=== PATIENT | female | born 1945 | race Caucasian/White ===

== ENCOUNTER 2016-08-10 16:41 | Observation (INO) ==
--- NOTE | 2016-08-10 17:55 | Emergency Department Note ---
Disposition Clinical Impression: Nausea, Elevated troponin Disposition: Admitted As Inpatient Condition: Good Abdominal Pain HPI - General Chief Complaint: ED Abdominal Pain Stated Complaint: abdominal pain/nausea Time Seen by Provider: 08/10/16 17:19 Source: patient Mode of arrival: ambulatory Limitations: no limitations Nursing Notes Reviewed: Yes Vital Signs Reviewed: Yes - History of Present Illness HPI Narrative: 71-year-old who comes in complaining of abdominal discomfort and a headache. She is noted to have elevated blood pressure. He should was hospitalized at [facility] with bullous pemphigoid. Patient was transferred to long term and was recently discharged from there. They should states she is nauseated with some abdominal discomfort and also complaining of a headache. Patient's blood pressure is elevated 180/111. 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 Consistency: constant Location: diffuse Pain Severity: mild, moderate Quality: aching Radiation: none Migration to: no migration Improves with: nothing Worsens with: nothing Associated symptoms: Reports: nausea, other (Headache) - Related Data Home Medications Medication Instructions Recorded Confirmed Aspirin Enteric Coated [Aspirin EC] 81 mg PO DAILY 06/16/16 08/11/16 Citalopram Hydrobromide 40 mg PO DAILY 06/16/16 08/11/16 [Citalopram HBr] Cyclobenzaprine [Flexeril] 10 mg PO HS PRN 06/16/16 08/10/16 Fenofibrate [Fenofibrate] 160 mg PO DAILY 06/16/16 08/11/16 Gabapentin [Gabapentin] 800 mg PO TID 06/16/16 08/11/16 Isosorbide MONOnitrate (24 HR) 30 mg PO DAILY 06/16/16 08/11/16 [Imdur] Loratadine [Claritin] 10 mg PO DAILY 06/16/16 08/11/16 Metoprolol XL (24 HR) Succ [Toprol 50 mg PO DAILY 06/16/16 08/11/16 XL] [place]-3 Acid Ethyl Esters [Lovaza] 2 gm PO BID 06/16/16 08/11/16 Atorvastatin [Lipitor] 40 mg PO HS 08/11/16 08/11/16 Ferrous Sulfate 324 mg PO TID 08/11/16 08/11/16 Insulin DETEMIR [Levemir Flextouch] 40 unit SQ DAILY 08/11/16 08/11/16 Insulin LISPRO [HumaLOG] 0 units SQ TIDWM MDD SLIDING SCALE 08/11/16 08/11/16 PredniSONE 10 mg PO DAILY 08/11/16 08/11/16 Allergies Allergy/AdvReac Type Severity Reaction Status Date / Time No Known Allergies Allergy Verified 05/14/16 07:52 All systems ED: reviewed and negative except as stated. Constitutional: Denies: fever, chills, weakness, weight change Eyes: Denies: eye pain, eye discharge, vision change ENT ED: Denies: ear pain, throat pain, dental pain, hearing loss, epistaxis, congestion, dysphagia Cardiovascular: Denies: chest pain, palpitations, dyspnea on exertion, edema, syncope Respiratory: Denies: cough, dyspnea, wheezes, hemoptysis, stridor Gastrointestinal: Reports: abdominal pain, nausea, vomiting. Denies: diarrhea, constipation, hematemesis, melena, hematochezia Genitourinary: Denies: dysuria, frequency, hematuria, discharge Musculoskeletal: Denies: back pain, neck pain, arthralgia, myalgia Integumentary: Denies: rash, abrasion, lesions Neurological: Reports: headache. 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 Psychiatric history: Reports: anxiety, depression - Social History Smoking status: Never smoker Alcohol use: Reports: none Drug use: Reports: none Physical Exam - General Limitations: no limitations General appearance: alert, in no apparent distress - Head Head exam: atraumatic, normocephalic, normal inspection - Eye Eye exam: Present: normal appearance, PERRL, EOMI - ENT ENT exam: normal exam, normal oropharynx, mucous membranes moist - Neck Neck exam: Present: normal inspection, full ROM, trachea midline - Chest Chest inspection: Present: normal inspection, symmetric chest wall rise - Respiratory Respiratory exam: Present: normal lung sounds bilaterally - Cardiovascular Cardiovascular exam: Present: regular rate, normal rhythm, normal heart sounds - Abdominal Exam Abdominal exam: Present: tenderness Abdominal tenderness: Present: mild - Extremities Exam Extremities exam: Present: normal inspection, full ROM. Absent: tenderness, pedal edema - Expanded Lower Extremity Exam Neurovascular/Tendon exam: Absent: motor deficit, sensory deficit, tendon deficit Gait: observed and normal - Back Exam Back exam: Present: normal inspection, full ROM. Absent: tenderness - Neurological Exam Neurological exam: Present: alert, oriented X3 - Psychiatric Psychiatric exam: Present: normal affect, normal mood - Skin Skin exam: Present: warm, dry, intact, normal color Course Vital Signs Temperature 98.7 F 08/10/16 16:43 Pulse Rate 108 08/10/16 16:43 Respiratory Rate 16 08/10/16 16:43 Blood Pressure 188/111 08/10/16 16:43 O2 Sat by Pulse Oximetry 97 08/10/16 16:43 Temperature 97.5 F L 08/12/16 06:59 Pulse Rate 85 08/12/16 06:59 Respiratory Rate 17 08/12/16 06:59 Blood Pressure 176/78 08/12/16 09:33 O2 Sat by Pulse Oximetry 96 08/12/16 06:59 Oxygen Delivery Oxygen Delivery Room Air Abdominal Pain - Lab Data Result diagrams: 08/12/16 04:35 08/12/16 04:35 Lab Results 08/10/16 08/10/16 08/10/16 Range/Units 18:19 18:19 18:19 WBC 10.6 (4.3-11.1) K/mcL RBC 4.61 (3.82-4.97) M/mcL Hgb 12.4 (11.5-15.4) g/dL Hct 37.7 (35.3-44.9) % MCV 81.8 L (83.0-100.0) fL MCH 26.9 L (28.0-33.3) pg MCHC 32.9 (31.6-35.5) g/dL RDW 15.4 H (11.5-14.5) % Plt Count 198 (140-400) K/mcL MPV 9.7 (9.4-12.4) fL Immature Gran % 0.8 (0-4) % Seg Neutrophils % 68.5 % Lymphocytes % 20.2 % Monocytes % 6.2 % Eosinophils % 3.8 % Basophils % 0.5 % Neutrophils # 7.3 (1.6-8.9) K/mcL Lymphocytes # 2.1 (0.6-4.6) K/mcL Monocytes # 0.7 (0.0-1.3) K/mcL Eosinophils # 0.4 (0.0-0.6) K/mcL Basophils # 0.1 (0.0-0.2) K/mcL Immature Plt Fraction 2.9 (1.1-6.1) % Sodium (136-145) mEq/L Potassium (3.5-4.5) mEq/L Chloride (98-109) mEq/L Carbon Dioxide (19-29) mEq/L BUN (7-20) mg/dL Creatinine (0.57-1.11) mg/dL Est GFR ( Amer) (> 60) Est GFR (Non-Af Amer) (> 60) BUN/Creatinine Ratio (6-26) Glucose (70-99) mg/dL Calculated Osmolality (280-300) Lactic Acid 1.2 (0.5-2.2) mmol/L Calcium (8.6-10.8) mg/dL Total Bilirubin (0.2-1.2) mg/dL Direct Bilirubin (0.0-0.5) mg/dL Indirect Bilirubin (0.0-1.2) mg/dL AST (5-34) Units/L ALT (0-55) Units/L Alkaline Phosphatase (38-126) Units/L Troponin I 0.11 H* (0-0.03) ng/mL Serum Total Protein (6.0-8.3) g/dL Albumin (3.5-5.0) g/dL Globulin (2.4-3.5) g/dL Albumin/Globulin Ratio (1.1-2.2) Amylase (25-125) Units/L Lipase (8-78) Units/L Urine Color (Yellow) Urine Clarity (Clear) Urine pH (5.0-8.0) pH Units Ur Specific [place] (1.010-1.025) Urine Protein (Neg-Trace) mg/dL Urine Glucose (UA) (Normal) mg/dL Urine Ketones (Negative) mg/dL Urine Blood (Negative) Urine Nitrite (Negative) Urine Bilirubin (Negative) Urine Urobilinogen (Normal) mg/dL Ur Leukocyte Esterase (Negative) Urine Microscopic RBC (0-3) per hpf Urine Microscopic WBC (0-3) per hpf Ur Squamous Epith Cells (None-Few) per lpf Ur Renal Epithelial Cell (None-Few) per hpf Urine Bacteria (None-Few) per hpf Hyaline Casts (None-Few) per lpf Urine Yeast Ur Culture Indicated? (NO) 08/10/16 08/10/16 Range/Units 18:19 18:26 WBC (4.3-11.1) K/mcL RBC (3.82-4.97) M/mcL Hgb (11.5-15.4) g/dL Hct (35.3-44.9) % MCV (83.0-100.0) fL MCH (28.0-33.3) pg MCHC (31.6-35.5) g/dL RDW (11.5-14.5) % Plt Count (140-400) K/mcL MPV (9.4-12.4) fL Immature Gran % (0-4) % Seg Neutrophils % % Lymphocytes % % Monocytes % % Eosinophils % % Basophils % % Neutrophils # (1.6-8.9) K/mcL Lymphocytes # (0.6-4.6) K/mcL Monocytes # (0.0-1.3) K/mcL Eosinophils # (0.0-0.6) K/mcL Basophils # (0.0-0.2) K/mcL Immature Plt Fraction (1.1-6.1) % Sodium 138 (136-145) mEq/L Potassium 3.6 (3.5-4.5) mEq/L Chloride 100 (98-109) mEq/L Carbon Dioxide 27 (19-29) mEq/L BUN 22 H (7-20) mg/dL Creatinine 1.28 H (0.57-1.11) mg/dL Est GFR ( Amer) 50 L (> 60) Est GFR (Non-Af Amer) 41 L (> 60) BUN/Creatinine Ratio 17 (6-26) Glucose 246 H (70-99) mg/dL Calculated Osmolality 298 (280-300) Lactic Acid (0.5-2.2) mmol/L Calcium 11.1 H (8.6-10.8) mg/dL Total Bilirubin 0.7 (0.2-1.2) mg/dL Direct Bilirubin 0.3 (0.0-0.5) mg/dL Indirect Bilirubin 0.4 (0.0-1.2) mg/dL AST 26 (5-34) Units/L ALT 22 (0-55) Units/L Alkaline Phosphatase 14 L (38-126) Units/L Troponin I (0-0.03) ng/mL Serum Total Protein 6.5 (6.0-8.3) g/dL Albumin 2.9 L (3.5-5.0) g/dL Globulin 3.6 H (2.4-3.5) g/dL Albumin/Globulin Ratio 0.8 L (1.1-2.2) Amylase 23 L (25-125) Units/L Lipase 27 (8-78) Units/L Urine Color Yellow (Yellow) Urine Clarity Clear (Clear) Urine pH 7.5 (5.0-8.0) pH Units Ur Specific [place] 1.022 (1.010-1.025) Urine Protein >=300 H (Neg-Trace) mg/dL Urine Glucose (UA) 500 H (Normal) mg/dL Urine Ketones Trace H (Negative) mg/dL Urine Blood Moderate H (Negative) Urine Nitrite Negative (Negative) Urine Bilirubin Negative (Negative) Urine Urobilinogen Normal (Normal) mg/dL Ur Leukocyte Esterase Negative (Negative) Urine Microscopic RBC 30-50 H (0-3) per hpf Urine Microscopic WBC 0-3 (0-3) per hpf Ur Squamous Epith Cells Many H (None-Few) per lpf Ur Renal Epithelial Cell Few (None-Few) per hpf Urine Bacteria None Seen (None-Few) per hpf Hyaline Casts Few (None-Few) per lpf Urine Yeast Test Not Performed Ur Culture Indicated? NO (NO) S.B.A.R. - S.B.A.R. Recommendation: Recommendation based on pending studies, treatments, or consults S.B.A.R. Report Given to: Dr. Mohini FuADanyelle Repor Time: 19:00
[2016-08-10 18:27] LABS: Basophils # 0.1 K/mcL (0.0-0.2); Basophils % 0.5 %; Eosinophils # 0.4 K/mcL (0.0-0.6); Eosinophils % 3.8 %; Hematocrit 37.7 % (35.3-44.9); Hemoglobin 12.4 g/dL (11.5-15.4); Immature Granulocytes % 0.8 % (0-4); Immature Platelets 2.9 % (1.1-6.1); Lymphocytes # 2.1 K/mcL (0.6-4.6); Lymphocytes % 20.2 %; Mean Corpuscular HGB Conc 32.9 g/dL (31.6-35.5); Mean Corpuscular Hemoglobin 26.9 pg (28.0-33.3); Mean Corpuscular Volume 81.8 fL (83.0-100.0); Mean Platelet Volume 9.7 fL (9.4-12.4); Monocytes # 0.7 K/mcL (0.0-1.3); Monocytes % 6.2 %; Neutrophils # 7.3 K/mcL (1.6-8.9); Platelet Count 198 K/mcL (140-400); Red Blood Count 4.61 M/mcL (3.82-4.97); Red Cell Distribution Width 15.4 % (11.5-14.5); Segmented Neutrophils % 68.5 %
[2016-08-10 18:40] LABS: Bilirubin,Urine Negative (Negative); Blood,Urine Moderate (Negative); Color,Urine Yellow (Yellow); Glucose,Urine (UA) 500 mg/dL (Normal); Ketones,Urine Trace mg/dL (Negative); Leukocyte Esterase,Urine Negative (Negative); Nitrite,Urine Negative (Negative); PH,Urine 7.5 pH Units (5.0-8.0); Protein,Urine >=300 mg/dL (Neg-Trace); Specific Gravity,Urine 1.022 (1.010-1.025); Urobilinogen,Urine Normal (Normal)
[2016-08-10 18:42] LABS: Bacteria,Urine None Seen per hpf (None-Few); Clarity,Urine Clear (Clear); Squamous Epithelial Cell,Urine Many per lpf (None-Few); WBC,Urine 0-3 per hpf (0-3)
[2016-08-10 18:48] LABS: Albumin 2.9 g/dL (3.5-5.0); Albumin/Globulin Ratio 0.8 (1.1-2.2); Bilirubin,Direct 0.3 mg/dL (0.0-0.5); Bilirubin,Indirect 0.4 mg/dL (0.0-1.2); Bilirubin,Total 0.7 mg/dL (0.2-1.2); Calcium 11.1 mg/dL (8.6-10.8); Globulin 3.6 g/dL (2.4-3.5); Potassium 3.6 mEq/L (3.5-4.5); Total Protein 6.5 g/dL (6.0-8.3)
[2016-08-10 18:59] LABS: Hyaline Casts,Urine Few per lpf (None-Few); Renal Epithelial Cells,Urine Few per hpf (None-Few)
[2016-08-10 19:00] LABS: RBC,Urine 30-50 per hpf (0-3)
[2016-08-10] MEDS ORDERED: *HR* Metoprolol 5 MG/5 ML VIAL IVP ONE (19:31)
[2016-08-10] MEDS ORDERED: Ondansetron 4 MG/2 ML VIAL IVP ONE (19:31)
[2016-08-10] MEDS ORDERED: Aspirin 81 MG TAB.CHEW PO ONE (19:39)
--- NOTE | 2016-08-10 19:41 | Emergency Department Note ---
Disposition Clinical Impression: Nausea, Elevated troponin Disposition: Admitted As Inpatient Condition: Good Time of Disposition: 19:56 General Adult HPI - General Chief complaint: ED Abdominal Pain Stated complaint: abdominal pain/nausea Time Seen by Provider: 08/10/16 17:19 Source: patient Mode of arrival: ambulatory Limitations: no limitations - History of Present Illness Pain Scale: 6 - Related Data Home Medications Medication Instructions Recorded Confirmed Aspirin Enteric Coated [Aspirin EC] 81 mg PO DAILY 06/16/16 08/10/16 Citalopram Hydrobromide 40 mg PO DAILY 06/16/16 08/10/16 [Citalopram HBr] Cyclobenzaprine [Flexeril] 10 mg PO HS PRN 06/16/16 08/10/16 Fenofibrate [Fenofibrate] 160 mg PO DAILY 06/16/16 08/10/16 Gabapentin [Gabapentin] 800 mg PO TID 06/16/16 08/10/16 Insulin Glargine [Lantus] 40 unit SQ DAILY 06/16/16 08/10/16 Isosorbide MONOnitrate (24 HR) 30 mg PO DAILY 06/16/16 08/10/16 [Imdur] Loratadine [Claritin] 10 mg PO DAILY 06/16/16 08/10/16 Metoprolol XL (24 HR) Succ [Toprol 50 mg PO DAILY 06/16/16 08/10/16 XL] [place]-3 Acid Ethyl Esters [Lovaza] 2 gm PO BID 06/16/16 08/10/16 Allergies Allergy/AdvReac Type Severity Reaction Status Date / Time No Known Allergies Allergy Verified 05/14/16 07:52 Constitutional: Denies: fever, chills, weakness, weight change Eyes: Denies: eye pain, eye discharge, vision change ENT ED: Denies: ear pain, throat pain, dental pain, hearing loss, epistaxis, congestion, dysphagia Cardiovascular: Denies: chest pain, palpitations, dyspnea on exertion, edema, syncope Respiratory: Denies: cough, dyspnea, wheezes, hemoptysis, stridor Gastrointestinal: Reports: abdominal pain, nausea, vomiting. Denies: diarrhea, constipation, hematemesis, melena, hematochezia Genitourinary: Denies: dysuria, frequency, hematuria, discharge Musculoskeletal: Denies: back pain, neck pain, arthralgia, myalgia Integumentary: Denies: rash, abrasion, lesions Neurological: Reports: headache. 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 Edwards. Troponin was found to be elevated to 0.11. Troponin has never been this elevated before. Patient complains of nausea and does admit to exertional dyspnea. Blood pressure has been elevated while in the emergency department. We will lower this with metoprolol. She is not sure whether she took her home blood pressure meds today. Aspirin was administered. Repeat EKG is unchanged from initial EKG. Repeat EKG shows sinus tachycardia at [address] elevation or depression. Inferior T wave inversions are present. There is some limitation of motion artifact. Inferior Q waves are present. There is no significant change from prior EKG. Accepted by Dr. Venegas Time: 19:56 Vital Signs Temperature 98.7 F 08/10/16 16:43 Pulse Rate 108 08/10/16 16:43 Respiratory Rate 16 08/10/16 16:43 Blood Pressure 188/111 08/10/16 16:43 O2 Sat by Pulse Oximetry 97 08/10/16 16:43 Temperature 98.2 F 08/11/16 03:07 Pulse Rate 80 08/11/16 03:07 Respiratory Rate 18 08/11/16 03:07 Blood Pressure 187/83 08/11/16 03:07 O2 Sat by Pulse Oximetry 95 08/11/16 03:07 Oxygen Delivery Oxygen Delivery Room Air Medical Decision Making - Lab Data Result diagrams: 08/11/16 00:51 08/11/16 00:51 Lab Results 08/10/16 08/10/16 08/10/16 Range/Units 18:19 18:19 18:19 WBC 10.6 (4.3-11.1) K/mcL RBC 4.61 (3.82-4.97) M/mcL Hgb 12.4 (11.5-15.4) g/dL Hct 37.7 (35.3-44.9) % MCV 81.8 L (83.0-100.0) fL MCH 26.9 L (28.0-33.3) pg MCHC 32.9 (31.6-35.5) g/dL RDW 15.4 H (11.5-14.5) % Plt Count 198 (140-400) K/mcL MPV 9.7 (9.4-12.4) fL Immature Gran % 0.8 (0-4) % Seg Neutrophils % 68.5 % Lymphocytes % 20.2 % Monocytes % 6.2 % Eosinophils % 3.8 % Basophils % 0.5 % Neutrophils # 7.3 (1.6-8.9) K/mcL Lymphocytes # 2.1 (0.6-4.6) K/mcL Monocytes # 0.7 (0.0-1.3) K/mcL Eosinophils # 0.4 (0.0-0.6) K/mcL Basophils # 0.1 (0.0-0.2) K/mcL Immature Plt Fraction 2.9 (1.1-6.1) % Sodium (136-145) mEq/L Potassium (3.5-4.5) mEq/L Chloride (98-109) mEq/L Carbon Dioxide (19-29) mEq/L BUN (7-20) mg/dL Creatinine (0.57-1.11) mg/dL Est GFR ( Amer) (> 60) Est GFR (Non-Af Amer) (> 60) BUN/Creatinine Ratio (6-26) Glucose (70-99) mg/dL Calculated Osmolality (280-300) Lactic Acid 1.2 (0.5-2.2) mmol/L Calcium (8.6-10.8) mg/dL Total Bilirubin (0.2-1.2) mg/dL Direct Bilirubin (0.0-0.5) mg/dL Indirect Bilirubin (0.0-1.2) mg/dL AST (5-34) Units/L ALT (0-55) Units/L Alkaline Phosphatase (38-126) Units/L Troponin I 0.11 H* (0-0.03) ng/mL Serum Total Protein (6.0-8.3) g/dL Albumin (3.5-5.0) g/dL Globulin (2.4-3.5) g/dL Albumin/Globulin Ratio (1.1-2.2) Amylase (25-125) Units/L Lipase (8-78) Units/L Urine Color (Yellow) Urine Clarity (Clear) Urine pH (5.0-8.0) pH Units Ur Specific [place] (1.010-1.025) Urine Protein (Neg-Trace) mg/dL Urine Glucose (UA) (Normal) mg/dL Urine Ketones (Negative) mg/dL Urine Blood (Negative) Urine Nitrite (Negative) Urine Bilirubin (Negative) Urine Urobilinogen (Normal) mg/dL Ur Leukocyte Esterase (Negative) Urine Microscopic RBC (0-3) per hpf Urine Microscopic WBC (0-3) per hpf Ur Squamous Epith Cells (None-Few) per lpf Ur Renal Epithelial Cell (None-Few) per hpf Urine Bacteria (None-Few) per hpf Hyaline Casts (None-Few) per lpf Urine Yeast Ur Culture Indicated? (NO) 08/10/16 08/10/16 Range/Units 18:19 18:26 WBC (4.3-11.1) K/mcL RBC (3.82-4.97) M/mcL Hgb (11.5-15.4) g/dL Hct (35.3-44.9) % MCV (83.0-100.0) fL MCH (28.0-33.3) pg MCHC (31.6-35.5) g/dL RDW (11.5-14.5) % Plt Count (140-400) K/mcL MPV (9.4-12.4) fL Immature Gran % (0-4) % Seg Neutrophils % % Lymphocytes % % Monocytes % % Eosinophils % % Basophils % % Neutrophils # (1.6-8.9) K/mcL Lymphocytes # (0.6-4.6) K/mcL Monocytes # (0.0-1.3) K/mcL Eosinophils # (0.0-0.6) K/mcL Basophils # (0.0-0.2) K/mcL Immature Plt Fraction (1.1-6.1) % Sodium 138 (136-145) mEq/L Potassium 3.6 (3.5-4.5) mEq/L Chloride 100 (98-109) mEq/L Carbon Dioxide 27 (19-29) mEq/L BUN 22 H (7-20) mg/dL Creatinine 1.28 H (0.57-1.11) mg/dL Est GFR ( Amer) 50 L (> 60) Est GFR (Non-Af Amer) 41 L (> 60) BUN/Creatinine Ratio 17 (6-26) Glucose 246 H (70-99) mg/dL Calculated Osmolality 298 (280-300) Lactic Acid (0.5-2.2) mmol/L Calcium 11.1 H (8.6-10.8) mg/dL Total Bilirubin 0.7 (0.2-1.2) mg/dL Direct Bilirubin 0.3 (0.0-0.5) mg/dL Indirect Bilirubin 0.4 (0.0-1.2) mg/dL AST 26 (5-34) Units/L ALT 22 (0-55) Units/L Alkaline Phosphatase 14 L (38-126) Units/L Troponin I (0-0.03) ng/mL Serum Total Protein 6.5 (6.0-8.3) g/dL Albumin 2.9 L (3.5-5.0) g/dL Globulin 3.6 H (2.4-3.5) g/dL Albumin/Globulin Ratio 0.8 L (1.1-2.2) Amylase 23 L (25-125) Units/L Lipase 27 (8-78) Units/L Urine Color Yellow (Yellow) Urine Clarity Clear (Clear) Urine pH 7.5 (5.0-8.0) pH Units Ur Specific [place] 1.022 (1.010-1.025) Urine Protein >=300 H (Neg-Trace) mg/dL Urine Glucose (UA) 500 H (Normal) mg/dL Urine Ketones Trace H (Negative) mg/dL Urine Blood Moderate H (Negative) Urine Nitrite Negative (Negative) Urine Bilirubin Negative (Negative) Urine Urobilinogen Normal (Normal) mg/dL Ur Leukocyte Esterase Negative (Negative) Urine Microscopic RBC 30-50 H (0-3) per hpf Urine Microscopic WBC 0-3 (0-3) per hpf Ur Squamous Epith Cells Many H (None-Few) per lpf Ur Renal Epithelial Cell Few (None-Few) per hpf Urine Bacteria None Seen (None-Few) per hpf Hyaline Casts Few (None-Few) per lpf Urine Yeast Test Not Performed Ur Culture Indicated? NO (NO) Attestation Statement - Attestation Attestation: I, Yaw Rajan, examined this patient and my medical decision-making was reviewed with the DIETITIAN CONSULTANT/PA/Advanced Practice Nurse/Resident Physician. I agree with the documented findings, disposition and treatment plan as described except to the extent set forth below. 71-year-old female received in sign out from start of my shift from Dr. Edwards pending laboratory evaluation, CT read and disposition. Patient states she had acute onset of nausea and epigastric pain. Patient has an elevated troponin the emergency department. EKG did not show evidence of acute STEMI. Patient given aspirin the emergency department. She does report occasional exertional dyspnea but denies chest pain emergency Department. Patient will be admitted to the hospital for further care and evaluation of elevated troponin and rule out ACS.
[2016-08-10] MEDS ORDERED: Naloxone 0.4 MG/ML INJ IVP PRN (20:39)
[2016-08-10] MEDS ORDERED: D5% in Water 1,000 ML IVC PRN (20:48)
[2016-08-10] MEDS ORDERED: Dextrose Gel 15 GM PO PRN ×2 (20:48)
[2016-08-10] MEDS ORDERED: *HR* Dextrose 50 % in Water (Syg) 50 ML SYRINGE IVP PRN (20:48)
--- NOTE | 2016-08-10 20:52 | Internal Med History&Physical ---
Date of Encounter: 08/10/16 Time of Encounter: 20:00 Assessment and Plan (1) Acute gastritis Current visit: Yes Status: Acute Patient has nausea and vomiting. Abdominal exam is benign. CT abdomen unremarkable. - Consider acute gastritis, possibly viral - Symptomatic treatment. - IV fluid because patient has poor intake. - Closely monitor electrolytes level - Start from clear liquid diet. Qualifiers: Gastritis type: other gastritis Gastritis bleeding: without bleeding Qualified Code(s): K29.00 - Acute gastritis without bleeding (2) Hypertensive urgency Current visit: Yes Status: Acute Patient has history of hypertension. BP is high to 190s. - We will add amlodipine 10 mg by mouth daily starting from now. - Hydralazine 10 mg IV every 6 hours when necessary for hypertension. - Close monitor her blood pressure. (3) Diabetes Current visit: Yes Status: Acute Continue basal and sliding scale insulin. 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 Continue aspirin, beta ritesh, nitrate, and statin. Qualifiers: Coronary Disease-Associated Artery/Lesion type: [place] artery [place] vs. transplanted heart: [place] heart Associated angina: without angina Qualified Code(s): I25.10 - Atherosclerotic heart disease of [place] coronary artery without angina pectoris (5) CKD (chronic kidney disease) Current visit: Yes Status: Acute Chronic. Her creatinine level is about at her baseline Qualifiers: Chronic kidney disease stage: stage 3 (moderate) Qualified Code(s): N18.3 - Chronic kidney disease, stage 3 (moderate) (6) DVT prophylaxis Current visit: Yes Status: Acute Heparin subcutaneously (7) Elevated troponin Current visit: Yes Status: Acute Mild elevated troponin in a CKD setting, possibly demand ischemia. However, patient has history of CAD and risk factor for ACS - We will track 3 sets of troponin. - Continue closely cardiac monitoring. Internal Medicine - H&P: HPI Chief complaint: Nausea and vomiting Admitted From: Home Plans for Post Hospital Care: Home History of present illness: Ms. Starr is a 71 year old female with a history of diabetes, hypertension, CAD, CKD present to ER for nausea and vomiting since yesterday afternoon. Patient said she feels headache and then started nausea. She vomited once today , the vomiting is the lunch she ate. No blood inside. Patient denies fever, runny nose, sore throat, cough, shortness of breath, chest pain, abdominal pain , diarrhea. In ER she was found blood pressure high to 190s. Patient said she is compliant with medication but does not examine blood pressure regularly. Patient was admitted for further management. Discussed the CODE STATUS with her, she is a full code. Past Med Surg Social Fam HX - Past Medical History Medical history: diabetes, hypertension Psychiatric history: anxiety, depression - Past Surgical History Surgical History: non-contributory - Social History Smoking Status: Never smoker Smokeless Tobacco Status: No Alcohol use: none Drug use: none Internal Medicine - H&P: Meds Aspirin Enteric Coated [Aspirin EC] 81 mg PO DAILY 06/16/16 [History] Citalopram Hydrobromide [Citalopram HBr] 40 mg PO DAILY 06/16/16 [History] Cyclobenzaprine [Flexeril] 10 mg PO HS PRN 06/16/16 [History] Fenofibrate [Fenofibrate] 160 mg PO DAILY 06/16/16 [History] Gabapentin [Gabapentin] 800 mg PO TID 06/16/16 [History] Insulin Glargine [Lantus] 40 unit SQ DAILY 06/16/16 [History] Isosorbide MONOnitrate (24 HR) [Imdur] 30 mg PO DAILY 06/16/16 [History] Loratadine [Claritin] 10 mg PO DAILY 06/16/16 [History] Metoprolol XL (24 HR) Succ [Toprol XL] 50 mg PO DAILY 06/16/16 [History] [place]-3 Acid Ethyl Esters [Lovaza] 2 gm PO BID 06/16/16 [History] Allergies No Known Allergies Allergy (Verified 05/14/16 07:52) All Systems PM: A 10-system review of systems was performed and is negative for pertinent findings except as documented above in the HPI. - Constitutional Vitals: Temp Pulse Resp BP Pulse Ox 98.7 F 83 18 197/80 94 08/10/16 16:43 08/10/16 19:52 08/10/16 20:41 08/10/16 20:41 08/10/16 19:52 General appearance: Present: A&O X 3, no acute distress, answers questions appropriately - Head Head exam: Present: atraumatic, normocephalic - Eye Eye exam: Present: PERRL, conjuntiva pink, sclera anicteric Pupils: Present: PERRL - Neck Neck exam general surgery: Present: supple, trachea midline. Absent: lymphadenopathy - Respiratory Respiratory exam: Present: CTAB. Absent: accessory muscle use, rales, rhonchi, wheezes - Cardiovascular Cardiovascular exam: Present: RRR, +S1, +S2. Absent: diastolic murmur, gallop, rubs, systolic murmur - GI/Abdominal GI/Abdominal exam: Present: normal bowel sounds, soft, no peritoneal signs. Absent: distended, tenderness - Extremities Exam Extremities exam: Present: warm, radial pulses palpable and symetrical. Absent : calf tenderness, cyanotic, pedal edema - Neurological Exam Neurological exam: Present: CN II-XII intact, oriented X3, no focal deficits. Absent: pronater drift, facial droop, speech deficit - Skin Skin exam: Present: dry, intact Internal Med - H&P Results - Labs CBC & Chem 7: 08/10/16 18:19 08/10/16 18:19 - EKG Data -: EKG Interpreted by Myself EKG shows normal: sinus rhythm Rate: normal
[2016-08-10] MEDS: 0.9 % Sodium Chloride 1,000 ML IVC SCH (22:08)
[2016-08-10] MEDS: Insulin DETEMIR 100 UNIT/ML X5UNITS SQ SCH (22:11)
[2016-08-10] MEDS: amLODIPine 5 MG TABLET PO SCH (22:11)
[2016-08-10] MEDS: Insulin LISPRO 300 UNITS/3 ML VIAL SQ SCH (22:17)
[2016-08-10] MEDS: Acetaminophen 325 MG TABLET PO PRN (23:01)
[2016-08-10] MEDS: Ondansetron 4 MG/2 ML VIAL IVP PRN (23:02)
[2016-08-11 01:06] LABS: Basophils # 0.1 K/mcL (0.0-0.2); Basophils % 0.5 %; Eosinophils # 0.4 K/mcL (0.0-0.6); Eosinophils % 3.6 %; Hematocrit 35.9 % (35.3-44.9); Hemoglobin 11.7 g/dL (11.5-15.4); Immature Granulocytes % 0.5 % (0-4); Immature Platelets 2.4 % (1.1-6.1); Lymphocytes # 2.3 K/mcL (0.6-4.6); Lymphocytes % 20.5 %; Mean Corpuscular HGB Conc 32.6 g/dL (31.6-35.5); Mean Corpuscular Hemoglobin 27.1 pg (28.0-33.3); Mean Corpuscular Volume 83.1 fL (83.0-100.0); Mean Platelet Volume 9.8 fL (9.4-12.4); Monocytes # 0.9 K/mcL (0.0-1.3); Neutrophils # 7.5 K/mcL (1.6-8.9); Platelet Count 205 K/mcL (140-400); Red Blood Count 4.32 M/mcL (3.82-4.97); Red Cell Distribution Width 15.7 % (11.5-14.5); Segmented Neutrophils % 66.9 %
[2016-08-11 01:22] LABS: Calcium 11.2 mg/dL (8.6-10.8); Magnesium 1.4 mg/dL (1.6-2.6); Potassium 3.4 mEq/L (3.5-4.5)
[2016-08-11] MEDS: *HR* Heparin 5,000 UNIT/ML VIAL SQ SCH ×2 (06:01→17:07)
[2016-08-11] MEDS: Ondansetron 4 MG/2 ML VIAL IVP PRN (06:06)
[2016-08-11] MEDS: 0.9 % Sodium Chloride 1,000 ML IVC SCH (08:25)
[2016-08-11] MEDS: amLODIPine 5 MG TABLET PO SCH (08:30)
[2016-08-11] MEDS: Metoprolol XL (24 HR) Succ 50 MG TAB.ER.24H PO SCH (08:30)
[2016-08-11] MEDS: Isosorbide MONOnitrate (24 HR) 30 MG TAB.ER.24H PO SCH (08:30)
[2016-08-11] MEDS: Aspirin Enteric Coated 81 MG Tablet PO SCH (08:30)
[2016-08-11] MEDS: Fenofibrate 54 MG TABLET PO SCH (08:30)
[2016-08-11] MEDS: Insulin LISPRO 300 UNITS/3 ML VIAL SQ SCH ×4 (08:31→20:31)
--- NOTE | 2016-08-11 09:42 | Internal Med Progress Note ---
<Casa Salazar - Last Filed: 08/11/16 15:38> Date of Encounter: 08/11/16 Time of Encounter: 09:42 - Assessment and plan (1) Elevated troponin Current Visit: Yes Status: Acute Assessment and plan: Patient history of bullous pemphigoid, diabetes, CTD 3, hypertension presented with cc of nausea that was preceded by global headache 8/10. Patient also states she has exertional dyspnea. Her nausea was not associated vomiting, chest pain, diaphoresis, abdominal pain. Patient was found to have elevated blood pressure of 188/111 and elevated troponins. Her EKG showed sinus tachycardia at a rate of [address] elevation or depressions and there was no change from previous. She had a myocardial infarction in 2000 and is status post PTCA Patient's troponins were 0.11, 0.14, 0.12 respectively. Patient's echocardiogram in 2014 which showed a left ventricle ejection fraction 60-65% with mild diastolic dysfunction, dilated left atrium and no significant valvular dysfunction. Stress test 2015 was negative for ischemia with a gated LVEF of 69%. Patient denies chest pain. Patient is on aspirin, statin, beta ritesh, Imdur. We will continue this We will obtain an echocardiogram, lipid panel, tsh. (2) Nausea Current Visit: Yes Status: Acute Assessment and plan: Patient's initial chief complaint post nausea. This is acute in onset and did not associated with vomiting, epigastric pain. Patient had a CT of the abdomen and brain which was negative. Patient is afebrile. Her nausea is controlled by Zofran. White blood cell count is within normal limits. She has baseline elevation of serum creatinine. And lipase within normal limits. Urinalysis negative for infection. Patient was recently diagnosed with bullous phemphigoid and started on prednisone which can cause gastritis. Patient is tolerating clear liquid diet. Start on omeprazole. We will continue to follow nausea however it has improved since admission. (3) Hypertensive urgency Current Visit: Yes Status: Acute Assessment and plan: Patient presented blood pressure 188/111. Med review shows that patient has not had any blood pressure medication for the last 4 months. She used to be treated with valsartan. Patient was started on amlodipine 10 mg. Her blood pressures decreased to 156/ 78. Furthermore she has been receiving when necessary doses of hydralazine 10 mg. Patient's hypertensive urgency was secondary to her blood pressure not being treated. On discharge she will continue amlodipine. (4) Diabetes Current Visit: Yes Status: Acute Assessment and plan: Patient has a history of diabetes mellitus 2. Last hemoglobin A1c on record is 12.7 in 2014. We will order another HgA1c. Currently patient is on insulin Levemir 14 units at night. Continue SSI COntinue diabetic and clear liquid diet continue ACHS accuchecks. Qualifiers: Diabetes mellitus type: type 2 Diabetes mellitus complication status: with kidney complications Diabetes mellitus complication detail: with chronic kidney disease Diabetes mellitus termination clerk insulin use: with termination clerk use Chronic kidney disease stage: stage 3 (moderate) Qualified Code(s): E11.22 - Type 2 diabetes mellitus with diabetic chronic kidney disease; N18.3 - Chronic kidney disease, stage 3 (moderate); Z79.4 - termination clerk (current) use of insulin (5) DVT prophylaxis Current Visit: Yes Status: Acute Assessment and plan: Continue heparin subcutaneous. (6) Bullous pemphigoid Current Visit: Yes Status: Acute Assessment and plan: patient was diagnosed recently at [facility] for bullous pemphiogid. Currenlty on predinose and triamcinolone 0.1% ointment. She has red patches throughout her skin, but there are no bullas. We will continue prednisone. - Subjective Interval history: 71 y/o Female hxof bullous phemphiogid, diabetes, CKDIII htn presented with cc of nausea. Patient states she had a headache and then developed nausea. Denies any vomiting. She also states she has exertional dyspnea. She was found to have BP of 188/111. She denied CP. EKG showed sinus tachycardia rate [address] elevation or depressions. Patient does not monitor her BP at home. According to her medication audit she has not been precribed a blood pressure medication but used to be on valsartan. Patient had abdominal ct and head ct that were unremarkable. She was started on amlodipine 10mg and hydralazine 10mg IV prn and her BP is currently 156/78. Patient continues to have nausea, but denies vomiting. She denies CP, abdominal pain, palpitations, diarrhea, blurry vision, syncope, dysuria. - Constitutional Vitals: Temp Pulse Resp BP Pulse Ox 97.8 F 96 16 157/77 96 05//17 07:56 08/11/16 07:56 08/11/16 07:56 08/11/16 07:56 08/11/16 07:56 General appearance: Present: A&O X 3, no acute distress, answers questions appropriately Internal Medicine: Result - Labs CBC & Chem 7: 08/11/16 00:51 08/11/16 00:51 Labs: Short CBC 08/11/16 Range/Units 00:51 WBC 11.3 H (4.3-11.1) K/mcL Hgb 11.7 (11.5-15.4) g/dL Hct 35.9 (35.3-44.9) % Plt Count 205 (140-400) K/mcL Neutrophils # 7.5 (1.6-8.9) K/mcL BMP 08/11/16 00:51 Sodium 141 Potassium 3.4 L Chloride 103 Carbon Dioxide 31 H BUN 21 H Creatinine 1.25 H Glucose 150 H Calcium 11.2 H Cardiac Enzymes 08/11/16 08/11/16 Range/Units 00:51 05:03 Troponin I 0.14 H* 0.12 H* (0-0.03) ng/mL Consult Discharge Plan - Plan Referrals: Anna White, TELETYPEWRITER OPERATOR [Primary Care Provider] - <Chin Herzog P - Last Filed: 08/11/16 17:57> Date of Encounter: 08/11/16 - Constitutional Vitals: Temp Pulse Resp BP Pulse Ox 97.8 F 81 16 156/78 97 08/11/16 11:41 08/11/16 11:41 08/11/16 11:41 08/11/16 11:41 08/11/16 11:41 Internal Medicine: Result - Labs CBC & Chem 7: 08/11/16 00:51 08/11/16 00:51 Labs: Short CBC 08/11/16 Range/Units 00:51 WBC 11.3 H (4.3-11.1) K/mcL Hgb 11.7 (11.5-15.4) g/dL Hct 35.9 (35.3-44.9) % Plt Count 205 (140-400) K/mcL Neutrophils # 7.5 (1.6-8.9) K/mcL BMP 08/11/16 00:51 Sodium 141 Potassium 3.4 L Chloride 103 Carbon Dioxide 31 H BUN 21 H Creatinine 1.25 H Glucose 150 H Calcium 11.2 H Cardiac Enzymes 08/11/16 08/11/16 Range/Units 00:51 05:03 Troponin I 0.14 H* 0.12 H* (0-0.03) ng/mL - Attending Attestation I examined this patient and my medical decision-making was reviewed with the COST COORDINATOR/PA/Advanced Practice Nurse/Resident Physician. I agree with the documented findings, disposition and treatment plan as described except to the extent set forth below.
[2016-08-11] MEDS: predniSONE 5 MG TABLET PO SCH (17:08)
--- NOTE | 2016-08-11 17:24 | Electrocardiograph Report ---
[place] [id number] Test Date: 2016-08-10 Pat Name: Christelle Starr Department: 102 Room: 2N1 Gender: F Oxygen Therapy Technician: Taurus : 1945 Requested By: Yury Edwards Order Number: [id number] Reading MD: Yaw Downs Measurements Intervals [place] Rate: 102 P: 90 KS: 163 QRS: -38 QRSD: 78 T: 39 QT: 344 QTc: 403 Interpretive Statements SINUS TACHYCARDIA MARKED LEFT AXIS DEVIATION Electronically Signed On 08-11-2016 17:22:38 EDT by Yaw Downs
--- NOTE | 2016-08-11 17:25 | Electrocardiograph Report ---
[place] [id number] Test Date: 2016-08-10 Pat Name: Christelle Starr Department: 104 Room: 2NE31 Gender: F Pumper Hand: CHRIS : 1945 Requested By: Gavin Pitts Order Number: [id number] Reading MD: Yaw Downs Measurements Intervals [place] Rate: 105 P: 68 MT: 159 QRS: 2 QRSD: 85 T: 20 QT: 279 QTc: 340 Interpretive Statements SINUS TACHYCARDIA POSSIBLE ANTERIOR MYOCARDIAL INFARCTION, PROBABLY OLD INFERIOR MYOCARDIAL INFARCTION, PROBABLY OLD Electronically Signed On 08-11-2016 17:24:08 EDT by Yaw Downs
[2016-08-11] MEDS ORDERED: Magnesium Sulfate 2 GM in D5% in Water 100 ML IVPB ONE (18:34)
[2016-08-11] MEDS: Insulin DETEMIR 100 UNIT/ML X5UNITS SQ SCH (20:29)
[2016-08-11] MEDS: Acetaminophen 325 MG TABLET PO PRN (23:13)
[2016-08-12 04:59] LABS: Hematocrit 34.8 % (35.3-44.9); Hemoglobin 11.2 g/dL (11.5-15.4); Mean Corpuscular HGB Conc 32.2 g/dL (31.6-35.5); Mean Corpuscular Hemoglobin 26.7 pg (28.0-33.3); Mean Corpuscular Volume 82.9 fL (83.0-100.0); Mean Platelet Volume 9.7 fL (9.4-12.4); Platelet Count 182 K/mcL (140-400); Red Cell Distribution Width 15.6 % (11.5-14.5)
[2016-08-12 05:21] LABS: Chol/HDL Ratio 3.7 (0-4.9)
[2016-08-12 05:23] LABS: Calcium 9.7 mg/dL (8.6-10.8); Magnesium 1.6 mg/dL (1.6-2.6); Potassium 3.2 mEq/L (3.5-4.5)
[2016-08-12] MEDS: *HR* Heparin 5,000 UNIT/ML VIAL SQ SCH ×2 (05:39→16:49)
[2016-08-12 05:41] LABS: Thyroid Stimulating Hormone 1.219 mcIU/mL (0.350-4.840)
[2016-08-12] MEDS: 0.9 % Sodium Chloride 1,000 ML IVC SCH (06:30)
--- NOTE | 2016-08-12 08:25 | ECHO - Doppler Report ---
Echocardiogram Name: Christelle Starr Date of Study: 08/11/2016 Date: 1945 Ht: 60.0 in Medical Record#: [id number] Age: 71 Wt: 201.0 lb Gender: Female BSA: 1.87 Order #: [id number] Location: [facility] Room #: 2NE31 Reading Physician: Mamadou Clarke MD, [facility] Clinical Research Nurse: Zarina Jackson RDCS Ordering Physician: Casa Salazar DO Primary Physician: Anna White CNP Indications: Elevated Troponin Impressions: Normal LV systolic function, LVEF 55-60%. Moderate concentric left ventricular hypertrophy. Mild left ventricular diastolic dysfunction. Normal right ventricular size and function. Mild mitral regurgitation. Unable to estimate RVSP due to lack of TR jet. Left Ventricular Wall Motion: Rest Echo Findings All wall segments showed normal motion. Findings: Study Quality * Suboptimal echo windows. ECG Findings * Sinus rhythm with PACs. Left Ventricle * Normal LV systolic function, LVEF 55-60%. * Normal LV chamber size. * Moderate concentric left ventricular hypertrophy. * Mild left ventricular diastolic dysfunction. Right Ventricle * Normal right ventricular size and function. Left Atrium * Moderately dilated left atrium. Right Atrium * Normal right atrial size. Aorta * Normally sized aortic root. Pericardium * There is no pericardial effusion present. IVC * Normal IVC dimensions and inspiratory collapse. Aortic Valve * Aortic valve not well visualized. * No aortic stenosis. * Trace aortic regurgitation. Mitral Valve * Normal mitral valve structure. * No mitral stenosis. * Mild mitral regurgitation. Tricuspid Valve * Tricuspid valve not well visualized. * No tricuspid stenosis. * Trace tricuspid regurgitation. * Unable to estimate RVSP due to lack of TR jet. Pulmonic Valve * Pulmonic valve not well visualized. * No pulmonic stenosis. * No pulmonic regurgitation. History Hypertension Diabetes History of CAD/PTCA Myocardial Infarction 09/27/2014 a Previous Echo was performed. Measurements: BP: 156/ 78 2D Normal Values RVIDd: 3.33 cm IVSd: 1.50 cm 0.6 - 1.0 cm LVIDd: 4.34 cm 3.7 - 5.6 cm LVPWd: 1.40 cm 0.6 - 1.1 cm LVIDs: 2.83 cm 1.5 - 3.6 cm AO: 3.40 cm < 4.0 cm %FS: 34.80 cm >25 % LA volume: 75 Mitral Valve Peak E:1.23 m/sec Peak A:2.01 m/sec E/A Ratio:0.6 Updated by Mamadou Clarke MD, [facility] on 08/12/2016 8:18:59 AM electronically signed on 08/12/2016 8:19:26 AM with status of Final Wall Motion [place]: 1=Normal, 2=Hypokinesis, 3=Akinesis, 4=Dyskinesis, 5=Aneurysmal, 6=Hyperkinetic, X=Not Visualized (Blank)=Missing
[2016-08-12] MEDS: amLODIPine 5 MG TABLET PO SCH (08:49)
[2016-08-12] MEDS: Fenofibrate 54 MG TABLET PO SCH (08:49)
[2016-08-12] MEDS: Aspirin Enteric Coated 81 MG Tablet PO SCH (08:49)
[2016-08-12] MEDS: Isosorbide MONOnitrate (24 HR) 30 MG TAB.ER.24H PO SCH (08:49)
[2016-08-12] MEDS: predniSONE 5 MG TABLET PO SCH (08:49)
[2016-08-12] MEDS: Metoprolol XL (24 HR) Succ 50 MG TAB.ER.24H PO SCH (08:50)
[2016-08-12] MEDS: Insulin LISPRO 300 UNITS/3 ML VIAL SQ SCH ×4 (08:51→20:13)
[2016-08-12] MEDS: Ondansetron 4 MG/2 ML VIAL IVP PRN (15:00)
--- NOTE | 2016-08-12 15:02 | Internal Med Progress Note ---
<Casa Salazar - Last Filed: 08/12/16 16:07> Date of Encounter: 08/12/16 Time of Encounter: 14:59 - Assessment and plan (1) Elevated troponin Current Visit: Yes Status: Acute Assessment and plan: Patient history of bullous pemphigoid, diabetes, CTD 3, hypertension presented with cc of nausea that was preceded by global headache 8/10. Patient also states she has exertional dyspnea. Her nausea was not associated vomiting, chest pain, diaphoresis, abdominal pain. Patient was found to have elevated blood pressure of 188/111 and elevated troponins. Her EKG showed sinus tachycardia at a rate of [address] elevation or depressions and there was no change from previous. She had a myocardial infarction in 2000 and is status post PTCA Patient's troponins were 0.11, 0.14, 0.12 respectively. Patient's echocardiogram in 2014 which showed a left ventricle ejection fraction 60-65% with mild diastolic dysfunction, dilated left atrium and no significant valvular dysfunction. Stress test 2015 was negative for ischemia with a gated LVEF of 69%. Patient denies chest pain. Repeat echocardiogram: 55-60% EF with left ventricular concentric hypertrophy, mild LV diastolic dysfunction, mild mitral regurgitation. Lipid panel WNL, TSH WNL. Elevated troponin likely 2nd to combination of CKD III and hypertension. Patients BP is controlled on amlodipine. Patient is on aspirin, statin, beta ritesh, Imdur. We will continue this (2) Nausea Current Visit: Yes Status: Acute Assessment and plan: improved. stable. Tolerating diet. Advance to regular diabetic diet. Patient's initial chief complaint post nausea. This is acute in onset and did not associated with vomiting, epigastric pain. Patient had a CT of the abdomen and brain which was negative. Patient is afebrile. Her nausea is controlled by Zofran. White blood cell count is within normal limits. She has baseline elevation of serum creatinine. And lipase within normal limits. Urinalysis negative for infection. Patient was recently diagnosed with bullous phemphigoid and started on prednisone which can cause gastritis. Patient is tolerating clear liquid diet. Start on omeprazole. We will continue to follow nausea however it has improved since admission. (3) Hypertensive urgency Current Visit: Yes Status: Acute Assessment and plan: Patient presented blood pressure 188/111. Med review shows that patient has not had any blood pressure medication for the last 4 months. She used to be treated with valsartan. Patient was started on amlodipine 10 mg. Her blood pressures decreased to 156/ 78. Furthermore she has been receiving when necessary doses of hydralazine 10 mg. Patient's hypertensive urgency was secondary to her blood pressure not being treated and underlying CKDIII. On discharge she will continue amlodipine. (4) Diabetes Current Visit: Yes Status: Acute Assessment and plan: Patient has a history of diabetes mellitus 2. Last hemoglobin A1c on record is 12.7 in 2014. We will order another HgA1c. Currently patient is on insulin Levemir 14 units at night. Continue SSI COntinue diabetic and clear liquid diet continue ACHS accuchecks. Qualifiers: Diabetes mellitus type: type 2 Diabetes mellitus complication status: with kidney complications Diabetes mellitus complication detail: with chronic kidney disease Diabetes mellitus long term acute care registered nurse insulin use: with custodial use Chronic kidney disease stage: stage 3 (moderate) Qualified Code(s): E11.22 - Type 2 diabetes mellitus with diabetic chronic kidney disease; N18.3 - Chronic kidney disease, stage 3 (moderate); Z79.4 - assistant terminal manager (current) use of insulin (5) DVT prophylaxis Current Visit: Yes Status: Acute Assessment and plan: Continue heparin subcutaneous. (6) Bullous pemphigoid Current Visit: Yes Status: Acute Assessment and plan: patient was diagnosed recently at [facility] for bullous pemphiogid. Currenlty on predinose and triamcinolone 0.1% ointment. She has red patches throughout her skin, but there are no bullas. We will continue prednisone and triamcinilone cream. - Subjective Interval history: Nausea improved. denies vomiting. She denies CP, abdominal pain, palpitations, diarrhea, blurry vision, syncope, dysuria. BP elevated this morning in systolic 200s. Repeat after morning medications was 157 systolic. - Constitutional Vitals: Temp Pulse Resp BP Pulse Ox 98.7 F 75 16 152/68 98 08/12/16 14:44 08/12/16 14:44 08/12/16 14:44 08/12/16 14:44 08/12/16 14:44 General appearance: Present: A&O X 3, no acute distress, answers questions appropriately - Eye Eye exam: Present: PERRL, conjuntiva pink, sclera anicteric Pupils: Present: PERRL - Neck Neck exam general surgery: Present: supple, trachea midline. Absent: lymphadenopathy - Respiratory Respiratory exam: Present: CTAB. Absent: accessory muscle use, rales, rhonchi, wheezes - Cardiovascular Cardiovascular exam: Present: RRR, +S1, +S2. Absent: diastolic murmur, gallop, rubs, systolic murmur - GI/Abdominal GI/Abdominal exam: Present: normal bowel sounds, soft, no peritoneal signs. Absent: distended, tenderness - Extremities Exam Extremities exam: Present: warm, radial pulses palpable and symetrical. Absent : calf tenderness, cyanotic, pedal edema - Neurological Exam Neurological exam: Present: CN II-XII intact, oriented X3, no focal deficits. Absent: pronater drift, facial droop, speech deficit - Skin Skin exam: Present: dry, intact Additional comments: red non raised patches throughout the body in multiple stages on healing. Left fore arm open wound that is dry, dressed well. Internal Medicine: Result - Labs CBC & Chem 7: 08/12/16 04:35 08/12/16 04:35 Labs: Short CBC 08/12/16 Range/Units 04:35 WBC 8.8 (4.3-11.1) K/mcL Hgb 11.2 L (11.5-15.4) g/dL Hct 34.8 L (35.3-44.9) % Plt Count 182 (140-400) K/mcL BMP 08/12/16 04:35 Sodium 140 Potassium 3.2 L Chloride 107 Carbon Dioxide 27 BUN 15 Creatinine 1.18 H Glucose 122 H Calcium 9.7 Consult Discharge Plan - Plan Referrals: Anna White CNP [Primary Care Provider] - <Quinton Menjivar - Last Filed: 08/12/16 20:01> Date of Encounter: 08/12/16 - Assessment and plan (1) Hypertensive urgency Current Visit: Yes Status: Acute (2) Nausea Current Visit: Yes Status: Acute (3) Diabetes Current Visit: Yes Status: Acute Qualifiers: Diabetes mellitus type: type 2 Diabetes mellitus complication status: with kidney complications Diabetes mellitus complication detail: with chronic kidney disease Diabetes mellitus long term acute care registered nurse insulin use: with custodial use Chronic kidney disease stage: stage 3 (moderate) Qualified Code(s): E11.22 - Type 2 diabetes mellitus with diabetic chronic kidney disease; N18.3 - Chronic kidney disease, stage 3 (moderate); Z79.4 - assistant terminal manager (current) use of insulin (4) CAD (coronary artery disease) Current Visit: Yes Status: Acute Qualifiers: Coronary Disease-Associated Artery/Lesion type: [place] artery [place] vs. transplanted heart: [place] heart Associated angina: without angina Qualified Code(s): I25.10 - Atherosclerotic heart disease of [place] coronary artery without angina pectoris (5) Bullous pemphigoid Current Visit: Yes Status: Acute - Constitutional Vitals: Temp Pulse Resp BP Pulse Ox 98.0 F 79 18 144/57 95 08/12/16 19:02 08/12/16 19:02 08/12/16 19:02 08/12/16 19:02 08/12/16 19:02 Internal Medicine: Result - Labs CBC & Chem 7: 08/12/16 04:35 08/12/16 04:35 Labs: Short CBC 08/12/16 Range/Units 04:35 WBC 8.8 (4.3-11.1) K/mcL Hgb 11.2 L (11.5-15.4) g/dL Hct 34.8 L (35.3-44.9) % Plt Count 182 (140-400) K/mcL BMP 08/12/16 04:35 Sodium 140 Potassium 3.2 L Chloride 107 Carbon Dioxide 27 BUN 15 Creatinine 1.18 H Glucose 122 H Calcium 9.7 - Attending Attestation I examined this patient and my medical decision-making was reviewed with the Resident Physician on 08/12/16. I agree with the documented findings, disposition and treatment plan as described except to the extent set forth below. Ms. Starr is currently in observation due to hypertensive urgency. Ms Starr is feeling OK at this time. Her BP is somewhat better after meds. No CP or SOB. No fever or chills. Exam Alert Comfortable Heart reg No wheeze I/P 1. HTN urgency 2. Diabetes 3. Bullous pemphigoid. Further diagnoses and plan as above.
[2016-08-12] MEDS: Acetaminophen 325 MG TABLET PO PRN (20:12)
[2016-08-12] MEDS: Insulin DETEMIR 100 UNIT/ML X5UNITS SQ SCH (20:12)
[2016-08-12] MEDS: Gabapentin 300 MG CAPSULE PO SCH (22:47)
[2016-08-13] MEDS: *HR* Heparin 5,000 UNIT/ML VIAL SQ SCH ×2 (05:40→18:21)
[2016-08-13 05:44] LABS: Basophils % 0.5 %; Eosinophils # 0.5 K/mcL (0.0-0.6); Eosinophils % 5.8 %; Hematocrit 35.3 % (35.3-44.9); Hemoglobin 11.2 g/dL (11.5-15.4); Immature Granulocytes % 0.6 % (0-4); Lymphocytes # 2.7 K/mcL (0.6-4.6); Lymphocytes % 30.5 %; Mean Corpuscular HGB Conc 31.7 g/dL (31.6-35.5); Mean Corpuscular Hemoglobin 26.6 pg (28.0-33.3); Mean Corpuscular Volume 83.8 fL (83.0-100.0); Mean Platelet Volume 9.9 fL (9.4-12.4); Monocytes # 0.7 K/mcL (0.0-1.3); Monocytes % 7.6 %; Neutrophils # 4.9 K/mcL (1.6-8.9); Platelet Count 184 K/mcL (140-400); Red Blood Count 4.21 M/mcL (3.82-4.97); Red Cell Distribution Width 15.5 % (11.5-14.5)
[2016-08-13 05:53] LABS: Calcium 9.4 mg/dL (8.6-10.8); Magnesium 1.5 mg/dL (1.6-2.6); Potassium 3.1 mEq/L (3.5-4.5)
[2016-08-13] MEDS: Insulin LISPRO 300 UNITS/3 ML VIAL SQ SCH ×4 (09:09→20:43)
[2016-08-13] MEDS: Gabapentin 300 MG CAPSULE PO SCH ×2 (09:16→20:42)
[2016-08-13] MEDS: Aspirin Enteric Coated 81 MG Tablet PO SCH (09:17)
[2016-08-13] MEDS: Isosorbide MONOnitrate (24 HR) 30 MG TAB.ER.24H PO SCH (09:17)
[2016-08-13] MEDS: Fenofibrate 54 MG TABLET PO SCH (09:17)
[2016-08-13] MEDS: amLODIPine 5 MG TABLET PO SCH (09:17)
[2016-08-13] MEDS: Metoprolol XL (24 HR) Succ 50 MG TAB.ER.24H PO SCH (09:18)
[2016-08-13] MEDS: predniSONE 5 MG TABLET PO SCH (09:19)
--- NOTE | 2016-08-13 09:24 | Discharge Summary ---
<Casa Salazar - Last Filed: 08/13/16 09:16> Date of Encounter: 08/13/16 Time of Encounter: 09:17 - Discharge Diagnosis (1) Hypertensive urgency Priority: Primary Status: Acute (2) Elevated troponin Priority: Secondary Status: Acute (3) Nausea Priority: Secondary Status: Acute (4) Diabetes Priority: Secondary Status: Acute Qualifiers: Diabetes mellitus type: type 2 Diabetes mellitus complication status: with kidney complications Diabetes mellitus complication detail: with chronic kidney disease Diabetes mellitus laborer marine terminal insulin use: with half-way use Chronic kidney disease stage: stage 3 (moderate) Qualified Code(s): E11.22 - Type 2 diabetes mellitus with diabetic chronic kidney disease; N18.3 - Chronic kidney disease, stage 3 (moderate); Z79.4 - long term care social worker (current) use of insulin (5) DVT prophylaxis Priority: Secondary Status: Acute (6) Bullous pemphigoid Priority: Secondary Status: Acute - Discharge Medications Prescriptions: amLODIPine [Norvasc] 10 mg PO HS #30 tablet Omeprazole [PriLOSEC] 20 mg PO DAILY@0630 #30 capsule.dr Home Medications: Aspirin Enteric Coated [Aspirin EC] 81 mg PO DAILY 06/16/16 [History] Citalopram Hydrobromide [Citalopram HBr] 40 mg PO DAILY 06/16/16 [History] Cyclobenzaprine [Flexeril] 10 mg PO HS PRN 06/16/16 [History] Fenofibrate 160 mg PO DAILY 06/16/16 [History] Gabapentin 800 mg PO TID 06/16/16 [History] Isosorbide MONOnitrate (24 HR) [Imdur] 30 mg PO DAILY 06/16/16 [History] Loratadine [Claritin] 10 mg PO DAILY 06/16/16 [History] Metoprolol XL (24 HR) Succ [Toprol Xl] 50 mg PO DAILY 06/16/16 [History] [place]-3 Acid Ethyl Esters [Lovaza] 2 gm PO BID 06/16/16 [History] Atorvastatin [Lipitor] 40 mg PO HS 08/11/16 [History] Ferrous Sulfate 324 mg PO TID 08/11/16 [History] Insulin DETEMIR [Levemir Flextouch] 40 unit SQ DAILY 08/11/16 [History] Insulin LISPRO [HumaLOG] 0 units SQ TIDWM MDD SLIDING SCALE 08/11/16 [History] predniSONE [PredniSONE] 10 mg PO DAILY 08/11/16 [History] Omeprazole [PriLOSEC] 20 mg PO DAILY@0630 #30 capsule. 08/13/16 [Rx] Triamcinolone Acet 0.1% OINT [Kenalog] 1 appl TP DAILY tube 08/13/16 [Rx] amLODIPine [Norvasc] 10 mg PO HS #30 tablet 08/13/16 [Rx] Allergies/Adverse Reactions: Allergies No Known Allergies Allergy (Verified 05/14/16 07:52) Procedures/tests Complete & Pending: Procedures Performed prior 72 hours Category Date Time Status EV echocardiogram Routine Y 08/11/16 15:27 Completed Date of admission: 08/10/16 20:03 Primary care physician: Anna White CNP Discharging clinician: Casa Salazar Anticipated date of discharge: 08/13/16 - Patient Status Disposition: Home Health Service Condition: Good Functional capacity at discharge: independent ambulation Overall status at discharge: patient is progressing back to baseline - Discharge Instructions Instructions: Omeprazole (By mouth), Amlodipine (By mouth), Diabetes Mellitus Type 2 in Adults (DC), Chronic Hypertension (DC) Follow Up With: Anna White CNP [Primary Care Provider] - 08/20/16 10:00 am Terrell Kulkarni DO [Partnered Physician] - (will call patient at home with follow up appointment) Additional Instructions: Please come to the ER for evaluation if you have chest pain, shortness of breath , syncope, nausea, vomiting. - Diet and Activity Activity: increase activity as tolerated Diet: diabetic diet Hospital course: 71 y/o Female hx of bullous phemphiogid, diabetes, CKDIII, HTN presented with cc of nausea. Patient states she had a headache and then developed nausea. Denies any vomiting. She also states she has exertional dyspnea. She was found to have BP of 188/111. She denied CP. EKG showed sinus tachycardia rate [address] elevation or depressions. Patient does not monitor her BP at home. According to her medication audit she has not currently prescribed a blood pressure medication but used to be on valsartan. Patient had abdominal ct and head ct that were unremarkable. She was started on amlodipine 10mg and hydralazine 10mg IV prn and her BP improved and is currently in the systolic 150 -160 range. Patient had hx of [place] in 2000 and s/p PTCA. Troponin were elevated 0.11,0.14, 0.12 in presence of CKD III at baseline Scr 1.20, hypertension, without CP, sob. Had echo in 2014 with EF 60-65% mild diastolic dysfunction, dilated left atrium. Had repeat echo this stay EF 55-60% EF with LV concentrc hypertrophy, mild diastolic dysfunction, mild mitral regurgitation. EKG showed sinus tachycardia at a rate of [address] depressions and there were no changes from previous. TSH and lipid panel WNL. Patients nausea resolved with zofran. She did not have any diarrhea. She recieved IVF during the course of her stay. Nausea may be 2nd to HTN, and being started on prednisone for bullous phemphigoid. Patient was started on omeprazole. Plan: Amlodipine 10mg qHS, Omeprazole 20mg daily, follow up with Dr. Lugo site leasing agent for further evaluation. Continue aspirin, statin, bblocker, imdur, fenofibrate. Follow up with PCP in five to seven days. - Time Spent with Patient Total time spent providing and/or coordinating discharge services: - Constitutional Vitals: Temp Pulse Resp BP Pulse Ox 98.0 F 57 17 169/78 96 08/13/16 07:40 08/13/16 07:40 08/13/16 07:40 08/13/16 07:40 08/13/16 07:40 General appearance: Present: A&O X 3, no acute distress, answers questions appropriately - Eye Eye exam: Present: PERRL, conjuntiva pink, sclera anicteric - Neck Neck exam general surgery: Present: supple, trachea midline. Absent: lymphadenopathy - Respiratory Respiratory exam: Present: CTAB. Absent: accessory muscle use, rales, rhonchi, wheezes - Cardiovascular Cardiovascular exam: Present: RRR, +S1, +S2. Absent: diastolic murmur, gallop, rubs, systolic murmur - GI/Abdominal GI/Abdominal exam: Present: normal bowel sounds, soft, no peritoneal signs. Absent: distended, tenderness - Extremities Exam Extremities exam: Present: warm, radial pulses palpable and symetrical. Absent : calf tenderness, cyanotic, pedal edema - Skin Additional comments: red non raised patches throughout the body in multiple stages on healing. Left fore arm open wound that is dry, dressed well. <Quinton Menjivar - Last Filed: 08/13/16 20:04> Date of Encounter: 08/13/16 - Discharge Diagnosis (1) Hypertensive urgency Priority: Primary Status: Acute (2) Nausea Priority: Secondary Status: Acute (3) Diabetes Priority: Secondary Status: Acute Qualifiers: Diabetes mellitus type: type 2 Diabetes mellitus complication status: with kidney complications Diabetes mellitus complication detail: with chronic kidney disease Diabetes mellitus laborer marine terminal insulin use: with laborer marine terminal use Chronic kidney disease stage: stage 3 (moderate) Qualified Code(s): E11.22 - Type 2 diabetes mellitus with diabetic chronic kidney disease; N18.3 - Chronic kidney disease, stage 3 (moderate); Z79.4 - assisted (current) use of insulin (4) CAD (coronary artery disease) Priority: Secondary Status: Acute Qualifiers: Coronary Disease-Associated Artery/Lesion type: [place] artery [place] vs. transplanted heart: [place] heart Associated angina: without angina Qualified Code(s): I25.10 - Atherosclerotic heart disease of [place] coronary artery without angina pectoris (5) Bullous pemphigoid Priority: Secondary Status: Acute Procedures/tests Complete & Pending: Procedures Performed prior 72 hours Category Date Time Status EV echocardiogram Routine Y 08/11/16 15:27 Completed Date of admission: 08/10/16 20:03 Primary care physician: Anna White CNP Consults: 08/13/16 10:20 Consult to Occupational Therapy [CONS] Routine Comment: Evaluate, develop and implement POC Reason for Consult: evaluation for possible skilled care Consult to Physical Therapy [CONS] Routine Comment: Evaluate, develop and implement POC Reason for Consult: evaluation for possible skilled care 08/13/16 15:29 Consult to Staff Home Therapy Rn [CONS] Routine Reason for SW Consult: ECF Hospital course: Ms. Starr is a 71 year old female - Time Spent with Patient Total time spent providing and/or coordinating discharge services: - Constitutional Vitals: Temp Pulse Resp BP Pulse Ox 97.9 F 62 16 146/65 96 08/13/16 16:30 08/13/16 16:30 08/13/16 16:30 08/13/16 16:30 08/13/16 17:30 - Attending Attestation I examined this patient and my medical decision-making was reviewed with the Resident Physician on 08/13/16. I agree with the documented findings, disposition and treatment plan as described except to the extent set forth below. Ms Starr feels OK at this time. BP better overall. Headache improved. No other symptoms. Ready for d/c today. Exam Alert Comfortable Heart reg No wheeze Plan d/c today.
--- NOTE | 2016-08-13 09:47 | Physician Discharge Referral ---
Home Health/Hosp Referral Info Transfer to: Home Health Attending Provider: Dr. Menjivar Provider in Charge Post Discharge: PCP - Diagnosis (1) Hypertensive urgency Priority: Primary Status: Acute (2) Elevated troponin Priority: Secondary Status: Acute (3) Nausea Priority: Secondary Status: Acute (4) Diabetes Priority: Secondary Status: Acute (5) DVT prophylaxis Priority: Secondary Status: Acute (6) Bullous pemphigoid Priority: Secondary Status: Acute - Respiratory Orders Smoking Cessation: Smoking cessation has been advised. For more information, call the [place] [place] Tobacco Quit Line at 3-235-TVWK-NOW. - Dressing/Wound Care Type of Dressing/Treatments w/Frequency: Left forearm open wound from bullous phemphigoid. Clean daily and dress with 4x4 and bandage. Triamcinolone cream on back, upper and lower extremeties once a day. - Diet/Nutrition Diet/Nutrition Orders: Regular (diabetic diet) - Activity Activity Orders: Up ad ti - Services Needed Following services are medically necessary services: Nursing, Home Health Aide - Transfer Medications Prescriptions: Amlodipine [Norvasc] 10 mg PO HS #30 tablet Omeprazole [PriLOSEC] 20 mg PO DAILY@0630 #30 capsule.dr Ward Medications: Aspirin Enteric Coated [Aspirin EC] 81 mg PO DAILY 06/16/16 [History] Citalopram Hydrobromide [Citalopram HBr] 40 mg PO DAILY 06/16/16 [History] Cyclobenzaprine [Flexeril] 10 mg PO HS PRN 06/16/16 [History] Fenofibrate 160 mg PO DAILY 06/16/16 [History] Gabapentin 800 mg PO TID 06/16/16 [History] Isosorbide MONOnitrate (24 HR) [Imdur] 30 mg PO DAILY 06/16/16 [History] Loratadine [Claritin] 10 mg PO DAILY 06/16/16 [History] Metoprolol XL (24 HR) Succ [Toprol Xl] 50 mg PO DAILY 06/16/16 [History] [place]-3 Acid Ethyl Esters [Lovaza] 2 gm PO BID 06/16/16 [History] Atorvastatin [Lipitor] 40 mg PO HS 08/11/16 [History] Ferrous Sulfate 324 mg PO TID 08/11/16 [History] Insulin DETEMIR [Levemir Flextouch] 40 unit SQ DAILY 08/11/16 [History] Insulin LISPRO [HumaLOG] 0 units SQ TIDWM MDD SLIDING SCALE 08/11/16 [History] PredniSONE 10 mg PO DAILY 08/11/16 [History] Amlodipine [Norvasc] 10 mg PO HS #30 tablet 08/13/16 [Rx] Omeprazole [PriLOSEC] 20 mg PO DAILY@0630 #30 capsule. 08/13/16 [Rx] Triamcinolone Acet 0.1% OINT [Kenalog] 1 appl TP DAILY tube 08/13/16 [Rx] Allergies/Adverse Reactions: Allergies No Known Allergies Allergy (Verified 05/14/16 07:52) Certification: Further, I certify that my clinical findings support that this patient is homebound (i.e. absences from home require considerable and taxing effort and are for medical reasons or gnosticism services or infrequently or short duration when for other reasons) because: Homebound Reason: Patient requires assistance of a person or device to safely leave home Attestation: My signature below is to certify that this patient is under my care and that I, or nurse practitioner, or a physician's cardiology physician assistant working with me, has a face-to -face encounter with this patient.
--- NOTE | 2016-08-13 10:24 | Physician Discharge Referral ---
ExtendedCare Referral Info Transfer To: [facility] Provider in Charge: Dr. Menjivar Provider in Charge after Transfer: PCP Institutional Level of Care: Intermediate - MR - Diagnosis (1) Hypertensive urgency Priority: Primary Status: Acute (2) Elevated troponin Priority: Secondary Status: Acute (3) Nausea Priority: Secondary Status: Acute (4) Diabetes Priority: Secondary Status: Acute (5) DVT prophylaxis Priority: Secondary Status: Acute (6) Bullous pemphigoid Priority: Secondary Status: Acute Prognosis: Fair Aware of Diagnosis: Patient, Family Aware of Prognosis: Patient, Family - Transfer Medications Prescriptions: Amlodipine [Norvasc] 10 mg PO HS #30 tablet Omeprazole [PriLOSEC] 20 mg PO DAILY@0630 #30 capsule. Home Medications: Aspirin Enteric Coated [Aspirin EC] 81 mg PO DAILY 06/16/16 [History] Citalopram Hydrobromide [Citalopram HBr] 40 mg PO DAILY 06/16/16 [History] Cyclobenzaprine [Flexeril] 10 mg PO HS PRN 06/16/16 [History] Fenofibrate 160 mg PO DAILY 06/16/16 [History] Gabapentin 800 mg PO TID 06/16/16 [History] Isosorbide MONOnitrate (24 HR) [Imdur] 30 mg PO DAILY 06/16/16 [History] Loratadine [Claritin] 10 mg PO DAILY 06/16/16 [History] Metoprolol XL (24 HR) Succ [Toprol Xl] 50 mg PO DAILY 06/16/16 [History] [place]-3 Acid Ethyl Esters [Lovaza] 2 gm PO BID 06/16/16 [History] Atorvastatin [Lipitor] 40 mg PO HS 08/11/16 [History] Ferrous Sulfate 324 mg PO TID 08/11/16 [History] Insulin DETEMIR [Levemir Flextouch] 40 unit SQ DAILY 08/11/16 [History] Insulin LISPRO [HumaLOG] 0 units SQ TIDWM MDD SLIDING SCALE 08/11/16 [History] PredniSONE 10 mg PO DAILY 08/11/16 [History] Amlodipine [Norvasc] 10 mg PO HS #30 tablet 08/13/16 [Rx] Omeprazole [PriLOSEC] 20 mg PO DAILY@0630 #30 capsule. 08/13/16 [Rx] Triamcinolone Acet 0.1% OINT [Kenalog] 1 appl TP DAILY tube 08/13/16 [Rx] Allergies/Adverse Reactions: Allergies No Known Allergies Allergy (Verified 05/14/16 07:52) - Respiratory Orders Smoking Cessation: Smoking cessation has been advised. For more information, call the [place] Tobacco Quit Line at 0-238-MHKF-NOW. - Ancillary Orders May use pressure relief devices daily prn - Advance Directives Code Status: Full Code - Mobility Orders Ambulate - Rehabiliation Orders Rehab Potential: Good Rehab Orders: ROM Exercises - Treatments Skin tear care topically daily PRN per policy - Diet Orders Regular (diabetic) CERTIFICATION: I certify that the transfer of the above named patient to an Extended Care Facility is necessary for the continuing treatment of the diagnosis listed. The above information is true and accurate reflection of patient's current condition. Confidential - Redisclosure prohibited without a patient's written consent.
[2016-08-13] MEDS: Insulin DETEMIR 100 UNIT/ML X5UNITS SQ SCH (20:43)
[2016-08-13] MEDS: Acetaminophen 325 MG TABLET PO PRN (20:58)
[2016-08-13] MEDS ORDERED: amLODIPine 5 MG TABLET PO SCH (21:00)
[2016-08-14] MEDS: Acetaminophen 325 MG TABLET PO PRN (04:49)
[2016-08-14] MEDS: Ondansetron 4 MG/2 ML VIAL IVP PRN ×2 (04:54→13:17)
[2016-08-14] MEDS: *HR* Heparin 5,000 UNIT/ML VIAL SQ SCH (05:46)
[2016-08-14] MEDS: Gabapentin 300 MG CAPSULE PO SCH (08:31)
[2016-08-14] MEDS: predniSONE 5 MG TABLET PO SCH (08:31)
[2016-08-14] MEDS: Insulin LISPRO 300 UNITS/3 ML VIAL SQ SCH ×2 (08:31→12:14)
[2016-08-14] MEDS: Isosorbide MONOnitrate (24 HR) 30 MG TAB.ER.24H PO SCH (08:31)
[2016-08-14] MEDS: Aspirin Enteric Coated 81 MG Tablet PO SCH (08:31)
[2016-08-14] MEDS: Fenofibrate 54 MG TABLET PO SCH (08:31)
[2016-08-14] MEDS: Metoprolol XL (24 HR) Succ 50 MG TAB.ER.24H PO SCH (08:32)
[2016-08-14 11:51] VITALS: BP 149/62
--- NOTE | 2016-08-14 13:36 | Internal Med Progress Note ---
<Casa Salazar - Last Filed: 08/14/16 13:37> Date of Encounter: 08/14/16 Time of Encounter: 13:30 - Assessment and plan (1) Hypertensive urgency Status: Resolved Assessment and plan: Stable Patient presented blood pressure 188/111. Med review shows that patient has not had any blood pressure medication for the last 4 months. She used to be treated with valsartan. Patient was started on amlodipine 10 mg. Her blood pressures decreased to 156/ 78. Furthermore she has been receiving when necessary doses of hydralazine 10 mg. Patient's hypertensive urgency was secondary to her blood pressure not being treated and underlying CKDIII. On discharge she will continue amlodipine. (2) Elevated troponin Status: Acute Assessment and plan: Patient history of bullous pemphigoid, diabetes, CTD 3, hypertension presented with cc of nausea that was preceded by global headache /. Patient also states she has exertional dyspnea. Her nausea was not associated vomiting, chest pain, diaphoresis, abdominal pain. Patient was found to have elevated blood pressure of 188/111 and elevated troponins. Her EKG showed sinus tachycardia at a rate of [address] elevation or depressions and there was no change from previous. She had a myocardial infarction in 2000 and is status post PTCA Patient's troponins were 0.11, 0.14, 0.12 respectively. Patient's echocardiogram in 2014 which showed a left ventricle ejection fraction 60-65% with mild diastolic dysfunction, dilated left atrium and no significant valvular dysfunction. Stress test 2015 was negative for ischemia with a gated LVEF of 69%. Patient denies chest pain. Repeat echocardiogram: 55-60% EF with left ventricular concentric hypertrophy, mild LV diastolic dysfunction, mild mitral regurgitation. Lipid panel WNL, TSH WNL. Elevated troponin likely 2nd to combination of CKD III and hypertension. Patients BP is controlled on amlodipine. Patient is on aspirin, statin, beta ritesh, Imdur. We will continue this (3) Nausea Status: Resolved Assessment and plan: resolved. Patient's initial chief complaint post nausea. This is acute in onset and did not associated with vomiting, epigastric pain. Patient had a CT of the abdomen and brain which was negative. Patient is afebrile. Her nausea is controlled by Zofran. White blood cell count is within normal limits. She has baseline elevation of serum creatinine. And lipase within normal limits. Urinalysis negative for infection. Patient was recently diagnosed with bullous phemphigoid and started on prednisone which can cause gastritis. Patient is tolerating clear liquid diet. Start on omeprazole. (4) Diabetes Status: Chronic Assessment and plan: Controlled Patient has a history of diabetes mellitus 2. Last hemoglobin A1c on record is 12.7 in 2014. We will order another HgA1c. Currently patient is on insulin Levemir 14 units at night. Continue SSI COntinue diabetic and clear liquid diet continue ACHS accuchecks. Qualifiers: Diabetes mellitus type: type 2 Diabetes mellitus complication status: with kidney complications Diabetes mellitus complication detail: with chronic kidney disease Diabetes mellitus group home insulin use: with terminal gauger use Chronic kidney disease stage: stage 3 (moderate) Qualified Code(s): E11.22 - Type 2 diabetes mellitus with diabetic chronic kidney disease; N18.3 - Chronic kidney disease, stage 3 (moderate); Z79.4 - terminal gauger (current) use of insulin (5) DVT prophylaxis Status: Acute Assessment and plan: Continue heparin subcutaneous. (6) Bullous pemphigoid Status: Acute - Subjective Interval history: No problems overnight. Patient awaiting placement. - Constitutional Vitals: Temp Pulse Resp BP Pulse Ox 97.7 F 53 16 149/62 97 08/14/16 11:42 08/14/16 11:42 08/14/16 11:42 08/14/16 11:42 08/14/16 11:42 General appearance: Present: A&O X 3, no acute distress, answers questions appropriately - Head Head exam: Present: atraumatic, normocephalic - Respiratory Respiratory exam: Present: CTAB. Absent: accessory muscle use, rales, rhonchi, wheezes - GI/Abdominal GI/Abdominal exam: Present: normal bowel sounds, soft, no peritoneal signs. Absent: distended, tenderness - Extremities Exam Extremities exam: Present: warm, radial pulses palpable and symetrical. Absent : calf tenderness, cyanotic, pedal edema Internal Medicine: Result - Labs CBC & Chem 7: 08/13/16 04:57 08/13/16 04:57 Consult Discharge Plan - Plan Instructions: Omeprazole (By mouth), Amlodipine (By mouth), Diabetes Mellitus Type 2 in Adults (DC), Chronic Hypertension (DC) Additional Instructions: Please come to the ER for evaluation if you have chest pain, shortness of breath , syncope, nausea, vomiting. Referrals: Anna White CNP [Primary Care Provider] - 08/20/16 10:00 am Terrell Kulkarni DO [Partnered Physician] - (will call patient at home with follow up appointment) Prescriptions: amLODIPine [Norvasc] 10 mg PO HS #30 tablet Omeprazole [PriLOSEC] 20 mg PO DAILY@0630 #30 capsule. <Quinton Menjivar - Last Filed: 08/14/16 19:23> Date of Encounter: 08/14/16 - Assessment and plan (1) Hypertensive urgency Status: Resolved (2) Nausea Status: Resolved (3) Diabetes Status: Chronic Qualifiers: Diabetes mellitus type: type 2 Diabetes mellitus complication status: with kidney complications Diabetes mellitus complication detail: with chronic kidney disease Diabetes mellitus group home insulin use: with group home use Chronic kidney disease stage: stage 3 (moderate) Qualified Code(s): E11.22 - Type 2 diabetes mellitus with diabetic chronic kidney disease; N18.3 - Chronic kidney disease, stage 3 (moderate); Z79.4 - detention (current) use of insulin (4) CAD (coronary artery disease) Status: Acute Qualifiers: Coronary Disease-Associated Artery/Lesion type: [place] artery [place] vs. transplanted heart: [place] heart Associated angina: without angina Qualified Code(s): I25.10 - Atherosclerotic heart disease of [place] coronary artery without angina pectoris (5) Bullous pemphigoid Status: Acute - Constitutional Vitals: Temp Pulse Resp BP Pulse Ox 97.7 F 53 16 149/62 97 08/14/16 11:42 08/14/16 11:42 08/14/16 11:42 08/14/16 11:42 08/14/16 11:42 Internal Medicine: Result - Labs CBC & Chem 7: 08/13/16 04:57 08/13/16 04:57 - Attending Attestation I examined this patient and my medical decision-making was reviewed with the Resident Physician on 08/14/16. I agree with the documented findings, disposition and treatment plan as described except to the extent set forth below. Ms. Starr has been accepted to [facility] today. She feels well. She is afebrile and BP is better controlled Exam alert. Comfortable Heart reg No wheeze Plan D/C to SNF today.
== END 2016-08-14 16:36 ==
LOC: EMEROO 16:41 → 2NENU 16:41 → SUATTDRO 20:03 → 2NENU 21:29
PROVIDERS: ADMIT Internal Medicine Sleep Medicine; ATTEND Internal Medicine

== ENCOUNTER 2016-10-09 19:16 | Observation (INO) ==
--- NOTE | 2016-10-09 19:39 | Emergency Department Note ---
Disposition Clinical Impression: Bullous pemphigoid, Exertional dyspnea Disposition: Admitted As Inpatient Condition: Fair Referrals: NO,PCP [Primary Care Provider] - Forms: ED Satisfaction Letter Time of Disposition: 19:40 SOB HPI - General Chief Complaint: ED Shortness of Breath/Dyspnea Stated Complaint: health nurse had her come, low o2 sores Time Seen by Provider: 10/09/16 19:35 Source: patient, family Limitations: no limitations Nursing Notes Reviewed: Yes Vital Signs Reviewed: Yes - History of Present Illness 71-year-old who comes in with increasing shortness of breath and rash on her extremities. Patient has a history of bullous pemphigoid treated at [facility]. She states her lesions are getting worse. Pt Subjective Complaint: shortness of breath Onset (ago): day(s) Context: recent illness Severity: moderate Consistency/Duration: constant Improves with: nothing Worsens with: exertion Known history of: COPD Treatment prior to arrival: none - Related Data Home Medications Medication Instructions Recorded Confirmed Aspirin Enteric Coated [Aspirin EC] 81 mg PO DAILY 06/16/16 08/11/16 Citalopram Hydrobromide 40 mg PO DAILY 06/16/16 08/11/16 [Citalopram HBr] Cyclobenzaprine [Flexeril] 10 mg PO HS PRN 06/16/16 08/10/16 Fenofibrate 160 mg PO DAILY 06/16/16 08/11/16 Gabapentin 800 mg PO TID 06/16/16 08/11/16 Isosorbide MONOnitrate (24 HR) 30 mg PO DAILY 06/16/16 08/11/16 [Imdur] Loratadine [Claritin] 10 mg PO DAILY 06/16/16 08/11/16 Metoprolol XL (24 HR) Succ [Toprol 50 mg PO DAILY 06/16/16 08/11/16 Xl] Mcintosh-3 Acid Ethyl Esters [Lovaza] 2 gm PO BID 06/16/16 08/11/16 Atorvastatin [Lipitor] 40 mg PO HS 08/11/16 08/11/16 Ferrous Sulfate 324 mg PO TID 08/11/16 08/11/16 Insulin DETEMIR [Levemir Flextouch] 40 unit SQ DAILY 08/11/16 08/11/16 Insulin LISPRO [HumaLOG] 0 units SQ TIDWM MDD SLIDING SCALE 08/11/16 08/11/16 predniSONE [PredniSONE] 10 mg PO DAILY 08/11/16 08/11/16 Previous Rx's Medication Instructions Recorded Omeprazole [PriLOSEC] 20 mg PO DAILY@0630 #30 capsule. 08/13/16 Triamcinolone Acet 0.1% OINT 1 appl TP DAILY tube 08/13/16 [Kenalog] amLODIPine [Norvasc] 10 mg PO HS #30 tablet 08/13/16 Ondansetron ODT [Zofran ODT] 4 mg SL Q6HR #10 tab.rapdis 09/02/16 Allergies Allergy/AdvReac Type Severity Reaction Status Date / Time No Known Allergies Allergy Verified 10/09/16 19:32 All systems ED: reviewed and negative except as stated. Constitutional: Denies: fever, chills, weakness, weight change Eyes: Denies: eye pain, eye discharge, vision change ENT ED: Denies: ear pain, throat pain, dental pain, hearing loss, epistaxis, congestion, dysphagia Cardiovascular: Denies: chest pain, palpitations, dyspnea on exertion, edema, syncope Respiratory: Denies: cough, dyspnea, wheezes, hemoptysis, stridor Gastrointestinal: Denies: abdominal pain, nausea, vomiting, diarrhea, constipation, hematemesis, melena, hematochezia Genitourinary: Reports: dysuria. Denies: frequency, hematuria, discharge Musculoskeletal: Denies: back pain, neck pain, arthralgia, myalgia Integumentary: Denies: rash, abrasion, lesions Neurological: Denies: headache, weakness, numbness, paresthesias, confusion, abnormal gait, vertigo Psychiatric: Denies: anxiety, depression, suicidal thoughts, homicidal thoughts , auditory hallucinations, visual hallucinations Endocrine: Denies: fatigue Hematological/Lymphatic: Denies: easy bleeding, easy bruising Allergic/Immunologic: Denies: facial swelling, urticaria Past Medical History - Past Medical History Medical history: Reports: diabetes, hypertension Surgical history: Reports: non-contributory Psychiatric history: Reports: anxiety, depression ACADEMIC SUPPORT ASSISTANT history: Reports: no ACADEMIC SUPPORT ASSISTANT history - Social History Smoking Status: Never smoker Smokeless Tobacco Status: No Alcohol use: Reports: none Drug use: Reports: none Physical Exam - General Limitations: no limitations General appearance: alert - Head Head exam: atraumatic, normocephalic, normal inspection - Eye Eye exam: Present: normal appearance, PERRL, EOMI - ENT ENT exam: normal exam, normal oropharynx, mucous membranes moist - Neck Neck exam: Present: normal inspection - Chest Chest inspection: Present: normal inspection, symmetric chest wall rise - Respiratory Respiratory exam: Present: normal lung sounds bilaterally - Cardiovascular Cardiovascular exam: Present: regular rate, normal rhythm, normal heart sounds - Abdominal Exam Abdominal exam: Present: soft, Non-Tender. Absent: tenderness, distention, guarding, rebound, rigidity - Extremities Exam Extremities exam: Present: normal inspection, full ROM. Absent: tenderness, pedal edema - Expanded Lower Extremity Exam Neurovascular/Tendon exam: Absent: motor deficit, sensory deficit, tendon deficit Gait: observed and normal - Back Exam Back exam: Present: normal inspection, full ROM. Absent: tenderness - Neurological Exam Neurological exam: Present: alert, oriented X3 - Psychiatric Psychiatric exam: Present: normal affect, normal mood - Skin Skin exam: Present: other (Multiple scabbed lesions on both upper and lower extremities and trunk consistent with bullous pemphigoid) Course - Reevaluation(s) Reevaluation #1: 71-year-old with exertional dyspnea that is getting progressively worse. Patient has no lung history. His had no recent cardiac workup she had a cardiac catheter a 17 years ago. Patient will be admitted for the evaluation of the dyspnea on exertion. Time: 21:12 - Consultations Consultation #1: Discussed with , we'll seeing consultation. Time: 19:56 Vital Signs Temperature 98.4 F 10/09/16 19:27 Pulse Rate 83 10/09/16 19:27 Respiratory Rate 16 10/09/16 19:27 Blood Pressure 150/74 10/09/16 19:27 O2 Sat by Pulse Oximetry 94 10/09/16 19:27 Temperature 98.4 F 10/09/16 19:27 Pulse Rate 83 10/09/16 19:27 Respiratory Rate 16 10/09/16 19:27 Blood Pressure 150/74 10/09/16 19:27 O2 Sat by Pulse Oximetry 94 10/09/16 19:27 Oxygen Delivery Oxygen Delivery Room Air Shortness of Breath/Dyspnea - Lab Data Lab results reviewed: Yes I reviewed the patient's lab results. Result diagrams: 10/09/16 19:48 10/09/16 19:48 Lab Results 10/09/16 10/09/16 10/09/16 Range/Units 19:48 19:48 19:48 WBC 12.2 H (4.3-11.1) K/mcL RBC 3.37 L (3.82-4.97) M/mcL Hgb 8.7 L (11.5-15.4) g/dL Hct 27.2 L (35.3-44.9) % MCV 80.7 L (83.0-100.0) fL MCH 25.8 L (28.0-33.3) pg MCHC 32.0 (31.6-35.5) g/dL RDW 14.0 (11.5-14.5) % Plt Count 470 H (140-400) K/mcL MPV 9.7 (9.4-12.4) fL Immature Gran % 0.7 (0-4) % Seg Neutrophils % 60.7 % Lymphocytes % 19.7 % Monocytes % 9.8 % Eosinophils % 8.4 % Basophils % 0.7 % Neutrophils # 7.4 (1.6-8.9) K/mcL Lymphocytes # 2.4 (0.6-4.6) K/mcL Monocytes # 1.2 (0.0-1.3) K/mcL Eosinophils # 1.0 H (0.0-0.6) K/mcL Basophils # 0.1 (0.0-0.2) K/mcL Immature Plt Fraction 3.1 (1.1-6.1) % Sodium 138 (136-145) mEq/L Potassium 4.1 (3.5-4.5) mEq/L Chloride 101 (98-109) mEq/L Carbon Dioxide 26 (19-29) mEq/L BUN 24 H (7-20) mg/dL Creatinine 1.98 H (0.57-1.11) mg/dL Est GFR ( Amer) 30 L (> 60) Est GFR (Non-Af Amer) 25 L (> 60) BUN/Creatinine Ratio 12 (6-26) Glucose 312 H (70-99) mg/dL Calculated Osmolality 302 H (280-300) Lactic Acid 2.2 (0.5-2.2) mmol/L Calcium 8.9 (8.6-10.8) mg/dL Troponin I (0-0.03) ng/mL B-Natriuretic Peptide (0-100) pg/mL 10/09/16 10/09/16 Range/Units 19:48 19:48 WBC (4.3-11.1) K/mcL RBC (3.82-4.97) M/mcL Hgb (11.5-15.4) g/dL Hct (35.3-44.9) % MCV (83.0-100.0) fL MCH (28.0-33.3) pg MCHC (31.6-35.5) g/dL RDW (11.5-14.5) % Plt Count (140-400) K/mcL MPV (9.4-12.4) fL Immature Gran % (0-4) % Seg Neutrophils % % Lymphocytes % % Monocytes % % Eosinophils % % Basophils % % Neutrophils # (1.6-8.9) K/mcL Lymphocytes # (0.6-4.6) K/mcL Monocytes # (0.0-1.3) K/mcL Eosinophils # (0.0-0.6) K/mcL Basophils # (0.0-0.2) K/mcL Immature Plt Fraction (1.1-6.1) % Sodium (136-145) mEq/L Potassium (3.5-4.5) mEq/L Chloride (98-109) mEq/L Carbon Dioxide (19-29) mEq/L BUN (7-20) mg/dL Creatinine (0.57-1.11) mg/dL Est GFR ( Amer) (> 60) Est GFR (Non-Af Amer) (> 60) BUN/Creatinine Ratio (6-26) Glucose (70-99) mg/dL Calculated Osmolality (280-300) Lactic Acid (0.5-2.2) mmol/L Calcium (8.6-10.8) mg/dL Troponin I 0.02 (0-0.03) ng/mL B-Natriuretic Peptide 402 H (0-100) pg/mL - Radiology Data Radiology results reviewed: Yes I reviewed the patient's radiology results. - EKG Data EKG attestation: Yes I reviewed and interpreted this EKG. EKG shows normal: Reports: sinus rhythm Rate: Reports: normal Rhythm: Reports: NSR Interpretation: Reports: no acute changes
[2016-10-09 20:07] LABS: Basophils # 0.1 K/mcL (0.0-0.2); Basophils % 0.7 %; Eosinophils % 8.4 %; Hematocrit 27.2 % (35.3-44.9); Hemoglobin 8.7 g/dL (11.5-15.4); Immature Granulocytes % 0.7 % (0-4); Immature Platelets 3.1 % (1.1-6.1); Lymphocytes # 2.4 K/mcL (0.6-4.6); Lymphocytes % 19.7 %; Mean Corpuscular Hemoglobin 25.8 pg (28.0-33.3); Mean Corpuscular Volume 80.7 fL (83.0-100.0); Mean Platelet Volume 9.7 fL (9.4-12.4); Monocytes # 1.2 K/mcL (0.0-1.3); Monocytes % 9.8 %; Neutrophils # 7.4 K/mcL (1.6-8.9); Platelet Count 470 K/mcL (140-400); Red Blood Count 3.37 M/mcL (3.82-4.97); Segmented Neutrophils % 60.7 %
[2016-10-09 20:18] LABS: Calcium 8.9 mg/dL (8.6-10.8); Potassium 4.1 mEq/L (3.5-4.5)
[2016-10-09] MEDS ORDERED: Naloxone 0.4 MG/ML INJ IVP PRN (21:44)
[2016-10-09] MEDS ORDERED: *HR* HYDROcodone/Acet 5/325 mg TABLET PO PRN (21:44)
[2016-10-09] MEDS ORDERED: Acetaminophen 325 MG TABLET PO PRN (21:44)
[2016-10-09] MEDS ORDERED: D5% in Water 1,000 ML IVC PRN (22:03)
[2016-10-09] MEDS ORDERED: *HR* Dextrose 50 % in Water (Syg) 50 ML SYRINGE IVP PRN (22:03)
[2016-10-09] MEDS ORDERED: Dextrose Gel 15 GM PO PRN ×2 (22:03)
[2016-10-09] MEDS: *HR* Morphine 2 MG/ML SYRINGE IVP PRN (23:37)
[2016-10-10 05:04] LABS: Basophils # 0.1 K/mcL (0.0-0.2); Basophils % 0.6 %; Eosinophils # 0.8 K/mcL (0.0-0.6); Eosinophils % 6.6 %; Hematocrit 26.5 % (35.3-44.9); Hemoglobin 8.3 g/dL (11.5-15.4); Immature Granulocytes % 0.6 % (0-4); Lymphocytes % 16.1 %; Mean Corpuscular HGB Conc 31.3 g/dL (31.6-35.5); Mean Corpuscular Hemoglobin 25.5 pg (28.0-33.3); Mean Corpuscular Volume 81.3 fL (83.0-100.0); Monocytes # 1.3 K/mcL (0.0-1.3); Monocytes % 10.4 %; Platelet Count 414 K/mcL (140-400); Red Blood Count 3.26 M/mcL (3.82-4.97); Segmented Neutrophils % 65.7 %
[2016-10-10 05:08] LABS: INR 1.4; Prothrombin Time 14.7 Seconds (9.4-12.1)
[2016-10-10 05:10] LABS: Activated Partial Thrombo Time 31.9 Seconds (26.0-36.0)
[2016-10-10 05:17] LABS: Calcium 8.7 mg/dL (8.6-10.8); Chol/HDL Ratio 5.4 (0-4.9); Potassium 4.1 mEq/L (3.5-4.5)
--- NOTE | 2016-10-10 08:21 | Internal Med Progress Note ---
Date of Encounter: 10/10/16 Time of Encounter: 08:20 - Assessment and plan (1) Bullous pemphigoid Current Visit: Yes Status: Acute Assessment and plan: Acute exacerbation due to noncompliance/could not refill her medications The patient does not know if she takes anything other than prednisone We will call [place] [facility] to confirm if the patient takes azathioprine or other immunosuppressive therapy on top of prednisone Start prednisone 60 mg daily and taper Topical steroids Cover wounds with dry dressing (2) CAD (coronary artery disease) Current Visit: No Status: Acute Assessment and plan: Hold aspirin for now due to bleeding wounds Qualifiers: Coronary Disease-Associated Artery/Lesion type: [place] artery [place] vs. transplanted heart: [place] heart Associated angina: without angina Qualified Code(s): I25.10 - Atherosclerotic heart disease of [place] coronary artery without angina pectoris (3) CKD (chronic kidney disease) Current Visit: Yes Status: Chronic Assessment and plan: Stable Qualifiers: Chronic kidney disease stage: stage 4 (severe) Qualified Code(s): N18.4 - Chronic kidney disease, stage 4 (severe) (4) Hypertension Current Visit: Yes Status: Chronic Assessment and plan: Accelerated hypertension Continue lisinopril, amlodipine, metoprolol and add hydralazine IV as needed Qualifiers: Hypertension type: essential hypertension Qualified Code(s): I10 - Essential (primary) hypertension (5) Leukocytosis Current Visit: Yes Status: Acute Qualifiers: Leukocytosis type: unspecified Qualified Code(s): D72.829 - Elevated white blood cell count, unspecified (6) Hyperlipidemia Current Visit: Yes Status: Acute Qualifiers: Hyperlipidemia type: pure hypercholesterolemia Qualified Code(s): E78.00 - Pure hypercholesterolemia, unspecified; E78.0 - Pure hypercholesterolemia (7) Diabetes Current Visit: Yes Status: Chronic Assessment and plan: Continue insulin sliding scale Qualifiers: Diabetes mellitus type: type 2 Diabetes mellitus complication status: with kidney complications Diabetes mellitus complication detail: with chronic kidney disease Diabetes mellitus intermission coordinator insulin use: with intermission coordinator use Chronic kidney disease stage: stage 3 (moderate) Qualified Code(s): E11.22 - Type 2 diabetes mellitus with diabetic chronic kidney disease; N18.3 - Chronic kidney disease, stage 3 (moderate); Z79.4 - [facility] (current) use of insulin (8) Chronic anemia Current Visit: Yes Status: Acute Assessment and plan: Anemia of chronic disease exacerbated by blood loss from multiple bleeding wounds Monitor CBC and consider transfusion - Subjective Interval history: The patient has open wounds in her entire skin, do not appear infected but are losing blood slowly. Denies any chest pain, no shortness of breath, no abdominal pain, no dysuria. No diarrhea - Constitutional Vitals: Temp Pulse Resp BP Pulse Ox 98.1 F 75 18 106/73 95 10/10/16 06:49 10/10/16 06:49 10/10/16 06:49 10/10/16 06:49 10/10/16 06:49 General appearance: Present: cooperative, A&O X 3, pleasant, no acute distress, obese, answers questions appropriately - Head Head exam: Present: atraumatic, normocephalic - Eye Eye exam: Present: PERRL, conjuntiva pink, sclera anicteric Pupils: Present: PERRL - Neck Neck exam general surgery: Present: supple, trachea midline. Absent: lymphadenopathy - Respiratory Respiratory exam: Present: CTAB. Absent: accessory muscle use, rales, rhonchi, wheezes - Cardiovascular Cardiovascular exam: Present: RRR, +S1, +S2. Absent: diastolic murmur, gallop, rubs, systolic murmur - GI/Abdominal GI/Abdominal exam: Present: normal bowel sounds, soft, no peritoneal signs. Absent: distended, tenderness - Extremities Exam Extremities exam: Present: warm, radial pulses palpable and symetrical. Absent : calf tenderness, cyanotic, pedal edema - Neurological Exam Neurological exam: Present: CN II-XII intact, oriented X3, no focal deficits. Absent: pronater drift, facial droop, speech deficit - Skin Skin exam: Present: dry. Absent: intact (Multiple open dermatologic lesions/ wounds ranging from 2-4 cm covering her entire skin, no signs of infection) Internal Medicine: Result - Labs CBC & Chem 7: 10/10/16 04:04 10/10/16 04:04 Labs: Short CBC 10/10/16 Range/Units 04:04 WBC 12.2 H (4.3-11.1) K/mcL Hgb 8.3 L (11.5-15.4) g/dL Hct 26.5 L (35.3-44.9) % Plt Count 414 H (140-400) K/mcL Neutrophils # 8.0 (1.6-8.9) K/mcL BMP 10/10/16 04:04 Sodium 138 Potassium 4.1 Chloride 103 Carbon Dioxide 27 BUN 25 H Creatinine 1.99 H Glucose 329 H Calcium 8.7 - ABG Interpretation ABG results: PT/INR, D-dimer PT 14.7 Seconds (9.4-12.1) H 10/10/16 04:04 Consult Discharge Plan - Plan Referrals: Anna White, FLYING SHEAR OPERATOR [Primary Care Provider] -
[2016-10-10] MEDS ORDERED: Aspirin Enteric Coated 81 MG Tablet PO SCH (09:00)
[2016-10-10] MEDS ORDERED: predniSONE 10 MG TABLET PO SCH (09:00)
[2016-10-10] MEDS ORDERED: (Omega-3 Acid Ethyl Esters [Lovaza] 2 GM) PO SCH (09:00)
[2016-10-10] MEDS ORDERED: Gabapentin 400 MG CAPSULE PO SCH (09:00)
[2016-10-10] MEDS: predniSONE 20 MG TABLET PO SCH (09:03)
[2016-10-10] MEDS: Fenofibrate 54 MG TABLET PO SCH (09:03)
[2016-10-10] MEDS: Isosorbide MONOnitrate (24 HR) 30 MG TAB.ER.24H PO SCH (09:03)
[2016-10-10] MEDS: Loratadine 10 MG TABLET PO SCH (09:03)
[2016-10-10] MEDS: Insulin LISPRO 300 UNITS/3 ML VIAL SQ SCH ×5 (09:23→18:41)
[2016-10-10] MEDS: Gabapentin 300 MG CAPSULE PO SCH ×2 (15:49→21:30)
[2016-10-10] MEDS: *HR* Morphine 2 MG/ML SYRINGE IVP PRN (16:06)
--- NOTE | 2016-10-10 17:42 | Electrocardiograph Report ---
[place] [id number] Test Date: 2016-10-09 Pat Name: Christelle Starr Department: 104 Room: 3A Gender: F Program Advisor: FRANCINE : [id number] Requested By: Yury Edwards Order Number: [id number] Reading MD: Arline Downs Measurements Intervals [place] Rate: 76 P: 85 HI: 159 QRS: 10 QRSD: 84 T: 20 QT: 384 QTc: 415 Interpretive Statements SINUS RHYTHM WITH MARKED SINUS ARRHYTHMIA Electronically Signed On 10-10-2016 17:40:38 EDT by Arline Downs
[2016-10-10] MEDS ORDERED: amLODIPine 5 MG TABLET PO SCH (21:00)
[2016-10-10] MEDS ORDERED: Insulin LISPRO 300 UNITS/3 ML VIAL SQ SCH ×2 (21:00)
[2016-10-10] MEDS ORDERED: Insulin DETEMIR 100 UNIT/ML X5UNITS SQ SCH (21:00)
[2016-10-11 05:44] LABS: Hematocrit 28.6 % (35.3-44.9); Hemoglobin 9.2 g/dL (11.5-15.4); Mean Corpuscular HGB Conc 32.2 g/dL (31.6-35.5); Mean Corpuscular Hemoglobin 26.2 pg (28.0-33.3); Mean Corpuscular Volume 81.5 fL (83.0-100.0); Mean Platelet Volume 10.4 fL (9.4-12.4); Platelet Count 446 K/mcL (140-400); Red Blood Count 3.51 M/mcL (3.82-4.97); Red Cell Distribution Width 14.1 % (11.5-14.5)
[2016-10-11 06:01] LABS: Calcium 8.9 mg/dL (8.6-10.8)
[2016-10-11 06:08] LABS: Potassium 5.2 mEq/L (3.5-4.5)
--- NOTE | 2016-10-11 08:50 | Discharge Summary ---
Date of Encounter: 10/11/16 Time of Encounter: 08:42 - Discharge Diagnosis (1) Bullous pemphigoid Priority: Primary Status: Acute Comments: Acute exacerbation due to noncompliance/could not refill her medications (2) CAD (coronary artery disease) Priority: Secondary Status: Acute (3) CKD (chronic kidney disease) Priority: Secondary Status: Chronic Qualifiers: Chronic kidney disease stage: stage 4 (severe) Qualified Code(s): N18.4 - Chronic kidney disease, stage 4 (severe) (4) Hypertension Priority: Secondary Status: Chronic Qualifiers: Hypertension type: essential hypertension Qualified Code(s): I10 - Essential (primary) hypertension (5) Leukocytosis Priority: Secondary Status: Acute Qualifiers: Leukocytosis type: unspecified Qualified Code(s): D72.829 - Elevated white blood cell count, unspecified (6) Hyperlipidemia Priority: Secondary Status: Acute Qualifiers: Hyperlipidemia type: pure hypercholesterolemia Qualified Code(s): E78.00 - Pure hypercholesterolemia, unspecified; E78.0 - Pure hypercholesterolemia (7) Diabetes Priority: Secondary Status: Chronic Qualifiers: Diabetes mellitus type: type 2 Diabetes mellitus complication status: with kidney complications Diabetes mellitus complication detail: with chronic kidney disease Diabetes mellitus extermination supervisor insulin use: with extermination supervisor use Chronic kidney disease stage: stage 3 (moderate) Qualified Code(s): E11.22 - Type 2 diabetes mellitus with diabetic chronic kidney disease; N18.3 - Chronic kidney disease, stage 3 (moderate); Z79.4 - correction (current) use of insulin (8) Chronic anemia Priority: Secondary Status: Acute Comments: Stable, hemoglobin upon admission was 8.7, today is 9.2 - Discharge Medications Prescriptions: amLODIPine [Norvasc] 10 mg PO HS #30 tablet Atorvastatin [Lipitor] 40 mg PO HS #30 tablet Citalopram Hydrobromide [Citalopram HBr] 40 mg PO DAILY #30 tablet HYDROcodone/Acet 5/325 mg [[place] 5-325 mg] 1 tab PO Q6H PRN #20 tablet PRN Reason: Moderate Pain (4-6) Insulin Glargine,Hum.rec.anlog [Lantus Solostar] 40 unit SQ QAM #1 insuln.pen Isosorbide MONOnitrate (24 HR) [Imdur] 30 mg PO DAILY #30 tab.er.24h Lisinopril [Zestril] 5 mg PO DAILY #30 tablet Metoprolol [Lopressor] 25 mg PO BID #60 tablet predniSONE [PredniSONE] 60 mg PO DAILY 7 Days Home Medications: Aspirin Enteric Coated [Aspirin EC] 81 mg PO DAILY 06/16/16 [History] Cyclobenzaprine [Flexeril] 10 mg PO HS PRN 06/16/16 [History] Fenofibrate 160 mg PO DAILY 06/16/16 [History] Gabapentin 800 mg PO TID 06/16/16 [History] Loratadine [Claritin] 10 mg PO DAILY 06/16/16 [History] [place]-3 Acid Ethyl Esters [Lovaza] 2 gm PO BID 06/16/16 [History] Ferrous Sulfate 324 mg PO DAILY 08/11/16 [History] Insulin LISPRO [HumaLOG] 0 units SQ TIDWM 08/11/16 [History] predniSONE [PredniSONE] 10 mg PO DAILY 08/11/16 [History] Triamcinolone Acet 0.1% OINT [Kenalog] 1 appl TP DAILY tube 08/13/16 [Rx] Linagliptin [Tradjenta] 5 mg PO DAILY 10/09/16 [History] Omeprazole [PriLOSEC] 20 mg PO DAILY 10/09/16 [History] Atorvastatin [Lipitor] 40 mg PO HS #30 tablet 10/11/16 [Rx] Citalopram Hydrobromide [Citalopram HBr] 40 mg PO DAILY #30 tablet 10/11/16 [Rx] HYDROcodone/Acet 5/325 mg [[place] 5-325 mg] 1 tab PO Q6H PRN #20 tablet 10/11/16 [Rx] Insulin Glargine,Hum.rec.anlog [Lantus Solostar] 40 unit SQ QAM #1 insuln.pen [Rx] Isosorbide MONOnitrate (24 HR) [Imdur] 30 mg PO DAILY #30 tab.er.24h 10/11/16 [ Rx] Lisinopril [Zestril] 5 mg PO DAILY #30 tablet 10/11/16 [Rx] Metoprolol [Lopressor] 25 mg PO BID #60 tablet 10/11/16 [Rx] amLODIPine [Norvasc] 10 mg PO HS #30 tablet 10/11/16 [Rx] predniSONE [PredniSONE] 60 mg PO DAILY 7 Days 10/11/16 [Rx] Allergies/Adverse Reactions: Allergies No Known Allergies Allergy (Verified 10/09/16 19:32) Date of admission: 10/09/16 21:37 Primary care physician: Anna White CNP Consults: 10/10/16 01:48 Consult to Mathematics Education Professor [CONS] Routine Reason for SW Consult: Assess home needs 10/10/16 09:30 Consult to Occupational Therapy [CONS] Routine Comment: Evaluate, develop and implement POC Reason for Consult: weakness and possible ecf placement Consult to Physical Therapy [CONS] Routine Comment: Evaluate, develop and implement POC Reason for Consult: weakness and possible ECF placement - Patient Status Disposition: Home Health Service Condition: Fair Overall status at discharge: patient is progressing back to baseline - Discharge Instructions Follow Up With: Anna White CNP [Primary Care Provider] - Additional Instructions: Follow-up with primary care physician within the next 7 days. Follow-up with wrapper stitcher at [facility] on Thursday. Continue prednisone 60 mg daily until appointment with wrapper stitcher. - Diet and Activity Activity: increase activity as tolerated Diet: diabetic diet, low fat, low cholesterol Hospital course: Ms. Starr is a 71 year old female with a past medical history of diabetes type 2 insulin-dependent, hyperlipidemia, hypertension, CAD, chronic kidney disease is stage III, bullous pemphigoid currently on steroids, who presented from the ED with chief complaint of her lesions from bullous pemphigoid diagnosis becoming worse. Patient stated that she has not taken her prednisone in approximately two weeks due to her pharmacy not being able to contact her PCP for refills. She reported her initial diagnosis with bullous pemphigoid was in May 2016. Has also history of chromic anemia. The patient had lesions all over her body that are scabbed over with some of them oozing small amounts of blood. Patient is usually seen at [facility] for her bullous pemphigoid. WBC was 12.2 on admission . Was started on prednisone 60 mg daily. WOunds were not infected, Dressings were applied. Patient reports she has an appointment with dermatology on Thursday , October 13 . Was given the option stay another day but prefers to be discharged today on a higher dose of prednisone until she sees her wrapper stitcher on Thursday. - Time Spent with Patient Total time spent providing and/or coordinating discharge services: Greater than 30 minutes (40 min) - Constitutional Vitals: Temp Pulse Resp BP Pulse Ox 98.4 F 73 16 165/83 94 10/11/16 07:04 10/11/16 07:04 10/11/16 07:04 10/11/16 07:04 10/11/16 07:04 General appearance: Present: cooperative, A&O X 3, pleasant, no acute distress, obese, answers questions appropriately Exam: General appearance: Present: cooperative, A&O X 3, pleasant, no acute distress, obese, answers questions appropriately - Head Head exam: Present: atraumatic, normocephalic - Eye Eye exam: Present: PERRL, conjuntiva pink, sclera anicteric Pupils: Present: PERRL - Neck Neck exam general surgery: Present: supple, trachea midline. Absent: lymphadenopathy - Respiratory Respiratory exam: Present: CTAB. Absent: accessory muscle use, rales, rhonchi, wheezes - Cardiovascular Cardiovascular exam: Present: RRR, +S1, +S2. Absent: diastolic murmur, gallop, rubs, systolic murmur - GI/Abdominal GI/Abdominal exam: Present: normal bowel sounds, soft, no peritoneal signs. Absent: distended, tenderness - Extremities Exam Extremities exam: Present: warm, radial pulses palpable and symetrical. Absent : calf tenderness, cyanotic, pedal edema - Neurological Exam Neurological exam: Present: CN II-XII intact, oriented X3, no focal deficits. Absent: pronater drift, facial droop, speech deficit - Skin Skin exam: Present: dry. Absent: intact (Multiple open dermatologic lesions/ wounds ranging from 2-4 cm covering her entire skin, no signs of infection)
--- NOTE | 2016-10-11 08:59 | Physician Discharge Referral ---
Home Health/Hosp Referral Info Transfer to: Home Health Provider in Charge Post Discharge: PCP - Diagnosis (1) Bullous pemphigoid Status: Acute (2) CAD (coronary artery disease) Status: Acute (3) CKD (chronic kidney disease) Status: Chronic (4) Hypertension Status: Chronic (5) Leukocytosis Status: Acute (6) Hyperlipidemia Status: Acute (7) Diabetes Status: Chronic (8) Chronic anemia Status: Acute - Respiratory Orders Smoking Cessation: Smoking cessation has been advised. For more information, call the [place] Tobacco Quit Line at 2-500-CNFM-NOW. - Diet/Nutrition Diet/Nutrition Orders: Cardiac - Activity Activity Orders: Ambulate - Services Needed Following services are medically necessary services: Nursing, Physical Therapy, Occupational Therapy Home Care Orders: Follow-up with primary care physician within the next 7 days. Follow-up with industrial psychology professor at [facility] on Thursday. Continue prednisone 60 mg daily until appointment with industrial psychology professor. - Transfer Medications Prescriptions: amLODIPine [Norvasc] 10 mg PO HS #30 tablet Atorvastatin [Lipitor] 40 mg PO HS #30 tablet Citalopram Hydrobromide [Citalopram HBr] 40 mg PO DAILY #30 tablet HYDROcodone/Acet 5/325 mg [[place] 5-325 mg] 1 tab PO Q6H PRN #20 tablet PRN Reason: Moderate Pain (4-6) Insulin Glargine,Hum.rec.anlog [Lantus Solostar] 40 unit SQ QAM #1 insuln.pen Isosorbide MONOnitrate (24 HR) [Imdur] 30 mg PO DAILY #30 tab.er.24h Lisinopril [Zestril] 5 mg PO DAILY #30 tablet Metoprolol [Lopressor] 25 mg PO BID #60 tablet predniSONE [PredniSONE] 60 mg PO DAILY 7 Days Home Medications: Aspirin Enteric Coated [Aspirin EC] 81 mg PO DAILY 06/16/16 [History] Cyclobenzaprine [Flexeril] 10 mg PO HS PRN 06/16/16 [History] Fenofibrate 160 mg PO DAILY 06/16/16 [History] Gabapentin 800 mg PO TID 06/16/16 [History] Loratadine [Claritin] 10 mg PO DAILY 06/16/16 [History] [place]-3 Acid Ethyl Esters [Lovaza] 2 gm PO BID 06/16/16 [History] Ferrous Sulfate 324 mg PO DAILY 08/11/16 [History] Insulin LISPRO [HumaLOG] 0 units SQ TIDWM 08/11/16 [History] predniSONE [PredniSONE] 10 mg PO DAILY 08/11/16 [History] Triamcinolone Acet 0.1% OINT [Kenalog] 1 appl TP DAILY tube 08/13/16 [Rx] Linagliptin [Tradjenta] 5 mg PO DAILY 10/09/16 [History] Omeprazole [PriLOSEC] 20 mg PO DAILY 10/09/16 [History] Atorvastatin [Lipitor] 40 mg PO HS #30 tablet 10/11/16 [Rx] Citalopram Hydrobromide [Citalopram HBr] 40 mg PO DAILY #30 tablet 10/11/16 [Rx] HYDROcodone/Acet 5/325 mg [[place] 5-325 mg] 1 tab PO Q6H PRN #20 tablet 10/11/16 [Rx] Insulin Glargine,Hum.rec.anlog [Lantus Solostar] 40 unit SQ QAM #1 insuln.pen [Rx] Isosorbide MONOnitrate (24 HR) [Imdur] 30 mg PO DAILY #30 tab.er.24h 10/11/16 [ Rx] Lisinopril [Zestril] 5 mg PO DAILY #30 tablet 10/11/16 [Rx] Metoprolol [Lopressor] 25 mg PO BID #60 tablet 10/11/16 [Rx] amLODIPine [Norvasc] 10 mg PO HS #30 tablet 10/11/16 [Rx] predniSONE [PredniSONE] 60 mg PO DAILY 7 Days 10/11/16 [Rx] Allergies/Adverse Reactions: Allergies No Known Allergies Allergy (Verified 10/09/16 19:32) Certification: Further, I certify that my clinical findings support that this patient is homebound (i.e. absences from home require considerable and taxing effort and are for medical reasons or buddhist services or infrequently or short duration when for other reasons) because: Homebound Reason: Patient requires assistance of a person or device to safely leave home Attestation: My signature below is to certify that this patient is under my care and that I, or nurse practitioner, or a physician's funeral director's assistant working with me, has a face-to -face encounter with this patient.
[2016-10-11] MEDS: Insulin LISPRO 300 UNITS/3 ML VIAL SQ SCH ×6 (11:29→17:21)
[2016-10-11] MEDS: predniSONE 20 MG TABLET PO SCH (11:32)
[2016-10-11] MEDS: Loratadine 10 MG TABLET PO SCH (11:32)
[2016-10-11] MEDS: Gabapentin 300 MG CAPSULE PO SCH ×2 (11:32→17:20)
[2016-10-11] MEDS: Fenofibrate 54 MG TABLET PO SCH (11:32)
[2016-10-11] MEDS: Isosorbide MONOnitrate (24 HR) 30 MG TAB.ER.24H PO SCH (11:33)
[2016-10-11 11:44] VITALS: BP 145/58
== END 2016-10-11 18:32 | disposition home health service (06) ==
LOC: 3ANU 19:16 → EMEROO 19:16 → 3ANU 21:46
PROVIDERS: ADMIT Internal Medicine; ATTEND Internal Medicine

== ENCOUNTER 2017-04-23 23:06 | Inpatient (IN) ==
[2017-04-23] MEDS ORDERED: methylPREDNISolone 125 MG/2 ML VIAL IVP ONE (23:32)
[2017-04-23] MEDS ORDERED: levoFLOXacin 750 MG TABLET PO ONE (23:32)
[2017-04-23] MEDS ORDERED: Ipratropium/Albuterol Neb 3 ML IH ONE (23:32)
[2017-04-23] MEDS ORDERED: Ibuprofen 600 MG TABLET PO ONE (23:35)
--- NOTE | 2017-04-23 23:35 | Emergency Department Note ---
Disposition Clinical Impression: CKD (chronic kidney disease) Qualifiers: Chronic kidney disease stage: stage 3 (moderate) Qualified Code(s): N18.3 - Chronic kidney disease, stage 3 (moderate) Community acquired pneumonia Qualifiers: Laterality: unspecified laterality Qualified Code(s): J18.9 - Pneumonia, unspecified organism Disposition: Admitted As Inpatient Condition: Fair Time of Disposition: 02:17 SOB HPI - General Chief Complaint: ED Shortness of Breath/Dyspnea Stated Complaint: CONNOR Source: family Mode of arrival: ambulatory Limitations: no limitations, physical limitation Nursing Notes Reviewed: Yes Vital Signs Reviewed: Yes - History of Present Illness 72-year-old female presented to the emergency department with shortness of breath as well as cough and fever. Patient said she has not felt well for the last couple days. Patient says she does have history of CHF does take Lasix. She is having no chest pain. Patient says he has not been around any sick contacts. She has not been recently hospitalized. The patient says she does have COPD but only uses auction when needed. Patient otherwise has no complaints including chills, headache, blurry vision, neck pain, back pain, chest pain, abdominal pain, pain with urination, changes in bowel movements, the arms or legs or any generalized weakness or weight loss. - Related Data Home Medications Medication Instructions Recorded Confirmed Aspirin Enteric Coated [Aspirin EC] 81 mg PO DAILY 06/16/16 10/09/16 Cyclobenzaprine [Flexeril] 10 mg PO HS PRN 06/16/16 10/09/16 Fenofibrate 160 mg PO DAILY 06/16/16 10/09/16 Gabapentin 800 mg PO TID 06/16/16 10/09/16 Loratadine [Claritin] 10 mg PO DAILY 06/16/16 10/09/16 [place]-3 Acid Ethyl Esters [Lovaza] 2 gm PO BID 06/16/16 10/09/16 Ferrous Sulfate 324 mg PO DAILY 08/11/16 10/09/16 Insulin LISPRO [HumaLOG] 0 units SQ TIDWM 08/11/16 10/09/16 predniSONE [PredniSONE] 10 mg PO DAILY 08/11/16 10/09/16 Linagliptin [Tradjenta] 5 mg PO DAILY 10/09/16 10/09/16 Omeprazole [PriLOSEC] 20 mg PO DAILY 10/09/16 10/09/16 Previous Rx's Medication Instructions Recorded Atorvastatin [Lipitor] 40 mg PO HS #30 tablet 10/11/16 Citalopram Hydrobromide 40 mg PO DAILY #30 tablet 10/11/16 [Citalopram HBr] HYDROcodone/Acet 5/325 mg [[place] 1 tab PO Q6H PRN #20 tablet 10/11/16 5-325 mg] Insulin Glargine,Hum.rec.anlog 40 unit SQ QAM #1 insuln.pen 10/11/16 [Lantus Solostar] Isosorbide MONOnitrate (24 HR) 30 mg PO DAILY #30 tab.er.24h 10/11/16 [Imdur] Lisinopril [Zestril] 5 mg PO DAILY #30 tablet 10/11/16 Metoprolol [Lopressor] 25 mg PO BID #60 tablet 10/11/16 amLODIPine [Norvasc] 10 mg PO HS #30 tablet 10/11/16 predniSONE [PredniSONE] 60 mg PO DAILY 7 Days tablet 10/11/16 Allergies Allergy/AdvReac Type Severity Reaction Status Date / Time No Known Allergies Allergy Verified 10/09/16 19:32 Review of Systems: 10 point review of systems done and negative unless otherwise stated in history of present illness. All systems ED: reviewed and negative except as stated. Review of Systems: As Per [facility] Past Medical History - Past Medical History Attestation: Yes The following information was validated with the patient. Medical history: Reports: diabetes, hyperlipidemia, hypertension, renal disease Surgical history: Reports: orthopedic, other Psychiatric history: Reports: anxiety, depression BREWING DIRECTOR history: Reports: no BREWING DIRECTOR history - Social History Smoking Status: Never smoker Smokeless Tobacco Status: No Alcohol use: Reports: none Drug use: Reports: none Physical Exam - General Limitations: physical limitation General appearance: alert, in no apparent distress - Head Head exam: atraumatic, normocephalic, normal inspection - Eye Eye exam: Present: normal appearance, PERRL, EOMI - ENT ENT exam: normal exam, normal oropharynx, mucous membranes moist - Neck Neck exam: Present: normal inspection, full ROM, trachea midline - Chest Chest inspection: Present: normal inspection, symmetric chest wall rise - Respiratory Respiratory exam: Present: wheezes - Expanded Respiratory Exam Location: wheezes: Left, Right, Upper, Lower, rhonchi: Left, Right, Upper, Lower - Cardiovascular Cardiovascular exam: Present: regular rate, normal rhythm, normal heart sounds - Abdominal Exam Abdominal exam: Present: soft, Non-Tender. Absent: tenderness, distention, guarding, rebound, rigidity - Extremities Exam Extremities exam: Present: normal inspection, full ROM. Absent: tenderness, pedal edema - Expanded Lower Extremity Exam Neurovascular/Tendon exam: Absent: motor deficit, sensory deficit, tendon deficit - Back Exam Back exam: Present: normal inspection, full ROM. Absent: tenderness, CVA tenderness (R), CVA tenderness (L) - Neurological Exam Neurological exam: Present: alert, oriented X3 - Skin Skin exam: Present: warm, dry, intact, normal color Course Course Narrative: 72-year-old female presents to the emergency department with shortness of breath. Based on exam and seems like it is a pneumonia. Most likely community- acquired. Patient was a little hypoxic when she first came here she was put on oxygen. Will start patient on Levaquin to get basic labs including CBC, BNP as well as troponin and BMP did get EKG and chest x-ray. Chest x-ray did show bilateral pleural effusions either CHF or pneumonia. Due to patient having a fever we did give her ibuprofen again this most likely is pneumonia. Vital Signs Temperature 101.2 F H 04/23/17 23:09 Pulse Rate 92 04/23/17 23:09 Respiratory Rate 22 04/23/17 23:09 Blood Pressure 112/68 04/23/17 23:09 O2 Sat by Pulse Oximetry 93 04/23/17 23:09 Temperature 99.5 F 04/24/17 07:46 Pulse Rate 106 04/24/17 07:46 Respiratory Rate 18 04/24/17 07:46 Blood Pressure 125/53 04/24/17 07:46 O2 Sat by Pulse Oximetry 97 04/24/17 07:46 Oxygen Delivery Oxygen Delivery Room Air Shortness of Breath/Dyspnea - MDM Narrative Medical decision making narrative: 72-year-old female presents to the emergency department with shortness of breath. She also had a fever 101 we did give her ibuprofen for that. Chest x- ray showed bilateral pleural effusions your pneumonia or CHF. Patient does have history of CHF we did give her 40 mg IV Lasix. We also started Levaquin on the patient. For her most likely community acquired pneumonia. Patient's labs were normal she does have a CK D but is unchanged. Most likely this is a CHF exacerbation as well as a bilateral lower lobe pneumonia. Patient is also hypoxic. Her on oxygen she did respond very well. Patient otherwise is doing well. Due to needing IV antibiotics we felt admission would be warranted. Patient is admitted to the hospitalist service in stable condition I spoke with Dr. Davison he agreed to accept the patient. Chest X-Ray 04/23/17 23:32 IMPRESSION: Bilateral perihilar and basilar infiltrates, CHF versus pneumonia . D/ / Efrain Martinez MD / Efrain Martinez MD Interpreting Provider: Efrain Martinez MD - Medical Records Medical records reviewed: Yes I reviewed the patient's medical records. - Lab Data Lab results reviewed: Yes I reviewed the patient's lab results. Result diagrams: 04/24/17 06:08 04/24/17 06:08 Lab Results 04/23/17 04/23/17 04/23/17 Range/Units 23:55 23:55 23:55 WBC 12.3 H (4.3-11.1) K/mcL RBC 3.54 L (3.82-4.97) M/mcL Hgb 9.5 L (11.5-15.4) g/dL Hct 29.3 L (35.3-44.9) % MCV 82.8 L (83.0-100.0) fL MCH 26.8 L (28.0-33.3) pg MCHC 32.4 (31.6-35.5) g/dL RDW 14.3 (11.5-14.5) % Plt Count 227 (140-400) K/mcL MPV 10.1 (9.4-12.4) fL Immature Gran % 1.3 (0-4) % Seg Neutrophils % 84.8 % Band Neutrophils % (0-4) % Lymphocytes % 9.2 % Monocytes % 4.3 % Eosinophils % 0.2 % Basophils % 0.2 % Myelocytes % (0) % Neutrophils # 10.4 H (1.6-8.9) K/mcL Lymphocytes # 1.1 (0.6-4.6) K/mcL Monocytes # 0.5 (0.0-1.3) K/mcL Eosinophils # 0.0 (0.0-0.6) K/mcL Basophils # 0.0 (0.0-0.2) K/mcL Nucleated RBCs/100 WBC 0.3 H (0) /100 WBC Platelet Estimate (Normal) Sodium 139 (136-145) mEq/L Potassium 4.0 (3.5-5.1) mEq/L Chloride 102 (98-107) mEq/L Carbon Dioxide 31 H (23-29) mEq/L BUN 28 H (8-23) mg/dL Creatinine 1.36 H (0.60-1.20) mg/dL Est GFR ( Amer) 46 L (> 60) Est GFR (Non-Af Amer) 38 L (> 60) BUN/Creatinine Ratio 21 (6-26) Glucose 386 H (70-105) mg/dL Calculated Osmolality 309 H (280-300) Lactic Acid 1.5 (0.5-2.2) mmol/L Calcium 8.3 L (8.6-10.3) mg/dL Troponin I (< 0.04) ng/mL B-Natriuretic Peptide (Less than 100) pg/mL 04/23/17 04/23/17 04/24/17 Range/Units 23:55 23:55 06:08 WBC 12.7 H (4.3-11.1) K/mcL RBC 3.27 L (3.82-4.97) M/mcL Hgb 9.0 L (11.5-15.4) g/dL Hct 27.1 L (35.3-44.9) % MCV 82.9 L (83.0-100.0) fL MCH 27.5 L (28.0-33.3) pg MCHC 33.2 (31.6-35.5) g/dL RDW 14.3 (11.5-14.5) % Plt Count 220 (140-400) K/mcL MPV 10.5 (9.4-12.4) fL Immature Gran % (0-4) % Seg Neutrophils % 83.0 % Band Neutrophils % 13.0 H (0-4) % Lymphocytes % 2.0 % Monocytes % 1.0 % Eosinophils % % Basophils % % Myelocytes % 1.0 H (0) % Neutrophils # 12.2 H (1.6-8.9) K/mcL Lymphocytes # 0.3 L (0.6-4.6) K/mcL Monocytes # 0.1 (0.0-1.3) K/mcL Eosinophils # (0.0-0.6) K/mcL Basophils # (0.0-0.2) K/mcL Nucleated RBCs/100 WBC 0.2 H (0) /100 WBC Platelet Estimate Normal (Normal) Sodium (136-145) mEq/L Potassium (3.5-5.1) mEq/L Chloride (98-107) mEq/L Carbon Dioxide (23-29) mEq/L BUN (8-23) mg/dL Creatinine (0.60-1.20) mg/dL Est GFR ( Amer) (> 60) Est GFR (Non-Af Amer) (> 60) BUN/Creatinine Ratio (6-26) Glucose (70-105) mg/dL Calculated Osmolality (280-300) Lactic Acid (0.5-2.2) mmol/L Calcium (8.6-10.3) mg/dL Troponin I 0.16 H* (< 0.04) ng/mL B-Natriuretic Peptide 792 H (Less than 100) pg/mL 04/24/17 04/24/17 Range/Units 06:08 06:08 WBC (4.3-11.1) K/mcL RBC (3.82-4.97) M/mcL Hgb (11.5-15.4) g/dL Hct (35.3-44.9) % MCV (83.0-100.0) fL MCH (28.0-33.3) pg MCHC (31.6-35.5) g/dL RDW (11.5-14.5) % Plt Count (140-400) K/mcL MPV (9.4-12.4) fL Immature Gran % (0-4) % Seg Neutrophils % % Band Neutrophils % (0-4) % Lymphocytes % % Monocytes % % Eosinophils % % Basophils % % Myelocytes % (0) % Neutrophils # (1.6-8.9) K/mcL Lymphocytes # (0.6-4.6) K/mcL Monocytes # (0.0-1.3) K/mcL Eosinophils # (0.0-0.6) K/mcL Basophils # (0.0-0.2) K/mcL Nucleated RBCs/100 WBC (0) /100 WBC Platelet Estimate (Normal) Sodium 137 (136-145) mEq/L Potassium 3.8 (3.5-5.1) mEq/L Chloride 100 (98-107) mEq/L Carbon Dioxide 28 (23-29) mEq/L BUN 30 H (8-23) mg/dL Creatinine 1.57 H (0.60-1.20) mg/dL Est GFR ( Amer) 39 L (> 60) Est GFR (Non-Af Amer) 32 L (> 60) BUN/Creatinine Ratio 19 (6-26) Glucose 504 H* (70-105) mg/dL Calculated Osmolality 313 H (280-300) Lactic Acid (0.5-2.2) mmol/L Calcium 8.2 L (8.6-10.3) mg/dL Troponin I 0.18 H* (< 0.04) ng/mL B-Natriuretic Peptide (Less than 100) pg/mL - Radiology Data Radiology results reviewed: Yes I reviewed the patient's radiology results. - EKG Data EKG attestation: Yes I reviewed and interpreted this EKG. EKG results narrative: EKG done at 2342 reviewed by myself and the attending shows sinus rhythm with occasional PVCs. Has a rate of 89, [place] interval 154, QRS 82, QTC [address] changes, no acute T-wave changes no other signs of ischemia. No signs of heart strain or hypertrophy. No signs of heart block. No signs of WPW/ Brugada syndrome. This EKG is unchanged oldonedone10/15/16 Attestation Statement - Attestation Attestation: I, Dustin Trent MD, personally evaluated this patient and discussed their management with the resident physician. I reviewed the resident's note and agree with the documented findings, medical decision making, and plan of care. 72-year-old female who lives at home with her sister presents to the emergency department complaining of not feeling well for the past several days. She complains of some cough with yellow sputum and increased shortness of breath. Subjective fever. No chest pain. On examination patient is a well-developed well-nourished elderly female in no acute distress. She is alert and oriented 3. There is no cyanosis or diaphoresis. Breath sounds are equal bilaterally with some scattered bibasilar rhonchi. Heart regular rate and rhythm with occasional ectopy. Abdomen soft and nontender with normal bowel sounds. 2+ pedal edema. Labs reviewed. Chest x-ray shows bilateral perihilar and basilar infiltrates, CHF versus pneumonia. The hospitalist, Dr. Davison, was consulted and accepted admission of the patient.
[2017-04-24 00:07] LABS: Basophils % 0.2 %; Eosinophils % 0.2 %; Hematocrit 29.3 % (35.3-44.9); Hemoglobin 9.5 g/dL (11.5-15.4); Immature Granulocytes % 1.3 % (0-4); Lymphocytes # 1.1 K/mcL (0.6-4.6); Lymphocytes % 9.2 %; Mean Corpuscular HGB Conc 32.4 g/dL (31.6-35.5); Mean Corpuscular Hemoglobin 26.8 pg (28.0-33.3); Mean Corpuscular Volume 82.8 fL (83.0-100.0); Mean Platelet Volume 10.1 fL (9.4-12.4); Monocytes # 0.5 K/mcL (0.0-1.3); Monocytes % 4.3 %; Neutrophils # 10.4 K/mcL (1.6-8.9); Nucleated Red Blood Cells 0.3 /100 WBC (0); Platelet Count 227 K/mcL (140-400); Red Blood Count 3.54 M/mcL (3.82-4.97); Red Cell Distribution Width 14.3 % (11.5-14.5); Segmented Neutrophils % 84.8 %
[2017-04-24 00:26] LABS: Calcium 8.3 mg/dL (8.6-10.3)
[2017-04-24] MEDS ORDERED: Levofloxacin 750 MG/150 ML 750 MG/150 ML BAG IVPB ONE (00:31)
[2017-04-24] MEDS ORDERED: Furosemide 40 MG/4 ML VIAL IVP ONE ×2 (01:58→19:18)
[2017-04-24] MEDS ORDERED: Aspirin 81 MG TAB.CHEW PO ONE (02:05)
--- NOTE | 2017-04-24 03:16 | Internal Med History&Physical ---
<Ortega Jara - Last Filed: 04/24/17 04:42> Date of Encounter: 04/24/17 Time of Encounter: 03:45 Assessment and Plan (1) Community acquired pneumonia Current visit: No Status: Acute chest x-ray demonstrates by bibasilar infiltrates; patient has had enhanced cough, sputum production, and fever no recent hospitalizations will treat patient with combination of vancomycin and Levaquin for both broad coverage and coverage of possible early cellulitis of b/l LE will continue patient on nasal O2 titrated to keep her saturations above 88% scheduled and PRN breathing treatments are ordered IV Solu-Medrol ordered will have patient use BiPAP at night will trend white cell count Qualifiers: Laterality: unspecified laterality Qualified Code(s): J18.9 - Pneumonia, unspecified organism (2) Congestive heart failure (CHF) Current visit: No Status: Acute Most recent echocardiogram done in August 2016 demonstrated diastolic dysfunction patient has had increasing shortness of breath as well as worsening pedal edema by ladder early and symmetrical elevated beta natriuretic peptide in the ED will give 20mg IV Lasix daily ECHO pending Qualifiers: Congestive heart failure type: unspecified Congestive heart failure chronicity: acute on chronic Qualified Code(s): I50.9 - Heart failure, unspecified (3) Elevated troponin Current visit: Yes Status: Acute Denies chest pain Likely demand ischemia EKG and initial troponin were negative, however, all factors considered make it impossible to rule out ACS therefore will trend Q6 hour troponin for total of 3 , and will intervene as indicated (4) Cellulitis Current visit: No Status: Acute Warm erythematous skin change surrounding edematous and bullous regenerative anterior distal lower extremity added vancomycin Qualifiers: Site of cellulitis: extremity Site of cellulitis of extremity: lower extremity Laterality: unspecified laterality Qualified Code(s): L03.119 - Cellulitis of unspecified part of limb (5) Diabetes Current visit: No Status: Chronic Diabetic diet SSI plus basal insulin will check A1c Qualifiers: Diabetes mellitus type: type 2 Diabetes mellitus complication status: with unspecified complications Diabetes mellitus superintendent terminal insulin use: with custodial use Qualified Code(s): E11.8 - Type 2 diabetes mellitus with unspecified complications; Z79.4 - residential (current) use of insulin; Z79.4 - residential ( current) use of insulin; Z79.4 - residential (current) use of insulin; Z79.4 - residential (current) use of insulin (6) CKD (chronic kidney disease) Current visit: No Status: Chronic Variability and trend of patient's medical records make it difficult to determine a patient is experiencing an acute kidney injury on chronic kidney disease continue to trend kidney function Qualifiers: Chronic kidney disease stage: stage 3 (moderate) Qualified Code(s): N18.3 - Chronic kidney disease, stage 3 (moderate) (7) Hypertension Current visit: No Status: Chronic Patient is borderline hypotensive/normotensive; will hold antihypertensives for now Qualifiers: Hypertension type: unspecified Qualified Code(s): I10 - Essential (primary ) hypertension (8) Chronic anemia Current visit: No Status: Acute We will get a CBC in the a.m. to trend hemoglobin, hematocrit, and white blood cell count the acute blood lust conjuring to patient's case is doubtful, will consider further workup intervention if significant changes in hemoglobin become evident (9) DVT prophylaxis Current visit: No Status: Acute Sub Q insulin Internal Medicine - H&P: HPI Chief complaint: short of air Admitted From: Home Plans for Post Hospital Care: Home History of present illness: Ms. Starr is a 72 year old female with history of CAD, DC HF, type II diabetes , CKD, and ongoing shortness of air. Patient states has been increasingly short of air over the past month, but this is been significantly worse over the past couple of days. Patient states uses a walker at home and can no longer make it more than a few steps without becoming significantly short of breath. Patient also notes fever and wheezing. Patient was recently put on nasal oxygen into leaders at the insistence of her home health nurse. Patient denies any known history of superior smoking. No sick contacts at home. No recent hospitalizations. Patient denies any diaphoresis, confusion, syncope, lightheadedness, headache, visual disturbances, chest pain, or nausea/vomiting. Patient also describes that her legs have been increasingly swollen over the past couple of days as well. Otherwise, patient seems to have poor inventory of her array of medical conditions. On chart review, it is apparent patient has history of coronary artery disease, history of diastole CHF, poorly controlled diabetes, history of chronic kidney disease, and history of bullous lesions. In the ED, patient was borderline febrile, mildly tachycardic, and mild respiratory distress with saturations into the high 70s or 80s on room air,, with borderline normal load pressure. Significant lab/xray findings are indicative of possible mild acute kidney injury, market hyperglycemia, leukocytosis with left shift, troponin elevated to 0.16, BNP of 792, and a chest x-ray which demonstrated by bibasilar infiltrates. Past Med Surg Social Fam HX - Past Medical History Medical history: diabetes, hyperlipidemia, hypertension, renal disease Psychiatric history: anxiety, depression - Past Surgical History Surgical History: orthopedic, other - Social History Smoking Status: Never smoker Smokeless Tobacco Status: No Alcohol use: none Drug use: none - Family History Father Family Member Ethnicity: Non- Living Status: Hx Family Cardiac Disorders: Yes (AK, HTN, Cardiomegaly) Hx Family Endocrine Disorder: Yes (DM) Mother Family Member Ethnicity: Non- Living Status: Hx Family Cancer: Yes (Breast) Brother Family Member Ethnicity: Non- Living Status: Still Living Hx Family Cardiac Disorders: Yes (HTN) Hx Family Endocrine Disorder: Yes (DM) Sister Family Member Ethnicity: Non- Living Status: Still Living Hx Family Cardiac Disorders: Yes (HTN) Hx Family Endocrine Disorder: Yes (DM) Internal Medicine - H&P: Meds Aspirin Enteric Coated [Aspirin EC] 81 mg PO DAILY 06/16/16 [History] Cyclobenzaprine [Flexeril] 10 mg PO HS PRN 06/16/16 [History] Fenofibrate 160 mg PO DAILY 06/16/16 [History] Gabapentin 800 mg PO TID 06/16/16 [History] Loratadine [Claritin] 10 mg PO DAILY 06/16/16 [History] [place]-3 Acid Ethyl Esters [Lovaza] 2 gm PO BID 06/16/16 [History] Ferrous Sulfate 324 mg PO DAILY 08/11/16 [History] Insulin LISPRO [HumaLOG] 0 units SQ TIDWM 08/11/16 [History] predniSONE [PredniSONE] 10 mg PO DAILY 08/11/16 [History] Triamcinolone Acet 0.1% OINT [Kenalog] 1 appl TP DAILY tube 08/13/16 [Rx] Linagliptin [Tradjenta] 5 mg PO DAILY 10/09/16 [History] Omeprazole [PriLOSEC] 20 mg PO DAILY 10/09/16 [History] Atorvastatin [Lipitor] 40 mg PO HS #30 tablet 10/11/16 [Rx] Citalopram Hydrobromide [Citalopram HBr] 40 mg PO DAILY #30 tablet 10/11/16 [Rx] HYDROcodone/Acet 5/325 mg [[place] 5-325 mg] 1 tab PO Q6H PRN #20 tablet 10/11/16 [Rx] Insulin Glargine,Hum.rec.anlog [Lantus Solostar] 40 unit SQ QAM #1 insuln.pen [Rx] Isosorbide MONOnitrate (24 HR) [Imdur] 30 mg PO DAILY #30 tab.er.24h 10/11/16 [ Rx] Lisinopril [Zestril] 5 mg PO DAILY #30 tablet 10/11/16 [Rx] Metoprolol [Lopressor] 25 mg PO BID #60 tablet 10/11/16 [Rx] amLODIPine [Norvasc] 10 mg PO HS #30 tablet 10/11/16 [Rx] predniSONE [PredniSONE] 60 mg PO DAILY 7 Days tablet 10/11/16 [Rx] 3 Allergy/AdvReac Type Severity Reaction Status Date / Time No Known Allergies Allergy Verified 10/09/16 19:32 All Systems PM: A 10-system review of systems was performed and is negative for pertinent findings except as documented above in the HPI. Review of systems: As per HPI - Constitutional Vitals: Temp Pulse Resp BP Pulse Ox 100.1 F H 93 21 115/101 90 04/24/17 03:00 04/24/17 03:00 04/24/17 00:22 04/24/17 03:00 04/24/17 03:00 Exam: CONSTITUTIONAL: Alert and oriented HEAD: Normocephalic; atraumatic. EYES: PERRL, no scleral icterus, no drainage, no conjunctival injection NOSE: nasal cannula in place at 3LPM Oropharynx: pink/moist, no tonsillar edema/erythema/exudates RESP: no distress or use of accessory must muscles at rest, able to speak in full sentences, however, does desaturate into the low 80s high 70s when speaking. Auscultation reveals diffuse wheezes on inspiration and expiration, no rales or rhonchi CARD: Regular rhythm, without murmurs, rubs, or gallop SKIN: generally normal appearance, no pallor/diaphoresis,mottling,jaundice, cyanosis EXT: bilateral lower extremities exhibited pitting pedal edema grade 3 up to the tibial tuberosity; patient also has smallbore solutions to the anterior distal leg with surrounding erythematous and [place] skin; no open or dry wounds visualized. PSYCH: appropriate mood/affect Internal Med - H&P Results - Labs CBC & Chem 7: 04/23/17 23:55 04/23/17 23:55 Labs: Short CBC 04/23/17 Range/Units 23:55 WBC 12.3 H (4.3-11.1) K/mcL Hgb 9.5 L (11.5-15.4) g/dL Hct 29.3 L (35.3-44.9) % Plt Count 227 (140-400) K/mcL Neutrophils # 10.4 H (1.6-8.9) K/mcL BMP 04/23/17 23:55 Sodium 139 Potassium 4.0 Chloride 102 Carbon Dioxide 31 H BUN 28 H Creatinine 1.36 H Glucose 386 H Calcium 8.3 L Cardiac Enzymes 04/23/17 Range/Units 23:55 Troponin I 0.16 H* (< 0.04) ng/mL - Impressions ITS Impressions Chest X-Ray 04/23/17 23:32 IMPRESSION: Bilateral perihilar and basilar infiltrates, CHF versus pneumonia . D/ / Efrain Martinez MD / Efrain Martinez MD Interpreting Provider: Efrain Martinez MD <Jeferson Davison - Last Filed: 04/24/17 06:01> Date of Encounter: 04/24/17 Internal Medicine - H&P: HPI History of present illness: Ms. Starr is a 72 year old female All Systems PM: A 10-system review of systems was performed and is negative for pertinent findings except as documented above in the HPI. - Constitutional Vitals: Temp Pulse Resp BP Pulse Ox 99.2 F 93 22 112/63 93 04/24/17 03:58 04/24/17 03:58 04/24/17 03:58 04/24/17 03:58 04/24/17 03:58 Internal Med - H&P Results - Labs CBC & Chem 7: 04/23/17 23:55 04/23/17 23:55 - Attending Attestation I have seen and examined pt independently. I have discussed with Resident physician regarding the management plan. Agree with the documentation, except: Will remove dx of cellulitis and dc vanco as pt skin discolor is not like cellulitis. Will switch levaquin to azithromycin and rocephin for pneumonia consider pt's CKD.
[2017-04-24] MEDS ORDERED: *HR* OxyCODONE Immed Rel 5 MG TABLET PO PRN (03:25)
[2017-04-24] MEDS ORDERED: Ondansetron ODT 4 MG TAB.RAPDIS SL PRN (03:25)
[2017-04-24] MEDS ORDERED: D5% in Water 1,000 ML IVC PRN ×2 (03:25→08:11)
[2017-04-24] MEDS ORDERED: Dextrose Gel 15 GM/37.5 ML TUBE PO PRN ×4 (03:25→08:11)
[2017-04-24] MEDS ORDERED: Naloxone 0.4 MG/ML INJ IVP PRN (03:25)
[2017-04-24] MEDS ORDERED: *HR* Dextrose 50 % in Water (Syg) 50 ML SYRINGE IVP PRN ×2 (03:25→08:11)
[2017-04-24] MEDS ORDERED: *HR* HYDROcodone/Acet 5/325 mg TABLET PO PRN (03:25)
[2017-04-24] MEDS ORDERED: Acetaminophen 325 MG TABLET PO PRN (03:25)
[2017-04-24] MEDS ORDERED: Insulin DETEMIR 100 UNIT/ML X5UNITS SQ SCH ×2 (04:15→09:00)
[2017-04-24] MEDS ORDERED: Albuterol 2.5 MG/3 ML NEBULIZER IH PRN (04:39)
[2017-04-24] MEDS ORDERED: Vancomycin 1,500 MG in D5% in Water 250 ML IVPB SCH (05:00)
[2017-04-24] MEDS: Insulin LISPRO 300 UNITS/3 ML VIAL SQ SCH ×9 (06:00→22:25)
[2017-04-24] MEDS ORDERED: methylPREDNISolone 125 MG/2 ML VIAL IVP SCH (06:00)
[2017-04-24] MEDS: *HR* Heparin 5,000 UNIT/ML VIAL SQ SCH ×2 (06:11→17:35)
[2017-04-24 06:28] LABS: Hematocrit 27.1 % (35.3-44.9); Mean Corpuscular HGB Conc 33.2 g/dL (31.6-35.5); Mean Corpuscular Hemoglobin 27.5 pg (28.0-33.3); Mean Corpuscular Volume 82.9 fL (83.0-100.0); Mean Platelet Volume 10.5 fL (9.4-12.4); Nucleated Red Blood Cells 0.2 /100 WBC (0); Platelet Count 220 K/mcL (140-400); Red Blood Count 3.27 M/mcL (3.82-4.97); Red Cell Distribution Width 14.3 % (11.5-14.5)
[2017-04-24] MEDS: Azithromycin 500 MG in D5% in Water 250 ML IVPB SCH (06:28)
[2017-04-24 06:53] LABS: Lymphocytes # 0.3 K/mcL (0.6-4.6); Monocytes # 0.1 K/mcL (0.0-1.3); Neutrophils # 12.2 K/mcL (1.6-8.9); Platelet Estimate Normal (Normal)
[2017-04-24 07:14] LABS: Calcium 8.2 mg/dL (8.6-10.3); Potassium 3.8 mEq/L (3.5-5.1)
[2017-04-24] MEDS: Ipratropium/Albuterol Neb 3 ML IH SCH ×5 (07:35→23:37)
[2017-04-24 08:09] LABS: Hemoglobin A1C 11.4 %
[2017-04-24] MEDS: cefTRIAXone 1,000 MG in Water for inj. (sterile) 10 ML IVP SCH (08:29)
[2017-04-24] MEDS: Furosemide 20 MG/2 ML VIAL IVP SCH (08:29)
[2017-04-24] MEDS: Insulin DETEMIR 100 UNIT/ML X5UNITS SQ SCH (08:53)
[2017-04-24] MEDS: Nystatin POWDER 30 GM BOTTLE TP SCH ×4 (12:37→20:22)
--- NOTE | 2017-04-24 19:16 | Event Note ---
Date of Encounter: 04/24/17 Time of Encounter: 19:14 Called about patient going into afib with RVR. Admitted overnight with acute diastolic HF for which we are diuresing. Also pneumonia on abx. No history of afib. will check BMP and mag and fix any electrolytes. one time dose of cardizem 5 mg didnt help much. will put on a cardizem drip at 5 mg. Will likely need consult to cardiology in the morning if afib does not resolve. An echo has been ordered on admission.
[2017-04-24 19:58] LABS: Calcium 8.1 mg/dL (8.6-10.3); Magnesium 1.3 mg/dL (1.6-2.6); Potassium 3.3 mEq/L (3.5-5.1)
[2017-04-24] MEDS ORDERED: Magnesium Oxide 400 MG TABLET PO ONE (20:25)
[2017-04-25] MEDS: Ipratropium/Albuterol Neb 3 ML IH SCH ×6 (03:43→23:53)
[2017-04-25 05:13] LABS: Basophils % 0.2 %; Hematocrit 24.4 % (35.3-44.9); Hemoglobin 7.9 g/dL (11.5-15.4); Immature Granulocytes % 2.4 % (0-4); Lymphocytes % 7.5 %; Mean Corpuscular HGB Conc 32.4 g/dL (31.6-35.5); Mean Corpuscular Volume 83.3 fL (83.0-100.0); Mean Platelet Volume 10.6 fL (9.4-12.4); Monocytes # 0.7 K/mcL (0.0-1.3); Monocytes % 5.8 %; Neutrophils # 10.7 K/mcL (1.6-8.9); Platelet Count 230 K/mcL (140-400); Red Blood Count 2.93 M/mcL (3.82-4.97); Red Cell Distribution Width 14.6 % (11.5-14.5); Segmented Neutrophils % 84.1 %
[2017-04-25 05:20] LABS: Potassium 3.8 mEq/L (3.5-5.1)
[2017-04-25] MEDS: *HR* Heparin 5,000 UNIT/ML VIAL SQ SCH ×2 (05:59→16:17)
[2017-04-25] MEDS: Azithromycin 500 MG in D5% in Water 250 ML IVPB SCH (05:59)
[2017-04-25] MEDS: cefTRIAXone 1,000 MG in Water for inj. (sterile) 10 ML IVP SCH (08:37)
[2017-04-25] MEDS: Nystatin POWDER 30 GM BOTTLE TP SCH ×3 (08:38→20:24)
[2017-04-25] MEDS: Insulin LISPRO 300 UNITS/3 ML VIAL SQ SCH ×7 (08:38→22:21)
[2017-04-25] MEDS: Insulin DETEMIR 100 UNIT/ML X5UNITS SQ SCH (08:38)
[2017-04-25] MEDS: Furosemide 20 MG/2 ML VIAL IVP SCH (08:38)
--- NOTE | 2017-04-25 10:16 | Electrocardiograph Report ---
[address] [place] [address] Test Date: 2017-04-23 Pat Name: Christelle Starr Department: 102 Room: 2A Gender: F Home Health Care Worker: : 1945 Requested By: Osvaldo Man Order Number: [id number] Reading MD: Terrell Kulkarni DO Measurements Intervals [place] Rate: 89 P: 70 NC: 154 QRS: 11 QRSD: 82 T: 19 QT: 363 QTc: 410 Interpretive Statements SINUS RHYTHM WITH OCCASIONAL SUPRAVENTRICULAR PREMATURE COMPLEXES POSSIBLE ANTERIOR MYOCARDIAL INFARCTION, OF INDETERMINATE AGE Electronically Signed On 04-25-2017 10:14:38 EST by Terrell Kulkarni DO
--- NOTE | 2017-04-25 12:26 | Internal Med Progress Note ---
Date of Encounter: 04/25/17 Time of Encounter: 12:24 - Assessment and plan (1) Community acquired pneumonia Current Visit: Yes Status: Acute Assessment and plan: Continue with antibiotics. She is on Rocephin and Zithromax. Follow up on cultures. Check urine strep and Legionella. Wean down oxygen as tolerated. Continue nebs. Qualifiers: Laterality: unspecified laterality Qualified Code(s): J18.9 - Pneumonia, unspecified organism (2) Congestive heart failure (CHF) Current Visit: No Status: Acute Assessment and plan: Likely acute exacerbation of diastolic heart failure. Continue with diuresis. Cut down on Lasix to 20 mg IV daily. She did an extra dose of 40 mg IV yesterday. Wean down oxygen as tolerated. Tinea. Continue beta ritesh. Hold lisinopril given kidney function. Qualifiers: Congestive heart failure type: diastolic Congestive heart failure chronicity: acute Qualified Code(s): I50.31 - Acute diastolic (congestive) heart failure (3) CKD (chronic kidney disease) Current Visit: No Status: Chronic Assessment and plan: The patient seems to have worsening kidney disease. Creatinine has been trending up since admission. On initial presentation creatinine was 1.36 and it has consistently went up. It is 2.2 3 today. Seems to have chronic kidney disease since 2014 although creatinine is not usually this high. She has been receiving Lasix. We will avoid other nephrotoxins. We will continue with diuresis patient shows signs of volume overload. His creatinine continues to trend up I will consult with nephrology. Qualifiers: Chronic kidney disease stage: stage 3 (moderate) Qualified Code(s): N18.3 - Chronic kidney disease, stage 3 (moderate) (4) New onset a-fib Current Visit: Yes Status: Acute Assessment and plan: Patient has been on Cardizem drip. We will repeat EKG. She seems to be better controlled now. We will stop the Cardizem drip. Restart patient beta ritesh. Consult cardiology. Echo is pending. He has a chads vasc score that is high that would warrant her to be on anticoagulation. We will leave that up to cardiology. Replete electrolytes and check TSH. (5) Diabetes Current Visit: No Status: Chronic Assessment and plan: Had issues with hyperglycemia initially. Glucose is better controlled now. Continue with Levemir 40 units daily. Continue with insulin sliding scale. Continue Accu-Chek. I have added 8 units lispro 3 times a day be used pre- meal. A1c 11.4 Qualifiers: Diabetes mellitus type: type 2 Diabetes mellitus complication status: with unspecified complications Diabetes mellitus slide machine tender insulin use: with slide machine tender use Qualified Code(s): E11.8 - Type 2 diabetes mellitus with unspecified complications; Z79.4 - USP (current) use of insulin; Z79.4 - USP ( current) use of insulin; Z79.4 - USP (current) use of insulin; Z79.4 - extract puller (current) use of insulin (6) CAD (coronary artery disease) Current Visit: No Status: Acute Assessment and plan: Continue aspirin and statin beta ritesh. Qualifiers: Coronary Disease-Associated Artery/Lesion type: [place] artery [place] vs. transplanted heart: [place] heart Associated angina: without angina Qualified Code(s): I25.10 - Atherosclerotic heart disease of [place] coronary artery without angina pectoris (7) DVT prophylaxis Current Visit: No Status: Acute Assessment and plan: Heparin subcutaneous - Subjective Interval history: Patient seen and examined. Admitted yesterday with community acquired pneumonia as well as exacerbation of CHF. Last night apparently patient went into A. fib with RVR. She has no history of it. She was started on Cardizem drip. Had some low magnesium and potassium which was repleted. Apparently telemetry has not been able to function while on the patient for some reason.. Has been afebrile. - Constitutional Vitals: Temp Pulse Resp BP Pulse Ox 98.6 F 110 16 150/71 98 04/25/17 08:27 04/25/17 08:27 04/25/17 11:51 04/25/17 08:27 04/25/17 11:51 Exam: GEN: NAD CVS: Irregular S1, S2, No m/r/g RESP: Crackles at the bases. ABD: Soft, NT, ND, +BS EXT: 2+ edema. 2+ DP. No rashes NEURO: Nonfocal Internal Medicine: Result - Labs CBC & Chem 7: 04/25/17 04:51 04/25/17 04:51 Labs: Short CBC 04/25/17 Range/Units 04:51 WBC 12.7 H (4.3-11.1) K/mcL Hgb 7.9 L (11.5-15.4) g/dL Hct 24.4 L (35.3-44.9) % Plt Count 230 (140-400) K/mcL Neutrophils # 10.7 H (1.6-8.9) K/mcL BMP 04/24/17 04/25/17 19:01 04:51 Sodium 138 141 Potassium 3.3 L 3.8 Chloride 102 104 Carbon Dioxide 26 30 H BUN 38 H 46 H Creatinine 2.18 H 2.23 H Glucose 327 H 172 H Calcium 8.1 L 8.0 L Cardiac Enzymes 04/24/17 Range/Units 12:04 Troponin I 0.14 H* (< 0.04) ng/mL Consult Discharge Plan - Plan Referrals: Anna White, ELECTRONIC REPAIR TROUBLESHOOTER [Primary Care Provider] -
[2017-04-25] MEDS ORDERED: Haloperidol Oral Conc 10 MG/5 ML UDC PO PRN (12:27)
[2017-04-25] MEDS: Isosorbide MONOnitrate (24 HR) 30 MG TAB.ER.24H PO SCH (12:50)
[2017-04-25] MEDS: Gabapentin 400 MG CAPSULE PO SCH ×2 (16:17→20:23)
[2017-04-25] MEDS: amLODIPine 5 MG TABLET PO SCH (20:23)
[2017-04-25 20:28] LABS: Adenovirus Not Detected (Not Detect); Bordetella Pertussis Not Detected (Not Detect); Chlamydophila pneumoniae Not Detected (Not Detect); Coronavirus 229E Not Detected (Not Detect); Coronavirus HKU1 Not Detected (Not Detect); Coronavirus NL63 Not Detected (Not Detect); Coronavirus OC43 Not Detected (Not Detect); Human Metapneumovirus Not Detected (Not Detect); Human Rhinovirus/Enterovirus Not Detected (Not Detect); Influenza A Subtype 2009 H1 Not Detected (Not Detect); Influenza A Untypeable Not Detected (Not Detect); Influenza B Not Detected (Not Detect); Mycoplasma pneumoniae Not Detected (Not Detect); Parainfluenza Virus 1 Not Detected (Not Detect); Parainfluenza Virus 2 Not Detected (Not Detect); Parainfluenza Virus 3 Not Detected (Not Detect); Parainfluenza Virus 4 Not Detected (Not Detect); Respiratory Syncytial Virus Not Detected (Not Detect)
[2017-04-26] MEDS ORDERED: Levofloxacin 750 MG/150 ML 750 MG/150 ML BAG IVPB SCH (00:01)
[2017-04-26] MEDS: Ipratropium/Albuterol Neb 3 ML IH SCH ×6 (04:22→23:29)
[2017-04-26] MEDS: *HR* Heparin 5,000 UNIT/ML VIAL SQ SCH ×2 (05:04→17:33)
[2017-04-26] MEDS: Azithromycin 500 MG in D5% in Water 250 ML IVPB SCH (05:05)
[2017-04-26 07:59] LABS: Calcium 8.2 mg/dL (8.6-10.3)
[2017-04-26 08:02] LABS: Basophils % 0.2 %; Eosinophils # 0.1 K/mcL (0.0-0.6); Eosinophils % 0.7 %; Hematocrit 27.3 % (35.3-44.9); Hemoglobin 8.3 g/dL (11.5-15.4); Immature Granulocytes % 2.2 % (0-4); Lymphocytes # 1.5 K/mcL (0.6-4.6); Lymphocytes % 10.5 %; Mean Corpuscular HGB Conc 30.4 g/dL (31.6-35.5); Mean Corpuscular Hemoglobin 25.9 pg (28.0-33.3); Mean Corpuscular Volume 85.3 fL (83.0-100.0); Mean Platelet Volume 10.4 fL (9.4-12.4); Monocytes # 0.8 K/mcL (0.0-1.3); Monocytes % 5.8 %; Neutrophils # 11.6 K/mcL (1.6-8.9); Nucleated Red Blood Cells 0.1 /100 WBC (0); Platelet Count 280 K/mcL (140-400); Red Cell Distribution Width 14.6 % (11.5-14.5); Segmented Neutrophils % 80.6 %
[2017-04-26 08:13] LABS: Thyroid Stimulating Hormone 0.593 mcIU/mL (0.340-5.600)
[2017-04-26] MEDS: Isosorbide MONOnitrate (24 HR) 30 MG TAB.ER.24H PO SCH (08:15)
[2017-04-26] MEDS: Aspirin Enteric Coated 81 MG Tablet PO SCH (08:15)
[2017-04-26] MEDS: Gabapentin 400 MG CAPSULE PO SCH ×3 (08:15→23:00)
[2017-04-26] MEDS: Loratadine 10 MG TABLET PO SCH (08:15)
[2017-04-26] MEDS: Fenofibrate 54 MG TABLET PO SCH (08:15)
[2017-04-26] MEDS: Furosemide 20 MG/2 ML VIAL IVP SCH (08:16)
[2017-04-26] MEDS: cefTRIAXone 1,000 MG in Water for inj. (sterile) 10 ML IVP SCH (08:16)
[2017-04-26] MEDS: Insulin LISPRO 300 UNITS/3 ML VIAL SQ SCH ×5 (08:17→22:57)
[2017-04-26] MEDS: Insulin DETEMIR 100 UNIT/ML X5UNITS SQ SCH (08:37)
[2017-04-26] MEDS: Nystatin POWDER 30 GM BOTTLE TP SCH ×3 (08:38→23:01)
--- NOTE | 2017-04-26 12:24 | Internal Med Progress Note ---
Date of Encounter: 04/26/17 Time of Encounter: 12:21 - Assessment and plan (1) Community acquired pneumonia Current Visit: Yes Status: Acute Assessment and plan: Continue with antibiotics. She is on Rocephin and Zithromax. I see her white blood cell count is trending up minimally today. We will continue to follow that. No any acute changes today. urine strep and Legionella negative. Cultures are negative Wean down oxygen as tolerated. Not sure if she is on chronic oxygen. Nursing staff tells me she is. Patient herself is me she is not. Continue nebs. Qualifiers: Laterality: unspecified laterality Qualified Code(s): J18.9 - Pneumonia, unspecified organism (2) Congestive heart failure (CHF) Current Visit: No Status: Acute Assessment and plan: Likely acute exacerbation of diastolic heart failure. Continue with diuresis. Continue with Lasix to 20 mg IV daily. She did an extra dose of 40 mg IV yesterday. Wean down oxygen as tolerated. Continue nebs. Continue beta ritesh. Hold lisinopril given kidney function. Qualifiers: Congestive heart failure type: diastolic Congestive heart failure chronicity: acute Qualified Code(s): I50.31 - Acute diastolic (congestive) heart failure (3) CKD (chronic kidney disease) Current Visit: No Status: Chronic Assessment and plan: Creatinine is better today. Creatinine has been trending up since admission however. On initial presentation creatinine was 1.36 and it has consistently went up. It is 2.02 today. Seems to have chronic kidney disease since 2014 although creatinine is not usually this high. She has been receiving Lasix. We will avoid other nephrotoxins. We will continue with diuresis patient shows signs of volume overload. If creatinine continues to trend up I will consult with nephrology. Qualifiers: Chronic kidney disease stage: stage 3 (moderate) Qualified Code(s): N18.3 - Chronic kidney disease, stage 3 (moderate) (4) New onset a-fib Current Visit: Yes Status: Acute Assessment and plan: Continue metoprolol. Rate is in the low 100s. Seems to be in sinus now. Increase metoprolol to 50 mg twice a day. Consult cardiology. Echo is pending. He has a chads vasc score that is high that would warrant her to be on anticoagulation. We will leave that up to cardiology. Normal TSH. We will check mag levels. (5) Diabetes Current Visit: No Status: Chronic Assessment and plan: Had a hypoglycemic episode this morning. We will hold Levemir 40 units this morning. Start pre-meal boluses well. Continue with insulin status scale today only. A1c 11.4 Qualifiers: Diabetes mellitus type: type 2 Diabetes mellitus complication status: with unspecified complications Diabetes mellitus nursing home insulin use: with long term care pharmacist use Qualified Code(s): E11.8 - Type 2 diabetes mellitus with unspecified complications; Z79.4 - termite control servicer (current) use of insulin; Z79.4 - shelter ( current) use of insulin; Z79.4 - termite control servicer (current) use of insulin; Z79.4 - termite control servicer (current) use of insulin (6) CAD (coronary artery disease) Current Visit: No Status: Acute Assessment and plan: Continue aspirin and statin beta ritesh. Qualifiers: Coronary Disease-Associated Artery/Lesion type: [place] artery [place] vs. transplanted heart: [place] heart Associated angina: without angina Qualified Code(s): I25.10 - Atherosclerotic heart disease of [place] coronary artery without angina pectoris (7) DVT prophylaxis Current Visit: No Status: Acute Assessment and plan: Heparin subcutaneous - Subjective Interval history: Patient seen and examined. Admitted with community acquired pneumonia as well as exacerbation of CHF. She went went into A. fib with RVR of admission is back in sinus. Off Cardizem drip now. She has no history of it. She had a hypoglycemic event this morning. Was asymptomatic. Has been afebrile. - Constitutional Vitals: Temp Pulse Resp BP Pulse Ox 98.4 F 101 18 123/71 99 04/26/17 11:53 04/26/17 11:53 04/26/17 11:53 04/26/17 11:53 04/26/17 11:53 Exam: GEN: NAD CVS: Tachycardic but regular. S1, S2, No m/r/g RESP: Crackles at the bases. ABD: Soft, NT, ND, +BS EXT: 1+ edema. 2+ DP. No rashes NEURO: Nonfocal Internal Medicine: Result - Labs CBC & Chem 7: 04/26/17 07:22 04/26/17 07:22 Labs: Short CBC 04/26/17 Range/Units 07:22 WBC 14.3 H (4.3-11.1) K/mcL Hgb 8.3 L (11.5-15.4) g/dL Hct 27.3 L (35.3-44.9) % Plt Count 280 (140-400) K/mcL Neutrophils # 11.6 H (1.6-8.9) K/mcL BMP 04/26/17 07:22 Sodium 142 Potassium 4.0 Chloride 104 Carbon Dioxide 32 H BUN 48 H Creatinine 2.02 H Glucose 52 L Calcium 8.2 L Consult Discharge Plan - Plan Referrals: Anna White, ECHO VASCULAR TECH [Primary Care Provider] -
[2017-04-26] MEDS ORDERED: Magnesium Oxide 400 MG TABLET PO ONE (14:38)
--- NOTE | 2017-04-26 14:46 | Cardiology Consult Note ---
Date of Encounter: 04/26/17 Time of Encounter: 14:00 Assessment and Plan (1) Elevated troponin Current Visit: No Status: Acute Troponins are elevated, flat and adynamic. Possible it could be chronically elevated looking back at her past troponins as demonstrated in June and August 2016. Etiology is difficult to interpret in the setting of acute on chronic renal insufficiency. An echo was ordered performed at a time when her heart rates were elevated and the image quality was suboptimal. Recommend repeat imaging for further evaluation of structure and function. Previously, LV systolic function had been normal. Patient is not describing chest pain and there are no acute EKG changes. Her last catheterization was remotely. She tells me that, at the time of her last catheterization, she was told that she is a "bleeder." She is unable to give further details. Labs are notable for anemia which seems to be new since October 2016. This may need further investigation before we will consider performing a cardiac catheterization. Additionally, her renal function is abnormal which would need to be taken into account. Given this history and possibility for chronically elevated troponins , would hold off on heparinization. Recommend continuing aspirin, statin. (2) New onset a-fib Current Visit: Yes Status: Acute Review patient's ECGs demonstrating the new development of atrial fibrillation. She has since converted back into normal rhythm. Recommend continuing beta ritesh. Replete electrolytes as necessary. Agree with diuresis - probably secondary to diastolic dysfunction. It would be reasonable to repeat her echo now that her heart rates have normalized. In regards to anticoagulation, she is at elevated risk CHADSVASC 5. Given the presence of chronic kidney disease, Coumadin would be her only option. At this time, she is very hesitant to try Coumadin and reports that she was told by prior client advisor that she is a "bleeder." This apparently was told around the time of her last catheterization , details of which are unclear to me. She also is anemic, apparently starting in October 2016. Recommend further evaluation for anemia before considering full anticoagulation. Discussion w patient/family: The assessment and plan as outlined above was discussed with the patient and/or family members who expressed understanding and agreement. All questions were answered. Thank you for involving us in the care of your patient. Please call with any questions. History of Present Illness Consult date: 04/26/17 Requesting physician: Osama M Alhajjar Consult reason: atrial fibrillation Chief complaint: SOB History of present illness: Ms. Starr is a 72 year old female presenting with shortness of breath being treated for pneumonia. She is a patient of [facility] having been last seen 11/27/2016. I reviewed this office know. Medical history is significant for CAD having had an FL and PTCA in 2000. She also has dyslipidemia, CKD and hypertension. Workup so far demonstrates a chest x-ray which demonstrated CHF vs PNA, leukocytosis and fever. She is net negative 740cc and on lasix IV. Troponins are elevated but flat and adynamic in setting of ARF on CKD. Presenting EKG demonstrates sinus rhythm and no acute findings. Apparently, overnight she developed atrial fibrillation with RVR. EKG was reviewed corroborating this. Presently, she is in NSR. At the bedside the patient is warm, diaphoretic but in no acute distress. She is alert and oriented x3. She admits to SOB and LE edema. She reports having a mechanical fall recently. She denies LOC. She says sometimes her legs "give out on her." She denies frequent falls. She reports having a blood transfusion in the past but says it was long ago and not sure of the details. Denies chest pain. Admits to palpitations. Past Med Surg Social Fam HX - Past Medical History Attestation: Yes The following information was validated with the patient. Medical history: coronary artery disease, diabetes, hyperlipidemia, hypertension , myocardial infarction, renal disease Psychiatric history: anxiety, depression - Past Surgical History Surgical History: orthopedic, other - Social History Smoking Status: Never smoker Smokeless Tobacco Status: No Alcohol use: none Drug use: none - Family History Father Family Member Ethnicity: Non- Living Status: Hx Family Cardiac Disorders: Yes (FL, HTN, Cardiomegaly) Hx Family Endocrine Disorder: Yes (DM) Mother Family Member Ethnicity: Non- Living Status: Hx Family Cancer: Yes (Breast) Brother Family Member Ethnicity: Non- Living Status: Still Living Hx Family Cardiac Disorders: Yes (HTN) Hx Family Endocrine Disorder: Yes (DM) Sister Family Member Ethnicity: Non- Living Status: Still Living Hx Family Cardiac Disorders: Yes (HTN) Hx Family Endocrine Disorder: Yes (DM) Medications and Allergies Aspirin Enteric Coated [Aspirin EC] 81 mg PO DAILY 06/16/16 [History] Fenofibrate 160 mg PO DAILY 06/16/16 [History] Gabapentin 800 mg PO TID 06/16/16 [History] Loratadine [Claritin] 10 mg PO DAILY 06/16/16 [History] Insulin LISPRO [HumaLOG] 25 units SQ TIDWM 08/11/16 [History] predniSONE [PredniSONE] See Taper PO DAILY 08/11/16 [History] Atorvastatin [Lipitor] 40 mg PO HS #30 tablet 10/11/16 [Rx] Citalopram Hydrobromide [Citalopram HBr] 40 mg PO DAILY #30 tablet 10/11/16 [Rx] Isosorbide MONOnitrate (24 HR) [Imdur] 30 mg PO DAILY #30 tab.er.24h 10/11/16 [ Rx] Lisinopril [Zestril] 5 mg PO DAILY #30 tablet 10/11/16 [Rx] amLODIPine [Norvasc] 10 mg PO HS #30 tablet 10/11/16 [Rx] Acetaminophen [Tylenol 650mg SUPP] 650 mg RC Q4H PRN 04/24/17 [History] Bisacodyl [Dulcolax] 10 mg RC DAILY PRN 04/24/17 [History] Clobetasol Propionate 0.05% [Temovate] 1 appl TP DAILY 04/24/17 [History] Ferrous Sulfate 325 mg PO DAILY 04/24/17 [History] Furosemide [Lasix] 40 mg PO BID 04/24/17 [History] Haloperidol Oral Conc [Haldol] 0.5 mg PO Q2H PRN 04/24/17 [History] Hyoscyamine SL [Levsin SL] 0.125 - 0.25 mg SL Q2H PRN 04/24/17 [History] Insulin DETEMIR [Levemir Flextouch] 40 unit SQ HS 04/24/17 [History] Ipratropium/Albuterol Neb [Duoneb] 3 ml IH Q4H PRN 04/24/17 [History] LORazepam [Ativan] 0.5 mg PO Q2H PRN 04/24/17 [History] Metoprolol [Lopressor] 25 mg PO BID 04/24/17 [History] Morphine Sulfate [Morphine Oral Solution] 5 mg PO Q4H PRN 04/24/17 [History] [place]-3/Dha/Epa/Fish Oil [Fish Oil 1,000 mg Softgel] 1,000 mg PO DAILY 04/24/17 [History] Oxycodone HCl/Acetaminophen [Percocet 5-325 mg Tablet] 1 each PO Q6H PRN [History] Oxygen 2 l NS AD 04/24/17 [History] Polyethylene Glycol 3350 [MiraLAX] 17 gm PO DAILY 04/24/17 [History] Promethazine [Phenergan] 25 mg RC Q6H PRN 04/24/17 [History] Promethazine/Codeine [Phenergan/Codeine] 5 ml PO Q4H PRN 04/24/17 [History] Triamcinolone Acet 0.1% CRM [Kenalog] 1 appl TP DAILY 04/24/17 [History] levoFLOXacin [Levaquin] 500 mg PO DAILY 04/24/17 [History] predniSONE [PredniSONE] 20 mg PO DAILY 04/24/17 [History] 3 Allergy/AdvReac Type Severity Reaction Status Date / Time No Known Allergies Allergy Verified 10/09/16 19:32 All Systems Review: A 10-system review of systems was performed and is negative for pertinent findings except as documented above in the HPI. - Cardiovascular Cardiovascular: as per HPI Physical Examination Vital Signs, Last 4 Hours Temp Pulse Resp BP Pulse Ox 04/26/17 11:53 98.4 F 101 18 123/71 99 04/26/17 11:25 16 92 General: Conversant, No Apparent Distress HEENT: Mucus Membranes Moist Neck: Other (JVP not well appreciated) Cardiac: No Murmur, Other (regular rhythm with ectopy) Lungs: Other (diminished breath sounds, somewhat course) Neuro: Alert and responsive, No focal deficits noted Abdomen: Soft, Other (bowel sounds present) Extremities: Other (bilateral LE edema) Results 04/26/17 07:22 04/26/17 07:22 Lab Results 04/26/17 04/26/17 04/26/17 07:22 07:22 07:22 WBC 14.3 H Hgb 8.3 L Hct 27.3 L Plt Count 280 Sodium 142 Potassium 4.0 Chloride 104 Carbon Dioxide 32 H BUN 48 H Creatinine 2.02 H Glucose 52 L Calcium 8.2 L Magnesium 1.6 TSH 0.593 - Imaging and Cardiology Echo: report reviewed (Poor image quality due to heart rates) - EKG Interpretation EKG results cardiology: personally reviewed, other (24h telemetry demonstrates sinus rhythm with average heart rate 80 bpm, no concerning dysrhythmia) Consult Discharge Plan - Plan Referrals: Anna White, FILM SORTER [Primary Care Provider] -
[2017-04-26] MEDS: amLODIPine 5 MG TABLET PO SCH (23:01)
[2017-04-27] MEDS ORDERED: GuaiFENesin Liq 200 MG/10 ML UDC PO ONE (00:15)
[2017-04-27] MEDS: Ipratropium/Albuterol Neb 3 ML IH SCH ×6 (03:28→23:51)
[2017-04-27] MEDS: GuaiFENesin/Codeine Oral Soln 5 ML UDC PO PRN ×2 (03:58→20:19)
[2017-04-27] MEDS: Azithromycin 500 MG in D5% in Water 250 ML IVPB SCH (05:19)
[2017-04-27] MEDS: *HR* Heparin 5,000 UNIT/ML VIAL SQ SCH ×2 (05:19→16:30)
[2017-04-27 06:07] LABS: % Iron Saturation 24 % (15-50); Ferritin 321 ng/ml (10-120); Iron 51 mcg/dL (50-170); Transferrin 149 mg/dL (203-362)
--- NOTE | 2017-04-27 09:17 | Cardiology Progress Note ---
<Maxx Shukla - Last Filed: 04/27/17 16:41> Date of Encounter: 04/27/17 Time of Encounter: 09:17 Assessment and Plan (1) Elevated troponin Current Visit: No Status: Acute Troponins are elevated, flat and adynamic. 0.16, 0.18, 0.14 Possible it could be chronically elevated looking back at her past troponins as demonstrated in June and August 2016. Pt has hx of CKD Echo this admission was taken while in a fib so tachycardia limited images. Repeat echo has been ordered but not performed. Patient is not describing chest pain and there are no acute EKG changes. Given this history and possibility for chronically elevated troponins, Dr. Navas recommended holding off on heparinization. Plan: continuing aspirin, statin. Waiting on repeat ECHO depending on result of ECHO will either offer LHC or Stress test. (2) New onset a-fib Current Visit: Yes Status: Acute Pt had one episode of a fib 04/24/17 and converted to sinus spontaneously. Patient denies hx of prior a fib. CHADSVASC of 5. CKD stage [address] Hurtado. only option for anticoagulation would be coumadin. Patient has concerns about starting coumadin. Patient reports being told she was a bleeder during prior LHC. She cannot elaborate further. Per primary team was told she had an extenrded period of bleeding after LHC that was relieved with pressure. Patient also reports falling fairly frequently. She lives at home with her sister. She has home health come twice a week. Patient anemic on admission 9.5, 9.0, 7.9, 8.3. NL hgb as recently as 08/20. Anemic in October and March 2017 in our in patient records. Iron studies this admission indicate likely anemia of chronic disease with low transferrin and high ferrittin. Plan: Discussed pro's and cons of anticoagulation with patient. Discussed risk of stroke and risk of bleeding. Based on concern for fall risk, recommend just keeping patient on ASA. Discussion w patient/family: The assessment and plan as outlined above was discussed with the patient and/or family members who expressed understanding and agreement. All questions were answered. Thank you for involving us in the care of your patient. Please call with any questions. Subjective Principal diagnosis: PNA Interval history: Patient reports feeling ok. She had one episode of a fib 04/24/17 and converted to sinus spontaneously. Patient denies hx of prior a fib. Patient denies ever having Chest pain through out admission. Patient denies current palpitations. Echo this admission was taken while in a fib so tachycardia limited images. Repeat echo has been ordered but not performed. CHADSVASC of 5. Patient denies knowledge of hx of CKD, but has had chronically elevated cr since 2014 on our inpatient records and out patient records indicate she has CKD stage [address] Hurtado. As a result only option for anticoagulation would be coumadin. Patient has concerns about starting coumadin. Patient reports being told she was a bleeder during prior LHC. She cannot elaborate further. Patient also reports falling fairly frequently. She lives at home with her sister. She has home health come twice a week. She would like us to discuss starting coumadin with her daughter. Patient anemic on admission 9.5, 9.0, 7.9, 8.3. NL hgb as recently as 08/20. Anemic in October and March 2017 in our in patient records. Iron studies indicate likley anemia of chronic disease with low transferrin and high ferrittin. Objective Vital Signs, Last 4 Hours Temp Pulse Resp BP Pulse Ox 04/27/17 08:04 18 94 04/27/17 06:52 98.1 F 82 18 132/73 95 General: Conversant, No Apparent Distress HEENT: Atraumatic, Normocephaly, Mucus Membranes Moist Neck: No JVD Cardiac: Reg Rate and Rhythm, Normal S1 and S2, No Murmur Lungs: Normal Breath Sounds, No Wheeze, Rales, Rhonchi Neuro: Alert and responsive, No focal deficits noted Abdomen: Soft, Non-Tender Skin: No rashes noted on visualized skin Musculoskeletal: No Chest Wall Tenderness Extremities: No Clubbing, No Cyanosis, Normal Pulses Results 04/27/17 11:16 04/27/17 11:16 Lab Results 04/26/17 07:22 Magnesium 1.6 Consult Discharge Plan - Plan Referrals: Anna White, ELECT[employer] GOL[employer] C[employer] REPAIRER [Primary Care Provider] - <Eric Avendaño - Last Filed: 04/27/17 18:43> Date of Encounter: 04/27/17 Assessment and Plan Discussion w patient/family: The assessment and plan as outlined above was discussed with the patient and/or family members who expressed understanding and agreement. All questions were answered. Thank you for involving us in the care of your patient. Please call with any questions. Objective Vital Signs, Last 4 Hours Temp Pulse Resp BP Pulse Ox 04/27/17 15:47 18 97 04/27/17 15:42 97.8 F 73 18 132/64 97 Results 04/27/17 11:16 04/27/17 11:16 Lab Results 04/27/17 04/27/17 11:16 11:16 WBC 10.2 Hgb 9.2 L Hct 29.2 L Plt Count 259 Sodium 141 Potassium 4.2 Chloride 103 Carbon Dioxide 31 H BUN 43 H Creatinine 1.75 H Glucose 198 H Calcium 8.4 L - Attending Attestation I examined this patient and my medical decision-making was reviewed with the Resident Physician. I agree with the documented findings, disposition and treatment plan as described except to the extent set forth below. Pt reports heart racing and skipping has resolved. She is still short of breath , just completed breathing tx. Pt endorses freqent falls at home, at least twice a week experiences mechanical fall, caused by tripping or losing her balance, do not appear to be pre syncopal. INP 1; New onset A fib, back in NSR with spontaneous conversion on medical tx. Discussed options to reduce primary stroke risk, is not a candidate for systemic anticoagulation due to fall risk, ASA 81 mg q d only. 2. Elevated troponin: mild elevation, appears to be chronic, will review repeat echo for new wall motion abnormalites, initial echo technically limited to due to Afib induced tachycardia, reportedly mild non-obstructive CAD at left heart cath. 3. CKd - stable
[2017-04-27] MEDS: Insulin LISPRO 300 UNITS/3 ML VIAL SQ SCH ×4 (09:52→20:22)
[2017-04-27] MEDS: Furosemide 20 MG/2 ML VIAL IVP SCH (10:01)
[2017-04-27] MEDS: cefTRIAXone 1,000 MG in Water for inj. (sterile) 10 ML IVP SCH (10:01)
[2017-04-27] MEDS: Fenofibrate 54 MG TABLET PO SCH (10:02)
[2017-04-27] MEDS: Isosorbide MONOnitrate (24 HR) 30 MG TAB.ER.24H PO SCH (10:03)
[2017-04-27] MEDS: Loratadine 10 MG TABLET PO SCH (10:03)
[2017-04-27] MEDS: Aspirin Enteric Coated 81 MG Tablet PO SCH (10:03)
[2017-04-27] MEDS: Gabapentin 400 MG CAPSULE PO SCH ×3 (10:03→20:21)
[2017-04-27] MEDS: Nystatin POWDER 30 GM BOTTLE TP SCH ×3 (10:13→20:23)
--- NOTE | 2017-04-27 11:29 | Internal Med Progress Note ---
Date of Encounter: 04/27/17 Time of Encounter: 11:27 - Assessment and plan (1) Community acquired pneumonia Current Visit: Yes Status: Acute Assessment and plan: Continue with antibiotics. She is on Rocephin and Zithromax. Check CBC this morning as her white count was elevated yesterday. . urine strep and Legionella negative. Cultures are negative Wean down oxygen as tolerated. Not sure if she is on chronic oxygen. Nursing staff tells me she is. Patient herself tells me she is not. Continue nebs. Qualifiers: Laterality: unspecified laterality Qualified Code(s): J18.9 - Pneumonia, unspecified organism (2) Congestive heart failure (CHF) Current Visit: No Status: Acute Assessment and plan: Likely acute exacerbation of diastolic heart failure. Continue with diuresis. Continue with Lasix to 20 mg IV daily for now pending BMP this morning. Monitor kidney function. Wean down oxygen as tolerated. Continue nebs. Continue beta ritesh. Hold lisinopril given kidney function. Qualifiers: Congestive heart failure type: diastolic Congestive heart failure chronicity: acute Qualified Code(s): I50.31 - Acute diastolic (congestive) heart failure (3) CKD (chronic kidney disease) Current Visit: No Status: Chronic Assessment and plan: Creatinine was better yesterday. BMP this morning is pending. Creatinine has been trending up since admission however. On initial presentation creatinine was 1.36 and it has consistently went up. Seems to have chronic kidney disease since 2013 although creatinine is not usually this high. She has been receiving Lasix. We will avoid other nephrotoxins. We will continue with diuresis as patient shows signs of volume overload. If creatinine continues to trend up I will consult with nephrology. Qualifiers: Chronic kidney disease stage: stage 3 (moderate) Qualified Code(s): N18.3 - Chronic kidney disease, stage 3 (moderate) (4) New onset a-fib Current Visit: Yes Status: Acute Assessment and plan: Continue metoprolol. Rate is better now. Seems to be in sinus now. Repeat Echo pending as the one done was done with elevated heart rate which made at suboptimal. appreciate cardiology's help. She has a chads vasc score that is high that would warrant her to be on anticoagulation however cardiology as managing that and may not be the best candidate for anticoagulation given possible history of being a bleed. The patient tells me that she had extended period of bleeding after heart catheterization in the groin area that was relieved with pressure. I believe cardiology can start patient on anticoagulation given the story. We will leave that up to cardiology. Check stools for blood. Normal TSH. (5) Diabetes Current Visit: No Status: Chronic Assessment and plan: Had a hypoglycemic episode yesterday. Long-acting insulin has been on hold. I did stop her pre-meal boluses as well. We will continue to monitor her glucoses. Continue with insulin sliding scale for now. A1c 11.4 Qualifiers: Diabetes mellitus type: type 2 Diabetes mellitus complication status: with unspecified complications Diabetes mellitus extermination inspector insulin use: with extermination inspector use Qualified Code(s): E11.8 - Type 2 diabetes mellitus with unspecified complications; Z79.4 - laborer marine terminal (current) use of insulin; Z79.4 - halfway ( current) use of insulin; Z79.4 - laborer marine terminal (current) use of insulin; Z79.4 - laborer marine terminal (current) use of insulin (6) CAD (coronary artery disease) Current Visit: No Status: Acute Assessment and plan: Continue aspirin and statin beta ritesh. Qualifiers: Coronary Disease-Associated Artery/Lesion type: [place] artery [place] vs. transplanted heart: [place] heart Associated angina: without angina Qualified Code(s): I25.10 - Atherosclerotic heart disease of [place] coronary artery without angina pectoris (7) Morbid obesity with BMI of 40.0-44.9, adult Current Visit: Yes Status: Acute Assessment and plan: counseled. (8) DVT prophylaxis Current Visit: No Status: Acute Assessment and plan: Heparin subcutaneous (9) Goals of care, counseling/discussion Current Visit: Yes Status: Acute Assessment and plan: The patient seems to get some hospice services from what I understand from nursing. We will ask social workers to investigate this further as we get closer to discharge planning - Subjective Interval history: Patient seen and examined. Feeling better. She is currently receiving a breathing treatment. Admitted with community acquired pneumonia as well as exacerbation of CHF. She went went into A. fib with RVR of admission is back in sinus. Off Cardizem drip now. She has no history of it. Has been afebrile. - Constitutional Vitals: Temp Pulse Resp BP Pulse Ox 98.1 F 82 18 132/73 94 04/27/17 06:52 04/27/17 06:52 04/27/17 08:04 04/27/17 06:52 04/27/17 08:04 Exam: GEN: NAD CVS: RRRR. S1, S2, No m/r/g RESP: Crackles at the bases. ABD: Soft, NT, ND, +BS EXT: 1+ edema. 2+ DP. No rashes NEURO: Nonfocal Internal Medicine: Result - Labs CBC & Chem 7: 04/27/17 11:16 04/27/17 11:16 Consult Discharge Plan - Plan Referrals: Anna White, LACE AND TEXTILES RESTORER [Primary Care Provider] -
[2017-04-27 11:30] LABS: Basophils % 0.3 %; Eosinophils # 0.2 K/mcL (0.0-0.6); Eosinophils % 1.7 %; Hematocrit 29.2 % (35.3-44.9); Hemoglobin 9.2 g/dL (11.5-15.4); Immature Granulocytes % 2.6 % (0-4); Lymphocytes # 1.8 K/mcL (0.6-4.6); Lymphocytes % 17.9 %; Mean Corpuscular HGB Conc 31.5 g/dL (31.6-35.5); Mean Corpuscular Hemoglobin 26.5 pg (28.0-33.3); Mean Corpuscular Volume 84.1 fL (83.0-100.0); Mean Platelet Volume 10.6 fL (9.4-12.4); Monocytes # 0.8 K/mcL (0.0-1.3); Neutrophils # 7.1 K/mcL (1.6-8.9); Platelet Count 259 K/mcL (140-400); Red Blood Count 3.47 M/mcL (3.82-4.97); Red Cell Distribution Width 14.6 % (11.5-14.5); Segmented Neutrophils % 69.5 %
[2017-04-27 11:40] LABS: Calcium 8.4 mg/dL (8.6-10.3); Potassium 4.2 mEq/L (3.5-5.1)
[2017-04-27] MEDS: amLODIPine 5 MG TABLET PO SCH (20:21)
[2017-04-28] MEDS: Ipratropium/Albuterol Neb 3 ML IH SCH ×6 (05:00→23:31)
[2017-04-28] MEDS: *HR* Heparin 5,000 UNIT/ML VIAL SQ SCH ×2 (06:31→17:04)
[2017-04-28 06:38] LABS: Basophils # 0.1 K/mcL (0.0-0.2); Basophils % 0.4 %; Eosinophils # 0.2 K/mcL (0.0-0.6); Eosinophils % 1.7 %; Hematocrit 28.7 % (35.3-44.9); Hemoglobin 9.2 g/dL (11.5-15.4); Immature Granulocytes % 3.7 % (0-4); Lymphocytes # 2.5 K/mcL (0.6-4.6); Lymphocytes % 21.2 %; Mean Corpuscular HGB Conc 32.1 g/dL (31.6-35.5); Mean Corpuscular Hemoglobin 27.1 pg (28.0-33.3); Mean Corpuscular Volume 84.7 fL (83.0-100.0); Mean Platelet Volume 10.6 fL (9.4-12.4); Monocytes # 1.1 K/mcL (0.0-1.3); Monocytes % 9.2 %; Neutrophils # 7.5 K/mcL (1.6-8.9); Nucleated Red Blood Cells 0.3 /100 WBC (0); Platelet Count 235 K/mcL (140-400); Red Blood Count 3.39 M/mcL (3.82-4.97); Red Cell Distribution Width 14.5 % (11.5-14.5); Segmented Neutrophils % 63.8 %
[2017-04-28 06:52] LABS: Calcium 8.5 mg/dL (8.6-10.3); Magnesium 1.7 mg/dL (1.6-2.6); Potassium 4.4 mEq/L (3.5-5.1)
--- NOTE | 2017-04-28 06:56 | Electrocardiograph Report ---
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
[2017-04-28] MEDS: Insulin LISPRO 300 UNITS/3 ML VIAL SQ SCH ×4 (08:17→22:27)
--- NOTE | 2017-04-28 09:30 | Cardiology Progress Note ---
<Maxx Shukla - Last Filed: 04/28/17 11:52> Date of Encounter: 04/28/17 Time of Encounter: 09:28 Assessment and Plan (1) Elevated troponin Current Visit: No Status: Acute Troponins are elevated, flat and adynamic. 0.16, 0.18, 0.14 Possible it could be chronically elevated looking back at her past troponins as demonstrated in June and August 2016. Pt has hx of CKD Echo this admission was taken while in a fib so tachycardia limited images. Patient is not describing chest pain and there are no acute EKG changes. Given this history and possibility for chronically elevated troponins, Dr. Navas recommended holding off on heparinization. Repeat Echo showed: LVEF 50%. Mild left ventricular diastolic dysfunction. Normal right ventricular structure and function. Moderate mitral regurgitation. No pulmonary hypertension - TR gradient may not be well obtained. Last echo 08/20: Normal LV systolic function, LVEF 55-60%. Moderate concentric left ventricular hypertrophy. Mild left ventricular diastolic dysfunction. Normal right ventricular size and function. Mild mitral regurgitation. Unable to estimate RVSP due to lack of TR jet. Plan: continuing aspirin, statin. Stress test tomorrow. NPO at midnight. (2) New onset a-fib Current Visit: Yes Status: Acute Pt had one episode of a fib 04/24/17 and converted to sinus spontaneously. Patient denies hx of prior a fib. CHADSVASC of 5. CKD stage [address] Hurtado. only option for anticoagulation would be coumadin. Patient has concerns about starting coumadin. Patient reports being told she was a bleeder during prior LHC. She cannot elaborate further. Per primary team was told she had an extenrded period of bleeding after LHC that was relieved with pressure. Patient also reports falling fairly frequently. She lives at home with her sister. She has home health come twice a week. Patient anemic on admission 9.5, 9.0, 7.9, 8.3. NL hgb as recently as 08/20. Anemic in October and March 2017 in our in patient records. Iron studies this admission indicate likely anemia of chronic disease with low transferrin and high ferrittin. Discussed pro's and cons of anticoagulation with patient. Discussed risk of stroke and risk of bleeding. Based on concern for fall risk, recommend just keeping patient on ASA. Plan: continue ASA. Discussion w patient/family: The assessment and plan as outlined above was discussed with the patient and/or family members who expressed understanding and agreement. All questions were answered. Thank you for involving us in the care of your patient. Please call with any questions. Subjective Principal diagnosis: PNA Interval history: Patient seen and examined by me at bedside. Patient reports feeling ok. Patient denies Chest Pain. Repeat ECHO was performed. Objective Vital Signs, Last 4 Hours Temp Pulse Resp BP Pulse Ox 04/28/17 08:12 97.7 F 70 20 166/70 97 04/28/17 07:48 16 96 General: Conversant, No Apparent Distress HEENT: Atraumatic, Normocephaly, Mucus Membranes Moist Neck: No JVD Cardiac: Reg Rate and Rhythm, Normal S1 and S2, No Murmur Lungs: Normal Breath Sounds, No Wheeze, Rales, Rhonchi Neuro: Alert and responsive, No focal deficits noted Abdomen: Soft, Non-Tender Skin: No rashes noted on visualized skin Musculoskeletal: No Chest Wall Tenderness Extremities: No Clubbing, No Cyanosis, Normal Pulses Results 04/28/17 06:26 04/28/17 06:26 Lab Results 04/27/17 04/27/17 04/28/17 11:16 11:16 06:26 WBC 10.2 11.8 H Hgb 9.2 L 9.2 L Hct 29.2 L 28.7 L Plt Count 259 235 Sodium 141 Potassium 4.2 Chloride 103 Carbon Dioxide 31 H BUN 43 H Creatinine 1.75 H Glucose 198 H Calcium 8.4 L Magnesium 04/28/17 06:26 WBC Hgb Hct Plt Count Sodium 143 Potassium 4.4 Chloride 106 Carbon Dioxide 31 H BUN 43 H Creatinine 1.48 H Glucose 137 H Calcium 8.5 L Magnesium 1.7 Consult Discharge Plan - Plan Referrals: Anna White, DIRECTOR RETIREMENT [Primary Care Provider] - <Eric Avendaño - Last Filed: 04/28/17 18:41> Date of Encounter: 04/28/17 Assessment and Plan Discussion w patient/family: The assessment and plan as outlined above was discussed with the patient and/or family members who expressed understanding and agreement. All questions were answered. Thank you for involving us in the care of your patient. Please call with any questions. Objective Vital Signs, Last 4 Hours Temp Pulse Resp BP Pulse Ox 04/28/17 16:03 16 97 04/28/17 15:54 97.7 F 72 19 150/74 97 Results 04/28/17 06:26 04/28/17 06:26 Lab Results 04/28/17 04/28/17 06:26 06:26 WBC 11.8 H Hgb 9.2 L Hct 28.7 L Plt Count 235 Sodium 143 Potassium 4.4 Chloride 106 Carbon Dioxide 31 H BUN 43 H Creatinine 1.48 H Glucose 137 H Calcium 8.5 L Magnesium 1.7 - Attending Attestation I examined this patient and my medical decision-making was reviewed with the Resident Physician. I agree with the documented findings, disposition and treatment plan as described except to the extent set forth below. CC: Shortness of breath, heart pounding. Pt reports heart racing and skipping has improved. She reports is still short of breath, but has improved. She is now able to lie flat to sleep. IMP : 1. Elevated troponin, persistent .0.14 to 0.18, appears chronically elevated, will order lexiscan cardiolyte stress for tomorrow AM, eval for ischemic substrate 2. A fib with controlled ventricular response on current medications, of unclear duration, now rate controlled,. is frequently having mechanical falls, is not a candidate for systemic anticoagulation, continue on ASA 81 mg q d. 3. Chronic kidney disease, stage 3, follows with Dr. Hurtado,
[2017-04-28] MEDS: Furosemide 20 MG/2 ML VIAL IVP SCH (09:37)
[2017-04-28] MEDS: cefTRIAXone 1,000 MG in Water for inj. (sterile) 10 ML IVP SCH (09:37)
[2017-04-28] MEDS: Azithromycin 250 MG TABLET PO SCH (09:38)
[2017-04-28] MEDS: Aspirin Enteric Coated 81 MG Tablet PO SCH (09:38)
[2017-04-28] MEDS: Nystatin POWDER 30 GM BOTTLE TP SCH ×3 (09:38→22:27)
[2017-04-28] MEDS: Isosorbide MONOnitrate (24 HR) 30 MG TAB.ER.24H PO SCH (09:38)
[2017-04-28] MEDS: Loratadine 10 MG TABLET PO SCH (09:38)
[2017-04-28] MEDS: Fenofibrate 54 MG TABLET PO SCH (09:38)
[2017-04-28] MEDS: Gabapentin 400 MG CAPSULE PO SCH ×3 (09:38→22:26)
--- NOTE | 2017-04-28 13:18 | Internal Med Progress Note ---
Date of Encounter: 04/28/17 Time of Encounter: 13:16 - Assessment and plan (1) Community acquired pneumonia Current Visit: Yes Status: Acute Assessment and plan: Continue with antibiotics. She is on Rocephin and Zithromax. White count is trending down however it is mildly elevated 11.8 today. She is afebrile. . urine strep and Legionella negative. Cultures are negative Wean down oxygen as tolerated. She is on chronic oxygen. Continue nebs. Qualifiers: Laterality: unspecified laterality Qualified Code(s): J18.9 - Pneumonia, unspecified organism (2) Congestive heart failure (CHF) Current Visit: No Status: Acute Assessment and plan: Likely acute exacerbation of diastolic heart failure. Continue with diuresis. Continue with Lasix but will switch her to oral Lasix that she was on previously. She usually takes 40 mg twice a day. She has only been receiving IV 20. She tells me she does have chronic lower extremity swelling. Monitor kidney function. Wean down oxygen as tolerated. Continue nebs. Continue beta ritesh. Hold lisinopril given kidney function. Qualifiers: Congestive heart failure type: diastolic Congestive heart failure chronicity: acute Qualified Code(s): I50.31 - Acute diastolic (congestive) heart failure (3) CKD (chronic kidney disease) Current Visit: No Status: Chronic Assessment and plan: Creatinine proving. Creatinine was trending up since admission but has been slowly improving. Seems to have chronic kidney disease since 2013. She has been receiving Lasix. We will avoid other nephrotoxins. We will continue with diuresis as patient shows signs of volume overload. If creatinine continues to trend up I will consult with nephrology. Qualifiers: Chronic kidney disease stage: stage 3 (moderate) Qualified Code(s): N18.3 - Chronic kidney disease, stage 3 (moderate) (4) New onset a-fib Current Visit: Yes Status: Acute Assessment and plan: Continue metoprolol. Rate is better now. Seems to be in sinus now. Repeat Echo noted. appreciate cardiology's help. She has a chads vasc score that is high that would warrant her to be on anticoagulation however cardiology as managing and has recommended aspirin given risk of fall. Negative occult blood in stools. Normal TSH. (5) Diabetes Current Visit: No Status: Chronic Assessment and plan: Had a hypoglycemic episode 2 days ago. Long-acting insulin has been on hold. I did stop her pre-meal boluses as well. We will continue to monitor her glucoses. Continue with insulin sliding scale for now. A1c 11.4 Qualifiers: Diabetes mellitus type: type 2 Diabetes mellitus complication status: with unspecified complications Diabetes mellitus adjunct faculty for medical terminology insulin use: with intermediate use Qualified Code(s): E11.8 - Type 2 diabetes mellitus with unspecified complications; Z79.4 - shelter (current) use of insulin; Z79.4 - shelter ( current) use of insulin; Z79.4 - shelter (current) use of insulin; Z79.4 - shelter (current) use of insulin (6) Elevated troponin Current Visit: No Status: Acute Assessment and plan: Merchandising Specialist following. Plans for stress test tomorrow morning. (7) CAD (coronary artery disease) Current Visit: No Status: Acute Assessment and plan: Continue aspirin and statin beta ritesh. In for stress test in the morning. Qualifiers: Coronary Disease-Associated Artery/Lesion type: [place] artery [place] vs. transplanted heart: [place] heart Associated angina: without angina Qualified Code(s): I25.10 - Atherosclerotic heart disease of [place] coronary artery without angina pectoris (8) Morbid obesity with BMI of 40.0-44.9, adult Current Visit: Yes Status: Acute Assessment and plan: counseled. (9) DVT prophylaxis Current Visit: No Status: Acute Assessment and plan: Heparin subcutaneous (10) Goals of care, counseling/discussion Current Visit: Yes Status: Acute Assessment and plan: Stress test tomorrow morning. After that we may possibly be working on placement. - Subjective Interval history: Patient seen and examined. Feeling better. No chest pain. Admitted with community acquired pneumonia as well as exacerbation of CHF. She went went into A. fib with RVR on admission and is back in sinus. She has no history of it. Has been afebrile. - Constitutional Vitals: Temp Pulse Resp BP Pulse Ox 97.7 F 70 20 166/70 97 04/28/17 08:12 04/28/17 08:12 04/28/17 08:12 04/28/17 08:12 04/28/17 08:12 Exam: GEN: NAD CVS: RRR. S1, S2, No m/r/g RESP: Crackles at the bases. ABD: Soft, NT, ND, +BS EXT: 1+ edema. 2+ DP. No rashes NEURO: Nonfocal Internal Medicine: Result - Labs CBC & Chem 7: 04/28/17 06:26 04/28/17 06:26 Labs: Short CBC 04/28/17 Range/Units 06:26 WBC 11.8 H (4.3-11.1) K/mcL Hgb 9.2 L (11.5-15.4) g/dL Hct 28.7 L (35.3-44.9) % Plt Count 235 (140-400) K/mcL Neutrophils # 7.5 (1.6-8.9) K/mcL BMP 04/28/17 06:26 Sodium 143 Potassium 4.4 Chloride 106 Carbon Dioxide 31 H BUN 43 H Creatinine 1.48 H Glucose 137 H Calcium 8.5 L - Impressions Impressions Echocardiogram 04/27/17 15:03 Impressions: LVEF 50%. Mild left ventricular diastolic dysfunction. Normal right ventricular structure and function. Moderate mitral regurgitation. No pulmonary hypertension - TR gradient may not be well obtained. Left Ventricular Wall Motion: Rest Echo Findings All wall segments showed normal motion. Findings: Study Quality * Technically adequate exam. ECG Findings * Normal sinus rhythm. Left Ventricle * LVEF 50%. * Mild left ventricular diastolic dysfunction. * LV wall thickness not well obtained - probably mild increased LV hypertrophy.. * Normal LV size. Right Ventricle * Normal right ventricular structure and function. Left Atrium * Mildly dilated left atrium. Right Atrium * Normal right atrial size. Aortic Valve * No aortic regurgitation. * Aortic valve not well visualized. * No aortic stenosis. Mitral Valve * No mitral stenosis. * Moderate mitral regurgitation. * Mildly thickened mitral valve leaflets. Tricuspid Valve * Trace tricuspid regurgitation. * Normal tricuspid valve structure. * Estimated RA pressure is 3 mmHg. * Estimated RVSP is 19 mmHg. * No pulmonary hypertension. Pulmonic Valve * Pulmonic valve is not well visualized. * No pulmonic stenosis. * No pulmonic regurgitation. Pulmonary Artery * Pulmonary artery not well visualized. Aorta * Normally sized aortic root. * Ascending aorta is not well visualized. Interatrial Septum * Interatrial septum not well evaluated. Pericardium * There is no pericardial effusion present. IVC * The IVC is not dilated. * > 50% respiratory change Consult Discharge Plan - Plan Referrals: Anna White, DISCOUNT CLERK [Primary Care Provider] -
--- NOTE | 2017-04-28 16:52 | Electrocardiograph Report ---
[address] [place] [address] Test Date: 2017-04-25 Pat Name: Christelle Starr Department: 112 Room: 2A Gender: F Blend Technician: : 1945 Requested By: Ninfa Chatman Order Number: [id number] Reading MD: Yaw Downs Measurements Intervals [place] Rate: 116 P: MD: 0 QRS: 6 QRSD: 78 T: 5 QT: 319 QTc: 388 Interpretive Statements ATRIAL FIBRILLATION WITH RAPID VENTRICULAR RESPONSE POSSIBLE ANTERIOR MYOCARDIAL INFARCTION, OF INDETERMINATE AGE Electronically Signed On 04-28-2017 16:50:20 EST by Yaw Downs
[2017-04-28] MEDS: Furosemide 40 MG TABLET PO SCH (17:04)
[2017-04-28] MEDS: GuaiFENesin/Codeine Oral Soln 5 ML UDC PO PRN (22:26)
[2017-04-28] MEDS: amLODIPine 5 MG TABLET PO SCH (22:27)
[2017-04-29] MEDS: Ipratropium/Albuterol Neb 3 ML IH SCH ×6 (03:53→23:43)
[2017-04-29] MEDS: *HR* Heparin 5,000 UNIT/ML VIAL SQ SCH ×2 (05:24→17:34)
[2017-04-29 06:05] LABS: Basophils % 0.2 %; Eosinophils # 0.2 K/mcL (0.0-0.6); Eosinophils % 1.6 %; Hematocrit 27.1 % (35.3-44.9); Hemoglobin 8.3 g/dL (11.5-15.4); Immature Granulocytes % 3.7 % (0-4); Lymphocytes % 17.6 %; Mean Corpuscular HGB Conc 30.6 g/dL (31.6-35.5); Mean Corpuscular Hemoglobin 26.3 pg (28.0-33.3); Mean Corpuscular Volume 85.8 fL (83.0-100.0); Mean Platelet Volume 10.1 fL (9.4-12.4); Monocytes % 8.9 %; Neutrophils # 7.7 K/mcL (1.6-8.9); Nucleated Red Blood Cells 0.2 /100 WBC (0); Platelet Count 240 K/mcL (140-400); Red Blood Count 3.16 M/mcL (3.82-4.97); Red Cell Distribution Width 14.5 % (11.5-14.5)
[2017-04-29] MEDS ORDERED: Regadenoson 0.4 MG/5 ML SYRINGE IVP ONE (06:14)
[2017-04-29 07:04] LABS: Calcium 8.8 mg/dL (8.6-10.3); Potassium 3.8 mEq/L (3.5-5.1)
--- NOTE | 2017-04-29 09:27 | Cardiology Progress Note ---
<Maxx Shukla - Last Filed: 04/29/17 13:02> Date of Encounter: 04/29/17 Time of Encounter: 09:25 Assessment and Plan (1) Elevated troponin Current Visit: No Status: Acute Troponins are elevated, flat and adynamic. 0.16, 0.18, 0.14 likely chronically elevated Pt has hx of CKD, hx of elevated trops in the past. Patient is not describing chest pain and there are no acute EKG changes. Given this history and possibility for chronically elevated troponins, recommended holding off on heparinization. Repeat Echo showed: LVEF 50%. Mild left ventricular diastolic dysfunction. Normal right ventricular structure and function. Moderate mitral regurgitation. No pulmonary hypertension - TR gradient may not be well obtained. Last echo 08/20: Normal LV systolic function, LVEF 55-60%. Moderate concentric left ventricular hypertrophy. Mild left ventricular diastolic dysfunction. Normal right ventricular size and function. Mild mitral regurgitation. Unable to estimate RVSP due to lack of TR jet. Plan: continuing aspirin, statin. Stress test performed today, to rule out ischemia. Rest images to be completed tomorrow. further recommendations based on results of stress. (2) New onset a-fib Current Visit: Yes Status: Acute Pt had one episode of a fib 04/24/17 and converted to sinus spontaneously that same day. Pt currently in NSR Patient denies hx of prior a fib. CHADSVASC of 5. CKD stage [address] Hurtado. Patient reports being told she was a bleeder during prior LHC. She cannot elaborate further. Per primary team was told she had an extenrded period of bleeding after LHC that was relieved with pressure. Patient also reports falling fairly frequently. She lives at home with her sister. She has home health come twice a week. Patient anemic on admission 9.5, 9.0, 7.9, 8.3. NL hgb as recently as 08/20. Anemic in October and March 2017 in our in patient records. Iron studies this admission indicate likely anemia of chronic disease with low transferrin and high ferrittin. Discussed pro's and cons of anticoagulation with patient. Discussed risk of stroke and risk of bleeding. Based on concern for fall risk, recommend just keeping patient on ASA. Plan: continue ASA. Discussion w patient/family: The assessment and plan as outlined above was discussed with the patient and/or family members who expressed understanding and agreement. All questions were answered. Thank you for involving us in the care of your patient. Please call with any questions. Subjective Principal diagnosis: PNA Interval history: Patient undergoing Nuclear Stress test today. Patient is a 2 day Rest patient due to BMI so rest images will be taken tomorrow before stress is fully completed. Objective Vital Signs, Last 4 Hours Temp Pulse Resp BP Pulse Ox 04/29/17 07:43 16 93 04/29/17 06:49 97.8 F 81 16 145/75 93 General: Conversant, No Apparent Distress HEENT: Atraumatic, Normocephaly, Mucus Membranes Moist Neck: No JVD Cardiac: Reg Rate and Rhythm, Normal S1 and S2 Lungs: Normal Breath Sounds, No Wheeze, Rales, Rhonchi Neuro: Alert and responsive, No focal deficits noted Abdomen: Soft, Non-Tender Skin: No rashes noted on visualized skin Musculoskeletal: No Chest Wall Tenderness Extremities: No Clubbing, No Cyanosis, Normal Pulses Results 04/29/17 05:32 04/29/17 05:32 Lab Results 04/29/17 04/29/17 05:32 05:32 WBC 11.3 H Hgb 8.3 L Hct 27.1 L Plt Count 240 Sodium 144 Potassium 3.8 Chloride 105 Carbon Dioxide 33 H BUN 41 H Creatinine 1.45 H Glucose 215 H Calcium 8.8 Consult Discharge Plan - Plan Referrals: Anna White, MONOMER PURIFICATION OPERATOR [Primary Care Provider] - 05/06/17 12:45 pm (Please follow up as schedule) <Eric Avendaño - Last Filed: 04/29/17 18:34> Date of Encounter: 04/29/17 Time of Encounter: 18:10 Assessment and Plan Discussion w patient/family: The assessment and plan as outlined above was discussed with the patient and/or family members who expressed understanding and agreement. All questions were answered. Thank you for involving us in the care of your patient. Please call with any questions. Objective Vital Signs, Last 4 Hours Temp Pulse Resp BP Pulse Ox 04/29/17 17:11 98.0 F 76 16 157/67 96 04/29/17 16:34 18 98 Results 04/29/17 05:32 04/29/17 05:32 Lab Results 04/29/17 04/29/17 05:32 05:32 WBC 11.3 H Hgb 8.3 L Hct 27.1 L Plt Count 240 Sodium 144 Potassium 3.8 Chloride 105 Carbon Dioxide 33 H BUN 41 H Creatinine 1.45 H Glucose 215 H Calcium 8.8 - Attending Attestation I examined this patient and my medical decision-making was reviewed with the Resident Physician. I agree with the documented findings, disposition and treatment plan as described except to the extent set forth below. CC: heart racing, shortness of breath Pt reports is breathing easier, was able to lie flat for first part of stress test without difficulty. She reports her heart racing and skipping has resolved. PE: reviewed above, agree IMP: 1. Elevated troponin of unclear significance, undergoing stress imaging to eval ischemic substrate causing troponin elevation, further recommendations pending cardiac imaging. 2. Paroxysmal atrial fib, back in NSR, maintaining. 3. Chronic anemia, receiving IV iron replacement
[2017-04-29] MEDS: Insulin LISPRO 300 UNITS/3 ML VIAL SQ SCH ×4 (10:37→21:46)
[2017-04-29] MEDS: cefTRIAXone 1,000 MG in Water for inj. (sterile) 10 ML IVP SCH (10:38)
[2017-04-29] MEDS: Azithromycin 250 MG TABLET PO SCH (10:38)
[2017-04-29] MEDS: Gabapentin 400 MG CAPSULE PO SCH ×3 (10:38→21:45)
[2017-04-29] MEDS: Aspirin Enteric Coated 81 MG Tablet PO SCH (10:39)
[2017-04-29] MEDS: Fenofibrate 54 MG TABLET PO SCH (10:39)
[2017-04-29] MEDS: Loratadine 10 MG TABLET PO SCH (10:39)
[2017-04-29] MEDS: Nystatin POWDER 30 GM BOTTLE TP SCH ×3 (10:39→21:46)
[2017-04-29] MEDS: Furosemide 40 MG TABLET PO SCH ×2 (10:39→17:34)
--- NOTE | 2017-04-29 17:10 | Internal Med Progress Note ---
Date of Encounter: 04/29/17 Time of Encounter: 13:45 - Assessment and plan (1) New onset a-fib Current Visit: Yes Status: Acute Assessment and plan: currently rate-controlled; Cardiology on board; continue beta ritesh; anticoagulation is deferred due to risks outweighing benefits; continue ASA; (2) Community acquired pneumonia Current Visit: Yes Status: Acute Assessment and plan: hest Ray suggestive of B/L perihilar and basilar infiltrates, possible Pneumonia ; continue IV antibiotics- Rocephin and Zithromax- day 6; blood cultures negative; urine Legionella and strep pneumoniae Ag negative; Qualifiers: Laterality: unspecified laterality Qualified Code(s): J18.9 - Pneumonia, unspecified organism (3) SACHA (acute kidney injury) Current Visit: Yes Status: Resolved (4) Elevated troponin Current Visit: Yes Status: Acute Assessment and plan: Cardiology on board; Troponins flat and adynamic, around 0.16. continue Telemetry, ASA, statin, beta ritesh; Echocardiogram shows LVEF 50%. Mild left ventricular diastolic dysfunction. Moderate mitral regurgitation. Completed first part of nuclear stress test today; (5) Diabetes Current Visit: Yes Status: Chronic Assessment and plan: continue Accucheck blood glucose monitoring with sliding scale insulin as needed ; diabetic diet; Qualifiers: Diabetes mellitus type: type 2 Diabetes mellitus complication status: with unspecified complications Diabetes mellitus vermin exterminator insulin use: with vermin exterminator use Qualified Code(s): E11.8 - Type 2 diabetes mellitus with unspecified complications; Z79.4 - exterminator helper termite (current) use of insulin; Z79.4 - exterminator helper termite ( current) use of insulin; Z79.4 - snf (current) use of insulin; Z79.4 - exterminator helper termite (current) use of insulin (6) CAD (coronary artery disease) Current Visit: Yes Status: Chronic Qualifiers: Coronary Disease-Associated Artery/Lesion type: [place] artery [place] vs. transplanted heart: [place] heart Associated angina: without angina Qualified Code(s): I25.10 - Atherosclerotic heart disease of [place] coronary artery without angina pectoris (7) CKD (chronic kidney disease) Current Visit: Yes Status: Chronic Assessment and plan: serum creatinine at baseline at this time; Qualifiers: Chronic kidney disease stage: stage 3 (moderate) Qualified Code(s): N18.3 - Chronic kidney disease, stage 3 (moderate) (8) Congestive heart failure (CHF) Current Visit: Yes Status: Acute Assessment and plan: Echocardiogram showed LVEF 50%. Mild left ventricular diastolic dysfunction. Normal right ventricular structure and function. Moderate mitral regurgitation. Improving clinically; continue Lasix and beta ritesh; Qualifiers: Congestive heart failure type: diastolic Congestive heart failure chronicity: acute on chronic Qualified Code(s): I50.33 - Acute on chronic diastolic (congestive) heart failure - Subjective Interval history: Feels better; no chest pain, dyspnea, palpitations or any other complaints; underwent first part of stress test today; - Constitutional Vitals: Temp Pulse Resp BP Pulse Ox 98.3 F 88 18 150/74 98 04/29/17 10:36 04/29/17 10:36 04/29/17 16:34 04/29/17 10:36 04/29/17 16:34 General appearance: Present: A&O X 3, answers questions appropriately - Respiratory Respiratory exam: Present: CTAB. Absent: accessory muscle use, rales, rhonchi, wheezes - Cardiovascular Cardiovascular exam: Present: irregular rhythm, +S1, +S2. Absent: diastolic murmur, gallop, rubs, systolic murmur - GI/Abdominal GI/Abdominal exam: Present: normal bowel sounds, soft, no peritoneal signs. Absent: distended, tenderness - Extremities Exam Extremities exam: Present: full ROM, pedal edema, warm, radial pulses palpable and symmetrical. Absent: calf tenderness, cyanotic - Neurological Exam Neurological exam: Present: CN II-XII intact, oriented X3, no focal deficits. Absent: pronater drift, facial droop, speech deficit Internal Medicine: Result - Labs CBC & Chem 7: 04/29/17 05:32 04/29/17 05:32 Labs: Short CBC 04/29/17 Range/Units 05:32 WBC 11.3 H (4.3-11.1) K/mcL Hgb 8.3 L (11.5-15.4) g/dL Hct 27.1 L (35.3-44.9) % Plt Count 240 (140-400) K/mcL Neutrophils # 7.7 (1.6-8.9) K/mcL BMP 04/29/17 05:32 Sodium 144 Potassium 3.8 Chloride 105 Carbon Dioxide 33 H BUN 41 H Creatinine 1.45 H Glucose 215 H Calcium 8.8 Consult Discharge Plan - Plan Referrals: Anna White, NAY [Primary Care Provider] - 05/06/17 12:45 pm (Please follow up as schedule)
[2017-04-29] MEDS: GuaiFENesin/Codeine Oral Soln 5 ML UDC PO PRN (21:45)
[2017-04-29] MEDS: amLODIPine 5 MG TABLET PO SCH (21:46)
[2017-04-30] MEDS: Ipratropium/Albuterol Neb 3 ML IH SCH ×6 (03:57→23:52)
[2017-04-30] MEDS: *HR* Heparin 5,000 UNIT/ML VIAL SQ SCH ×2 (05:02→17:25)
[2017-04-30] MEDS: Insulin LISPRO 300 UNITS/3 ML VIAL SQ SCH ×4 (09:12→21:08)
[2017-04-30] MEDS: Fenofibrate 54 MG TABLET PO SCH (09:17)
[2017-04-30] MEDS: Loratadine 10 MG TABLET PO SCH (09:17)
[2017-04-30] MEDS: Azithromycin 250 MG TABLET PO SCH (09:17)
[2017-04-30] MEDS: Furosemide 40 MG TABLET PO SCH ×2 (09:17→17:24)
[2017-04-30] MEDS: Aspirin Enteric Coated 81 MG Tablet PO SCH (09:17)
[2017-04-30] MEDS: Gabapentin 400 MG CAPSULE PO SCH ×3 (09:18→21:07)
[2017-04-30] MEDS: cefTRIAXone 1,000 MG in Water for inj. (sterile) 10 ML IVP SCH (09:19)
[2017-04-30] MEDS: Nystatin POWDER 30 GM BOTTLE TP SCH ×3 (09:20→21:15)
--- NOTE | 2017-04-30 10:25 | Cardiology Progress Note ---
<Maxx Shukla - Last Filed: 04/30/17 14:40> Date of Encounter: 04/30/17 Time of Encounter: 09:30 Assessment and Plan (1) Elevated troponin Status: Acute Troponins are elevated, flat and adynamic. 0.16, 0.18, 0.14 likely chronically elevated Pt has hx of CKD, hx of elevated trops in the past. Patient is not describing chest pain and there are no acute EKG changes. EF this admission 50% prior [facility] EF 55-60% 2 day stress completed today which showed: "Technically challenging study due to body habitus. There is a moderate intensity stress perfusion defect involving the distal anteroseptal wall and apex in which ischemia cannot be excluded. There is a fixed perfusion defect involving the basal inferior/inferolateral reilly which worsens with stress. Findings likely represent artifact. However, ischemia also cannot be excluded. Pharmacologic stress ECG is negative for ischemia at level of heart rate achieved. Gated EF = 58%. Recommend clinical correlation." Patient had normal Stress test in 2014 Plan: continuing aspirin, statin. Discussed options with patient. LHC vs. Imdur, medical management and close follow up. Given the fact that patient is asymptomatic and there is a strong probability this is a false positive, area of possible ischemia is small, coupled with patient's CKD recommend medical management at this time. (2) New onset a-fib Status: Acute Pt had one episode of a fib 04/24/17 and converted to sinus spontaneously that same day. Pt currently in NSR Patient denies hx of prior a fib. CHADSVASC of 5. CKD stage [address] Hurtado. Discussed pro's and cons of anticoagulation with patient. Discussed risk of stroke and risk of bleeding. Based on concern for fall risk, recommend just keeping patient on ASA. Plan: continue ASA. Discussion w patient/family: The assessment and plan as outlined above was discussed with the patient and/or family members who expressed understanding and agreement. All questions were answered. Thank you for involving us in the care of your patient. Please call with any questions. Subjective Principal diagnosis: PNA Interval history: Patient completed 2 day stress test today. Patient denies CP. Pt reports breathing improved. Patient reports cough is improved. Objective Vital Signs, Last 4 Hours Temp Pulse Resp BP Pulse Ox 04/30/17 09:00 75 18 04/30/17 06:36 98.5 F 82 16 180/78 95 General: Conversant, No Apparent Distress HEENT: Atraumatic, Normocephaly, Mucus Membranes Moist Neck: No JVD Cardiac: Reg Rate and Rhythm, Normal S1 and S2, No Murmur Lungs: Normal Breath Sounds, No Wheeze, Rales, Rhonchi Neuro: Alert and responsive, No focal deficits noted Abdomen: Soft, Non-Tender Skin: No rashes noted on visualized skin Musculoskeletal: No Chest Wall Tenderness Extremities: No Clubbing, No Cyanosis, Normal Pulses Results 04/29/17 05:32 04/29/17 05:32 Consult Discharge Plan - Plan Instructions: Gabapentin (By mouth) Referrals: Anna White IRON PELLET TESTER [Primary Care Provider] - 05/06/17 12:45 pm (Please follow up as schedule) Prescriptions: Gabapentin [Neurontin] 800 mg PO TID #20 capsule <Eric Avendaño - Last Filed: 05/02/17 21:15> Date of Encounter: 05/02/17 Assessment and Plan Discussion w patient/family: The assessment and plan as outlined above was discussed with the patient and/or family members who expressed understanding and agreement. All questions were answered. Thank you for involving us in the care of your patient. Please call with any questions. Results 04/29/17 05:32 04/29/17 05:32 - Attending Attestation I examined this patient and my medical decision-making was reviewed with the Resident Physician. I agree with the documented findings, disposition and treatment plan as described except to the extent set forth below. CC: Chest pain PT reports chest pain has improved, Heart racing and skipping has also resolved. She is ambulatory in room without difficulty. PE: reviewed as above, agree IMP: 1. Chest pain has resolved, troponin chronically elevated, with abnormal stress , reviewed results with pt, has distal anterior wall and apical perfusion defect and basal and inferiolateral segments which could be ischemic, but appear artifact. Long conversation with patient, discussed LHC, risk and benefits, versus continued medical tx. Pt declines LHC, elects to proceed with medical therapy and lifestyle modification. Pt is at low risk for hospital discharge, will continue to monitor as outpatient. 2. A fib - paroxysmal, back in normal sinus rhythm, discussed stroke versus bleeding risk, pts fall risk, pt will continue on ASA 81 mg q d, understands and accepts increased stroke risk if continues to go in and out of A fib, will continue to monitor as outpatient 3. Chronic kidney disease, following with Dr Hurtado.
--- NOTE | 2017-04-30 18:41 | Internal Med Progress Note ---
Date of Encounter: 04/30/17 Time of Encounter: 13:30 - Assessment and plan (1) New onset a-fib Status: Acute Assessment and plan: currently rate-controlled; Cardiology on board; continue beta ritesh; anticoagulation is deferred due to risks outweighing benefits; continue ASA; DISPOSITION: ECF transfer when stable; PT/OT recommendations noted; social and political studies professor on board; (2) Community acquired pneumonia Status: Acute Assessment and plan: hest Ray suggestive of B/L perihilar and basilar infiltrates, possible Pneumonia ; discontinue IV antibiotics after today's dose- Rocephin and Zithromax- day 7; blood cultures negative; urine Legionella and strep pneumoniae Ag negative; Qualifiers: Laterality: unspecified laterality Qualified Code(s): J18.9 - Pneumonia, unspecified organism (3) SACHA (acute kidney injury) Status: Resolved (4) Elevated troponin Status: Acute Assessment and plan: Cardiology on board; Troponins flat and adynamic, around 0.16. continue Telemetry, ASA, statin, beta ritesh; Echocardiogram shows LVEF 50%. Mild left ventricular diastolic dysfunction. Moderate mitral regurgitation. Nuclear stress test shows abnormality- moderate intensity stress perfusion defect involving the distal anteroseptal wall and apex in which ischemia cannot be excluded. Cardiology initially planned for [facility] but now recommends medical management given her age, poor functional status and bleeding risk; continue ASA, statin, beta ritesh, Imdur; (5) Diabetes Status: Chronic Assessment and plan: continue Accucheck blood glucose monitoring with sliding scale insulin as needed ; diabetic diet; Qualifiers: Diabetes mellitus type: type 2 Diabetes mellitus complication status: with unspecified complications Diabetes mellitus extermination inspector insulin use: with extermination inspector use Qualified Code(s): E11.8 - Type 2 diabetes mellitus with unspecified complications; Z79.4 - continuous churn buttermaker (current) use of insulin; Z79.4 - continuous churn buttermaker ( current) use of insulin; Z79.4 - halfway (current) use of insulin; Z79.4 - halfway (current) use of insulin (6) CAD (coronary artery disease) Status: Chronic Qualifiers: Coronary Disease-Associated Artery/Lesion type: [place] artery [place] vs. transplanted heart: [place] heart Associated angina: without angina Qualified Code(s): I25.10 - Atherosclerotic heart disease of [place] coronary artery without angina pectoris (7) CKD (chronic kidney disease) Status: Chronic Qualifiers: Chronic kidney disease stage: stage 3 (moderate) Qualified Code(s): N18.3 - Chronic kidney disease, stage 3 (moderate) (8) Congestive heart failure (CHF) Status: Acute Assessment and plan: Echocardiogram showed LVEF 50%. Mild left ventricular diastolic dysfunction. Normal right ventricular structure and function. Moderate mitral regurgitation. Improving clinically; continue Lasix and beta ritesh; Qualifiers: Congestive heart failure type: diastolic Congestive heart failure chronicity: acute on chronic Qualified Code(s): I50.33 - Acute on chronic diastolic (congestive) heart failure - Subjective Interval history: Feels better; no chest pain, dyspnea, palpitations or any other complaints; underwent second part of stress test today; - Constitutional Vitals: Temp Pulse Resp BP Pulse Ox 98.2 F 93 16 163/76 94 04/30/17 16:26 04/30/17 16:26 04/30/17 16:26 04/30/17 16:26 04/30/17 16:26 General appearance: Present: A&O X 3, answers questions appropriately - Respiratory Respiratory exam: Present: CTAB. Absent: accessory muscle use, rales, rhonchi, wheezes - Cardiovascular Cardiovascular exam: Present: irregular rhythm, +S1, +S2. Absent: diastolic murmur, gallop, rubs, systolic murmur - GI/Abdominal GI/Abdominal exam: Present: normal bowel sounds, soft, no peritoneal signs. Absent: distended, tenderness - Extremities Exam Extremities exam: Present: pedal edema, warm, radial pulses palpable and symmetrical. Absent: calf tenderness, cyanotic Internal Medicine: Result - Labs CBC & Chem 7: 04/29/17 05:32 04/29/17 05:32 Consult Discharge Plan - Plan Instructions: Gabapentin (By mouth) Referrals: Anna White CNP [Primary Care Provider] - 05/06/17 12:45 pm (Please follow up as schedule) Prescriptions: Gabapentin [Neurontin] 800 mg PO TID #20 capsule
[2017-04-30] MEDS: amLODIPine 5 MG TABLET PO SCH (21:07)
[2017-05-01] MEDS: Ipratropium/Albuterol Neb 3 ML IH SCH ×3 (03:59→10:52)
[2017-05-01] MEDS: *HR* Heparin 5,000 UNIT/ML VIAL SQ SCH (05:00)
[2017-05-01] MEDS: Insulin LISPRO 300 UNITS/3 ML VIAL SQ SCH ×2 (07:40→12:33)
[2017-05-01] MEDS: cefTRIAXone 1,000 MG in Water for inj. (sterile) 10 ML IVP SCH (11:19)
[2017-05-01] MEDS: Fenofibrate 54 MG TABLET PO SCH (11:20)
[2017-05-01] MEDS: Furosemide 40 MG TABLET PO SCH (11:20)
[2017-05-01] MEDS: Gabapentin 400 MG CAPSULE PO SCH (11:20)
[2017-05-01] MEDS: Isosorbide MONOnitrate (24 HR) 30 MG TAB.ER.24H PO SCH (11:21)
[2017-05-01] MEDS: Aspirin Enteric Coated 81 MG Tablet PO SCH (11:21)
[2017-05-01] MEDS: Loratadine 10 MG TABLET PO SCH (11:21)
[2017-05-01 11:52] VITALS: BP 145/75
[2017-05-01] MEDS: Nystatin POWDER 30 GM BOTTLE TP SCH (12:32)
--- NOTE | 2017-05-01 13:28 | Discharge Summary ---
Date of Encounter: 05/01/17 Time of Encounter: 12:00 - Discharge Diagnosis (1) New onset a-fib Priority: Primary Status: Acute (2) Community acquired pneumonia Priority: Primary Status: Acute Qualifiers: Laterality: unspecified laterality Qualified Code(s): J18.9 - Pneumonia, unspecified organism (3) SACHA (acute kidney injury) Priority: Primary Status: Resolved (4) Elevated troponin Priority: Primary Status: Acute (5) Diabetes Priority: Secondary Status: Chronic Qualifiers: Diabetes mellitus type: type 2 Diabetes mellitus complication status: with unspecified complications Diabetes mellitus long-term insulin use: with truck terminal manager use Qualified Code(s): E11.8 - Type 2 diabetes mellitus with unspecified complications; Z79.4 - termite control service representative (current) use of insulin; Z79.4 - termite control service representative ( current) use of insulin; Z79.4 - MCC (current) use of insulin; Z79.4 - MCC (current) use of insulin (6) CAD (coronary artery disease) Priority: Secondary Status: Chronic Qualifiers: Coronary Disease-Associated Artery/Lesion type: [place] artery [place] vs. transplanted heart: [place] heart Associated angina: without angina Qualified Code(s): I25.10 - Atherosclerotic heart disease of [place] coronary artery without angina pectoris (7) CKD (chronic kidney disease) Priority: Secondary Status: Chronic Qualifiers: Chronic kidney disease stage: stage 3 (moderate) Qualified Code(s): N18.3 - Chronic kidney disease, stage 3 (moderate) (8) Congestive heart failure (CHF) Priority: Primary Status: Acute Qualifiers: Congestive heart failure type: diastolic Congestive heart failure chronicity: acute on chronic Qualified Code(s): I50.33 - Acute on chronic diastolic (congestive) heart failure - Discharge Medications Prescriptions: Gabapentin [Neurontin] 800 mg PO TID #20 capsule Home Medications: Aspirin Enteric Coated [Aspirin EC] 81 mg PO DAILY 06/16/16 [History] Fenofibrate 160 mg PO DAILY 06/16/16 [History] Gabapentin 800 mg PO TID 06/16/16 [History] Loratadine [Claritin] 10 mg PO DAILY 06/16/16 [History] Insulin LISPRO [HumaLOG] 25 units SQ TIDWM 08/11/16 [History] Atorvastatin [Lipitor] 40 mg PO HS #30 tablet 10/11/16 [Rx] Citalopram Hydrobromide [Citalopram HBr] 40 mg PO DAILY #30 tablet 10/11/16 [Rx] Isosorbide MONOnitrate (24 HR) [Imdur] 30 mg PO DAILY #30 tab.er.24h 10/11/16 [ Rx] Lisinopril [Zestril] 5 mg PO DAILY #30 tablet 10/11/16 [Rx] amLODIPine [Norvasc] 10 mg PO HS #30 tablet 10/11/16 [Rx] Acetaminophen [Tylenol 650mg SUPP] 650 mg RC Q4H PRN 04/24/17 [History] Bisacodyl [Dulcolax] 10 mg RC DAILY PRN 04/24/17 [History] Clobetasol Propionate 0.05% [Temovate] 1 appl TP DAILY 04/24/17 [History] Ferrous Sulfate 325 mg PO DAILY 04/24/17 [History] Furosemide [Lasix] 40 mg PO BID 04/24/17 [History] Hyoscyamine SL [Levsin Sl] 0.125 - 0.25 mg SL Q2H PRN 04/24/17 [History] Insulin DETEMIR [Levemir Flextouch] 40 unit SQ HS 04/24/17 [History] Ipratropium/Albuterol Neb [Duoneb] 3 ml IH Q4H PRN 04/24/17 [History] Metoprolol [Lopressor] 25 mg PO BID 04/24/17 [History] [place]-3/Dha/Epa/Fish Oil [Fish Oil 1,000 mg Softgel] 1,000 mg PO DAILY 04/24/17 [History] Oxygen 2 l NS AD 04/24/17 [History] Polyethylene Glycol 3350 [MiraLAX] 17 gm PO DAILY 04/24/17 [History] Promethazine [Phenergan] 25 mg RC Q6H PRN 04/24/17 [History] Triamcinolone Acet 0.1% CRM [Kenalog] 1 appl TP DAILY 04/24/17 [History] Albuterol Neb [Proventil Neb] 2.5 mg IH Q2H PRN inhsol 05/01/17 [Rx] Gabapentin [Neurontin] 800 mg PO TID #20 capsule 05/01/17 [Rx] Allergies/Adverse Reactions: 3 Allergy/AdvReac Type Severity Reaction Status Date / Time No Known Allergies Allergy Verified 10/09/16 19:32 Procedures/tests Complete & Pending: Procedures Performed prior 72 hours Category Date Time Status SP pharm nuclear stress Routine Y 04/29/17 07:15 Completed Date of admission: 04/24/17 07:02 Primary care physician: Anna White CNP Consults: 04/25/17 12:48 Consult to Cardiology [CONS] Routine Comment: Consulting Provider: Cardiology [facility] Reason for Consult: new onset afib Call Completed: No 04/25/17 23:18 Consult to Physical Therapy [CONS] Routine Comment: Evaluate, develop and implement POC Reason for Consult: STRENGTH TRAINING 04/25/17 23:40 Consult to Occupational Therapy [CONS] Routine Comment: Evaluate, develop and implement POC Reason for Consult: functional ability 04/27/17 11:39 Consult to Occupational Therapy [CONS] Routine Comment: Evaluate, develop and implement POC Reason for Consult: therapy/placement needs Consult to Physical Therapy [CONS] Routine Comment: Evaluate, develop and implement POC Reason for Consult: PT eval Discharging clinician: Darcy Espinal Anticipated date of discharge: 05/01/17 - Patient Status Disposition: Transfer SNF Condition: Good Functional capacity at discharge: uses cane/walker Overall status at discharge: patient is progressing back to baseline - Discharge Instructions Instructions: Gabapentin (By mouth) Follow Up With: Anna White CNP [Primary Care Provider] - 05/06/17 12:45 pm (Please follow up as schedule) - Diet and Activity Activity: as per physical therapy, wear oxygen at all times Diet: diabetic diet, low fat, low cholesterol, low salt diet, other (renal diet) Hospital course: Ms. Starr is a 72 year old female with the above medical problems, was admitted with shortness of breath. He was noted to be in atrial fibrillation with rapid ventricular response and was started on IV Cardizem drip with subsequent heart rate controlled. Cardiology was consulted, patient was not started on anticoagulation as her risks outweighed the benefits. Echocardiogram shows LVEF 50%. Mild left ventricular diastolic dysfunction. Moderate mitral regurgitation. Nuclear stress test shows abnormality- moderate intensity stress perfusion defect involving the distal anteroseptal wall and apex in which ischemia cannot be excluded. Cardiology initially planned for [facility] but now recommends medical management given her age, poor functional status and bleeding risk; continue ASA, statin, beta ritesh, Imdur; She was also noted to have community-acquired pneumonia and completed a 7 day course of antibiotics. Physical and occupational therapy evaluation was completed, recommended ECF placement, patient is currently medically stable for this transfer. - Time Spent with Patient Total time spent providing and/or coordinating discharge services: Greater than 30 minutes (45 min) - Constitutional Vitals: Temp Pulse Resp BP Pulse Ox 98.1 F 78 16 145/75 99 05/01/17 11:36 05/01/17 11:36 05/01/17 11:36 05/01/17 11:36 05/01/17 11:36 General appearance: Present: A&O X 3, answers questions appropriately - Respiratory Respiratory exam: Present: CTAB (coarse breath sounds B/L, intermittent scattered rhonchi). Absent: accessory muscle use, rales, rhonchi, wheezes
--- NOTE | 2017-05-01 13:31 | Physician Discharge Referral ---
ExtendedCare Referral Info Transfer To: [facility] Provider in Charge: Darcy Espinal Provider in Charge after Transfer: PCP Institutional Level of Care: Skilled - Diagnosis (1) New onset a-fib Priority: Primary Status: Acute (2) Community acquired pneumonia Priority: Primary Status: Acute (3) SACHA (acute kidney injury) Priority: Primary Status: Resolved (4) Elevated troponin Priority: Primary Status: Acute (5) Diabetes Priority: Secondary Status: Chronic (6) CAD (coronary artery disease) Priority: Secondary Status: Chronic (7) CKD (chronic kidney disease) Priority: Secondary Status: Chronic (8) Congestive heart failure (CHF) Priority: Primary Status: Acute Expected Duration of Placement: 3 weeks Prognosis: Fair Aware of Diagnosis: Patient Aware of Prognosis: Patient - Transfer Medications Prescriptions: Gabapentin [Neurontin] 800 mg PO TID #20 capsule Home Medications: Aspirin Enteric Coated [Aspirin EC] 81 mg PO DAILY 06/16/16 [History] Fenofibrate 160 mg PO DAILY 06/16/16 [History] Gabapentin 800 mg PO TID 06/16/16 [History] Loratadine [Claritin] 10 mg PO DAILY 06/16/16 [History] Insulin LISPRO [HumaLOG] 25 units SQ TIDWM 08/11/16 [History] Atorvastatin [Lipitor] 40 mg PO HS #30 tablet 10/11/16 [Rx] Citalopram Hydrobromide [Citalopram HBr] 40 mg PO DAILY #30 tablet 10/11/16 [Rx] Isosorbide MONOnitrate (24 HR) [Imdur] 30 mg PO DAILY #30 tab.er.24h 10/11/16 [ Rx] Lisinopril [Zestril] 5 mg PO DAILY #30 tablet 10/11/16 [Rx] amLODIPine [Norvasc] 10 mg PO HS #30 tablet 10/11/16 [Rx] Acetaminophen [Tylenol 650mg SUPP] 650 mg RC Q4H PRN 04/24/17 [History] Bisacodyl [Dulcolax] 10 mg RC DAILY PRN 04/24/17 [History] Clobetasol Propionate 0.05% [Temovate] 1 appl TP DAILY 04/24/17 [History] Ferrous Sulfate 325 mg PO DAILY 04/24/17 [History] Furosemide [Lasix] 40 mg PO BID 04/24/17 [History] Hyoscyamine SL [Levsin Sl] 0.125 - 0.25 mg SL Q2H PRN 04/24/17 [History] Insulin DETEMIR [Levemir Flextouch] 40 unit SQ HS 04/24/17 [History] Ipratropium/Albuterol Neb [Duoneb] 3 ml IH Q4H PRN 04/24/17 [History] Metoprolol [Lopressor] 25 mg PO BID 04/24/17 [History] [place]-3/Dha/Epa/Fish Oil [Fish Oil 1,000 mg Softgel] 1,000 mg PO DAILY 04/24/17 [History] Oxygen 2 l NS AD 04/24/17 [History] Polyethylene Glycol 3350 [MiraLAX] 17 gm PO DAILY 04/24/17 [History] Promethazine [Phenergan] 25 mg RC Q6H PRN 04/24/17 [History] Triamcinolone Acet 0.1% CRM [Kenalog] 1 appl TP DAILY 04/24/17 [History] Albuterol Neb [Proventil Neb] 2.5 mg IH Q2H PRN inhsol 05/01/17 [Rx] Gabapentin [Neurontin] 800 mg PO TID #20 capsule 05/01/17 [Rx] Allergies/Adverse Reactions: 3 Allergy/AdvReac Type Severity Reaction Status Date / Time No Known Allergies Allergy Verified 10/09/16 19:32 - Respiratory Orders Oxygen / L per min (2-3L/min via NC) Smoking Cessation: Smoking cessation has been advised. For more information, call the [place] Tobacco Quit Line at 0-439-GVKZ-NOW. - Advance Directives Code Status: Full Code - Mobility Orders Ambulate - Rehabiliation Orders Rehab Potential: Fair Rehab Orders: ROM Exercises, Evaluation for Physical Therapy, Evaluation for Occupational Therapy - Diet Orders No Added Salt (EDIL), No Concentrated Sweets (diabetic), Renal, Cardiac CERTIFICATION: I certify that the transfer of the above named patient to an Extended Care Facility is necessary for the continuing treatment of the diagnosis listed. The above information is true and accurate reflection of patient's current condition. Confidential - Redisclosure prohibited without a patient's written consent.
== END 2017-05-01 15:41 | DRG 291 ==
LOC: 2ANU 23:06 → EMEROO 23:06 → 2ANU 04-24 03:30 → SUATTDRO 04-24 07:02
PROVIDERS: ADMIT Internal Medicine; ATTEND Internal Medicine

== ENCOUNTER 2017-07-21 12:14 | Inpatient (IN) ==
[2017-07-21] MEDS ORDERED: methylPREDNISolone 125 MG/2 ML VIAL IVP ONE (12:32)
[2017-07-21] MEDS ORDERED: Ipratropium/Albuterol Neb 3 ML IH ONE (12:33)
[2017-07-21 12:54] LABS: Basophils % 0.3 %; Eosinophils # 0.1 K/mcL (0.0-0.6); Eosinophils % 0.8 %; Hematocrit 25.8 % (35.3-44.9); Hemoglobin 8.4 g/dL (11.5-15.4); Immature Granulocytes % 0.8 % (0-4); Lymphocytes # 1.1 K/mcL (0.6-4.6); Lymphocytes % 7.1 %; Mean Corpuscular HGB Conc 32.6 g/dL (31.6-35.5); Mean Corpuscular Hemoglobin 27.6 pg (28.0-33.3); Mean Corpuscular Volume 84.9 fL (83.0-100.0); Mean Platelet Volume 10.8 fL (9.4-12.4); Monocytes # 0.8 K/mcL (0.0-1.3); Monocytes % 4.8 %; Neutrophils # 13.8 K/mcL (1.6-8.9); Platelet Count 243 K/mcL (140-400); Red Blood Count 3.04 M/mcL (3.82-4.97); Segmented Neutrophils % 86.2 %
--- NOTE | 2017-07-21 13:09 | Emergency Department Note ---
Disposition Clinical Impression: Healthcare-associated pneumonia Acute exacerbation of CHF (congestive heart failure) Qualifiers: Heart failure type: unspecified Qualified Code(s): I50.9 - Heart failure, unspecified Disposition: Admitted As Inpatient Condition: Fair Time of Disposition: 13:58 SOB HPI - General Chief Complaint: ED Shortness of Breath/Dyspnea Stated Complaint: CONNOR Time Seen by Provider: 07/21/17 12:17 Source: patient, EMS Mode of arrival: EMS Limitations: no limitations Nursing Notes Reviewed: Yes Vital Signs Reviewed: Yes - History of Present Illness 72-year-old female history of congestive heart failure, CKD, diabetes, 3L home O2 supplementation presents to the ED via EMS for difficulty breathing. Patient reports gradual worsening shortness of breath or the past week. Worse with exertion. She reports mild cough without fever. Admits to slight chest pressure nonradiating. Patient was reportedly hypoxic and placed on CPAP. Patient's been tolerating BiPAP here with 99% oxygen saturation. Denies any other symptoms such as congestion, nausea, vomiting, diaphoresis, headache, abdominal pain or urinary symptoms. Admits to being on antibiotic this past week placed on by her home health nurse. Patient has a history of atrial fibrillation and currently on Aspirin. 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 Recent hospitalization 3 months ago for exacerbation of her heart failure. Reports echocardiogram performed at that time 04/27/17 EF 50 % with mild LV diastolic dysfunction, normal RV, mod MR. Denies history of COPD. Denies history of blood clots, hormone replacement, recent long-distance travel. Pt Subjective Complaint: shortness of breath, cough - Related Data Home Medications Medication Instructions Recorded Confirmed Aspirin Enteric Coated [Aspirin EC] 81 mg PO DAILY 06/16/16 07/21/17 Fenofibrate 160 mg PO DAILY 06/16/16 07/21/17 Gabapentin 800 mg PO TID 06/16/16 07/21/17 Insulin LISPRO [HumaLOG] 25 units SQ TIDWM 08/11/16 07/21/17 Acetaminophen [Tylenol 650mg SUPP] 650 mg RC Q4H PRN 04/24/17 07/21/17 Bisacodyl [Dulcolax] 10 mg RC DAILY PRN 04/24/17 07/21/17 Clobetasol Propionate 0.05% 1 appl TP DAILY 04/24/17 07/21/17 [Temovate] Ferrous Sulfate 325 mg PO DAILY 04/24/17 07/21/17 Furosemide [Lasix] 40 mg PO BID 04/24/17 07/21/17 Hyoscyamine SL [Levsin Sl] 0.125 - 0.25 mg SL Q2H PRN 04/24/17 07/21/17 Insulin DETEMIR [Levemir Flextouch] 40 unit SQ HS 04/24/17 07/21/17 Ipratropium/Albuterol Neb [Duoneb] 3 ml IH Q4H PRN 04/24/17 07/21/17 Metoprolol [Lopressor] 25 mg PO BID 04/24/17 07/21/17 [place]-3/Dha/Epa/Fish Oil [Fish Oil 1,000 mg PO DAILY 04/24/17 07/21/17 1,000 mg Softgel] Oxygen 3 - 4 l NS DAILY 04/24/17 07/21/17 Polyethylene Glycol 3350 [MiraLAX] 17 gm PO DAILY 04/24/17 07/21/17 Promethazine [Phenergan] 25 mg RC Q6H PRN 04/24/17 07/21/17 Triamcinolone Acet 0.1% CRM 1 appl TP DAILY 04/24/17 07/21/17 [Kenalog] Amoxicillin [Amoxil] 500 mg PO TID 07/21/17 07/21/17 Haloperidol Oral Conc [Haldol] 0.5 mg PO Q2H PRN 07/21/17 07/21/17 LORazepam [Ativan] 0.5 mg PO Q2H PRN 07/21/17 07/21/17 MORPHINE SUL Oral CONC [Roxanol 5 mg PO Q4H PRN 07/21/17 07/21/17 Oral Conc] Omeprazole [PriLOSEC] 20 mg PO DAILY 07/21/17 07/21/17 Oxycodone HCl/Acetaminophen 1 tab PO Q6H PRN 07/21/17 07/21/17 [Percocet 5-325 mg Tablet] Previous Rx's Medication Instructions Recorded Atorvastatin [Lipitor] 40 mg PO HS #30 tablet 10/11/16 Citalopram Hydrobromide 40 mg PO DAILY #30 tablet 10/11/16 [Citalopram HBr] Isosorbide MONOnitrate (24 HR) 30 mg PO DAILY #30 tab.er.24h 10/11/16 [Imdur] Lisinopril [Zestril] 5 mg PO DAILY #30 tablet 10/11/16 amLODIPine [Norvasc] 10 mg PO HS #30 tablet 10/11/16 Albuterol Neb [Proventil Neb] 2.5 mg IH Q2H PRN inhsol 05/01/17 Allergies Allergy/AdvReac Type Severity Reaction Status Date / Time No Known Allergies Allergy Verified 10/09/16 19:32 All systems ED: reviewed and negative except as stated. Review of Systems: As Per HPI Constitutional: Denies: fever, chills ENT ED: Denies: congestion Cardiovascular: Reports: chest pain Respiratory: Reports: cough, dyspnea, wheezes Gastrointestinal: Denies: abdominal pain, nausea, vomiting Genitourinary: Denies: urgency, dysuria Musculoskeletal: Denies: back pain, neck pain Integumentary: Denies: rash, abrasion Neurological: Denies: headache, weakness Past Medical History - Past Medical History Attestation: Yes The following information was validated with the patient. Source: patient, old records reviewed Medical history: Reports: coronary artery disease, diabetes, hyperlipidemia, hypertension, myocardial infarction, renal disease Surgical history: Reports: orthopedic, other Psychiatric history: Reports: anxiety, depression COMMERCIAL CENTER MANAGER history: Reports: no COMMERCIAL CENTER MANAGER history - Social History Smoking Status: Never smoker Smokeless Tobacco Status: No Alcohol use: Reports: none Drug use: Reports: none Physical Exam - General Limitations: no limitations General appearance: alert, in distress, obese - Head Head exam: atraumatic, normocephalic, normal inspection - Eye Eye exam: Present: normal appearance, PERRL, EOMI. Absent: scleral icterus - ENT ENT exam: normal exam, normal oropharynx, mucous membranes moist - Neck Neck exam: Present: normal inspection, full ROM, trachea midline. Absent: tenderness - Chest Chest inspection: Present: normal inspection, symmetric chest wall rise - Respiratory Respiratory exam: Present: respiratory distress (oon BiPAP), wheezes, prolonged expiratory phase - Expanded Respiratory Exam Location: rales: Right, rhonchi: Lower - Cardiovascular Cardiovascular exam: Present: regular rate, irregular rhythm, normal heart sounds - Abdominal Exam Abdominal exam: Present: soft (Obese), Non-Tender. Absent: tenderness, distention, guarding, rebound, rigidity - Extremities Exam Extremities exam: Present: normal inspection, full ROM, normal capillary refill , pedal edema (nonpitting). Absent: tenderness, calf tenderness - Back Exam Back exam: Present: normal inspection, full ROM. Absent: tenderness, CVA tenderness (R), CVA tenderness (L) - Neurological Exam Neurological exam: Present: alert, oriented X3 - Psychiatric Psychiatric exam: Present: normal affect, normal mood - Skin Skin exam: Present: warm, dry, intact, normal color. Absent: rash, cyanosis, diaphoresis Course Course Narrative: 72-year-old female history of heart failure presents with difficulty breathing times 1 week. Gradual worsening. Patient is in respiratory distress currently tolerating BiPAP with appropriate oxygen saturation. Patient was given reading treatment with mild improvement. On exam she is bilateral wheeze and rales R > L. Heart is irregular. Abdomen is soft nontender nondistended. tenderness. Nonpitting peripheral edema. Review of her chest x-ray shows right upper lobe infiltrate concerning for pneumonia. Patient was recently hospitalized within the last 3 weeks will treat for healthcare associated pneumonia. No allergies will place on Zosyn and vancomycin. She does have underlying chronic kidney disease will have pharmacy to dose. EKG does not show any acute ischemic changes. Troponin 0.03. Patient will require admission. She has leukocytosis 16 and was initially tachypneic meeting sepsis criteria. Lactate is 1.4. She is not hypotensive and does not require a 30 cc/kg fluid resuscitation bolus. Labs are otherwise near baseline. BNP elevated 786. Suspect there is a mild component of CHF exacerbation. Will also give her a dose of Lasix. Patients in agreement with this plan. - Consultations Consultation #1: Spoke with on-call hospitalist luz Malik to admit for HCAP and CHF exacerbation. No further orders at this time Time: 14:05 Vital Signs Temperature 99.5 F 07/21/17 12:22 Pulse Rate 66 07/21/17 12:22 Respiratory Rate 28 07/21/17 12:22 Blood Pressure 164/116 07/21/17 12:22 O2 Sat by Pulse Oximetry 98 07/21/17 12:22 Temperature 99.5 F 07/21/17 12:22 Pulse Rate 68 07/21/17 12:49 Respiratory Rate 18 07/21/17 14:51 Blood Pressure 168/77 07/21/17 14:51 O2 Sat by Pulse Oximetry 100 07/21/17 12:49 Oxygen Delivery Oxygen Delivery Bipap Shortness of Breath/Dyspnea - MDM Narrative Medical decision making narrative: Patient was discussed with my attending physician who agrees with ED management and final disposition. They independently evaluated the patient. Please refer to their attestation to this encounter for additional information. This note was generated by [employer] voice recognition software and as a result grammatical or spelling errors may occur using this program. - Differential Diagnosis Likely: acute exacerbation of chronic obstructive airways disease, congestive heart failure, pneumonia - Medical Records Medical records reviewed: Yes I reviewed the patient's medical records. - Lab Data Lab results reviewed: Yes I reviewed the patient's lab results. Result diagrams: 07/21/17 12:40 07/21/17 12:40 Lab Results 07/21/17 07/21/17 07/21/17 Range/Units 12:40 12:40 12:40 WBC 16.0 H (4.3-11.1) K/mcL RBC 3.04 L (3.82-4.97) M/mcL Hgb 8.4 L (11.5-15.4) g/dL Hct 25.8 L (35.3-44.9) % MCV 84.9 (83.0-100.0) fL MCH 27.6 L (28.0-33.3) pg MCHC 32.6 (31.6-35.5) g/dL RDW 14.0 (11.5-14.5) % Plt Count 243 (140-400) K/mcL MPV 10.8 (9.4-12.4) fL Immature Gran % 0.8 (0-4) % Seg Neutrophils % 86.2 % Lymphocytes % 7.1 % Monocytes % 4.8 % Eosinophils % 0.8 % Basophils % 0.3 % Neutrophils # 13.8 H (1.6-8.9) K/mcL Lymphocytes # 1.1 (0.6-4.6) K/mcL Monocytes # 0.8 (0.0-1.3) K/mcL Eosinophils # 0.1 (0.0-0.6) K/mcL Basophils # 0.0 (0.0-0.2) K/mcL PT 11.0 (9.4-12.1) Seconds INR 1.0 APTT 34.0 (26.0-36.0) Seconds Sodium 138 (136-145) mEq/L Potassium 4.5 (3.5-5.1) mEq/L Chloride 101 (98-107) mEq/L Carbon Dioxide 27 (23-29) mEq/L BUN 63 H (8-23) mg/dL Creatinine 1.94 H (0.60-1.20) mg/dL Est GFR ( Amer) 31 L (> 60) Est GFR (Non-Af Amer) 25 L (> 60) BUN/Creatinine Ratio 32 H (6-26) Glucose 333 H (70-105) mg/dL Calculated Osmolality 317 H (280-300) Lactic Acid (0.5-2.2) mmol/L Calcium 9.1 (8.6-10.3) mg/dL Troponin I 0.03 (< 0.04) ng/mL B-Natriuretic Peptide (Less than 100) pg/mL 07/21/17 07/21/17 Range/Units 12:40 12:40 WBC (4.3-11.1) K/mcL RBC (3.82-4.97) M/mcL Hgb (11.5-15.4) g/dL Hct (35.3-44.9) % MCV (83.0-100.0) fL MCH (28.0-33.3) pg MCHC (31.6-35.5) g/dL RDW (11.5-14.5) % Plt Count (140-400) K/mcL MPV (9.4-12.4) fL Immature Gran % (0-4) % Seg Neutrophils % % Lymphocytes % % Monocytes % % Eosinophils % % Basophils % % Neutrophils # (1.6-8.9) K/mcL Lymphocytes # (0.6-4.6) K/mcL Monocytes # (0.0-1.3) K/mcL Eosinophils # (0.0-0.6) K/mcL Basophils # (0.0-0.2) K/mcL PT (9.4-12.1) Seconds INR APTT (26.0-36.0) Seconds Sodium (136-145) mEq/L Potassium (3.5-5.1) mEq/L Chloride (98-107) mEq/L Carbon Dioxide (23-29) mEq/L BUN (8-23) mg/dL Creatinine (0.60-1.20) mg/dL Est GFR ( Amer) (> 60) Est GFR (Non-Af Amer) (> 60) BUN/Creatinine Ratio (6-26) Glucose (70-105) mg/dL Calculated Osmolality (280-300) Lactic Acid 1.4 (0.5-2.2) mmol/L Calcium (8.6-10.3) mg/dL Troponin I (< 0.04) ng/mL B-Natriuretic Peptide 786 H (Less than 100) pg/mL - Radiology Data Radiology results reviewed: Yes I reviewed the patient's radiology results. Chest X-Ray 07/21/17 12:32 IMPRESSION: New right upper lobe airspace opacification with bilateral lower lobe infiltrates noted as well suggesting a multi lobar pneumonia. Follow-up is suggested to ensure resolution D/ / Mamadou Hollingsworth MD / Mamadou Hollingsworth MD Interpreting Provider: Mamadou Hollingsworth MD - EKG Data EKG attestation: Yes I reviewed and interpreted this EKG. EKG results narrative: EKG performed 1230 sinus rhythm with supraventricular premature complex, 72 bpm , no ST elevation or depression, Q waves in the anterior leads, intervals within normal limits. Compared to old EKG performed 04/25/2017 shows atrial fibrillation 116 bpm with old Q waves. Attestation Statement - Attestation Attestation: I, Nasir Grace DO, examined this patient [id number] and my medical decision-making was reviewed with Vignesh Carlos DO , Resident Physician. I agree with the documented findings, disposition and treatment plan as described except to the extent set forth below. Please see my progress notes for details.
[2017-07-21 13:19] LABS: Calcium 9.1 mg/dL (8.6-10.3); Potassium 4.5 mEq/L (3.5-5.1); Troponin I 0.03 ng/mL (< 0.04)
[2017-07-21] MEDS ORDERED: Piperacillin/Tazobactam 3.375 GM in 0.9 % Sodium Chloride Mini Bag 100 ML IVPB ONE (13:31)
[2017-07-21] MEDS ORDERED: Furosemide 40 MG/4 ML VIAL IVP ONE (13:45)
--- NOTE | 2017-07-21 14:16 | Emergency Department Note ---
Disposition Clinical Impression: Healthcare-associated pneumonia Acute exacerbation of CHF (congestive heart failure) Qualifiers: Heart failure type: unspecified Qualified Code(s): I50.9 - Heart failure, unspecified Disposition: Admitted As Inpatient Condition: Fair Referrals: Anna White CNP [Primary Care Provider] - Time of Disposition: 14:16 General Adult HPI - General Chief complaint: ED Shortness of Breath/Dyspnea Stated complaint: CONNOR Time Seen by Provider: 07/21/17 12:17 Source: patient, EMS Mode of arrival: EMS Limitations: no limitations - History of Present Illness Pain Scale: 5 - Related Data Home Medications Medication Instructions Recorded Confirmed Aspirin Enteric Coated [Aspirin EC] 81 mg PO DAILY 06/16/16 04/24/17 Fenofibrate 160 mg PO DAILY 06/16/16 04/24/17 Gabapentin 800 mg PO TID 06/16/16 04/24/17 Loratadine [Claritin] 10 mg PO DAILY 06/16/16 04/24/17 Insulin LISPRO [HumaLOG] 25 units SQ TIDWM 08/11/16 04/24/17 Acetaminophen [Tylenol 650mg SUPP] 650 mg RC Q4H PRN 04/24/17 04/24/17 Bisacodyl [Dulcolax] 10 mg RC DAILY PRN 04/24/17 04/24/17 Clobetasol Propionate 0.05% 1 appl TP DAILY 04/24/17 04/24/17 [Temovate] Ferrous Sulfate 325 mg PO DAILY 04/24/17 04/24/17 Furosemide [Lasix] 40 mg PO BID 04/24/17 04/24/17 Hyoscyamine SL [Levsin Sl] 0.125 - 0.25 mg SL Q2H PRN 04/24/17 04/24/17 Insulin DETEMIR [Levemir Flextouch] 40 unit SQ HS 04/24/17 04/24/17 Ipratropium/Albuterol Neb [Duoneb] 3 ml IH Q4H PRN 04/24/17 04/24/17 Metoprolol [Lopressor] 25 mg PO BID 04/24/17 04/24/17 [place]-3/Dha/Epa/Fish Oil [Fish Oil 1,000 mg PO DAILY 04/24/17 04/24/17 1,000 mg Softgel] Oxygen 2 l NS AD 04/24/17 04/24/17 Polyethylene Glycol 3350 [MiraLAX] 17 gm PO DAILY 04/24/17 04/24/17 Promethazine [Phenergan] 25 mg RC Q6H PRN 04/24/17 04/24/17 Triamcinolone Acet 0.1% CRM 1 appl TP DAILY 04/24/17 04/24/17 [Kenalog] Previous Rx's Medication Instructions Recorded Atorvastatin [Lipitor] 40 mg PO HS #30 tablet 10/11/16 Citalopram Hydrobromide 40 mg PO DAILY #30 tablet 10/11/16 [Citalopram HBr] Isosorbide MONOnitrate (24 HR) 30 mg PO DAILY #30 tab.er.24h 10/11/16 [Imdur] Lisinopril [Zestril] 5 mg PO DAILY #30 tablet 10/11/16 amLODIPine [Norvasc] 10 mg PO HS #30 tablet 10/11/16 Albuterol Neb [Proventil Neb] 2.5 mg IH Q2H PRN inhsol 05/01/17 Gabapentin [Neurontin] 800 mg PO TID #20 capsule 05/01/17 Allergies Allergy/AdvReac Type Severity Reaction Status Date / Time No Known Allergies Allergy Verified 10/09/16 19:32 Constitutional: Denies: fever, chills ENT ED: Denies: congestion Cardiovascular: Reports: chest pain Respiratory: Reports: cough, dyspnea, wheezes Gastrointestinal: Denies: abdominal pain, nausea, vomiting Genitourinary: Denies: urgency, dysuria Musculoskeletal: Denies: back pain, neck pain Integumentary: Denies: rash, abrasion Neurological: Denies: headache, weakness Past Medical History - Past Medical History Medical history: Reports: coronary artery disease, diabetes, hyperlipidemia, hypertension, myocardial infarction, renal disease Surgical history: Reports: orthopedic, other Psychiatric history: Reports: anxiety, depression MID LEVEL PROVIDER history: Reports: no MID LEVEL PROVIDER history - Social History Smoking Status: Never smoker Smokeless Tobacco Status: No Alcohol use: Reports: none Drug use: Reports: none Physical Exam - General Limitations: no limitations General appearance: alert, in distress, obese Course Vital Signs Temperature 99.5 F 07/21/17 12:22 Pulse Rate 66 07/21/17 12:22 Respiratory Rate 28 07/21/17 12:22 Blood Pressure 164/116 07/21/17 12:22 O2 Sat by Pulse Oximetry 98 07/21/17 12:22 Temperature 99.5 F 07/21/17 12:22 Pulse Rate 68 07/21/17 12:49 Respiratory Rate 23 07/21/17 12:49 Blood Pressure 143/70 07/21/17 12:49 O2 Sat by Pulse Oximetry 100 07/21/17 12:49 Oxygen Delivery Oxygen Delivery CPAP Mask O2 Medical Decision Making - Lab Data Result diagrams: 07/21/17 12:40 07/21/17 12:40 Lab Results 07/21/17 07/21/17 07/21/17 Range/Units 12:40 12:40 12:40 WBC 16.0 H (4.3-11.1) K/mcL RBC 3.04 L (3.82-4.97) M/mcL Hgb 8.4 L (11.5-15.4) g/dL Hct 25.8 L (35.3-44.9) % MCV 84.9 (83.0-100.0) fL MCH 27.6 L (28.0-33.3) pg MCHC 32.6 (31.6-35.5) g/dL RDW 14.0 (11.5-14.5) % Plt Count 243 (140-400) K/mcL MPV 10.8 (9.4-12.4) fL Immature Gran % 0.8 (0-4) % Seg Neutrophils % 86.2 % Lymphocytes % 7.1 % Monocytes % 4.8 % Eosinophils % 0.8 % Basophils % 0.3 % Neutrophils # 13.8 H (1.6-8.9) K/mcL Lymphocytes # 1.1 (0.6-4.6) K/mcL Monocytes # 0.8 (0.0-1.3) K/mcL Eosinophils # 0.1 (0.0-0.6) K/mcL Basophils # 0.0 (0.0-0.2) K/mcL PT 11.0 (9.4-12.1) Seconds INR 1.0 APTT 34.0 (26.0-36.0) Seconds Sodium 138 (136-145) mEq/L Potassium 4.5 (3.5-5.1) mEq/L Chloride 101 (98-107) mEq/L Carbon Dioxide 27 (23-29) mEq/L BUN 63 H (8-23) mg/dL Creatinine 1.94 H (0.60-1.20) mg/dL Est GFR ( Amer) 31 L (> 60) Est GFR (Non-Af Amer) 25 L (> 60) BUN/Creatinine Ratio 32 H (6-26) Glucose 333 H (70-105) mg/dL Calculated Osmolality 317 H (280-300) Lactic Acid (0.5-2.2) mmol/L Calcium 9.1 (8.6-10.3) mg/dL Troponin I 0.03 (< 0.04) ng/mL B-Natriuretic Peptide (Less than 100) pg/mL 07/21/17 07/21/17 Range/Units 12:40 12:40 WBC (4.3-11.1) K/mcL RBC (3.82-4.97) M/mcL Hgb (11.5-15.4) g/dL Hct (35.3-44.9) % MCV (83.0-100.0) fL MCH (28.0-33.3) pg MCHC (31.6-35.5) g/dL RDW (11.5-14.5) % Plt Count (140-400) K/mcL MPV (9.4-12.4) fL Immature Gran % (0-4) % Seg Neutrophils % % Lymphocytes % % Monocytes % % Eosinophils % % Basophils % % Neutrophils # (1.6-8.9) K/mcL Lymphocytes # (0.6-4.6) K/mcL Monocytes # (0.0-1.3) K/mcL Eosinophils # (0.0-0.6) K/mcL Basophils # (0.0-0.2) K/mcL PT (9.4-12.1) Seconds INR APTT (26.0-36.0) Seconds Sodium (136-145) mEq/L Potassium (3.5-5.1) mEq/L Chloride (98-107) mEq/L Carbon Dioxide (23-29) mEq/L BUN (8-23) mg/dL Creatinine (0.60-1.20) mg/dL Est GFR ( Amer) (> 60) Est GFR (Non-Af Amer) (> 60) BUN/Creatinine Ratio (6-26) Glucose (70-105) mg/dL Calculated Osmolality (280-300) Lactic Acid 1.4 (0.5-2.2) mmol/L Calcium (8.6-10.3) mg/dL Troponin I (< 0.04) ng/mL B-Natriuretic Peptide 786 H (Less than 100) pg/mL Attestation Statement - Attestation Attestation: I, aNsir Grace DO, examined this patient [id number] and my medical decision-making was reviewed with Vignesh Carlos DO , Resident Physician. I agree with the documented findings, disposition and treatment plan as described except to the extent set forth below. Please see my progress notes for details. 71-year-old female presents emergency room by EMS for evaluation of shortness of breath increased work of breathing and difficulty with breathing. Patient has a history of COPD and CHF. Patient denies any trauma or injury. She has had a productive cough. She was seen and evaluated in the hospital within the last several weeks. Patient denies chest pain fevers chills nausea vomiting or diarrhea. Denies any headache or vision change at this time. Patient will be provided breathing treatments BiPAP and steroids here. First dose of antibiotics will be ordered once full workup and treatment course are valuable. Patient was transported by CPAP and EMS. Physical exam shows a morbidly obese female with truncal obesity. She has significant wheezing bilaterally in the lungs. Patient will most likely this was a full workup and treatment course are completed. Patient has bilateral pitting edema. Lasix will be given as needed. Disposition pending the full workup and treatment course. See detailed documentation of the physical exam, medical intervention, medical decision-making and disposition in the resident physician's note. No no critical care provider to this patient's treatment course at this time 1400 Patient started on vancomycin and Zosyn here. BiPAP has been applied. Lasix has been given. Patient has CHF exacerbation with right upper lobe pneumonia. Concern is noted for aspiration. Patient will be admitted. Detailed conversation was had with the hospitalist. No other recommendations or concerns noted at this time. Patient will be admitted this time for definitive management.
[2017-07-21] MEDS ORDERED: Acetaminophen 650 MG RECTAL SUPP RC PRN (15:29)
[2017-07-21] MEDS ORDERED: *HR* LORazepam 0.5 MG TABLET PO PRN (15:29)
[2017-07-21] MEDS ORDERED: *HR* OxyCODONE/APAP 5/325 TABLET PO PRN (15:29)
[2017-07-21] MEDS ORDERED: Haloperidol Oral Conc 10 MG/5 ML UDC PO PRN (15:29)
[2017-07-21] MEDS ORDERED: Albuterol 2.5 MG/3 ML NEBULIZER IH PRN (15:29)
[2017-07-21] MEDS ORDERED: Bisacodyl 10 MG RECTAL SUPPOSITORY RC PRN (15:29)
[2017-07-21] MEDS ORDERED: Naloxone 0.4 MG/ML INJ IVP PRN (15:33)
[2017-07-21] MEDS ORDERED: Dextrose Gel 15 GM/37.5 ML TUBE PO PRN ×2 (15:33)
[2017-07-21] MEDS ORDERED: D5% in Water 1,000 ML IVC PRN (15:33)
[2017-07-21] MEDS ORDERED: Vancomycin 1 EACH in 0.9 % Sodium Chloride 250 ML IVPB SCH (16:00)
[2017-07-21] MEDS ORDERED: Insulin LISPRO 300 UNITS/3 ML VIAL SQ SCH ×2 (16:30→21:00)
--- NOTE | 2017-07-21 17:25 | Internal Med History&Physical ---
<Gunnar Alaniz - Last Filed: 07/21/17 18:45> Date of Encounter: 07/21/17 Time of Encounter: 17:22 Internal Medicine - H&P: HPI Chief complaint: Dyspnea, nonproductive cough Admitted From: Home Plans for Post Hospital Care: Home History of present illness: Ms. Starr is a 72 year old female with a PMH of coronary artery disease, diabetes, hyperlipidemia, hypertension, myocardial infarction, and renal disease. She presents to the ED today with dyspnea and a dry nonproductive cough which has been occurring and getting gradually worse over the past week. She reports that she is unable to tolerate activity due to increased trouble breathing. She normally wears 3 L O2 supplementation at home and reports that she is continuing to have shortness of breath with oxygen supplementation. She denies any fevers, chills, nasal congestion, abdominal pain, nausea, vomiting, diarrhea or urinary symptoms. The patient was recently admitted in April for an exacerbation of CHF and community-acquired pneumonia. Today's lab work reveals leukocytosis with a WBC of 16. Her chest x-ray reveals a new right upper lobe airspace opacification with bilateral lower lobe infiltrates suggesting multilobar pneumonia. Due to clinical presentation and continued difficulty breathing requiring BiPAP the patient is being obtained for further observation and treatment for healthcare acquired pneumonia. Past Med Surg Social Fam HX - Past Medical History Medical history: coronary artery disease, diabetes, hyperlipidemia, hypertension , myocardial infarction, renal disease Psychiatric history: anxiety, depression - Past Surgical History Surgical History: orthopedic, other - Social History Smoking Status: Never smoker Smokeless Tobacco Status: No Alcohol use: none Drug use: none - Family History Father Family Member Ethnicity: Non- Living Status: Hx Family Cardiac Disorders: Yes (CT, HTN, Cardiomegaly) Hx Family Endocrine Disorder: Yes (DM) Mother Family Member Ethnicity: Non- Living Status: Hx Family Cancer: Yes (Breast) Brother Family Member Ethnicity: Non- Living Status: Still Living Hx Family Cardiac Disorders: Yes (HTN) Hx Family Endocrine Disorder: Yes (DM) Sister Family Member Ethnicity: Non- Living Status: Still Living Hx Family Cardiac Disorders: Yes (HTN) Hx Family Endocrine Disorder: Yes (DM) Internal Medicine - H&P: Meds Aspirin Enteric Coated [Aspirin EC] 81 mg PO DAILY 06/16/16 [History] Fenofibrate 160 mg PO DAILY 06/16/16 [History] Gabapentin 800 mg PO TID 06/16/16 [History] Insulin LISPRO [HumaLOG] 25 units SQ TIDWM 08/11/16 [History] Atorvastatin [Lipitor] 40 mg PO HS #30 tablet 10/11/16 [Rx] Citalopram Hydrobromide [Citalopram HBr] 40 mg PO DAILY #30 tablet 10/11/16 [Rx] Isosorbide MONOnitrate (24 HR) [Imdur] 30 mg PO DAILY #30 tab.er.24h 10/11/16 [ Rx] Lisinopril [Zestril] 5 mg PO DAILY #30 tablet 10/11/16 [Rx] amLODIPine [Norvasc] 10 mg PO HS #30 tablet 10/11/16 [Rx] Acetaminophen [Tylenol 650mg SUPP] 650 mg RC Q4H PRN 04/24/17 [History] Bisacodyl [Dulcolax] 10 mg RC DAILY PRN 04/24/17 [History] Clobetasol Propionate 0.05% [Temovate] 1 appl TP DAILY 04/24/17 [History] Ferrous Sulfate 325 mg PO DAILY 04/24/17 [History] Furosemide [Lasix] 40 mg PO BID 04/24/17 [History] Hyoscyamine SL [Levsin Sl] 0.125 - 0.25 mg SL Q2H PRN 04/24/17 [History] Insulin DETEMIR [Levemir Flextouch] 40 unit SQ HS 04/24/17 [History] Ipratropium/Albuterol Neb [Duoneb] 3 ml IH Q4H PRN 04/24/17 [History] Metoprolol [Lopressor] 25 mg PO BID 04/24/17 [History] [place]gs-3/Dha/Epa/Fish Oil [Fish Oil 1,000 mg Softgel] 1,000 mg PO DAILY 04/24/17 [History] Oxygen 3 - 4 l NS DAILY 04/24/17 [History] Polyethylene Glycol 3350 [MiraLAX] 17 gm PO DAILY 04/24/17 [History] Promethazine [Phenergan] 25 mg RC Q6H PRN 04/24/17 [History] Triamcinolone Acet 0.1% CRM [Kenalog] 1 appl TP DAILY 04/24/17 [History] Albuterol Neb [Proventil Neb] 2.5 mg IH Q2H PRN inhsol 05/01/17 [Rx] Amoxicillin [Amoxil] 500 mg PO TID 07/21/17 [History] Haloperidol Oral Conc [Haldol] 0.5 mg PO Q2H PRN 07/21/17 [History] LORazepam [Ativan] 0.5 mg PO Q2H PRN 07/21/17 [History] MORPHINE SUL Oral CONC [Roxanol Oral Conc] 5 mg PO Q4H PRN 07/21/17 [History] Omeprazole [PriLOSEC] 20 mg PO DAILY 07/21/17 [History] Oxycodone HCl/Acetaminophen [Percocet 5-325 mg Tablet] 1 tab PO Q6H PRN [History] 3 Allergy/AdvReac Type Severity Reaction Status Date / Time No Known Allergies Allergy Verified 10/09/16 19:32 All Systems PM: A 10-system review of systems was performed and is negative for pertinent findings except as documented above in the HPI. Review of systems: REVIEW OF SYSTEMS GENERAL: Negative for any nausea, vomiting, fevers, chills, or weight loss. NEUROLOGIC: Negative for any blurry vision, blind spots, double vision, facial asymmetry, dysphagia, dysarthria, hemiparesis, hemisensory deficits, vertigo, ataxia. HEENT: Negative for any head trauma, neck trauma, neck stiffness, photophobia, phonophobia, sinusitis, rhinitis. CARDIAC: Negative for any chest pain, paroxysmal nocturnal dyspnea. Positive for bilateral peripheral edema PULMONARY: Positive for dyspnea, nonproductive cough, wheezing GASTROINTESTINAL: Negative for any abdominal pain, nausea, vomiting, bright red blood per rectum, melena. GENITOURINARY: Negative for any dysuria, hematuria, incontinence. INTEGUMENTARY: Negative for any rashes, cuts, insect bites. RHEUMATOLOGIC: Negative for any joint pains, photosensitive rashes, history of vasculitis or kidney problems. HEMATOLOGIC: Negative for any abnormal bruising, frequent infections or bleeding. - Constitutional Vitals: Temp Pulse Resp BP Pulse Ox 97.7 F 147 20 150/82 90 07/21/17 16:10 07/21/17 16:10 07/21/17 16:10 07/21/17 16:10 07/21/17 16:10 General appearance: Present: cooperative, A&O X 3, no acute distress, answers questions appropriately Exam: PHYSICAL EXAMINATION: GENERAL: The patient is an ill-appearing female in no apparent distress. She is alert and oriented x3. HEENT: Head is normocephalic and atraumatic. Extraocular muscles are intact. Pupils are equal, round, and reactive to light and accommodation. NECK: Supple. No carotid bruits. No lymphadenopathy or thyromegaly. LUNGS: Clear/diminished with expiratory wheezes throughout, as well as a prolonged expiratory phase HEART: Regular rate and rhythm without murmur. ABDOMEN: Soft, nontender, and nondistended. Positive bowel sounds. No hepatosplenomegaly was noted. EXTREMITIES: Mild BLE 1+ pitting edema NEUROLOGIC: No facial droop or slurred speech SKIN: No ulcerations lesions or rashes present Internal Med - H&P Results - Labs CBC & Chem 7: 07/21/17 12:40 07/21/17 12:40 - EKG Data -: EKG Interpreted by Myself EKG shows normal: sinus rhythm - EKG Data EKG comments: Sinus rhythm with supraventricular premature complexes rate of [address] elevation or depression noted 07/21/17 17:31 - Impressions Impressions Chest X-Ray 07/21/17 12:32 IMPRESSION: New right upper lobe airspace opacification with bilateral lower lobe infiltrates noted as well suggesting a multi lobar pneumonia. Follow-up is suggested to ensure resolution D/ / Mamadou Hollingsworth MD / Mamadou Hollingsworth MD Interpreting Provider: Mamadou Hollingsworth MD - Assessment and plan (1) Healthcare-associated pneumonia Current Visit: Yes Status: Acute Assessment and plan: ASSESSMENT: Presents today with 1 week history of increasing shortness of breath and dry nonproductive cough. She was recently admitted in April and treated for community-acquired pneumonia. Today's chest x-ray shows a new right upper lobe airspace opacification of bilateral lower lobe infiltrates suggesting multilobar pneumonia. - Blood Cx - Urine Legionella antigen, strep pneumo antigen, mycoplasma antigen - Antibiotics vancomycin with PT to dose and Zosyn - Bronchodilators - IV Solu-Medrol - CBCD, CMP in AM - Tylenol 650 mg PO q 4-6 hr PRN pain or fever - Resume home medications - Heparin 5000 U SQ BID - Respiratory support per NC; titrate to maintain Spo2 >92% - Continuous tele, and Spo2 monitoring (2) Acute exacerbation of CHF (congestive heart failure) Current Visit: Yes Status: Acute Assessment and plan: Presents today with dyspnea, and increased swelling in BLE with 1+ pitting edema -last TTE 04/27/17 shows an EF of 50% with moderate left ventricular diastolic dysfunction and moderate mitral regurgitation -CXR today shows right upper lobe airspace opacification with bilateral lower lobe infiltrates but no pulmonary edema -BNP 786 -Vital signs stable - start Lasix 40 mg IV push once now and resume home dose tomorrow morning -Strict intake and output monitoring -Daily weights -Continuous telemetry, continuous SPO2 monitoring -O2 per nasal cannula titrate to maintain SPO2 greater than 92% -CBCD, BMP in am Qualifiers: Heart failure type: unspecified Qualified Code(s): I50.9 - Heart failure, unspecified (3) COPD (chronic obstructive pulmonary disease) Current Visit: Yes Status: Acute Assessment and plan: See plan above Qualifiers: Emphysema type: unspecified Qualified Code(s): J43.9 - Emphysema, unspecified (4) Leukocytosis Current Visit: No Status: Acute Qualifiers: Leukocytosis type: unspecified Qualified Code(s): D72.829 - Elevated white blood cell count, unspecified (5) CAD (coronary artery disease) Current Visit: Yes Status: Chronic Assessment and plan: Continue aspirin, statin, ALIA inhibitor, calcium ritesh Qualifiers: Coronary Disease-Associated Artery/Lesion type: [place] artery [place] vs. transplanted heart: [place] heart Associated angina: without angina Qualified Code(s): I25.10 - Atherosclerotic heart disease of [place] coronary artery without angina pectoris (6) CKD (chronic kidney disease) Current Visit: Yes Status: Chronic Assessment and plan: History of CKD stage III, BUN/creatinine and GFR at patient's baseline Continue monitor renal function Qualifiers: Chronic kidney disease stage: stage 3 (moderate) Qualified Code(s): N18.3 - Chronic kidney disease, stage 3 (moderate) (7) HTN (hypertension) Current Visit: Yes Status: Acute Assessment and plan: History of hypertension, currently stable. Resume ALIA inhibitor, beta ritesh, calcium channel ritesh Qualifiers: Hypertension type: essential hypertension Qualified Code(s): I10 - Essential (primary) hypertension (8) DM (diabetes mellitus) Current Visit: Yes Status: Acute Assessment and plan: Resume basal insulin at home dose, add sliding scale insulin coverage Qualifiers: Diabetes mellitus type: type 2 Diabetes mellitus exterminator insulin use: with halfway use Diabetes mellitus complication status: without complication Qualified Code(s): E11.9 - Type 2 diabetes mellitus without complications; Z79.4 - custodial (current) use of insulin; Z79.4 - custodial ( current) use of insulin; Z79.4 - custodial (current) use of insulin; Z79.4 - custodial (current) use of insulin (9) DVT prophylaxis Current Visit: Yes Status: Acute Assessment and plan: Heparin 5000 units SC BID (10) Anemia Current Visit: Yes Status: Acute Assessment and plan: Chronic anemia secondary to chronic disease Denies any active bleeding, hemodynamically stable Hemoglobin and hematocrit stable compared to prior labs Continue to monitor for signs and symptoms of bleeding CBC D in the morning Qualifiers: Anemia type: unspecified type Qualified Code(s): D64.9 - Anemia, unspecified - Time Spent With Patient Total time spent is greater than 50% in coordination of care (as documented) at patient's floor/unit and/or counseling patient: Greater than 35 minutes <Jorge Guadalupe P - Last Filed: 07/21/17 22:41> Date of Encounter: 07/21/17 Internal Medicine - H&P: HPI History of present illness: Ms. Starr is a 72 year old female All Systems PM: A 10-system review of systems was performed and is negative for pertinent findings except as documented above in the HPI. - Constitutional Vitals: Temp Pulse Resp BP Pulse Ox 97.9 F 78 17 151/60 95 07/21/17 20:05 07/21/17 20:05 07/21/17 20:05 07/21/17 20:05 07/21/17 20:05 Internal Med - H&P Results - Labs CBC & Chem 7: 07/21/17 12:40 07/21/17 12:40 Labs: Cardiac Enzymes 07/21/17 Range/Units 18:02 Troponin I 0.03 (< 0.04) ng/mL - Attending Attestation I performed a history and physical exam of the patient and discussed his management with LUNCHROOM MOTHER. I reviewed the LUNCHROOM MOTHER's note and agree with the documented findings and plan of care. Briefly, patient is a 72 y/o WF with PMH of CHF and COPD who presented to ED with 1 -week history of non-productive cough and worsening SOB. She was admitted 3 months ago for CHF exacerbation and CAP. She is currently on 3L NC (home requirement) at this time. She states that SOB is greatly improved. Will admit for treatment of HCAP with IV vancomcin and IV zosyn. Will concurrently treat COPD exacerbation with IV solumedrol and CHF exacerbation with IV lasix 40 mg BID. She has elevated BG > 400 this PM after low dose SSI. Will repeat one time high dose SSI now, then continue HD SSI QID AC/HS starting tomorrow AM. PE: Gen - Awake, alert, NAD HEENT - NCAT, PERRLA, EOMI, hearing grossly intact, oropharynx benign CV - RRR, normal S1 and S2, no M/R/G, no BLE edema Resp - Coarse breath sounds bilaterall, mild intermittent expiratory wheezing, decreased breath sounds at bilateral bases, no rales/rhonchi, mildly labored WOB Skin - Warm, dry, no rashes/lesions/ulcers Psych - Normal mood and affect, no depression or anxiety Jorge Guadalupe MD - Assessment and plan (1) CAD (coronary artery disease) Current Visit: Yes Status: Chronic Qualifiers: Coronary Disease-Associated Artery/Lesion type: [place] artery [place] vs. transplanted heart: [place] heart Associated angina: without angina Qualified Code(s): I25.10 - Atherosclerotic heart disease of [place] coronary artery without angina pectoris (2) CKD (chronic kidney disease) Current Visit: Yes Status: Chronic Qualifiers: Chronic kidney disease stage: stage 3 (moderate) Qualified Code(s): N18.3 - Chronic kidney disease, stage 3 (moderate) (3) DVT prophylaxis Current Visit: Yes Status: Acute (4) Leukocytosis Current Visit: No Status: Acute Qualifiers: Leukocytosis type: unspecified Qualified Code(s): D72.829 - Elevated white blood cell count, unspecified (5) Healthcare-associated pneumonia Current Visit: Yes Status: Acute (6) Acute exacerbation of CHF (congestive heart failure) Current Visit: Yes Status: Acute Qualifiers: Heart failure type: unspecified Qualified Code(s): I50.9 - Heart failure, unspecified (7) COPD (chronic obstructive pulmonary disease) Current Visit: Yes Status: Acute Qualifiers: Emphysema type: unspecified Qualified Code(s): J43.9 - Emphysema, unspecified (8) HTN (hypertension) Current Visit: Yes Status: Acute Qualifiers: Hypertension type: essential hypertension Qualified Code(s): I10 - Essential (primary) hypertension (9) DM (diabetes mellitus) Current Visit: Yes Status: Acute Qualifiers: Diabetes mellitus type: type 2 Diabetes mellitus halfway insulin use: with exterminator use Diabetes mellitus complication status: without complication Qualified Code(s): E11.9 - Type 2 diabetes mellitus without complications; Z79.4 - termite helper (current) use of insulin; Z79.4 - termite helper ( current) use of insulin; Z79.4 - custodial (current) use of insulin; Z79.4 - termite helper (current) use of insulin (10) Anemia Current Visit: Yes Status: Acute Qualifiers: Anemia type: unspecified type Qualified Code(s): D64.9 - Anemia, unspecified - Time Spent With Patient Total time spent is greater than 50% in coordination of care (as documented) at patient's floor/unit and/or counseling patient:
[2017-07-21] MEDS: *HR* Heparin 5,000 UNIT/ML VIAL SQ SCH (17:32)
[2017-07-21] MEDS: MethylPREDNISolone 40 MG/ML VIAL IVP SCH ×2 (17:43→23:26)
[2017-07-21] MEDS ORDERED: MethylPREDNISolone 40 MG/ML VIAL IM SCH (18:00)
[2017-07-21] MEDS: Ipratropium/Albuterol Neb 3 ML IH SCH ×3 (19:56→23:46)
[2017-07-21] MEDS: amLODIPine 5 MG TABLET PO SCH (20:22)
[2017-07-21] MEDS: Insulin DETEMIR 100 UNIT/ML X5UNITS SQ SCH (20:23)
[2017-07-21] MEDS ORDERED: Gabapentin 400 MG CAPSULE PO SCH (21:00)
[2017-07-21] MEDS ORDERED: Furosemide 20 MG/2 ML VIAL IVP ONE (21:00)
[2017-07-21] MEDS ORDERED: Insulin LISPRO 300 UNITS/3 ML VIAL SQ ONE (22:29)
[2017-07-21] MEDS: Piperacillin/Tazobactam 3.375 GM in 0.9 % Sodium Chloride Mini Bag 100 ML IVPB SCH (23:26)
[2017-07-21] MEDS: Insulin LISPRO 300 UNITS/3 ML VIAL SQ SCH (23:29)
[2017-07-22] MEDS: Ipratropium/Albuterol Neb 3 ML IH SCH ×6 (03:18→23:54)
[2017-07-22] MEDS: MethylPREDNISolone 40 MG/ML VIAL IVP SCH ×3 (05:38→20:53)
[2017-07-22] MEDS: *HR* Heparin 5,000 UNIT/ML VIAL SQ SCH ×2 (05:38→16:41)
[2017-07-22 06:40] LABS: Basophils % 0.1 %; Hematocrit 25.8 % (35.3-44.9); Hemoglobin 8.4 g/dL (11.5-15.4); Immature Granulocytes % 1.3 % (0-4); Lymphocytes # 0.8 K/mcL (0.6-4.6); Lymphocytes % 4.2 %; Mean Corpuscular HGB Conc 32.6 g/dL (31.6-35.5); Mean Corpuscular Hemoglobin 27.4 pg (28.0-33.3); Monocytes # 0.3 K/mcL (0.0-1.3); Monocytes % 1.8 %; Neutrophils # 16.8 K/mcL (1.6-8.9); Platelet Count 243 K/mcL (140-400); Red Blood Count 3.07 M/mcL (3.82-4.97); Red Cell Distribution Width 14.3 % (11.5-14.5); Segmented Neutrophils % 92.6 %
[2017-07-22 06:51] LABS: Potassium 4.9 mEq/L (3.5-5.1)
[2017-07-22] MEDS ORDERED: Insulin LISPRO 300 UNITS/3 ML VIAL SQ SCH ×2 (07:30→21:00)
[2017-07-22] MEDS ORDERED: Acetaminophen 325 MG TABLET PO PRN (07:58)
[2017-07-22] MEDS: Insulin LISPRO 300 UNITS/3 ML VIAL SQ SCH ×4 (08:06→20:54)
[2017-07-22] MEDS: Aspirin Enteric Coated 81 MG Tablet PO SCH (08:09)
[2017-07-22] MEDS: Isosorbide MONOnitrate (24 HR) 30 MG TAB.ER.24H PO SCH (08:09)
[2017-07-22] MEDS: Fenofibrate 54 MG TABLET PO SCH (08:09)
[2017-07-22] MEDS: Piperacillin/Tazobactam 3.375 GM in 0.9 % Sodium Chloride Mini Bag 100 ML IVPB SCH ×2 (08:18→16:09)
[2017-07-22] MEDS ORDERED: (Omega-3/Dha/Epa/Fish Oil [Fish Oil 1,000 Mg Softgel] PO SCH (09:00)
[2017-07-22] MEDS ORDERED: Furosemide 40 MG/4 ML VIAL IVP SCH (09:00)
[2017-07-22] MEDS ORDERED: Furosemide 40 MG TABLET PO SCH (09:00)
[2017-07-22] MEDS: Furosemide 40 MG/4 ML VIAL IVP SCH ×2 (09:27→16:08)
[2017-07-22] MEDS: Gabapentin 100 MG CAPSULE PO SCH ×3 (09:28→20:53)
--- NOTE | 2017-07-22 09:55 | Internal Med Progress Note ---
Date of Encounter: 07/22/17 Time of Encounter: 09:52 - Assessment and plan (1) Leukocytosis Current Visit: No Status: Acute Assessment and plan: This is likely secondary to pneumonia as well as being on the steroids. Little worse today. We will monitor. Qualifiers: Leukocytosis type: unspecified Qualified Code(s): D72.829 - Elevated white blood cell count, unspecified (2) CAD (coronary artery disease) Current Visit: Yes Status: Chronic Assessment and plan: Continue aspirin, statin, beta ritesh, ALIA inhibitor, calcium channel ritesh Qualifiers: Coronary Disease-Associated Artery/Lesion type: [place] artery [place] vs. transplanted heart: [place] heart Associated angina: without angina Qualified Code(s): I25.10 - Atherosclerotic heart disease of [place] coronary artery without angina pectoris (3) CKD (chronic kidney disease) Current Visit: Yes Status: Chronic Assessment and plan: We will monitor while being diuresed. Kidney function is a little bit worse today compared to yesterday. She has had kidney function as bad as today. We will monitor. We will hold lisinopril for now and continue the Lasix. Qualifiers: Chronic kidney disease stage: stage 3 (moderate) Qualified Code(s): N18.3 - Chronic kidney disease, stage 3 (moderate) (4) Healthcare-associated pneumonia Current Visit: Yes Status: Acute Assessment and plan: Continue with vancomycin and Zosyn. Follow up on cultures. O2 support. Nebs. Follow up on urine strep, Legionella, Mycoplasma. (5) Acute exacerbation of CHF (congestive heart failure) Current Visit: Yes Status: Acute Assessment and plan: This is an acute exacerbation of diastolic heart failure. Presents today with dyspnea, and increased swelling in BLE with 1+ pitting edema. We will continue IV Lasix today and monitor kidney function and I&O's. Patient had an echo in April 2017 with preserved EF and diastolic dysfunction. No need to repeat. Continue beta ritesh. O2 support. Nebs. Qualifiers: Heart failure type: unspecified Qualified Code(s): I50.9 - Heart failure, unspecified (6) COPD (chronic obstructive pulmonary disease) Current Visit: Yes Status: Acute Assessment and plan: Cut down IV steroids to every 12 hours. Continue nebs. O2 support as needed. Qualifiers: COPD type: emphysema Emphysema type: other Qualified Code(s): J43.8 - Other emphysema (7) HTN (hypertension) Current Visit: Yes Status: Acute Assessment and plan: History of hypertension, currently stable. Hold ALIA inhibitor. Continue with beta ritesh, calcium channel ritesh Qualifiers: Hypertension type: essential hypertension Qualified Code(s): I10 - Essential (primary) hypertension (8) DM (diabetes mellitus) Current Visit: Yes Status: Acute Assessment and plan: Glucose was up in the 400s yesterday. It is down to 212 this morning. We will continue to monitor today. Continue with current basal insulin at home dose and sliding scale. Continue Accu-Cheks Qualifiers: Diabetes mellitus type: type 2 Diabetes mellitus salvage determiner insulin use: with salvage determiner use Diabetes mellitus complication status: without complication Qualified Code(s): E11.9 - Type 2 diabetes mellitus without complications; Z79.4 - long term care pharmacist (current) use of insulin; Z79.4 - snf ( current) use of insulin; Z79.4 - long term care pharmacist (current) use of insulin; Z79.4 - long term care pharmacist (current) use of insulin (9) Anemia Current Visit: Yes Status: Acute Assessment and plan: Chronic anemia secondary to chronic disease. Continue to monitor. Qualifiers: Anemia type: unspecified type Qualified Code(s): D64.9 - Anemia, unspecified (10) DVT prophylaxis Current Visit: Yes Status: Acute Assessment and plan: Heparin 5000 units SC BID - Time Spent With Patient Total time spent is greater than 50% in coordination of care (as documented) at patient's floor/unit and/or counseling patient: - Subjective Interval history: Patient was seen and examined. No acute events. Currently on 3 L of nasal cannula oxygen which is her chronic needs. Shortness of breath is improved. Admitted with acute on chronic hypoxic respiratory failure due to healthcare associated pneumonia, CHF and COPD exacerbation. - Constitutional Vitals: Temp Pulse Resp BP Pulse Ox 97.3 F L 78 20 152/59 99 07/22/17 07:30 07/22/17 07:30 07/22/17 07:30 07/22/17 07:30 07/22/17 07:30 General appearance: Present: cooperative, A&O X 3, no acute distress, answers questions appropriately Exam: GEN: NAD CVS: RRR. S1, S2, No m/r/g RESP: Diminished with bibasilar crackles. ABD: Soft, NT, ND, +BS EXT: 1+ edema. 2+ DP. No rashes NEURO: Nonfocal Internal Medicine: Result - Labs CBC & Chem 7: 07/22/17 06:24 07/22/17 06:24 Labs: Short CBC 07/22/17 Range/Units 06:24 WBC 18.2 H (4.3-11.1) K/mcL Hgb 8.4 L (11.5-15.4) g/dL Hct 25.8 L (35.3-44.9) % Plt Count 243 (140-400) K/mcL Neutrophils # 16.8 H (1.6-8.9) K/mcL BMP 07/22/17 06:24 Sodium 141 Potassium 4.9 Chloride 106 Carbon Dioxide 25 BUN 73 H Creatinine 2.27 H Glucose 214 H Calcium 9.0 Cardiac Enzymes 07/21/17 Range/Units 18:02 Troponin I 0.03 (< 0.04) ng/mL - ABG Interpretation ABG results: PT/INR, D-dimer PT 11.0 Seconds (9.4-12.1) 07/21/17 12:40 Consult Discharge Plan - Plan Referrals: Anna White, MAINTENANCE DISPATCHER [Primary Care Provider] -
[2017-07-22] MEDS ORDERED: Vancomycin 500 MG in 0.9 % Sodium Chloride Mini Bag 100 ML IVPB ONE (11:44)
[2017-07-22] MEDS: amLODIPine 5 MG TABLET PO SCH (20:53)
[2017-07-22] MEDS: Insulin DETEMIR 100 UNIT/ML X5UNITS SQ SCH (20:54)
[2017-07-23] MEDS: Piperacillin/Tazobactam 3.375 GM in 0.9 % Sodium Chloride Mini Bag 100 ML IVPB SCH ×3 (00:30→23:53)
[2017-07-23] MEDS: Ipratropium/Albuterol Neb 3 ML IH SCH ×6 (03:29→23:49)
[2017-07-23 04:05] LABS: Basophils % 0.1 %; Hematocrit 24.2 % (35.3-44.9); Hemoglobin 7.6 g/dL (11.5-15.4); Immature Granulocytes % 1.4 % (0-4); Lymphocytes # 0.8 K/mcL (0.6-4.6); Lymphocytes % 3.7 %; Mean Corpuscular HGB Conc 31.4 g/dL (31.6-35.5); Mean Corpuscular Hemoglobin 26.9 pg (28.0-33.3); Mean Corpuscular Volume 85.5 fL (83.0-100.0); Mean Platelet Volume 10.9 fL (9.4-12.4); Monocytes # 0.5 K/mcL (0.0-1.3); Monocytes % 2.6 %; Neutrophils # 18.8 K/mcL (1.6-8.9); Platelet Count 240 K/mcL (140-400); Red Blood Count 2.83 M/mcL (3.82-4.97); Red Cell Distribution Width 14.2 % (11.5-14.5); Segmented Neutrophils % 92.2 %
[2017-07-23 04:33] LABS: Calcium 8.6 mg/dL (8.6-10.3); Magnesium 2.1 mg/dL (1.6-2.6); Potassium 4.3 mEq/L (3.5-5.1)
[2017-07-23] MEDS ORDERED: Vancomycin 500 MG in 0.9 % Sodium Chloride Mini Bag 100 ML IVPB ONE (05:00)
[2017-07-23] MEDS: *HR* Heparin 5,000 UNIT/ML VIAL SQ SCH ×2 (05:38→16:58)
[2017-07-23] MEDS: Insulin LISPRO 300 UNITS/3 ML VIAL SQ SCH ×4 (08:16→20:20)
[2017-07-23] MEDS: Furosemide 40 MG/4 ML VIAL IVP SCH (08:17)
--- NOTE | 2017-07-23 08:51 | Internal Med Progress Note ---
Date of Encounter: 07/23/17 Time of Encounter: 08:48 - Assessment and plan (1) Healthcare-associated pneumonia Current Visit: Yes Status: Acute Assessment and plan: Continue with vancomycin and Zosyn. Follow up on cultures. O2 support. Nebs. neg urine strep and legionella. Minimal cough (2) Leukocytosis Current Visit: No Status: Acute Assessment and plan: A little worse today but afebrile. This is likely secondary to pneumonia as well as being on the steroids. We will monitor. Qualifiers: Leukocytosis type: unspecified Qualified Code(s): D72.829 - Elevated white blood cell count, unspecified (3) CKD (chronic kidney disease) Current Visit: Yes Status: Chronic Assessment and plan: Patient's creatinine continues to get worse. Hold off on more diuresis today since patient is back to her chronic O2 needs. Will ask nephrology to see her. continue to hold lisinopril. Check Renal US. Qualifiers: Chronic kidney disease stage: stage 3 (moderate) Qualified Code(s): N18.3 - Chronic kidney disease, stage 3 (moderate) (4) CAD (coronary artery disease) Current Visit: Yes Status: Chronic Assessment and plan: Continue aspirin, statin, beta ritesh, ALIA inhibitor, calcium channel ritesh Qualifiers: Coronary Disease-Associated Artery/Lesion type: [place] artery [place] vs. transplanted heart: [place] heart Associated angina: without angina Qualified Code(s): I25.10 - Atherosclerotic heart disease of [place] coronary artery without angina pectoris (5) Acute exacerbation of CHF (congestive heart failure) Current Visit: Yes Status: Acute Assessment and plan: This is an acute exacerbation of diastolic heart failure. Presented with dyspnea , and increased swelling in BLE with 1+ pitting edema. Hold lasix today due to kidney function. Patient had an echo in April 2017 with preserved EF and diastolic dysfunction. No need to repeat. Continue beta ritesh. O2 support. Nebs. Qualifiers: Heart failure type: unspecified Qualified Code(s): I50.9 - Heart failure, unspecified (6) COPD (chronic obstructive pulmonary disease) Current Visit: Yes Status: Acute Assessment and plan: No wheezing. Change to oral prednisone today. Continue nebs. O2 support as needed. Qualifiers: COPD type: emphysema Emphysema type: other Qualified Code(s): J43.8 - Other emphysema (7) HTN (hypertension) Current Visit: Yes Status: Acute Assessment and plan: History of hypertension, currently stable. Hold ALIA inhibitor. Continue with beta ritesh, calcium channel ritesh Qualifiers: Hypertension type: essential hypertension Qualified Code(s): I10 - Essential (primary) hypertension (8) DM (diabetes mellitus) Current Visit: Yes Status: Acute Assessment and plan: Glucose uncontrolled while on steroids. Increase basal insulin to 50 units from 40. will give 10 units now. c/w sliding scale. Continue Accu-Cheks Qualifiers: Diabetes mellitus type: type 2 Diabetes mellitus as400 programmer analyst insulin use: with penitentiary use Diabetes mellitus complication status: without complication Qualified Code(s): E11.9 - Type 2 diabetes mellitus without complications; Z79.4 - emotional disabilities teacher (current) use of insulin; Z79.4 - half-way ( current) use of insulin; Z79.4 - emotional disabilities teacher (current) use of insulin; Z79.4 - emotional disabilities teacher (current) use of insulin (9) Anemia Current Visit: Yes Status: Acute Assessment and plan: Chronic anemia secondary to chronic disease. Continue to monitor. Qualifiers: Anemia type: unspecified type Qualified Code(s): D64.9 - Anemia, unspecified (10) DVT prophylaxis Current Visit: Yes Status: Acute Assessment and plan: Heparin 5000 units SC BID - Time Spent With Patient Total time spent is greater than 50% in coordination of care (as documented) at patient's floor/unit and/or counseling patient: - Subjective Interval history: Patient was seen and examined. No acute events. Says she feels well. Currently on 3 L of nasal cannula oxygen which is her chronic needs. Shortness of breath is improved. Admitted with acute on chronic hypoxic respiratory failure due to healthcare associated pneumonia, CHF and COPD exacerbation. - Constitutional Vitals: Temp Pulse Resp BP Pulse Ox 97.9 F 66 16 132/57 100 07/23/17 07:24 07/23/17 07:24 07/23/17 08:06 07/23/17 07:24 07/23/17 08:06 General appearance: Present: cooperative, A&O X 3, no acute distress, answers questions appropriately Exam: GEN: NAD CVS: RRR. S1, S2, No m/r/g RESP: Diminished with bibasilar crackles. ABD: Soft, NT, ND, +BS EXT: 1+ edema. 2+ DP. No rashes. Generalized anasarca NEURO: Nonfocal Internal Medicine: Result - Labs CBC & Chem 7: 07/23/17 03:31 07/23/17 03:31 Labs: Short CBC 07/23/17 Range/Units 03:31 WBC 20.3 H (4.3-11.1) K/mcL Hgb 7.6 L (11.5-15.4) g/dL Hct 24.2 L (35.3-44.9) % Plt Count 240 (140-400) K/mcL Neutrophils # 18.8 H (1.6-8.9) K/mcL BMP 07/23/17 03:31 Sodium 137 Potassium 4.3 Chloride 101 Carbon Dioxide 23 BUN 82 H Creatinine 2.54 H Glucose 278 H Calcium 8.6 - ABG Interpretation ABG results: PT/INR, D-dimer PT 11.0 Seconds (9.4-12.1) 07/21/17 12:40 Consult Discharge Plan - Plan Referrals: Anna White, INVENTORY TRANSCRIBER [Primary Care Provider] -
[2017-07-23] MEDS ORDERED: Insulin DETEMIR 100 UNIT/ML X5UNITS SQ ONE (08:57)
[2017-07-23] MEDS ORDERED: Aminoglycoside Consult 1 EACH MC ONE (09:33)
--- NOTE | 2017-07-23 10:22 | Nephrology Consult Note ---
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 Acute kidney injury is likely multifactorial in nature. This includes recent onset pneumonia, possible nephrotoxicity from vancomycin, possible intravascular volume depletion from diuretics. Patient typically has some chronic lower extremity swelling. I believe this is related to proteinuria, amlodipine, and high-dose gabapentin. I do not think she has acute congestive heart failure at this point in time. I believe her main issues at of pneumonia. Sounds as though she had may have some underlying COPD exact etiology on certain. I would recommend keeping the patient off antibiotics. Would also recommend stopping the vancomycin and using an alternative less nephrotoxic agent for gram-positive coverage. We will continue to monitor the patient while she is here in the hospital. Qualifiers: Acute renal failure type: unspecified Qualified Code(s): N17.9 - Acute kidney failure, unspecified (2) Type 2 diabetes mellitus with diabetic chronic kidney disease Current Visit: Yes Status: Acute Qualifiers: Diabetes mellitus [facility] insulin use: with exterminator use Chronic kidney disease stage: stage 3 (moderate) Qualified Code(s): E11.22 - Type 2 diabetes mellitus with diabetic chronic kidney disease; N18.3 - Chronic kidney disease, stage 3 (moderate); N18.3 - Chronic kidney disease, stage 3 (moderate); Z79.4 - jail (current) use of insulin; Z79.4 - jail (current) use of insulin; Z79.4 - jail (current) use of insulin; Z79.4 - jail (current) use of insulin (3) Pneumonia Current Visit: Yes Status: Acute Qualifiers: Pneumonia type: due to unspecified organism Laterality: right Lung location: upper lobe of lung Qualified Code(s): J18.1 - Lobar pneumonia, unspecified organism (4) Chronic kidney disease, stage III (moderate) Current Visit: Yes Status: Acute History of Present Illness - History of Present Illness This is a 72-year-old female is followed as an outpatient for stage III chronic kidney disease in the setting of diabetes and diabetic nephropathy. Patient was admitted to the hospital after a one-week history of worsening shortness of breath and dry cough. She was expressing primarily worsening exertional dyspnea. She denies any orthopnea. She does have chronic lower extremity swelling. Since she was admitted to the hospital in April she had been requiring full-time supplemental oxygen and also had been using a nebulizer at home. Chest x-ray on admission suggested a right upper lobe opacity and possible multifocal pneumonia. Patient does not have a past history of smoking and to her knowledge does not have a history of COPD. Her white count was elevated. Patient has a history of stage III chronic kidney disease and proteinuria related to diabetic nephropathy. Baseline creatinine is 1.4-1.7. She was admitted with a creatinine of 1.94. She did undergo diuresis and today her creatinine is up to 2.54. Previous echocardiogram from April of this year showed a left ventricular ejection fraction of 50%. There is moderate mitral regurgitation. There was no significant pulmonary hypertension noted. She does have a history of proteinuria and likely has nephrotic range proteinuria related to diabetic nephropathy. Past Med Surg Social Fam HX - Past Medical History Medical history: coronary artery disease, diabetes, hyperlipidemia, hypertension , myocardial infarction, renal disease Psychiatric history: anxiety, depression - Past Surgical History Surgical History: orthopedic, other - Social History Smoking Status: Never smoker Smokeless Tobacco Status: No Alcohol use: none Drug use: none - Family History Father Family Member Ethnicity: Non- Living Status: Hx Family Cardiac Disorders: Yes (AR, HTN, Cardiomegaly) Hx Family Endocrine Disorder: Yes (DM) Mother Family Member Ethnicity: Non- Living Status: Hx Family Cancer: Yes (Breast) Brother Family Member Ethnicity: Non- Living Status: Still Living Hx Family Cardiac Disorders: Yes (HTN) Hx Family Endocrine Disorder: Yes (DM) Sister Family Member Ethnicity: Non- Living Status: Still Living Hx Family Cardiac Disorders: Yes (HTN) Hx Family Endocrine Disorder: Yes (DM) Medications and Allergies Aspirin Enteric Coated [Aspirin EC] 81 mg PO DAILY 06/16/16 [History] Fenofibrate 160 mg PO DAILY 06/16/16 [History] Gabapentin 800 mg PO TID 06/16/16 [History] Insulin LISPRO [HumaLOG] 25 units SQ TIDWM 08/11/16 [History] Atorvastatin [Lipitor] 40 mg PO HS #30 tablet 10/11/16 [Rx] Citalopram Hydrobromide [Citalopram HBr] 40 mg PO DAILY #30 tablet 10/11/16 [Rx] Isosorbide MONOnitrate (24 HR) [Imdur] 30 mg PO DAILY #30 tab.er.24h 10/11/16 [ Rx] Lisinopril [Zestril] 5 mg PO DAILY #30 tablet 10/11/16 [Rx] amLODIPine [Norvasc] 10 mg PO HS #30 tablet 10/11/16 [Rx] Acetaminophen [Tylenol 650mg SUPP] 650 mg RC Q4H PRN 04/24/17 [History] Bisacodyl [Dulcolax] 10 mg RC DAILY PRN 04/24/17 [History] Clobetasol Propionate 0.05% [Temovate] 1 appl TP DAILY 04/24/17 [History] Ferrous Sulfate 325 mg PO DAILY 04/24/17 [History] Furosemide [Lasix] 40 mg PO BID 04/24/17 [History] Hyoscyamine SL [Levsin Sl] 0.125 - 0.25 mg SL Q2H PRN 04/24/17 [History] Insulin DETEMIR [Levemir Flextouch] 40 unit SQ HS 04/24/17 [History] Ipratropium/Albuterol Neb [Duoneb] 3 ml IH Q4H PRN 04/24/17 [History] Metoprolol [Lopressor] 25 mg PO BID 04/24/17 [History] [place]-3/Dha/Epa/Fish Oil [Fish Oil 1,000 mg Softgel] 1,000 mg PO DAILY 04/24/17 [History] Oxygen 3 - 4 l NS DAILY 04/24/17 [History] Polyethylene Glycol 3350 [MiraLAX] 17 gm PO DAILY 04/24/17 [History] Promethazine [Phenergan] 25 mg RC Q6H PRN 04/24/17 [History] Triamcinolone Acet 0.1% CRM [Kenalog] 1 appl TP DAILY 04/24/17 [History] Albuterol Neb [Proventil Neb] 2.5 mg IH Q2H PRN inhsol 05/01/17 [Rx] Amoxicillin [Amoxil] 500 mg PO TID 07/21/17 [History] Haloperidol Oral Conc [Haldol] 0.5 mg PO Q2H PRN 07/21/17 [History] LORazepam [Ativan] 0.5 mg PO Q2H PRN 07/21/17 [History] MORPHINE SUL Oral CONC [Roxanol Oral Conc] 5 mg PO Q4H PRN 07/21/17 [History] Omeprazole [PriLOSEC] 20 mg PO DAILY 07/21/17 [History] Oxycodone HCl/Acetaminophen [Percocet 5-325 mg Tablet] 1 tab PO Q6H PRN [History] 3 Allergy/AdvReac Type Severity Reaction Status Date / Time No Known Allergies Allergy Verified 10/09/16 19:32 Review of Systems Constitutional: as per HPI, weakness Eyes: bilateral: blurred vision (patient denies), diplopia (patient denies) Nose, mouth and throat: no dizziness, no headache(s) Cardiovascular: dyspnea, dyspnea on exertion, edema, leg edema, palpitations, no chest pain Respiratory: cough, dyspnea, dyspnea on exertion Gastrointestinal: no abdominal pain, no change in bowel habits Musculoskeletal: no muscle weakness, no numbness Integumentary: no hirsutism, no striae Neurological: as per HPI Psychiatric: no depression, no difficulty concentrating Endocrine: as per HPI Hematologic/Lymphatic: no easy bruising, no lymphadenopathy Exam - Vital Signs Vital signs: Initial Vital Signs Temp Pulse Resp BP Pulse Ox 99.5 F 66 28 164/116 98 07/21/17 12:22 07/21/17 12:22 07/21/17 12:22 07/21/17 12:22 07/21/17 12:22 Vital Signs - Last 8 Hours Temp Pulse Resp BP Pulse Ox 07/23/17 08:06 16 100 07/23/17 07:24 97.9 F 66 19 132/57 97 07/23/17 03:46 97.3 F L 67 16 157/70 96 07/23/17 03:30 16 98 Intake and Output 07/22/17 07/23/17 07/23/17 23:59 07:59 15:59 Intake Total 100 / 100 100 / 100 Balance 100 / 100 100 / 100 Intake: IV Fluids 100 / 100 100 / 100 Zosyn 3.375 GM In 0.9 % Sodium 100 / 100 100 / 100 Chloride (Mini-Bag +) 100 ML @ 25 mls/hr IVPB Q8HR [facility] Rx#: [id number] Oral 0 / 0 0 / 0 Other: Stool Size Moderate Stool Consistency loose soft Stool Color Brown Green # Voids 1 # Bowel Movements 1 Weight 109.1 kg 105.256 kg Blood Glucose* 359 223 Patient Weight 07/23/17 23:59 Weight 105.256 kg - General Appearance Exam: Patient is alert and oriented. She is in no acute distress. Lungs chemistry diminished breath sounds. This is most notable in the bases. There is no wheezing rales or rhonchi. Heart irregular rate and rhythm consistent with atrial fibrillation. Abdomen is somewhat distended. Abdomen is soft. Bowel sounds are present. No guarding or rigidity. Lower [place] show 1+ lower extremity swelling. Results - Lab Results 07/23/17 03:31 07/23/17 03:31 Most recent lab results Calcium 8.6 mg/dL (8.6-10.3) 07/23/17 03:31 Magnesium 2.1 mg/dL (1.6-2.6) 07/23/17 03:31 Consult Discharge Plan - Plan Referrals: Anna White, SUPERVISOR ORCHARD [Primary Care Provider] -
[2017-07-23] MEDS: Aspirin Enteric Coated 81 MG Tablet PO SCH (11:24)
[2017-07-23] MEDS: Gabapentin 100 MG CAPSULE PO SCH ×3 (11:24→20:21)
[2017-07-23] MEDS: Isosorbide MONOnitrate (24 HR) 30 MG TAB.ER.24H PO SCH (11:24)
[2017-07-23] MEDS: predniSONE 20 MG TABLET PO SCH (11:24)
[2017-07-23] MEDS: Fenofibrate 54 MG TABLET PO SCH (11:25)
[2017-07-23] MEDS: amLODIPine 5 MG TABLET PO SCH (20:21)
[2017-07-23] MEDS: Insulin DETEMIR 100 UNIT/ML X5UNITS SQ SCH (20:21)
[2017-07-24] MEDS: Ipratropium/Albuterol Neb 3 ML IH SCH ×4 (03:28→16:30)
[2017-07-24 04:06] LABS: Basophils % 0.1 %; Hematocrit 23.4 % (35.3-44.9); Hemoglobin 7.5 g/dL (11.5-15.4); Immature Granulocytes % 1.7 % (0-4); Lymphocytes # 0.9 K/mcL (0.6-4.6); Lymphocytes % 5.7 %; Mean Corpuscular HGB Conc 32.1 g/dL (31.6-35.5); Mean Corpuscular Hemoglobin 27.7 pg (28.0-33.3); Mean Corpuscular Volume 86.3 fL (83.0-100.0); Monocytes # 0.9 K/mcL (0.0-1.3); Monocytes % 5.3 %; Neutrophils # 14.3 K/mcL (1.6-8.9); Platelet Count 242 K/mcL (140-400); Red Blood Count 2.71 M/mcL (3.82-4.97); Red Cell Distribution Width 14.2 % (11.5-14.5); Segmented Neutrophils % 87.2 %
[2017-07-24 04:29] LABS: Calcium 8.5 mg/dL (8.6-10.3); Magnesium 2.1 mg/dL (1.6-2.6); Potassium 4.4 mEq/L (3.5-5.1)
[2017-07-24] MEDS: *HR* Heparin 5,000 UNIT/ML VIAL SQ SCH ×2 (06:04→16:54)
[2017-07-24] MEDS: Insulin LISPRO 300 UNITS/3 ML VIAL SQ SCH ×4 (08:08→21:29)
[2017-07-24 08:47] LABS: Mycoplasma pneumoniae IgG 0.08 U/L (<=0.09)
--- NOTE | 2017-07-24 08:56 | Electrocardiograph Report ---
[facility] Test Date: 2017-07-21 Pat Name: Christelle Starr Department: 102 Room: 2A35 Gender: F Groover Runner: Justine : 1945 Requested By: Nasir Grace Order Number: [id number] Reading MD: Miguel Reaves Measurements Intervals [place] Rate: 72 P: 21 ID: [id number] QRS: 23 QRSD: 82 T: 25 QT: 399 QTc: 423 Interpretive Statements SINUS RHYTHM WITH OCCASIONAL SUPRAVENTRICULAR PREMATURE COMPLEXES POSSIBLE ANTERIOR MYOCARDIAL INFARCTION [30 ms Q WAVE IN V3/V4, OR R < 0.2 mV IN V4], OF INDETERMINATE AGE Electronically Signed On 07-24-2017 8:54:22 EDT by Miguel Reaves
--- NOTE | 2017-07-24 09:54 | Nephrology Progress Note ---
Date of Encounter: 07/24/17 Time of Encounter: 09:51 - Assessment and Plan (1) Acute kidney failure, unspecified Current Visit: Yes Status: Acute Patient's renal function continues to worsen. This may be on the basis of vancomycin nephrotoxicity. I believe the vancomycin has been discontinued. I am going to hold the patient's Norvasc because her blood pressure somewhat on the low side. I am going to give her some mild IV hydration. Hopefully this will lead to some improvement in her renal function. Qualifiers: Acute renal failure type: unspecified Qualified Code(s): N17.9 - Acute kidney failure, unspecified (2) Type 2 diabetes mellitus with diabetic chronic kidney disease Current Visit: Yes Status: Acute Qualifiers: Diabetes mellitus buttermaker continuous churn insulin use: with alf use Chronic kidney disease stage: stage 3 (moderate) Qualified Code(s): E11.22 - Type 2 diabetes mellitus with diabetic chronic kidney disease; N18.3 - Chronic kidney disease, stage 3 (moderate); N18.3 - Chronic kidney disease, stage 3 (moderate); Z79.4 - intermediate designer (current) use of insulin; Z79.4 - intermediate designer (current) use of insulin; Z79.4 - intermediate designer (current) use of insulin; Z79.4 - intermediate designer (current) use of insulin (3) Pneumonia Current Visit: Yes Status: Acute Qualifiers: Pneumonia type: due to unspecified organism Laterality: right Lung location: upper lobe of lung Qualified Code(s): J18.1 - Lobar pneumonia, unspecified organism (4) Chronic kidney disease, stage III (moderate) Current Visit: Yes Status: Acute Subjective Interval history: The patient reports she is feeling better. She is less short of breath. Serum creatinine is increased from 3. 142.54. There is no urine output recorded for the past 24 hours. Renal ultrasound yesterday was unremarkable. Blood pressure somewhat on the low side at 119/56. Objective - Vital Signs Vital signs: Vital Signs Temp Pulse Resp BP Pulse Ox 07/24/17 07:35 97.7 F 61 19 119/56 100 07/24/17 07:26 16 98 07/24/17 06:12 97 07/24/17 03:28 17 98 07/24/17 03:25 98.2 F 84 17 122/56 100 04/19/18 23:50 18 99 07/23/17 23:13 97.7 F 71 17 130/73 99 07/23/17 20:20 98 07/23/17 20:09 16 99 07/23/17 19:34 97.7 F 85 18 121/71 99 07/23/17 16:07 97.4 F L 80 18 153/68 95 07/23/17 16:00 16 98 07/23/17 11:22 16 98 07/23/17 11:03 97.5 F L 81 19 147/68 98 Intake and Output 07/23/17 07/24/17 07/24/17 23:59 07:59 15:59 Intake Total 240 / 240 100 / 100 540 / 540 Output Total 0 / 0 Balance 240 / 240 100 / 100 540 / 540 Intake: IV Fluids 100 / 100 300 / 300 Zyvox Premix 600mg/300mL 600 mg 300 / 300 In 300 ml @ 150 mls/hr IVPB Q12HR [facility] Rx#:[id number] Zosyn 3.375 GM In 0.9 % Sodium 100 / 100 Chloride (Mini-Bag +) 100 ML @ 25 mls/hr IVPB Q12H [facility] Rx#: [id number] Oral 240 / 240 0 / 0 240 / 240 Output: Urine 0 / 0 Other: Meal Dinner Breakfast Percent of Meal Consumed 100% 100% Stool Size Moderate Smear Moderate Stool Consistency soft soft Stool Color Brown Brown Green # Voids 1 1 # Bowel Movements 1 1 Weight 105.2 kg Blood Glucose* 357 155 Patient Weight 07/24/17 23:59 Weight 105.2 kg - General Appearance Exam: Patient is alert and oriented. She no acute distress. Lungs sounds otherwise clear. Heart regular rate and rhythm. Abdomen is benign. There is some mild laryngeal me swelling. - Lab 07/24/17 03:46 07/24/17 03:46 Most recent lab results Calcium 8.5 mg/dL (8.6-10.3) L 07/24/17 03:46 Magnesium 2.1 mg/dL (1.6-2.6) 07/24/17 03:46 Consult Discharge Plan - Plan Referrals: Anna White, GRAIN ELEVATOR OPERATOR [Primary Care Provider] - (Please call upon discharge)
[2017-07-24] MEDS: Gabapentin 100 MG CAPSULE PO SCH ×3 (10:15→21:28)
[2017-07-24] MEDS: Aspirin Enteric Coated 81 MG Tablet PO SCH (10:15)
[2017-07-24] MEDS: predniSONE 20 MG TABLET PO SCH (10:16)
[2017-07-24] MEDS: Isosorbide MONOnitrate (24 HR) 30 MG TAB.ER.24H PO SCH (10:16)
[2017-07-24] MEDS: Fenofibrate 54 MG TABLET PO SCH (10:16)
[2017-07-24] MEDS: 0.9 % Sodium Chloride 1,000 ML IVC SCH (10:17)
[2017-07-24] MEDS: Cefdinir 300 MG CAPSULE PO SCH (14:48)
--- NOTE | 2017-07-24 16:07 | Internal Med Progress Note ---
Date of Encounter: 07/24/17 Time of Encounter: 10:15 - Assessment and plan (1) Pneumonia Current Visit: Yes Status: Acute Assessment and plan: Pneumonia involving the right upper lobe. No organism identified. We will begin to de-escalate antibiotics. Stop Zyvox and Zosyn. Place patient on Omnicef and doxycycline. WBC count is improving. Patient is also clinically getting better. Qualifiers: Pneumonia type: due to unspecified organism Laterality: right Lung location: upper lobe of lung Qualified Code(s): J18.1 - Lobar pneumonia, unspecified organism (2) Acute exacerbation of CHF (congestive heart failure) Current Visit: Yes Status: Resolved Assessment and plan: Improved. Edema improved. SOB improved. Continue to hold Lasix. Qualifiers: Heart failure type: diastolic Qualified Code(s): I50.33 - Acute on chronic diastolic (congestive) heart failure (3) CAD (coronary artery disease) Current Visit: Yes Status: Chronic Assessment and plan: Continue aspirin, statin and beta ritesh. Qualifiers: Coronary Disease-Associated Artery/Lesion type: [place] artery [place] vs. transplanted heart: [place] heart Associated angina: without angina Qualified Code(s): I25.10 - Atherosclerotic heart disease of [place] coronary artery without angina pectoris (4) CKD (chronic kidney disease) Current Visit: Yes Status: Chronic Assessment and plan: With acute kidney injury. Renal function continues to worsen. Patient did receive Lasix yesterday morning. Nephrology following. Stop Lasix for now. Continue monitoring urine output and renal function. Qualifiers: Chronic kidney disease stage: stage 3 (moderate) Qualified Code(s): N18.3 - Chronic kidney disease, stage 3 (moderate) (5) DVT prophylaxis Current Visit: Yes Status: Acute Assessment and plan: With subcutaneous heparin (6) Healthcare-associated pneumonia Current Visit: Yes Status: Acute (7) COPD (chronic obstructive pulmonary disease) Current Visit: Yes Status: Chronic Assessment and plan: Not in acute exacerbation. Continue duo nebs. Qualifiers: COPD type: emphysema Emphysema type: other Qualified Code(s): J43.8 - Other emphysema (8) HTN (hypertension) Current Visit: Yes Status: Chronic Assessment and plan: Blood pressure is well controlled at this time Qualifiers: Hypertension type: essential hypertension Qualified Code(s): I10 - Essential (primary) hypertension (9) DM (diabetes mellitus) Current Visit: Yes Status: Chronic Assessment and plan: Well-controlled. Continue current insulin regimen. Continue to monitor blood sugars. Diabetic diet. Qualifiers: Diabetes mellitus type: type 2 Diabetes mellitus termite control technician insulin use: with termite control technician use Diabetes mellitus complication status: without complication Qualified Code(s): E11.9 - Type 2 diabetes mellitus without complications; Z79.4 - intermission coordinator (current) use of insulin; Z79.4 - intermission coordinator ( current) use of insulin; Z79.4 - USP (current) use of insulin; Z79.4 - intermission coordinator (current) use of insulin (10) Anemia Current Visit: Yes Status: Chronic Assessment and plan: Hemoglobin 7.5 today. stable.Due to chronic kidney disease. Qualifiers: Anemia type: unspecified type Qualified Code(s): D64.9 - Anemia, unspecified - Time Spent With Patient Total time spent is greater than 50% in coordination of care (as documented) at patient's floor/unit and/or counseling patient: - Subjective Interval history: Patient is awake and alert. Sitting up in bed. Doing well overall. No new complaints at this time. Having good urine output. No fever or chills reported overnight. No trouble passing urine. No dysuria. - Constitutional Vitals: Temp Pulse Resp BP Pulse Ox 97.7 F 80 16 128/59 98 07/24/17 11:00 07/24/17 11:00 07/24/17 11:24 07/24/17 11:00 07/24/17 11:24 General appearance: Present: cooperative, A&O X 3, no acute distress, answers questions appropriately - Neck Neck exam general surgery: Present: supple, trachea midline. Absent: lymphadenopathy - Respiratory Respiratory exam: Present: CTAB. Absent: accessory muscle use, rales, rhonchi, wheezes - Cardiovascular Cardiovascular exam: Present: RRR, +S1, +S2. Absent: diastolic murmur, gallop, rubs, systolic murmur - GI/Abdominal GI/Abdominal exam: Present: normal bowel sounds, soft, no peritoneal signs. Absent: distended, tenderness - Extremities Exam Extremities exam: Present: warm, radial pulses palpable and symmetrical. Absent : calf tenderness, cyanotic, pedal edema - Neurological Exam Neurological exam: Present: CN II-XII intact, oriented X3, no focal deficits. Absent: pronater drift, facial droop, speech deficit - Skin Skin exam: Present: dry, intact Internal Medicine: Result - Labs CBC & Chem 7: 07/24/17 03:46 07/24/17 03:46 Labs: Short CBC 07/24/17 Range/Units 03:46 WBC 16.4 H (4.3-11.1) K/mcL Hgb 7.5 L (11.5-15.4) g/dL Hct 23.4 L (35.3-44.9) % Plt Count 242 (140-400) K/mcL Neutrophils # 14.3 H (1.6-8.9) K/mcL BMP 07/24/17 03:46 Sodium 137 Potassium 4.4 Chloride 103 Carbon Dioxide 23 BUN 97 H Creatinine 3.14 H Glucose 206 H Calcium 8.5 L - ABG Interpretation ABG results: PT/INR, D-dimer PT 11.0 Seconds (9.4-12.1) 07/21/17 12:40 - Impressions Impressions Retroperitoneum Ultrasound 07/23/17 08:53 IMPRESSION: Unremarkable ultrasound of the kidneys. D/ / Alok John MD / Alok John MD Interpreting Provider: Alok John MD Consult Discharge Plan - Plan Referrals: Anna White, CLAIM REPRESENTATIVE [Primary Care Provider] - (Please call upon discharge)
[2017-07-24] MEDS ORDERED: Ipratropium/Albuterol Neb 3 ML IH PRN (16:14)
[2017-07-24] MEDS: Doxycycline 100 MG in 0.9 % Sodium Chloride Mini Bag 100 ML IVPB SCH (16:54)
[2017-07-24] MEDS: Insulin DETEMIR 100 UNIT/ML X5UNITS SQ SCH (21:28)
[2017-07-25 04:10] LABS: Basophils % 0.1 %; Hematocrit 24.3 % (35.3-44.9); Hemoglobin 7.9 g/dL (11.5-15.4); Immature Granulocytes % 1.9 % (0-4); Lymphocytes # 1.2 K/mcL (0.6-4.6); Mean Corpuscular HGB Conc 32.5 g/dL (31.6-35.5); Mean Corpuscular Hemoglobin 27.5 pg (28.0-33.3); Mean Corpuscular Volume 84.7 fL (83.0-100.0); Mean Platelet Volume 11.2 fL (9.4-12.4); Monocytes # 0.5 K/mcL (0.0-1.3); Monocytes % 4.5 %; Neutrophils # 9.6 K/mcL (1.6-8.9); Platelet Count 225 K/mcL (140-400); Red Blood Count 2.87 M/mcL (3.82-4.97); Red Cell Distribution Width 13.8 % (11.5-14.5); Segmented Neutrophils % 83.5 %
[2017-07-25 04:22] LABS: Albumin 2.8 g/dL (3.5-5.7); Albumin/Globulin Ratio 1.2 (1.1-2.2); Bilirubin,Total 0.3 mg/dL (0.3-1.0); Calcium 8.2 mg/dL (8.6-10.3); Globulin 2.4 g/dL (2.4-3.5); Potassium 4.5 mEq/L (3.5-5.1); Total Protein 5.2 g/dL (6.4-8.9)
[2017-07-25] MEDS: Doxycycline 100 MG in 0.9 % Sodium Chloride Mini Bag 100 ML IVPB SCH (05:58)
[2017-07-25] MEDS: *HR* Heparin 5,000 UNIT/ML VIAL SQ SCH ×2 (05:58→18:59)
[2017-07-25] MEDS: Insulin LISPRO 300 UNITS/3 ML VIAL SQ SCH ×4 (08:09→21:14)
--- NOTE | 2017-07-25 08:26 | Nephrology Progress Note ---
Date of Encounter: 07/25/17 Time of Encounter: 08:24 - Assessment and Plan (1) Acute kidney failure, unspecified Current Visit: Yes Status: Acute The patient has acute kidney injury superimposed on chronic kidney disease. This may be related to vancomycin nephrotoxicity. Her renal function is a bit better today. I am going to discontinue her IV fluids. Blood pressure satisfactory off antihypertensive medications. Qualifiers: Acute renal failure type: unspecified Qualified Code(s): N17.9 - Acute kidney failure, unspecified (2) Type 2 diabetes mellitus with diabetic chronic kidney disease Current Visit: Yes Status: Acute Qualifiers: Diabetes mellitus director long term care insulin use: with group home use Chronic kidney disease stage: stage 3 (moderate) Qualified Code(s): E11.22 - Type 2 diabetes mellitus with diabetic chronic kidney disease; N18.3 - Chronic kidney disease, stage 3 (moderate); N18.3 - Chronic kidney disease, stage 3 (moderate); Z79.4 - intermediate manager (current) use of insulin; Z79.4 - intermediate manager (current) use of insulin; Z79.4 - group home (current) use of insulin; Z79.4 - group home (current) use of insulin (3) Pneumonia Current Visit: Yes Status: Acute Qualifiers: Pneumonia type: due to unspecified organism Laterality: right Lung location: upper lobe of lung Qualified Code(s): J18.1 - Lobar pneumonia, unspecified organism (4) Chronic kidney disease, stage III (moderate) Current Visit: Yes Status: Acute Subjective Interval history: Patient reports overall she is feeling better. She does continue to experience exertional dyspnea. She is not having any orthopnea. Serum creatinine is slightly improved from 3.14 down to 2.98. Blood pressure is 121/71. There is no urine output recorded. Objective - Vital Signs Vital signs: Vital Signs Temp Pulse Resp BP Pulse Ox 07/25/17 08:03 98 F 58 16 158/81 99 07/25/17 03:52 98.5 F 62 18 125/77 98 07/25/17 00:17 97.6 F 68 18 154/75 98 07/24/17 18:40 98.4 F 64 16 129/67 99 07/24/17 16:10 97.8 F 74 18 146/54 98 07/24/17 11:24 16 98 07/24/17 11:00 97.7 F 80 18 128/59 98 Intake and Output 07/24/17 07/25/17 07/25/17 23:59 07:59 15:59 Intake Total 460 / 460 Balance 460 / 460 Intake: IV Fluids 100 / 100 Doxycycline 100 MG In 0.9 % 100 / 100 Sodium Chloride (Mini-Bag +) 100 ML @ 100 mls/hr IVPB Q12HR [facility] Rx#:[id number] Oral 360 / 360 Other: Meal Dinner Percent of Meal Consumed 100% Stool Size Small Stool Consistency loose soft # Voids 1 # Bowel Movements 1 Weight 107.229 kg Blood Glucose* 211 84 Patient Weight 07/25/17 23:59 Weight 107.229 kg - General Appearance Exam: Patient is alert and oriented. She is in no acute distress. Lungs diminished breath sounds. Heart regular rate and rhythm. Abdomen is benign. She appears to have a bit more lower extremity swelling compared to yesterday. - Lab 07/25/17 02:44 07/25/17 02:44 Most recent lab results Calcium 8.2 mg/dL (8.6-10.3) L 07/25/17 02:44 Magnesium 2.1 mg/dL (1.6-2.6) 07/24/17 03:46 Consult Discharge Plan - Plan Referrals: Anna White, MANAGER TRANSPORTATION [Primary Care Provider] - (Please call upon discharge)
--- NOTE | 2017-07-25 10:15 | Internal Med Progress Note ---
Date of Encounter: 07/25/17 Time of Encounter: 09:40 - Assessment and plan (1) CKD (chronic kidney disease) Current Visit: Yes Status: Chronic Assessment and plan: With acute kidney injury. Improving. Creatinine 2.98 today. Nephrology following. Avoid nephrotoxic agents. Continue to hold diuretics. Qualifiers: Chronic kidney disease stage: stage 3 (moderate) Qualified Code(s): N18.3 - Chronic kidney disease, stage 3 (moderate) (2) Pneumonia Current Visit: Yes Status: Acute Assessment and plan: Improving. WBC count at 11.5 today. Continue Omnicef and doxycycline. Qualifiers: Pneumonia type: due to unspecified organism Laterality: right Lung location: upper lobe of lung Qualified Code(s): J18.1 - Lobar pneumonia, unspecified organism (3) Acute exacerbation of CHF (congestive heart failure) Current Visit: Yes Status: Resolved Assessment and plan: Holding Lasix due to worsening acute kidney injury. Clinically patient is stable. Does continue to have dyspnea on exertion but fairly compensated Qualifiers: Heart failure type: diastolic Qualified Code(s): I50.33 - Acute on chronic diastolic (congestive) heart failure (4) CAD (coronary artery disease) Current Visit: Yes Status: Chronic Assessment and plan: No chest pain. Continue aspirin and statin and beta ritesh Qualifiers: Coronary Disease-Associated Artery/Lesion type: [place] artery [place] vs. transplanted heart: [place] heart Associated angina: without angina Qualified Code(s): I25.10 - Atherosclerotic heart disease of [place] coronary artery without angina pectoris (5) DVT prophylaxis Current Visit: Yes Status: Acute (6) Healthcare-associated pneumonia Current Visit: Yes Status: Acute (7) COPD (chronic obstructive pulmonary disease) Current Visit: Yes Status: Chronic Qualifiers: COPD type: emphysema Emphysema type: other Qualified Code(s): J43.8 - Other emphysema (8) HTN (hypertension) Current Visit: Yes Status: Chronic Qualifiers: Hypertension type: essential hypertension Qualified Code(s): I10 - Essential (primary) hypertension (9) DM (diabetes mellitus) Current Visit: Yes Status: Chronic Qualifiers: Diabetes mellitus type: type 2 Diabetes mellitus alf insulin use: with manager terminal use Diabetes mellitus complication status: without complication Qualified Code(s): E11.9 - Type 2 diabetes mellitus without complications; Z79.4 - petroleum terminal plant operator (current) use of insulin; Z79.4 - petroleum terminal plant operator ( current) use of insulin; Z79.4 - petroleum terminal plant operator (current) use of insulin; Z79.4 - petroleum terminal plant operator (current) use of insulin (10) Anemia Current Visit: Yes Status: Chronic Assessment and plan: Hemoglobin 7.9. Remains stable. No urgent indication for blood transfusion. Due to chronic kidney disease. Continue iron supplements. Qualifiers: Anemia type: unspecified type Qualified Code(s): D64.9 - Anemia, unspecified - Time Spent With Patient Total time spent is greater than 50% in coordination of care (as documented) at patient's floor/unit and/or counseling patient: - Subjective Interval history: Patient feels better today. Shortness of breath improving but patient does continue to have dyspnea with minimal exertion. No chest pain. No palpitations. No fever or chills reported - Constitutional Vitals: Temp Pulse Resp BP Pulse Ox 98 F 58 16 158/81 99 07/25/17 08:03 07/25/17 08:03 07/25/17 08:03 07/25/17 08:03 07/25/17 08:03 General appearance: Present: cooperative, A&O X 3, no acute distress, answers questions appropriately - Neck Neck exam general surgery: Present: supple, trachea midline. Absent: lymphadenopathy - Respiratory Respiratory exam: Present: CTAB. Absent: accessory muscle use, rales, rhonchi, wheezes - Cardiovascular Cardiovascular exam: Present: RRR, +S1, +S2. Absent: diastolic murmur, gallop, rubs, systolic murmur - GI/Abdominal GI/Abdominal exam: Present: normal bowel sounds, soft, no peritoneal signs. Absent: distended, tenderness - Extremities Exam Extremities exam: Present: pedal edema, warm, radial pulses palpable and symmetrical. Absent: calf tenderness, cyanotic Additional comments: Edema in left upper extremity - Neurological Exam Neurological exam: Present: CN II-XII intact, oriented X3, no focal deficits. Absent: facial droop, speech deficit - Skin Skin exam: Present: dry, intact Internal Medicine: Result - Labs CBC & Chem 7: 07/25/17 02:44 07/25/17 02:44 Labs: Short CBC 07/25/17 Range/Units 02:44 WBC 11.5 H (4.3-11.1) K/mcL Hgb 7.9 L (11.5-15.4) g/dL Hct 24.3 L (35.3-44.9) % Plt Count 225 (140-400) K/mcL Neutrophils # 9.6 H (1.6-8.9) K/mcL BMP 07/25/17 02:44 Sodium 138 Potassium 4.5 Chloride 105 Carbon Dioxide 23 BUN 99 H Creatinine 2.98 H Glucose 142 H Calcium 8.2 L Liver Function 07/25/17 Range/Units 02:44 Total Bilirubin 0.3 (0.3-1.0) mg/dL AST 27 (13-39) Units/L ALT 22 (7-52) Units/L Alkaline Phosphatase 11 L (34-104) Units/L Albumin 2.8 L (3.5-5.7) g/dL - ABG Interpretation ABG results: PT/INR, D-dimer PT 11.0 Seconds (9.4-12.1) 07/21/17 12:40 Consult Discharge Plan - Plan Referrals: Anna White, MACHINE INKER [Primary Care Provider] - (Please call upon discharge)
[2017-07-25] MEDS: Gabapentin 100 MG CAPSULE PO SCH ×3 (11:41→21:13)
[2017-07-25] MEDS: Fenofibrate 54 MG TABLET PO SCH (11:41)
[2017-07-25] MEDS: Doxycycline 100 MG CAPSULE PO SCH ×2 (11:42→21:13)
[2017-07-25] MEDS: predniSONE 20 MG TABLET PO SCH (11:42)
[2017-07-25] MEDS: Isosorbide MONOnitrate (24 HR) 30 MG TAB.ER.24H PO SCH (11:42)
[2017-07-25] MEDS: Aspirin Enteric Coated 81 MG Tablet PO SCH (11:42)
[2017-07-25] MEDS: Cefdinir 300 MG CAPSULE PO SCH (15:52)
[2017-07-25] MEDS: Insulin DETEMIR 100 UNIT/ML X5UNITS SQ SCH (21:13)
[2017-07-26 04:20] LABS: Albumin 2.8 g/dL (3.5-5.7); Albumin/Globulin Ratio 1.2 (1.1-2.2); Bilirubin,Total 0.2 mg/dL (0.3-1.0); Calcium 8.4 mg/dL (8.6-10.3); Globulin 2.4 g/dL (2.4-3.5); Potassium 4.3 mEq/L (3.5-5.1); Total Protein 5.2 g/dL (6.4-8.9)
[2017-07-26] MEDS: *HR* Heparin 5,000 UNIT/ML VIAL SQ SCH ×2 (06:29→17:27)
[2017-07-26] MEDS: 0.9 % Sodium Chloride 1,000 ML IVC SCH (07:13)
[2017-07-26] MEDS: Insulin LISPRO 300 UNITS/3 ML VIAL SQ SCH ×4 (07:14→20:44)
[2017-07-26] MEDS: Doxycycline 100 MG CAPSULE PO SCH ×2 (07:40→20:48)
[2017-07-26] MEDS: Isosorbide MONOnitrate (24 HR) 30 MG TAB.ER.24H PO SCH (07:40)
[2017-07-26] MEDS: Gabapentin 100 MG CAPSULE PO SCH ×3 (07:40→20:49)
[2017-07-26] MEDS: predniSONE 20 MG TABLET PO SCH (07:40)
[2017-07-26] MEDS: Fenofibrate 54 MG TABLET PO SCH (07:41)
[2017-07-26] MEDS: Aspirin Enteric Coated 81 MG Tablet PO SCH (07:41)
--- NOTE | 2017-07-26 12:54 | Internal Med Progress Note ---
Date of Encounter: 07/26/17 Time of Encounter: 10:15 - Assessment and plan (1) CKD (chronic kidney disease) Current Visit: Yes Status: Chronic Assessment and plan: Improving renal function. Creatinine 2.67 today. Hold Lasix for another day. IV fluids have been stopped. Consider resuming Lasix orally tomorrow if renal function continues to improve as patient is developing worsening lower extremity swelling. Qualifiers: Chronic kidney disease stage: stage 3 (moderate) Qualified Code(s): N18.3 - Chronic kidney disease, stage 3 (moderate) (2) Pneumonia Current Visit: Yes Status: Acute Assessment and plan: Continue Omnicef and doxycycline. Will complete 7 days of antibiotics Qualifiers: Pneumonia type: due to unspecified organism Laterality: right Lung location: upper lobe of lung Qualified Code(s): J18.1 - Lobar pneumonia, unspecified organism (3) Acute exacerbation of CHF (congestive heart failure) Current Visit: Yes Status: Resolved Assessment and plan: Currently he is well compensated. Lasix on hold due to acute kidney injury. Will resume tomorrow after discussing with nephrology. Qualifiers: Heart failure type: diastolic Qualified Code(s): I50.33 - Acute on chronic diastolic (congestive) heart failure (4) CAD (coronary artery disease) Current Visit: Yes Status: Chronic Assessment and plan: Continue aspirin, statin and metoprolol Qualifiers: Coronary Disease-Associated Artery/Lesion type: [place] artery [place] vs. transplanted heart: [place] heart Associated angina: without angina Qualified Code(s): I25.10 - Atherosclerotic heart disease of [place] coronary artery without angina pectoris (5) DVT prophylaxis Current Visit: Yes Status: Acute Assessment and plan: Continue subcutaneous heparin (6) Healthcare-associated pneumonia Current Visit: Yes Status: Acute (7) COPD (chronic obstructive pulmonary disease) Current Visit: Yes Status: Chronic Assessment and plan: on bronchodilators as needed. Not in acute exacerbation Qualifiers: COPD type: emphysema Emphysema type: other Qualified Code(s): J43.8 - Other emphysema (8) HTN (hypertension) Current Visit: Yes Status: Chronic Assessment and plan: Blood pressure elevated today. Will place patient on hydralazine. Amlodipine has been stopped by nephrology. Qualifiers: Hypertension type: essential hypertension Qualified Code(s): I10 - Essential (primary) hypertension (9) DM (diabetes mellitus) Current Visit: Yes Status: Chronic Assessment and plan: Blood sugars are well controlled. Continue current insulin regimen Qualifiers: Diabetes mellitus type: type 2 Diabetes mellitus terminal manager insulin use: with [facility] use Diabetes mellitus complication status: without complication Qualified Code(s): E11.9 - Type 2 diabetes mellitus without complications; Z79.4 - [facility] (current) use of insulin; Z79.4 - terminal manager ( current) use of insulin; Z79.4 - [facility] (current) use of insulin; Z79.4 - terminal manager (current) use of insulin (10) Anemia Current Visit: Yes Status: Chronic Assessment and plan: Stable. We will recheck CBC tomorrow. Qualifiers: Anemia type: unspecified type Qualified Code(s): D64.9 - Anemia, unspecified - Time Spent With Patient Total time spent is greater than 50% in coordination of care (as documented) at patient's floor/unit and/or counseling patient: - Subjective Interval history: Patient continues to improve. Denies any chest pain. No palpitations. Shortness of breath improving. She is developing lower extremity swelling again. No fever or chills overnight. - Constitutional Vitals: Temp Pulse Resp BP Pulse Ox 98.4 F 65 18 151/81 98 07/26/17 11:41 07/26/17 11:41 07/26/17 11:41 07/26/17 11:41 07/26/17 11:41 General appearance: Present: cooperative, A&O X 3, no acute distress, answers questions appropriately - Neck Neck exam general surgery: Present: supple, trachea midline. Absent: lymphadenopathy - Respiratory Respiratory exam: Present: decreased breath sounds (Diminished at both bases). Absent: accessory muscle use, rales, rhonchi, wheezes - Cardiovascular Cardiovascular exam: Present: RRR, +S1, +S2. Absent: diastolic murmur, gallop, rubs, systolic murmur - GI/Abdominal GI/Abdominal exam: Present: normal bowel sounds, soft, no peritoneal signs. Absent: distended, tenderness - Extremities Exam Extremities exam: Present: pedal edema (Bilateral pitting 2+), warm, radial pulses palpable and symmetrical. Absent: calf tenderness, cyanotic - Neurological Exam Neurological exam: Present: oriented X3, no focal deficits. Absent: facial droop, speech deficit - Skin Skin exam: Present: dry, intact Internal Medicine: Result - Labs CBC & Chem 7: 07/25/17 02:44 07/26/17 03:37 Labs: BMP 07/26/17 03:37 Sodium 140 Potassium 4.3 Chloride 107 Carbon Dioxide 24 BUN 99 H Creatinine 2.67 H Glucose 159 H Calcium 8.4 L Liver Function 07/26/17 Range/Units 03:37 Total Bilirubin 0.2 L (0.3-1.0) mg/dL AST 16 (13-39) Units/L ALT 22 (7-52) Units/L Alkaline Phosphatase 13 L (34-104) Units/L Albumin 2.8 L (3.5-5.7) g/dL - ABG Interpretation ABG results: PT/INR, D-dimer PT 11.0 Seconds (9.4-12.1) 07/21/17 12:40 Consult Discharge Plan - Plan Referrals: Anna White, PROCESS CHEMIST [Primary Care Provider] - (Please call upon discharge)
[2017-07-26] MEDS: hydrALAZINE 25 MG TABLET PO SCH ×2 (15:14→20:49)
[2017-07-26] MEDS: Cefdinir 300 MG CAPSULE PO SCH (15:14)
[2017-07-26] MEDS: Insulin DETEMIR 100 UNIT/ML X5UNITS SQ SCH (20:49)
[2017-07-27 05:10] LABS: Basophils % 0.3 %; Eosinophils # 0.1 K/mcL (0.0-0.6); Eosinophils % 0.4 %; Hematocrit 27.4 % (35.3-44.9); Hemoglobin 8.9 g/dL (11.5-15.4); Immature Granulocytes % 2.6 % (0-4); Lymphocytes # 2.1 K/mcL (0.6-4.6); Lymphocytes % 17.8 %; Mean Corpuscular HGB Conc 32.5 g/dL (31.6-35.5); Mean Corpuscular Hemoglobin 27.4 pg (28.0-33.3); Mean Corpuscular Volume 84.3 fL (83.0-100.0); Mean Platelet Volume 10.5 fL (9.4-12.4); Monocytes # 1.1 K/mcL (0.0-1.3); Monocytes % 9.6 %; Platelet Count 268 K/mcL (140-400); Red Blood Count 3.25 M/mcL (3.82-4.97); Red Cell Distribution Width 13.7 % (11.5-14.5); Segmented Neutrophils % 69.3 %
[2017-07-27] MEDS: *HR* Dextrose 50 % in Water (Syg) 50 ML SYRINGE IVP PRN (05:21)
[2017-07-27 05:31] LABS: Calcium 8.6 mg/dL (8.6-10.3); Potassium 4.1 mEq/L (3.5-5.1)
[2017-07-27] MEDS: *HR* Heparin 5,000 UNIT/ML VIAL SQ SCH ×2 (05:54→17:04)
[2017-07-27] MEDS: Fenofibrate 54 MG TABLET PO SCH (08:43)
[2017-07-27] MEDS: Gabapentin 100 MG CAPSULE PO SCH ×3 (08:44→20:09)
[2017-07-27] MEDS: Doxycycline 100 MG CAPSULE PO SCH ×2 (08:44→20:09)
[2017-07-27] MEDS: Isosorbide MONOnitrate (24 HR) 30 MG TAB.ER.24H PO SCH (08:44)
[2017-07-27] MEDS: predniSONE 20 MG TABLET PO SCH (08:44)
[2017-07-27] MEDS: Insulin LISPRO 300 UNITS/3 ML VIAL SQ SCH ×4 (08:45→20:03)
[2017-07-27] MEDS: Aspirin Enteric Coated 81 MG Tablet PO SCH (08:45)
[2017-07-27] MEDS: hydrALAZINE 25 MG TABLET PO SCH ×3 (08:45→20:09)
--- NOTE | 2017-07-27 09:47 | Nephrology Progress Note ---
Date of Encounter: 07/27/17 Time of Encounter: 09:45 - Assessment and Plan (1) Acute kidney failure, unspecified Current Visit: Yes Status: Acute The patient has acute kidney injury superimposed on chronic kidney disease. This may be related to vancomycin nephrotoxicity. The patient's renal function continues to improve. Her blood pressure starting to elevate. Resume the amlodipine but at a lower dose. Qualifiers: Acute renal failure type: unspecified Qualified Code(s): N17.9 - Acute kidney failure, unspecified (2) Type 2 diabetes mellitus with diabetic chronic kidney disease Current Visit: Yes Status: Acute Qualifiers: Diabetes mellitus nursing home insulin use: with nursing home use Chronic kidney disease stage: stage 3 (moderate) Qualified Code(s): E11.22 - Type 2 diabetes mellitus with diabetic chronic kidney disease; N18.3 - Chronic kidney disease, stage 3 (moderate); N18.3 - Chronic kidney disease, stage 3 (moderate); Z79.4 - longterm (current) use of insulin; Z79.4 - longterm (current) use of insulin; Z79.4 - pillow filler (current) use of insulin; Z79.4 - pillow filler (current) use of insulin (3) Pneumonia Current Visit: Yes Status: Acute Qualifiers: Pneumonia type: due to unspecified organism Laterality: right Lung location: upper lobe of lung Qualified Code(s): J18.1 - Lobar pneumonia, unspecified organism (4) Chronic kidney disease, stage III (moderate) Current Visit: Yes Status: Acute Subjective Interval history: Patient reports no new complaints. She continues to experience exertional dyspnea. Renal function continues to improve, creatinine senna 2.31. Blood pressure starting to rise. There is no urine output recorded. Objective - Vital Signs Vital signs: Vital Signs Temp Pulse Resp BP Pulse Ox 07/27/17 08:55 93 07/27/17 07:17 98.3 F 57 18 154/90 93 07/27/17 04:02 98.4 F 58 18 176/62 96 07/26/17 23:46 98.2 F 58 16 157/52 99 07/26/17 18:49 98.4 F 72 16 169/73 99 07/26/17 15:54 97.7 F 59 16 153/73 98 07/26/17 11:41 98.4 F 65 18 151/81 98 Intake and Output 07/26/17 07/27/17 07/27/17 23:59 07:59 15:59 Intake Total 120 / 120 0 / 0 Output Total 250 / 250 0 / 0 Balance 120 / 120 -250 / -250 0 / 0 Intake: Oral 120 / 120 0 / 0 Output: Urine 250 / 250 0 / 0 Other: Meal Dinner Percent of Meal Consumed 85% Stool Size Moderate Stool Consistency soft Stool Color Brown # Bowel Movements 1 Weight 108.227 kg Blood Glucose* 191 169 Patient Weight 07/27/17 23:59 Weight 108.227 kg - General Appearance Exam: Patient is alert and oriented. She is in no acute distress. Lungs mange breath sounds otherwise clear. Heart regular rate and rhythm. Abdomen is benign. There is some mild lower extremity swelling. - Lab 07/27/17 04:32 07/27/17 04:32 Most recent lab results Calcium 8.6 mg/dL (8.6-10.3) 07/27/17 04:32 Magnesium 2.1 mg/dL (1.6-2.6) 07/24/17 03:46 Consult Discharge Plan - Plan Referrals: Anna White, FUEL OIL TRUCK DRIVER [Primary Care Provider] - (Please call upon discharge)
[2017-07-27] MEDS ORDERED: Furosemide 20 MG/2 ML VIAL IVP ONE (10:33)
[2017-07-27] MEDS: amLODIPine 5 MG TABLET PO SCH (11:38)
--- NOTE | 2017-07-27 12:18 | Internal Med Progress Note ---
Date of Encounter: 07/27/17 Time of Encounter: 10:45 - Assessment and plan (1) CKD (chronic kidney disease) Current Visit: Yes Status: Chronic Assessment and plan: With acute kidney injury. Creatinine 2.31 today. Nephrology following. Improving renal function overall. Will start patient on low-dose Lasix as she is developing pedal edema. Most likely due to nephrotoxicity from vancomycin. Will follow renal function closely. Qualifiers: Chronic kidney disease stage: stage 3 (moderate) Qualified Code(s): N18.3 - Chronic kidney disease, stage 3 (moderate) (2) Pneumonia Current Visit: Yes Status: Acute Assessment and plan: Improving. Patient has received 6 days of antibiotic therapy so far. Today will be day 7. We will complete antibiotic course today. No organism identified. On Omnicef and doxycycline at this time. Qualifiers: Pneumonia type: due to unspecified organism Laterality: right Lung location: upper lobe of lung Qualified Code(s): J18.1 - Lobar pneumonia, unspecified organism (3) Acute exacerbation of CHF (congestive heart failure) Current Visit: Yes Status: Resolved Assessment and plan: Symptoms have resolved now. Held Lasix due to worsening renal function. Will resume today at low dose as patient is developing pedal edema Qualifiers: Heart failure type: diastolic Qualified Code(s): I50.33 - Acute on chronic diastolic (congestive) heart failure (4) CAD (coronary artery disease) Current Visit: Yes Status: Chronic Assessment and plan: Continue aspirin, statin and beta ritesh Qualifiers: Coronary Disease-Associated Artery/Lesion type: [place] artery [place] vs. transplanted heart: [place] heart Associated angina: without angina Qualified Code(s): I25.10 - Atherosclerotic heart disease of [place] coronary artery without angina pectoris (5) Healthcare-associated pneumonia Current Visit: Yes Status: Acute (6) COPD (chronic obstructive pulmonary disease) Current Visit: Yes Status: Chronic Assessment and plan: Was treated with duo nebs and steroids. Will stop steroids. Not in acute exacerbation Qualifiers: COPD type: emphysema Emphysema type: other Qualified Code(s): J43.8 - Other emphysema (7) HTN (hypertension) Current Visit: Yes Status: Chronic Assessment and plan: Blood pressure is elevated. Amlodipine has been restarted by nephrology. Will monitor blood pressure. Currently she is on amlodipine, hydralazine, lisinopril and metoprolol. Her Lasix has also been restarted. Qualifiers: Hypertension type: essential hypertension Qualified Code(s): I10 - Essential (primary) hypertension (8) DM (diabetes mellitus) Current Visit: Yes Status: Chronic Assessment and plan: Blood sugars were well controlled. As we are stopping prednisone, will decrease long-acting insulin dosage. prednisone Qualifiers: Diabetes mellitus type: type 2 Diabetes mellitus custodial insulin use: with head of ethics and compliance use Diabetes mellitus complication status: without complication Qualified Code(s): E11.9 - Type 2 diabetes mellitus without complications; Z79.4 - residential (current) use of insulin; Z79.4 - assistant plant control operator ( current) use of insulin; Z79.4 - residential (current) use of insulin; Z79.4 - assistant plant control operator (current) use of insulin (9) Anemia Current Visit: Yes Status: Chronic Assessment and plan: Improved. Hemoglobin 8.9 today. Due to chronic kidney disease Qualifiers: Anemia type: unspecified type Qualified Code(s): D64.9 - Anemia, unspecified (10) DVT prophylaxis Current Visit: Yes Status: Acute Assessment and plan: On subcutaneous heparin - Time Spent With Patient Total time spent is greater than 50% in coordination of care (as documented) at patient's floor/unit and/or counseling patient: - Subjective Interval history: Patient is awake and alert. Comfortable. Lying in bed. No chest pain. No shortness of breath. Complains of swelling in her left upper extremity. No palpitations. No fever or chills overnight. - Constitutional Vitals: Temp Pulse Resp BP Pulse Ox 98.1 F 82 19 167/69 99 07/27/17 10:52 07/27/17 10:52 07/27/17 10:52 07/27/17 10:52 07/27/17 10:52 General appearance: Present: cooperative, A&O X 3, no acute distress, answers questions appropriately - Respiratory Respiratory exam: Present: prolonged expiratory phase. Absent: accessory muscle use, rales, rhonchi, wheezes - Cardiovascular Cardiovascular exam: Present: RRR, +S1, +S2. Absent: diastolic murmur, gallop, rubs, systolic murmur - GI/Abdominal GI/Abdominal exam: Present: normal bowel sounds, soft, no peritoneal signs. Absent: distended, tenderness - Extremities Exam Extremities exam: Present: pedal edema (Bilateral pitting pedal edema.), warm, radial pulses palpable and symmetrical. Absent: calf tenderness, cyanotic Additional comments: Left upper extremity swelling has been present since admission. Appears stable. - Neurological Exam Neurological exam: Present: alert, CN II-XII intact, oriented X3, no focal deficits. Absent: facial droop, speech deficit - Skin Skin exam: Present: dry, intact Internal Medicine: Result - Labs CBC & Chem 7: 07/27/17 04:32 07/27/17 04:32 Labs: Short CBC 07/27/17 Range/Units 04:32 WBC 11.5 H (4.3-11.1) K/mcL Hgb 8.9 L (11.5-15.4) g/dL Hct 27.4 L (35.3-44.9) % Plt Count 268 (140-400) K/mcL Neutrophils # 8.0 (1.6-8.9) K/mcL BMP 07/27/17 04:32 Sodium 143 Potassium 4.1 Chloride 109 H Carbon Dioxide 25 BUN 103 H Creatinine 2.31 H Glucose 42 L Calcium 8.6 - ABG Interpretation ABG results: PT/INR, D-dimer PT 11.0 Seconds (9.4-12.1) 07/21/17 12:40 Consult Discharge Plan - Plan Referrals: Anna White, TRANSIT WORKER [Primary Care Provider] - (Please call upon discharge)
[2017-07-27] MEDS: Cefdinir 300 MG CAPSULE PO SCH (15:07)
[2017-07-27] MEDS: Insulin DETEMIR 100 UNIT/ML X5UNITS SQ SCH (20:09)
[2017-07-28] MEDS: *HR* Heparin 5,000 UNIT/ML VIAL SQ SCH ×2 (05:44→17:08)
[2017-07-28 05:57] LABS: Albumin 2.6 g/dL (3.5-5.7); Albumin/Globulin Ratio 1.2 (1.1-2.2); Bilirubin,Total 0.3 mg/dL (0.3-1.0); Calcium 8.4 mg/dL (8.6-10.3); Globulin 2.1 g/dL (2.4-3.5); Potassium 4.3 mEq/L (3.5-5.1); Total Protein 4.7 g/dL (6.4-8.9)
[2017-07-28] MEDS: Insulin LISPRO 300 UNITS/3 ML VIAL SQ SCH ×4 (07:52→19:59)
--- NOTE | 2017-07-28 08:04 | Nephrology Progress Note ---
Date of Encounter: 07/28/17 Time of Encounter: 08:03 - Assessment and Plan (1) Acute kidney failure, unspecified Current Visit: Yes Status: Acute The patient has acute kidney injury superimposed on chronic kidney disease. This may be related to vancomycin nephrotoxicity. The patient's renal function continues to improve. Her blood pressures under better control. No further suggestions at this time. Qualifiers: Acute renal failure type: unspecified Qualified Code(s): N17.9 - Acute kidney failure, unspecified (2) Type 2 diabetes mellitus with diabetic chronic kidney disease Current Visit: Yes Status: Acute Qualifiers: Diabetes mellitus superintendent marine oil terminal insulin use: with superintendent marine oil terminal use Chronic kidney disease stage: stage 3 (moderate) Qualified Code(s): E11.22 - Type 2 diabetes mellitus with diabetic chronic kidney disease; N18.3 - Chronic kidney disease, stage 3 (moderate); N18.3 - Chronic kidney disease, stage 3 (moderate); Z79.4 - half-way (current) use of insulin; Z79.4 - half-way (current) use of insulin; Z79.4 - half-way (current) use of insulin; Z79.4 - [place] (current) use of insulin (3) Pneumonia Current Visit: Yes Status: Acute Qualifiers: Pneumonia type: due to unspecified organism Laterality: right Lung location: upper lobe of lung Qualified Code(s): J18.1 - Lobar pneumonia, unspecified organism (4) Chronic kidney disease, stage III (moderate) Current Visit: Yes Status: Acute Subjective Interval history: The patient had low blood sugar this morning. Otherwise she voices no complaints. Her blood pressures under better control. Serum creatinine continues to improve. Objective - Vital Signs Vital signs: Vital Signs Temp Pulse Resp BP Pulse Ox 07/28/17 07:23 97.6 F 55 15 150/72 100 07/28/17 04:16 17 96 07/28/17 03:28 98.3 F 55 15 149/67 97 07/27/17 23:37 97.7 F 55 15 135/69 100 07/27/17 23:20 17 98 07/27/17 19:43 98.3 F 71 16 150/60 100 07/27/17 15:48 98.6 F 84 22 154/71 96 07/27/17 10:52 98.1 F 82 19 167/69 99 07/27/17 08:55 93 Intake and Output 07/27/17 07/28/17 07/28/17 23:59 07:59 15:59 Intake Total / 0 / 0 Output Total 500 / 500 800 / 800 Balance -496 / -496 -800 / -800 Intake: Oral 4 0 / 0 Output: Urine 500 / 500 Stool 350 / 350 Urine/Stool Mix 450 / 450 Other: Meal Dinner Percent of Meal Consumed 100% Stool Size Moderate Small Stool Consistency soft soft Stool Color Brown # Voids 1 # Bowel Movements 1 Weight 109.316 kg Blood Glucose* 184 50 Patient Weight 07/28/17 23:59 Weight 109.316 kg - General Appearance Exam: Patient is alert and oriented. She is in no acute distress. Lung sounds otherwise clear. Heart regular rate and rhythm. Abdomen was benign. She has lower extremity swelling which is about the same as yesterday. - Lab 07/27/17 04:32 07/28/17 04:58 Most recent lab results Calcium 8.4 mg/dL (8.6-10.3) L 07/28/17 04:58 Magnesium 2.1 mg/dL (1.6-2.6) 07/24/17 03:46 Consult Discharge Plan - Plan Referrals: Anna White, BUYING AGENT [Primary Care Provider] - (Please call upon discharge)
[2017-07-28] MEDS ORDERED: Furosemide 20 MG TABLET PO SCH (09:00)
[2017-07-28] MEDS: Doxycycline 100 MG CAPSULE PO SCH (09:37)
[2017-07-28] MEDS: Fenofibrate 54 MG TABLET PO SCH (09:37)
[2017-07-28] MEDS: Gabapentin 100 MG CAPSULE PO SCH ×3 (09:37→20:00)
[2017-07-28] MEDS: amLODIPine 5 MG TABLET PO SCH (09:37)
[2017-07-28] MEDS: hydrALAZINE 25 MG TABLET PO SCH ×3 (09:38→20:00)
[2017-07-28] MEDS: Aspirin Enteric Coated 81 MG Tablet PO SCH (09:38)
[2017-07-28] MEDS: Isosorbide MONOnitrate (24 HR) 30 MG TAB.ER.24H PO SCH (09:43)
[2017-07-28] MEDS: Cefdinir 300 MG CAPSULE PO SCH (14:16)
[2017-07-28] MEDS: Furosemide 20 MG TABLET PO SCH (16:48)
[2017-07-28] MEDS: Insulin DETEMIR 100 UNIT/ML X5UNITS SQ SCH (20:00)
--- NOTE | 2017-07-28 22:00 | Internal Med Progress Note ---
Date of Encounter: 07/28/17 Time of Encounter: 16:17 - Assessment and plan (1) Healthcare-associated pneumonia Current Visit: Yes Status: Resolved Assessment and plan: Resolved. Completed 7 day course of antibiotics. (2) Pneumonia Current Visit: Yes Status: Resolved Assessment and plan: Resolved. Completed 7 day course of antibiotics. Qualifiers: Pneumonia type: due to unspecified organism Laterality: right Lung location: upper lobe of lung Qualified Code(s): J18.1 - Lobar pneumonia, unspecified organism (3) CKD (chronic kidney disease) Current Visit: Yes Status: Chronic Assessment and plan: With acute kidney injury. Creatinine 2.14 today. Nephrology following; appreciate input. Improving renal function overall. Will increase lasix to BID for pedal edema because it seems like her kidneys can tolerate it. Most likely due to nephrotoxicity from vancomycin. Will follow renal function closely. Repeat BMP in AM. Nephrology as signed out and she is ready for transfer to SNF; awaiting placement by . Qualifiers: Chronic kidney disease stage: stage 3 (moderate) Qualified Code(s): N18.3 - Chronic kidney disease, stage 3 (moderate) (4) Acute exacerbation of CHF (congestive heart failure) Current Visit: Yes Status: Acute Assessment and plan: Some recent increase in BLE edema. Lasix increased as per above. Qualifiers: Heart failure type: diastolic Qualified Code(s): I50.33 - Acute on chronic diastolic (congestive) heart failure (5) CAD (coronary artery disease) Current Visit: Yes Status: Chronic Assessment and plan: Continue aspirin, statin and beta ritesh. Qualifiers: Coronary Disease-Associated Artery/Lesion type: [place] artery [place] vs. transplanted heart: [place] heart Associated angina: without angina Qualified Code(s): I25.10 - Atherosclerotic heart disease of [place] coronary artery without angina pectoris (6) COPD (chronic obstructive pulmonary disease) Current Visit: Yes Status: Chronic Assessment and plan: Continue duonebs. Completed steroid taper. Not in acute exacerbation at this time. Qualifiers: COPD type: emphysema Emphysema type: other Qualified Code(s): J43.8 - Other emphysema (7) HTN (hypertension) Current Visit: Yes Status: Chronic Assessment and plan: Only mildly elevated now. Amlodipine has been restarted by nephrology. Will monitor blood pressure. Currently she is on amlodipine, hydralazine, lisinopril , and metoprolol. Lasix also increased today as per above. Qualifiers: Hypertension type: essential hypertension Qualified Code(s): I10 - Essential (primary) hypertension (8) DM (diabetes mellitus) Current Visit: Yes Status: Chronic Assessment and plan: Continue accucheck and SSI QID AC/HS. Continue home levemir. Qualifiers: Diabetes mellitus type: type 2 Diabetes mellitus keno terminal operator insulin use: with penitentiary use Diabetes mellitus complication status: without complication Qualified Code(s): E11.9 - Type 2 diabetes mellitus without complications; Z79.4 - termite treater helper (current) use of insulin; Z79.4 - termite treater helper ( current) use of insulin; Z79.4 - halfway (current) use of insulin; Z79.4 - halfway (current) use of insulin (9) Anemia Current Visit: Yes Status: Chronic Assessment and plan: Likely due to chronic kidney disease. Stabilized. Recheck CBC in AM. Qualifiers: Anemia type: unspecified type Qualified Code(s): D64.9 - Anemia, unspecified (10) Diarrhea Current Visit: Yes Status: Acute Assessment and plan: Check C. diff due to recent antibiotic course. Qualifiers: Diarrhea type: unspecified type Qualified Code(s): R19.7 - Diarrhea, unspecified (11) DVT prophylaxis Current Visit: Yes Status: Acute Assessment and plan: Continue subcutaneous heparin. - Time Spent With Patient Total time spent is greater than 50% in coordination of care (as documented) at patient's floor/unit and/or counseling patient: less than 15 minutes - Subjective Interval history: Patient had no acute events overnight. She states that she is doing "well." She denies chest pain, SOB, fever, chills, nausea, or vomiting. She has no complaints today other than diarrhea. - Constitutional Vitals: Temp Pulse Resp BP Pulse Ox 98.0 F 77 17 148/73 99 07/28/17 19:36 07/28/17 19:36 07/28/17 19:36 07/28/17 19:36 07/28/17 19:36 General appearance: Present: cooperative, A&O X 3, no acute distress, answers questions appropriately - Respiratory Respiratory exam: Present: CTAB. Absent: accessory muscle use, rales, rhonchi, wheezes Additional comments: Normal WOB - Cardiovascular Cardiovascular exam: Present: RRR, +S1, +S2. Absent: diastolic murmur, gallop, rubs, systolic murmur Additional comments: 1+ BLE edema - GI/Abdominal GI/Abdominal exam: Present: normal bowel sounds, soft. Absent: distended, hepatomegaly, mass, splenomegaly, tenderness - Psychiatric Psychiatric exam: Present: normal affect, normal mood. Absent: agitated, anxious, depressed - Skin Skin exam: Present: dry, intact, warm. Absent: cyanosis, rash Internal Medicine: Result - Labs CBC & Chem 7: 07/27/17 04:32 07/28/17 04:58 Labs: BMP 07/28/17 04:58 Sodium 144 Potassium 4.3 Chloride 113 H Carbon Dioxide 25 BUN 99 H Creatinine 2.14 H Glucose 44 L Calcium 8.4 L Liver Function 07/28/17 Range/Units 04:58 Total Bilirubin 0.3 (0.3-1.0) mg/dL AST 18 (13-39) Units/L ALT 15 (7-52) Units/L Alkaline Phosphatase 10 L (34-104) Units/L Albumin 2.6 L (3.5-5.7) g/dL - ABG Interpretation ABG results: PT/INR, D-dimer PT 11.0 Seconds (9.4-12.1) 07/21/17 12:40 Consult Discharge Plan - Plan Referrals: Otto Winchester, WAIT STAFF [Advanced Practice Nurse] -
[2017-07-29] MEDS: *HR* Heparin 5,000 UNIT/ML VIAL SQ SCH (05:50)
[2017-07-29 06:35] LABS: Basophils % 0.2 %; Eosinophils # 0.7 K/mcL (0.0-0.6); Eosinophils % 4.2 %; Hematocrit 26.8 % (35.3-44.9); Hemoglobin 8.7 g/dL (11.5-15.4); Immature Granulocytes % 1.7 % (0-4); Lymphocytes % 34.7 %; Mean Corpuscular HGB Conc 32.5 g/dL (31.6-35.5); Mean Corpuscular Hemoglobin 27.5 pg (28.0-33.3); Mean Corpuscular Volume 84.8 fL (83.0-100.0); Mean Platelet Volume 10.6 fL (9.4-12.4); Monocytes # 1.6 K/mcL (0.0-1.3); Monocytes % 9.1 %; Platelet Count 245 K/mcL (140-400); Red Blood Count 3.16 M/mcL (3.82-4.97); Red Cell Distribution Width 14.2 % (11.5-14.5); Segmented Neutrophils % 50.1 %
[2017-07-29 06:48] LABS: Neutrophils # 8.7 K/mcL (1.6-8.9)
[2017-07-29 07:06] LABS: Calcium 8.5 mg/dL (8.6-10.3); Potassium 4.7 mEq/L (3.5-5.1)
[2017-07-29] MEDS: *HR* Dextrose 50 % in Water (Syg) 50 ML SYRINGE IVP PRN (07:08)
[2017-07-29] MEDS: Isosorbide MONOnitrate (24 HR) 30 MG TAB.ER.24H PO SCH (09:38)
[2017-07-29] MEDS: Furosemide 20 MG TABLET PO SCH (09:39)
[2017-07-29] MEDS: amLODIPine 5 MG TABLET PO SCH (09:39)
[2017-07-29] MEDS: hydrALAZINE 25 MG TABLET PO SCH ×2 (09:39→15:03)
[2017-07-29] MEDS: Fenofibrate 54 MG TABLET PO SCH (09:39)
[2017-07-29] MEDS: Gabapentin 100 MG CAPSULE PO SCH ×2 (09:39→15:03)
[2017-07-29] MEDS: Aspirin Enteric Coated 81 MG Tablet PO SCH (09:40)
[2017-07-29] MEDS: Insulin LISPRO 300 UNITS/3 ML VIAL SQ SCH ×2 (09:43→11:27)
--- NOTE | 2017-07-29 12:12 | Nephrology Progress Note ---
Date of Encounter: 07/29/17 Time of Encounter: 11:55 - Assessment and Plan (1) SACHA (acute kidney injury) Current Visit: No Status: Resolved SACHA/CKD most likely in setting of pneumonia, possible nephrotoxicity from vancomycin, possible intravascular volume depletion from diuretics. Chronic LE swelling, proteinuria, amlodipine and gabapentin contributing. Renal fct improving. Creat 1.87. Baseline creat 1.9-2.0. Subjective Interval history: Sitting up in chair. States feeling better. Denies shortness of breath. Objective - Vital Signs Vital signs: Vital Signs Temp Pulse Resp BP Pulse Ox 07/29/17 11:32 97.9 F 51 16 155/67 100 07/29/17 07:41 97.4 F L 56 16 128/71 99 07/29/17 03:33 97.8 F 52 16 154/62 100 07/28/17 23:17 97.8 F 53 16 147/63 100 07/28/17 19:36 98.0 F 77 17 148/73 99 07/28/17 15:46 97.8 F 57 18 152/62 100 Intake and Output 07/28/17 07/29/17 07/29/17 23:59 07:59 15:59 Intake Total 860 / 860 Output Total 1850 / 1850 650 / 650 Balance -990 / -990 -650 / -650 Intake: Oral 860 / 860 Output: Urine 1850 / 1850 650 / 650 Other: Meal Dinner Percent of Meal Consumed 100% Stool Size Smear Small Small Stool Consistency soft loose liquid formed soft Stool Color Brown Brown Brown Yellow # Bowel Movements 1 1 Weight 11.3 kg Blood Glucose* 168 128 Patient Weight 07/29/17 23:59 Weight 11.3 kg - General Appearance General appearance: Present: well-developed, well-nourished, appears started age , obese EENT: Present: mucous membranes moist Neck: Present: no JVD Respiratory: Present: clear Additional Comments: diminished. Cardiology: Present: edema, regular rate, regular rhythm Additional Comments: 1+ LE pitting edema Gastrointestinal: Present: normoactive bowel sounds, no tenderness Integumentary: Present: warm and dry Neurologic: Present: alert and oriented x3 - Lab 07/29/17 05:45 07/29/17 05:45 Most recent lab results Calcium 8.5 mg/dL (8.6-10.3) L 07/29/17 05:45 Magnesium 2.1 mg/dL (1.6-2.6) 07/24/17 03:46 Consult Discharge Plan - Plan Referrals: Otto Winchester, MAIL MANAGER [Advanced Practice Nurse] -
--- NOTE | 2017-07-29 15:12 | Discharge Summary ---
- NOTES TO OUTPATIENT PROVIDER Notes to Outpatient Provider: Outpatient follow up to be determined after completion of acute rehab stay at [facility]. Date of Encounter: 07/29/17 Time of Encounter: 15:09 - Discharge Diagnosis (1) Healthcare-associated pneumonia Priority: Primary Status: Resolved (2) Pneumonia Priority: Secondary Status: Resolved Qualifiers: Pneumonia type: due to unspecified organism Laterality: right Lung location: upper lobe of lung Qualified Code(s): J18.1 - Lobar pneumonia, unspecified organism (3) CKD (chronic kidney disease) Priority: Secondary Status: Chronic Qualifiers: Chronic kidney disease stage: stage 3 (moderate) Qualified Code(s): N18.3 - Chronic kidney disease, stage 3 (moderate) (4) Acute exacerbation of CHF (congestive heart failure) Priority: Secondary Status: Acute Qualifiers: Heart failure type: diastolic Qualified Code(s): I50.33 - Acute on chronic diastolic (congestive) heart failure (5) CAD (coronary artery disease) Priority: Secondary Status: Chronic Qualifiers: Coronary Disease-Associated Artery/Lesion type: [place] artery [place] vs. transplanted heart: [place] heart Associated angina: without angina Qualified Code(s): I25.10 - Atherosclerotic heart disease of [place] coronary artery without angina pectoris (6) COPD (chronic obstructive pulmonary disease) Priority: Secondary Status: Chronic Qualifiers: COPD type: emphysema Emphysema type: other Qualified Code(s): J43.8 - Other emphysema (7) HTN (hypertension) Priority: Secondary Status: Chronic Qualifiers: Hypertension type: essential hypertension Qualified Code(s): I10 - Essential (primary) hypertension (8) DM (diabetes mellitus) Priority: Secondary Status: Chronic Qualifiers: Diabetes mellitus type: type 2 Diabetes mellitus usp insulin use: with usp use Diabetes mellitus complication status: without complication Qualified Code(s): E11.9 - Type 2 diabetes mellitus without complications; Z79.4 - terminal system operator (current) use of insulin; Z79.4 - terminal system operator ( current) use of insulin; Z79.4 - correction (current) use of insulin; Z79.4 - terminal system operator (current) use of insulin (9) Anemia Priority: Secondary Status: Chronic Qualifiers: Anemia type: unspecified type Qualified Code(s): D64.9 - Anemia, unspecified (10) Diarrhea Priority: Secondary Status: Acute Qualifiers: Diarrhea type: unspecified type Qualified Code(s): R19.7 - Diarrhea, unspecified (11) DVT prophylaxis Priority: Secondary Status: Acute Hospital course: Ms. Starr is a 72 year old white female with PMH of CKD, CHF, and COPD, who was admitted for acute exacerbation of CHF and HCAP. She was admitted to general medical floor with telemetry. She was treated with lasix to achieve aggressive diuresis. She was initially continued on broad spectrum antibiotics. Her CHF improved, but she developed SACHA on top of her CKD. Nephrology was consulted and followed patient. Lasix was discontinued and her renal function improved. Blood cultures finalized negative x 2. She was transitioned to PO omnicef and doxycycline. She completed full 7 day course of antibiotics. Her respiratory status is now stable and back to baseline. She started to develop some pedal edema, so lasix was restarted as PO but at 1/2 home dose. She tolerated this well and renal function remained stable. She had some diarrhea the day prior to transfer. C. diff was negative. Symptoms seem to be improving today. She had an episode of asymptomatic hypoglycemia this AM. This resolved with hypoglycemia protocol. I have decreased her home levemir from 30 units to 20 units today. She states that she is doing well today. She has worked with PT/OT and is looking forward to acute rehabilitation. She has been accepted at [facility]. Patient has met maximum benefit of this hospitalization and will be transferred to [facility] in stable condition. Discharge discussed with: patient, nurse, social work, case management, other ( Pharmacist) - Time Spent with Patient Total time spent providing and/or coordinating discharge services: Greater than 30 minutes - Discharge Medications Home Medications: Aspirin Enteric Coated [Aspirin EC] 81 mg PO DAILY 06/16/16 [History] Fenofibrate 160 mg PO DAILY 06/16/16 [History] Gabapentin 800 mg PO TID 06/16/16 [History] Insulin LISPRO [HumaLOG] 25 units SQ TIDWM 08/11/16 [History] Atorvastatin [Lipitor] 40 mg PO HS #30 tablet 10/11/16 [Rx] Citalopram Hydrobromide [Citalopram HBr] 40 mg PO DAILY #30 tablet 10/11/16 [Rx] Isosorbide MONOnitrate (24 HR) [Imdur] 30 mg PO DAILY #30 tab.er.24h 10/11/16 [ Rx] Lisinopril [Zestril] 5 mg PO DAILY #30 tablet 10/11/16 [Rx] amLODIPine [Norvasc] 10 mg PO HS #30 tablet 10/11/16 [Rx] Acetaminophen [Tylenol 650mg SUPP] 650 mg RC Q4H PRN 04/24/17 [History] Bisacodyl [Dulcolax] 10 mg RC DAILY PRN 04/24/17 [History] Clobetasol Propionate 0.05% [Temovate] 1 appl TP DAILY 04/24/17 [History] Ferrous Sulfate 325 mg PO DAILY 04/24/17 [History] Hyoscyamine SL [Levsin Sl] 0.125 - 0.25 mg SL Q2H PRN 04/24/17 [History] Insulin DETEMIR [Levemir Flextouch] 40 unit SQ HS 04/24/17 [History] Ipratropium/Albuterol Neb [Duoneb] 3 ml IH Q4H PRN 04/24/17 [History] Metoprolol [Lopressor] 25 mg PO BID 04/24/17 [History] [place]-3/Dha/Epa/Fish Oil [Fish Oil 1,000 mg Softgel] 1,000 mg PO DAILY 04/24/17 [History] Oxygen 3 - 4 l NS DAILY 04/24/17 [History] Polyethylene Glycol 3350 [MiraLAX] 17 gm PO DAILY 04/24/17 [History] Promethazine [Phenergan] 25 mg RC Q6H PRN 04/24/17 [History] Triamcinolone Acet 0.1% CRM [Kenalog] 1 appl TP DAILY 04/24/17 [History] Albuterol Neb [Proventil Neb] 2.5 mg IH Q2H PRN inhsol 05/01/17 [Rx] Haloperidol Oral Conc [Haldol] 0.5 mg PO Q2H PRN 07/21/17 [History] Omeprazole [PriLOSEC] 20 mg PO DAILY 07/21/17 [History] Furosemide [Lasix] 20 mg PO BIDDIURETIC tablet 07/29/17 [Rx] LORazepam [Ativan] 0.5 mg PO Q2H PRN 5 Days #15 07/29/17 [Rx] MORPHINE SUL Oral CONC [Roxanol Oral Conc] 5 mg PO Q4H PRN 5 Days #30 07/29/17 [ Rx] Oxycodone HCl/Acetaminophen [Percocet 5-325 mg Tablet] 1 tab PO Q6H PRN 5 Days # 20 07/29/17 [Rx] Allergies/Adverse Reactions: 3 Allergy/AdvReac Type Severity Reaction Status Date / Time No Known Allergies Allergy Verified 10/09/16 19:32 Date of admission: 07/21/17 15:33 Primary care physician: Anna White CNP Consults: 07/23/17 08:53 Consult to Nephrology [CONS] Routine Consulting Provider: [facility] Catherine FLOOD Reason for Consult: SACHA on CKD Call Completed: No 07/24/17 10:53 Consult to Occupational Therapy [CONS] Routine Comment: Evaluate, develop and implement POC Reason for Consult: may need ecf, will need pre-cert Does patient have active BEDREST order?: No Is patient medically & hemodynamically stable?: Yes Consult to Physical Therapy [CONS] Routine Comment: Evaluate, develop and implement POC Reason for Consult: pt may need ecf, will need pre-cert Does patient have active BEDREST order?: No Is patient medically & hemodynamically stable?: Yes 07/27/17 07:19 Consult to Attendant Sales [CONS] Routine Reason for SW Consult: pt/ot rec ecf, wants tradtions. Discharging clinician: Jorge Guadaulpe Anticipated date of discharge: 07/29/17 - Constitutional Vitals: Temp Pulse Resp BP Pulse Ox 97.9 F 51 16 155/67 100 07/29/17 11:32 07/29/17 11:32 07/29/17 11:32 07/29/17 11:32 07/29/17 11:32 General appearance: Present: cooperative, A&O X 3, pleasant, no acute distress, answers questions appropriately - Respiratory Respiratory exam: Present: CTAB. Absent: accessory muscle use, rales, rhonchi, wheezes Additional comments: Normal WOB - Cardiovascular Cardiovascular exam: Present: RRR, +S1, +S2. Absent: diastolic murmur, gallop, rubs, systolic murmur Additional comments: Trace BLE edema - GI/Abdominal GI/Abdominal exam: Present: normal bowel sounds, soft. Absent: distended, hepatomegaly, mass, splenomegaly, tenderness - Psychiatric Psychiatric exam: Present: normal affect, normal mood. Absent: agitated, anxious, depressed - Skin Skin exam: Present: dry, intact, warm. Absent: cyanosis, rash - Patient Status Disposition: Transfer Inpatient Rehab Fac Condition: Fair Overall status at discharge: patient is progressing back to baseline - Discharge Instructions Follow Up With: Otto Winchester, LIFT BUILDER WHOLE [Advanced Practice Nurse] - Forms: ED Satisfaction Letter - Diet and Activity Activity: as per physical therapy Diet: diabetic diet, low fat, low cholesterol, low salt diet, other (Cardiac Diet)
[2017-07-29 15:28] VITALS: BP 154/63
--- NOTE | 2017-07-29 15:54 | Physician Discharge Referral ---
ExtendedCare Referral Info [facility] Provider in Charge after Transfer: Other Institutional Level of Care: Skilled - Diagnosis (1) Healthcare-associated pneumonia Priority: Primary Status: Resolved (2) Pneumonia Priority: Secondary Status: Resolved (3) CKD (chronic kidney disease) Priority: Secondary Status: Chronic (4) Acute exacerbation of CHF (congestive heart failure) Priority: Secondary Status: Acute (5) CAD (coronary artery disease) Priority: Secondary Status: Chronic (6) COPD (chronic obstructive pulmonary disease) Priority: Secondary Status: Chronic (7) HTN (hypertension) Priority: Secondary Status: Chronic (8) DM (diabetes mellitus) Priority: Secondary Status: Chronic (9) Anemia Priority: Secondary Status: Chronic (10) Diarrhea Priority: Secondary Status: Acute (11) DVT prophylaxis Priority: Secondary Status: Acute Expected Duration of Placement: 4-8 Weeks Prognosis: Fair Aware of Diagnosis: Patient Aware of Prognosis: Patient - Transfer Medications Home Medications: Aspirin Enteric Coated [Aspirin EC] 81 mg PO DAILY 06/16/16 [History] Fenofibrate 160 mg PO DAILY 06/16/16 [History] Gabapentin 800 mg PO TID 06/16/16 [History] Insulin LISPRO [HumaLOG] 25 units SQ TIDWM 08/11/16 [History] Atorvastatin [Lipitor] 40 mg PO HS #30 tablet 10/11/16 [Rx] Citalopram Hydrobromide [Citalopram HBr] 40 mg PO DAILY #30 tablet 10/11/16 [Rx] Isosorbide MONOnitrate (24 HR) [Imdur] 30 mg PO DAILY #30 tab.er.24h 10/11/16 [ Rx] Lisinopril [Zestril] 5 mg PO DAILY #30 tablet 10/11/16 [Rx] amLODIPine [Norvasc] 10 mg PO HS #30 tablet 10/11/16 [Rx] Acetaminophen [Tylenol 650mg SUPP] 650 mg RC Q4H PRN 04/24/17 [History] Bisacodyl [Dulcolax] 10 mg RC DAILY PRN 04/24/17 [History] Clobetasol Propionate 0.05% [Temovate] 1 appl TP DAILY 04/24/17 [History] Ferrous Sulfate 325 mg PO DAILY 04/24/17 [History] Hyoscyamine SL [Levsin Sl] 0.125 - 0.25 mg SL Q2H PRN 04/24/17 [History] Insulin DETEMIR [Levemir Flextouch] 40 unit SQ HS 04/24/17 [History] Ipratropium/Albuterol Neb [Duoneb] 3 ml IH Q4H PRN 04/24/17 [History] Metoprolol [Lopressor] 25 mg PO BID 04/24/17 [History] [place]-3/Dha/Epa/Fish Oil [Fish Oil 1,000 mg Softgel] 1,000 mg PO DAILY 04/24/17 [History] Oxygen 3 - 4 l NS DAILY 04/24/17 [History] Polyethylene Glycol 3350 [MiraLAX] 17 gm PO DAILY 04/24/17 [History] Promethazine [Phenergan] 25 mg RC Q6H PRN 04/24/17 [History] Triamcinolone Acet 0.1% CRM [Kenalog] 1 appl TP DAILY 04/24/17 [History] Albuterol Neb [Proventil Neb] 2.5 mg IH Q2H PRN inhsol 05/01/17 [Rx] Haloperidol Oral Conc [Haldol] 0.5 mg PO Q2H PRN 07/21/17 [History] Omeprazole [PriLOSEC] 20 mg PO DAILY 07/21/17 [History] Furosemide [Lasix] 20 mg PO BIDDIURETIC tablet 07/29/17 [Rx] LORazepam [Ativan] 0.5 mg PO Q2H PRN 5 Days #15 07/29/17 [Rx] MORPHINE SUL Oral CONC [Roxanol Oral Conc] 5 mg PO Q4H PRN 5 Days #30 07/29/17 [ Rx] Oxycodone HCl/Acetaminophen [Percocet 5-325 mg Tablet] 1 tab PO Q6H PRN 5 Days # 20 07/29/17 [Rx] Allergies/Adverse Reactions: 3 Allergy/AdvReac Type Severity Reaction Status Date / Time No Known Allergies Allergy Verified 10/09/16 19:32 - Respiratory Orders Oxygen / L per min (3L NC PRN; wean as tolerated to RA) Smoking Cessation: Smoking cessation has been advised. For more information, call the [place] Tobacco Quit Line at 7-441-GIYZ-NOW. - Mobility Orders Chair, Other (Per physical therapy) - Rehabiliation Orders Rehab Potential: Fair Rehab Orders: Evaluation for Physical Therapy, Evaluation for Occupational Therapy - Diet Orders No Concentrated Sweets (Diabetic Diet), Renal, Cardiac CERTIFICATION: I certify that the transfer of the above named patient to an Extended Care Facility is necessary for the continuing treatment of the diagnosis listed. The above information is true and accurate reflection of patient's current condition. Confidential - Redisclosure prohibited without a patient's written consent.
[2017-07-30] MEDS ORDERED: Insulin DETEMIR 100 UNIT/ML X5UNITS SQ SCH (09:00)
== END 2017-07-29 17:20 | DRG 291 ==
LOC: EMEROO 12:14 → 2ANU 12:14 → SUATTDRO 15:33
PROVIDERS: ADMIT Nurse Practitioner; ATTEND Internal Medicine

== ENCOUNTER 2017-08-06 11:53 | Inpatient (IN) ==
[2017-08-06] MEDS ORDERED: Furosemide 40 MG/4 ML VIAL IVP ONE (11:58)
--- NOTE | 2017-08-06 12:04 | Emergency Department Note ---
Disposition Clinical Impression: Elevated troponin, Chronic anemia Congestive heart failure (CHF) Qualifiers: Qualified Code(s): I50.33 - Acute on chronic diastolic (congestive) heart failure Disposition: Admitted As Inpatient Condition: Fair Time of Disposition: 14:18 General Adult HPI - General Chief complaint: ED Shortness of Breath/Dyspnea Stated complaint: SOB Time Seen by Provider: 08/06/17 11:55 Nursing Notes Reviewed: Yes Vital Signs Reviewed: Yes - History of Present Illness HPI Narrative: Ms. Starr is a very pleasant 72-year-old female with a past history of CHF, COPD, CKD, CAD, hypertension, type 2 diabetes and anemia who presents to the [facility] emergency department with a chief complaint of shortness of breath. Patient is a resident at the [facility]. She reports that her shortness of breath started roughly one day ago. Patient wears 3 L of oxygen at all time and denies any use of BiPAP or CPAP at night. Patient reports the shortness of breath is worse on exertion and is ambulatory with the use of a walker but is not able to walk very far. Patient reports orthopnea but denies any PND. Patient reports worsening of her lower extremity edema. Patient has no associated cough or fevers. No recent sick contacts. Patient denies any nausea, vomiting, abdominal pain, dysuria, gross hematuria, hematochezia or melena. In addition, she is complaining of a blister to her right dorsal foot that popped several days ago. The nursing facility placed a dressing over top of this. Patient denies any decubitus ulcer formation but has reported some irritation to her coccyx region. Patient denies any tobacco abuse. No further complaints at this time. Pain Scale: 5 - Related Data Home Medications Medication Instructions Recorded Confirmed Aspirin Enteric Coated [Aspirin EC] 81 mg PO DAILY 06/16/16 08/06/17 Fenofibrate 160 mg PO DAILY 06/16/16 08/06/17 Gabapentin 800 mg PO TID 06/16/16 08/06/17 Insulin LISPRO [HumaLOG] 25 units SQ TIDWM 08/11/16 08/06/17 Acetaminophen [Tylenol 650mg SUPP] 650 mg RC Q4H PRN 04/24/17 08/06/17 Bisacodyl [Dulcolax] 10 mg RC DAILY PRN 04/24/17 08/06/17 Ferrous Sulfate 325 mg PO DAILY 04/24/17 08/06/17 Hyoscyamine SL [Levsin Sl] 0.25 mg SL Q2H PRN 04/24/17 08/06/17 Insulin DETEMIR [Levemir Flextouch] 40 unit SQ HS 04/24/17 08/06/17 Ipratropium/Albuterol Neb [Duoneb] 3 ml IH Q4H PRN 04/24/17 08/06/17 Metoprolol [Lopressor] 25 mg PO BID 04/24/17 08/06/17 [place]-3/Dha/Epa/Fish Oil [Fish Oil 1,000 mg PO DAILY 04/24/17 08/06/17 1,000 mg Softgel] Oxygen 3 - 4 l NS DAILY 04/24/17 08/06/17 Polyethylene Glycol 3350 [MiraLAX] 17 gm PO DAILY 04/24/17 08/06/17 Promethazine [Phenergan] 25 mg RC Q6H PRN 04/24/17 08/06/17 Haloperidol Oral Conc [Haldol] 0.5 mg PO Q2H PRN 07/21/17 08/06/17 Omeprazole [PriLOSEC] 20 mg PO DAILY 07/21/17 08/06/17 Furosemide [Lasix] 40 mg PO BID 08/06/17 08/06/17 Glucagon,Human Recombinant 1 mg IJ ONCE PRN 08/06/17 08/06/17 [Glucagon Emergency Kit] Potassium Chloride [Klor-Con 10] 10 meq PO BID 08/06/17 08/06/17 Previous Rx's Medication Instructions Recorded Atorvastatin [Lipitor] 40 mg PO HS #30 tablet 10/11/16 Citalopram Hydrobromide 40 mg PO DAILY #30 tablet 10/11/16 [Citalopram HBr] Isosorbide MONOnitrate (24 HR) 30 mg PO DAILY #30 tab.er.24h 10/11/16 [Imdur] Lisinopril [Zestril] 5 mg PO DAILY #30 tablet 10/11/16 amLODIPine [Norvasc] 10 mg PO HS #30 tablet 10/11/16 Albuterol Neb [Proventil Neb] 2.5 mg IH Q2H PRN inhsol 05/01/17 LORazepam [Ativan] 0.5 mg PO Q2H PRN 5 Days #15 07/29/17 MORPHINE SUL Oral CONC [Roxanol 5 mg PO Q4H PRN 5 Days #30 07/29/17 Oral Conc] Oxycodone HCl/Acetaminophen 1 tab PO Q6H PRN 5 Days #20 07/29/17 [Percocet 5-325 mg Tablet] Allergies Allergy/AdvReac Type Severity Reaction Status Date / Time No Known Allergies Allergy Verified 08/06/17 13:57 Review of Systems: Constitutional: No fever Vision: No blurred vision ENT: No rhinorrhea Respiratory: No cough Cardiovascular: No chest pain Allergic: No allergies : No blood in urine GI: No blood in stool Hematologic: No bruising Dermatologic: No skin rash Musculoskeletal: No pain in the extremities Neuro: No numbness of the extremities Past Medical History - Past Medical History Medical history: Reports: coronary artery disease, diabetes, hyperlipidemia, hypertension, myocardial infarction, renal disease Surgical history: Reports: orthopedic, other Psychiatric history: Reports: anxiety, depression PHARMACY CLINICAL SPECIALIST history: Reports: no PHARMACY CLINICAL SPECIALIST history - Social History Smoking Status: Never smoker Smokeless Tobacco Status: No Alcohol use: Reports: none Drug use: Reports: none Physical Exam CONSTITUTIONAL: Alert and oriented X3 in no apparent distress HEAD: Normocephalic; atraumatic. EYES: Ocular movements grossly intact, no scleral icterus, no drainage, no conjunctival injection Oropharynx: pink/moist, no tonsillar edema/erythema/exudates RESP: NRD without use of accessory musculature, bibasilar rales present with no wheezing. CARD: Regular rhythm, without murmurs, rubs, or gallop ABD: grossly normal, soft, non-tender, no guarding/distention/rigidity SKIN: normal appearance, no pallor/diaphoresis,mottling,jaundice,cyanosis EXT: 3+ pitting edema bilateral. There is no lateralizing edema. There is 5 x 5 cm circular blister present on the dorsum of her right foot. PSYCH: appropriate mood/affect Course Course Narrative: Patient was seen and examined at bedside. Vital signs reviewed and were unremarkable. Physical examination demonstrates bibasilar rales on auscultation without any evidence of wheezing or rhonchi. There is a presence of 3+ pitting edema bilaterally of her lower extremities. There is no lateralizing edema present. EMR shows Discharge weight from her recent admission was 109 kg and her weight today is 117 kg. Patient appears comfortable with no labored breathing at this time. Patient is satting well at 98% on 2 L of oxygen. Will begin therapy with CBC, BMP, BNP, coags, troponin, 12-lead EKG, chest x-ray. Patient will be given 1 dose of IV Lasix 40 mg. 1320: CBC showing involvement of 7.0 which is below her baseline of chronic anemia. Patient is hemodynamically stable at this time. She is Hemoccult negative. Type and screen ordered. BNP 350. Troponin 0.04. 325 ASA given. Patient is not complaining of any active chest pain. This is likely due to her dementia ischemia at this time. EKG shows no acute changes. Chest x-ray show evidence of volume overload. Patient will be admitted for further evaluation due to her congestive heart failure exacerbation. Hospitalist will be paged. 1400: BMP showed elevated Cr with 2.8 that is above baseline CKD. Findings were further discussed with hospitalist, Dr. Herzog who will accept patient for possible admission. No further recommendations per hospital team. This disposition and plan were discussed patient understands and agrees. All further questioning and concerns were addressed. Vital Signs Temperature 97.8 F 08/06/17 11:55 Pulse Rate 108 08/06/17 11:55 Respiratory Rate 24 08/06/17 11:55 Blood Pressure 94/60 08/06/17 11:55 O2 Sat by Pulse Oximetry 0 08/06/17 11:55 Temperature 97.8 F 08/06/17 11:55 Pulse Rate 53 08/06/17 13:44 Respiratory Rate 21 08/06/17 13:44 Blood Pressure 117/48 08/06/17 13:44 O2 Sat by Pulse Oximetry 100 08/06/17 13:44 Oxygen Delivery Oxygen Delivery Nasal Cannula Medical Decision Making - Medical Records Medical records reviewed: Yes I reviewed the patient's medical records. - Lab Data Lab results reviewed: Yes I reviewed the patient's lab results. Result diagrams: 08/06/17 12:23 08/06/17 12:23 Lab Results 08/06/17 08/06/17 08/06/17 Range/Units 12:23 12:23 12:23 WBC 7.6 (4.3-11.1) K/mcL RBC 2.48 L (3.82-4.97) M/mcL Hgb 7.0 L (11.5-15.4) g/dL Hct 21.7 L (35.3-44.9) % MCV 87.5 (83.0-100.0) fL MCH 28.2 (28.0-33.3) pg MCHC 32.3 (31.6-35.5) g/dL RDW 15.1 H (11.5-14.5) % Plt Count 222 (140-400) K/mcL MPV 10.5 (9.4-12.4) fL Immature Gran % 0.9 (0-4) % Seg Neutrophils % 66.5 % Lymphocytes % 17.5 % Monocytes % 10.2 % Eosinophils % 4.6 % Basophils % 0.3 % Neutrophils # 5.1 (1.6-8.9) K/mcL Lymphocytes # 1.3 (0.6-4.6) K/mcL Monocytes # 0.8 (0.0-1.3) K/mcL Eosinophils # 0.4 (0.0-0.6) K/mcL Basophils # 0.0 (0.0-0.2) K/mcL PT 13.1 H (9.4-12.1) Seconds INR 1.2 APTT 41.2 H (26.0-36.0) Seconds Sodium 140 (136-145) mEq/L Potassium 4.9 (3.5-5.1) mEq/L Chloride 107 (98-107) mEq/L Carbon Dioxide 25 (23-29) mEq/L BUN 64 H (8-23) mg/dL Creatinine 2.86 H (0.60-1.20) mg/dL Est GFR ( Amer) 20 L (> 60) Est GFR (Non-Af Amer) 16 L (> 60) BUN/Creatinine Ratio 22 (6-26) Glucose 119 H (70-105) mg/dL Calculated Osmolality 309 H (280-300) Lactic Acid (0.5-2.2) mmol/L Calcium 8.9 (8.6-10.3) mg/dL Troponin I 0.04 H* (< 0.04) ng/mL B-Natriuretic Peptide (Less than 100) pg/mL Blood Type 08/06/17 08/06/1718 Range/Units 12:23 12:23 13:34 WBC (4.3-11.1) K/mcL RBC (3.82-4.97) M/mcL Hgb (11.5-15.4) g/dL Hct (35.3-44.9) % MCV (83.0-100.0) fL MCH (28.0-33.3) pg MCHC (31.6-35.5) g/dL RDW (11.5-14.5) % Plt Count (140-400) K/mcL MPV (9.4-12.4) fL Immature Gran % (0-4) % Seg Neutrophils % % Lymphocytes % % Monocytes % % Eosinophils % % Basophils % % Neutrophils # (1.6-8.9) K/mcL Lymphocytes # (0.6-4.6) K/mcL Monocytes # (0.0-1.3) K/mcL Eosinophils # (0.0-0.6) K/mcL Basophils # (0.0-0.2) K/mcL PT (9.4-12.1) Seconds INR APTT (26.0-36.0) Seconds Sodium (136-145) mEq/L Potassium (3.5-5.1) mEq/L Chloride (98-107) mEq/L Carbon Dioxide (23-29) mEq/L BUN (8-23) mg/dL Creatinine (0.60-1.20) mg/dL Est GFR ( Amer) (> 60) Est GFR (Non-Af Amer) (> 60) BUN/Creatinine Ratio (6-26) Glucose (70-105) mg/dL Calculated Osmolality (280-300) Lactic Acid 0.9 (0.5-2.2) mmol/L Calcium (8.6-10.3) mg/dL Troponin I (< 0.04) ng/mL B-Natriuretic Peptide 353 H (Less than 100) pg/mL Blood Type O POSITIVE - Radiology Data Radiology results reviewed: Yes I reviewed the patient's radiology results. Chest X-Ray 08/06/17 13:39 IMPRESSION: Interval resolution of right upper lobe pneumonia. No new acute cardiopulmonary findings. D/ / Annie Madera MD / Annie Madera MD Interpreting Provider: Annie Madera MD - EKG Data EKG #1 EKG attestation: Yes I reviewed and interpreted this EKG. EKG results narrative: Heart rate 55, PA 180, QRS 88, QTC 409 consistent with sinus bradycardia. There are no new T-wave or ST wave abnormalities. This EKG was compared to previous performed on 07/21/2017. Rhythm: with a 2:1 block Attestation Statement - Attestation Attestation: I, Nasir Grace DO, examined this patient [id number] and my medical decision-making was reviewed with Sandoval Powers PGY-1, Resident Physician. I agree with the documented findings, disposition and treatment plan as described except to the extent set forth below. Please see my progress notes for details.
[2017-08-06 12:45] LABS: Basophils % 0.3 %; Eosinophils # 0.4 K/mcL (0.0-0.6); Eosinophils % 4.6 %; Hematocrit 21.7 % (35.3-44.9); Immature Granulocytes % 0.9 % (0-4); Lymphocytes # 1.3 K/mcL (0.6-4.6); Lymphocytes % 17.5 %; Mean Corpuscular HGB Conc 32.3 g/dL (31.6-35.5); Mean Corpuscular Hemoglobin 28.2 pg (28.0-33.3); Mean Corpuscular Volume 87.5 fL (83.0-100.0); Mean Platelet Volume 10.5 fL (9.4-12.4); Monocytes # 0.8 K/mcL (0.0-1.3); Monocytes % 10.2 %; Neutrophils # 5.1 K/mcL (1.6-8.9); Platelet Count 222 K/mcL (140-400); Red Blood Count 2.48 M/mcL (3.82-4.97); Red Cell Distribution Width 15.1 % (11.5-14.5); Segmented Neutrophils % 66.5 %
[2017-08-06 12:50] LABS: INR 1.2; Prothrombin Time 13.1 Seconds (9.4-12.1)
[2017-08-06 12:52] LABS: Activated Partial Thrombo Time 41.2 Seconds (26.0-36.0)
[2017-08-06 13:10] LABS: Troponin I 0.04 ng/mL (< 0.04)
[2017-08-06] MEDS ORDERED: Aspirin 325 MG TABLET PO ONE (13:21)
--- NOTE | 2017-08-06 13:29 | Internal Med History&Physical ---
Date of Encounter: 08/06/17 Time of Encounter: 13:25 Internal Medicine - H&P: HPI Chief complaint: sob x a week Admitted From: Emergency Dept Plans for Post Hospital Care: Home History of present illness: Ms. Starr is a 72 year old female Patient with history of CAD had a PTCA in 2000, diabetes, morbid obesity, high cholesterol, PAF , COPD with 3 L of oxygen and the CPAP and BiPAP at night, . Also has a history of CK D and anemia patient presented from group home with a 1 week of worsening shortness of breath PND and orthopnea and increased leg edema denies any chest pain evaluation chest x-ray consistent with congestive heart failure BNP 353 exam had decreased breath some bilaterally had 2-3+ pitting edema in lower extremity denies any chest pain no fever or chills hemoglobinis 7 it was 8.7 Past Med Surg Social Fam HX - Past Medical History Medical history: coronary artery disease, diabetes, hyperlipidemia, hypertension , myocardial infarction, renal disease Psychiatric history: anxiety, depression - Past Surgical History Surgical History: orthopedic, other - Social History Smoking Status: Never smoker Smokeless Tobacco Status: No Alcohol use: none Drug use: none - Family History Father Family Member Ethnicity: Non- Living Status: Hx Family Cardiac Disorders: Yes (AL, HTN, Cardiomegaly) Hx Family Endocrine Disorder: Yes (DM) Mother Family Member Ethnicity: Non- Living Status: Hx Family Cancer: Yes (Breast) Brother Family Member Ethnicity: Non- Living Status: Still Living Hx Family Cardiac Disorders: Yes (HTN) Hx Family Endocrine Disorder: Yes (DM) Sister Family Member Ethnicity: Non- Living Status: Still Living Hx Family Cardiac Disorders: Yes (HTN) Hx Family Endocrine Disorder: Yes (DM) Internal Medicine - H&P: Meds Aspirin Enteric Coated [Aspirin EC] 81 mg PO DAILY 06/16/16 [History] Fenofibrate 160 mg PO DAILY 06/16/16 [History] Gabapentin 800 mg PO TID 06/16/16 [History] Insulin LISPRO [HumaLOG] 25 units SQ TIDWM 08/11/16 [History] Atorvastatin [Lipitor] 40 mg PO HS #30 tablet 10/11/16 [Rx] Citalopram Hydrobromide [Citalopram HBr] 40 mg PO DAILY #30 tablet 10/11/16 [Rx] Isosorbide MONOnitrate (24 HR) [Imdur] 30 mg PO DAILY #30 tab.er.24h 10/11/16 [ Rx] Lisinopril [Zestril] 5 mg PO DAILY #30 tablet 10/11/16 [Rx] amLODIPine [Norvasc] 10 mg PO HS #30 tablet 10/11/16 [Rx] Acetaminophen [Tylenol 650mg SUPP] 650 mg RC Q4H PRN 04/24/17 [History] Bisacodyl [Dulcolax] 10 mg RC DAILY PRN 04/24/17 [History] Clobetasol Propionate 0.05% [Temovate] 1 appl TP DAILY 04/24/17 [History] Ferrous Sulfate 325 mg PO DAILY 04/24/17 [History] Hyoscyamine SL [Levsin Sl] 0.125 - 0.25 mg SL Q2H PRN 04/24/17 [History] Insulin DETEMIR [Levemir Flextouch] 40 unit SQ HS 04/24/17 [History] Ipratropium/Albuterol Neb [Duoneb] 3 ml IH Q4H PRN 04/24/17 [History] Metoprolol [Lopressor] 25 mg PO BID 04/24/17 [History] [place]-3/Dha/Epa/Fish Oil [Fish Oil 1,000 mg Softgel] 1,000 mg PO DAILY 04/24/17 [History] Oxygen 3 - 4 l NS DAILY 04/24/17 [History] Polyethylene Glycol 3350 [MiraLAX] 17 gm PO DAILY 04/24/17 [History] Promethazine [Phenergan] 25 mg RC Q6H PRN 04/24/17 [History] Triamcinolone Acet 0.1% CRM [Kenalog] 1 appl TP DAILY 04/24/17 [History] Albuterol Neb [Proventil Neb] 2.5 mg IH Q2H PRN inhsol 05/01/17 [Rx] Haloperidol Oral Conc [Haldol] 0.5 mg PO Q2H PRN 07/21/17 [History] Omeprazole [PriLOSEC] 20 mg PO DAILY 07/21/17 [History] Furosemide [Lasix] 20 mg PO BIDDIURETIC tablet 07/29/17 [Rx] LORazepam [Ativan] 0.5 mg PO Q2H PRN 5 Days #15 07/29/17 [Rx] MORPHINE SUL Oral CONC [Roxanol Oral Conc] 5 mg PO Q4H PRN 5 Days #30 07/29/17 [ Rx] Oxycodone HCl/Acetaminophen [Percocet 5-325 mg Tablet] 1 tab PO Q6H PRN 5 Days # 20 07/29/17 [Rx] 3 Allergy/AdvReac Type Severity Reaction Status Date / Time No Known Allergies Allergy Verified 10/09/16 19:32 All Systems PM: A 10-system review of systems was performed and is negative for pertinent findings except as documented above in the HPI. - Constitutional Constitutional: fatigue, lethargy - EENT Ears: no ear discharge, no ear pain, no tinnitus Nose, mouth and throat: no dysphagia, no nasal discharge, no neck pain, no sore throat - Cardiovascular Cardiovascular ROS IM: dyspnea, dyspnea on exertion - Respiratory Respiratory: dyspnea, dyspnea on exertion - Gastrointestinal Gastrointestinal: no abdominal pain, no diarrhea, no hematemesis, no hematochezia, no melena, no nausea, no vomiting - Constitutional Vitals: Temp Pulse Resp BP Pulse Ox 97.8 F 108 24 94/60 98 08/06/17 11:55 08/06/17 11:55 08/06/17 11:55 08/06/17 11:55 08/06/17 12:10 General appearance: Present: mild distress - Neck Neck exam general surgery: Present: supple, trachea midline. Absent: lymphadenopathy - Respiratory Respiratory exam: Present: prolonged expiratory phase, rales, rhonchi - Cardiovascular Cardiovascular exam: Present: RRR, systolic murmur - GI/Abdominal GI/Abdominal exam: Present: normal bowel sounds, soft, no peritoneal signs. Absent: distended, tenderness - Extremities Exam Extremities exam: Present: pedal edema, warm Internal Med - H&P Results - Labs CBC & Chem 7: 08/06/17 12:23 Labs: Short CBC 08/06/17 Range/Units 12:23 WBC 7.6 (4.3-11.1) K/mcL Hgb 7.0 L (11.5-15.4) g/dL Hct 21.7 L (35.3-44.9) % Plt Count 222 (140-400) K/mcL Neutrophils # 5.1 (1.6-8.9) K/mcL Cardiac Enzymes 08/06/17 Range/Units 12:23 Troponin I 0.04 H* (< 0.04) ng/mL - Assessment and plan (1) HTN (hypertension) Current Visit: Yes Status: Chronic Assessment and plan: Chronic well controlled Qualifiers: Hypertension type: essential hypertension Qualified Code(s): I10 - Essential (primary) hypertension (2) Acute exacerbation of CHF (congestive heart failure) Current Visit: No Status: Acute Assessment and plan: Acute on chronic diastolic heart failure place on IV Lasix Qualifiers: Heart failure type: diastolic Qualified Code(s): I50.33 - Acute on chronic diastolic (congestive) heart failure (3) Chronic anemia Current Visit: No Status: Acute Assessment and plan: Severe anemia hemoglobin down to 7 from 8.7 with transfusion with 2 units and sent for Hemoccult stool (4) Hyperlipidemia Current Visit: No Status: Chronic Assessment and plan: LDL very low with decrease antilipid medication Qualifiers: Hyperlipidemia type: pure hypercholesterolemia Qualified Code(s): E78.00 - Pure hypercholesterolemia, unspecified; E78.0 - Pure hypercholesterolemia (5) Morbid obesity with BMI of 40.0-44.9, adult Current Visit: No Status: Chronic (6) CAD (coronary artery disease) Current Visit: No Status: Chronic Assessment and plan: No chest pain at present mildly elevated troponin will trend Qualifiers: Coronary Disease-Associated Artery/Lesion type: [place] artery [place] vs. transplanted heart: [place] heart Associated angina: without angina Qualified Code(s): I25.10 - Atherosclerotic heart disease of [place] coronary artery without angina pectoris (7) COPD (chronic obstructive pulmonary disease) Current Visit: No Status: Chronic Assessment and plan: No active wheezing with resume home medication Qualifiers: COPD type: emphysema Emphysema type: other Qualified Code(s): J43.8 - Other emphysema (8) DM (diabetes mellitus) Current Visit: No Status: Chronic Assessment and plan: Chronic resume home medication and place on sliding scale Qualifiers: Diabetes mellitus type: type 2 Diabetes mellitus long 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
--- NOTE | 2017-08-06 13:30 | Emergency Department Note ---
Disposition Clinical Impression: Elevated troponin, Chronic anemia Congestive heart failure (CHF) Qualifiers: Qualified Code(s): I50.33 - Acute on chronic diastolic (congestive) heart failure Disposition: Admitted As Inpatient Condition: Fair Referrals: Anna White CNP [Primary Care Provider] - Forms: ED Satisfaction Letter Time of Disposition: 13:47 General Adult HPI - General Chief complaint: ED Shortness of Breath/Dyspnea Stated complaint: SOB Time Seen by Provider: 08/06/17 11:55 - History of Present Illness Pain Scale: 5 - Related Data Home Medications Medication Instructions Recorded Confirmed Aspirin Enteric Coated [Aspirin EC] 81 mg PO DAILY 06/16/16 07/21/17 Fenofibrate 160 mg PO DAILY 06/16/16 07/21/17 Gabapentin 800 mg PO TID 06/16/16 07/21/17 Insulin LISPRO [HumaLOG] 25 units SQ TIDWM 08/11/16 07/21/17 Acetaminophen [Tylenol 650mg SUPP] 650 mg RC Q4H PRN 04/24/17 07/21/17 Bisacodyl [Dulcolax] 10 mg RC DAILY PRN 04/24/17 07/21/17 Clobetasol Propionate 0.05% 1 appl TP DAILY 04/24/17 07/21/17 [Temovate] Ferrous Sulfate 325 mg PO DAILY 04/24/17 07/21/17 Hyoscyamine SL [Levsin Sl] 0.125 - 0.25 mg SL Q2H PRN 04/24/17 07/21/17 Insulin DETEMIR [Levemir Flextouch] 40 unit SQ HS 04/24/17 07/21/17 Ipratropium/Albuterol Neb [Duoneb] 3 ml IH Q4H PRN 04/24/17 07/21/17 Metoprolol [Lopressor] 25 mg PO BID 04/24/17 07/21/17 [place]-3/Dha/Epa/Fish Oil [Fish Oil 1,000 mg PO DAILY 04/24/17 07/21/17 1,000 mg Softgel] Oxygen 3 - 4 l NS DAILY 04/24/17 07/21/17 Polyethylene Glycol 3350 [MiraLAX] 17 gm PO DAILY 04/24/17 07/21/17 Promethazine [Phenergan] 25 mg RC Q6H PRN 04/24/17 07/21/17 Triamcinolone Acet 0.1% CRM 1 appl TP DAILY 04/24/17 07/21/17 [Kenalog] Haloperidol Oral Conc [Haldol] 0.5 mg PO Q2H PRN 07/21/17 07/21/17 Omeprazole [PriLOSEC] 20 mg PO DAILY 07/21/17 07/21/17 Previous Rx's Medication Instructions Recorded Atorvastatin [Lipitor] 40 mg PO HS #30 tablet 10/11/16 Citalopram Hydrobromide 40 mg PO DAILY #30 tablet 10/11/16 [Citalopram HBr] Isosorbide MONOnitrate (24 HR) 30 mg PO DAILY #30 tab.er.24h 10/11/16 [Imdur] Lisinopril [Zestril] 5 mg PO DAILY #30 tablet 10/11/16 amLODIPine [Norvasc] 10 mg PO HS #30 tablet 10/11/16 Albuterol Neb [Proventil Neb] 2.5 mg IH Q2H PRN inhsol 05/01/17 Furosemide [Lasix] 20 mg PO BIDDIURETIC tablet 07/29/17 LORazepam [Ativan] 0.5 mg PO Q2H PRN 5 Days #15 07/29/17 MORPHINE SUL Oral CONC [Roxanol 5 mg PO Q4H PRN 5 Days #30 07/29/17 Oral Conc] Oxycodone HCl/Acetaminophen 1 tab PO Q6H PRN 5 Days #20 07/29/17 [Percocet 5-325 mg Tablet] Allergies Allergy/AdvReac Type Severity Reaction Status Date / Time No Known Allergies Allergy Verified 10/09/16 19:32 Past Medical History - Past Medical History Medical history: Reports: coronary artery disease, diabetes, hyperlipidemia, hypertension, myocardial infarction, renal disease Surgical history: Reports: orthopedic, other Psychiatric history: Reports: anxiety, depression DEVELOPMENT ASSISTANT history: Reports: no DEVELOPMENT ASSISTANT history - Social History Smoking Status: Never smoker Smokeless Tobacco Status: No Alcohol use: Reports: none Drug use: Reports: none Course Vital Signs Temperature 97.8 F 08/06/17 11:55 Pulse Rate 108 08/06/17 11:55 Respiratory Rate 24 08/06/17 11:55 Blood Pressure 94/60 08/06/17 11:55 O2 Sat by Pulse Oximetry 0 08/06/17 11:55 Temperature 97.8 F 08/06/17 11:55 Pulse Rate 108 08/06/17 11:55 Respiratory Rate 24 08/06/17 11:55 Blood Pressure 94/60 08/06/17 11:55 O2 Sat by Pulse Oximetry 98 08/06/17 12:10 Oxygen Delivery Oxygen Delivery Nasal Cannula Medical Decision Making - Lab Data Result diagrams: 08/06/17 12:23 Lab Results 08/06/17 08/06/17 08/06/17 Range/Units 12:23 12:23 12:23 WBC 7.6 (4.3-11.1) K/mcL RBC 2.48 L (3.82-4.97) M/mcL Hgb 7.0 L (11.5-15.4) g/dL Hct 21.7 L (35.3-44.9) % MCV 87.5 (83.0-100.0) fL MCH 28.2 (28.0-33.3) pg MCHC 32.3 (31.6-35.5) g/dL RDW 15.1 H (11.5-14.5) % Plt Count 222 (140-400) K/mcL MPV 10.5 (9.4-12.4) fL Immature Gran % 0.9 (0-4) % Seg Neutrophils % 66.5 % Lymphocytes % 17.5 % Monocytes % 10.2 % Eosinophils % 4.6 % Basophils % 0.3 % Neutrophils # 5.1 (1.6-8.9) K/mcL Lymphocytes # 1.3 (0.6-4.6) K/mcL Monocytes # 0.8 (0.0-1.3) K/mcL Eosinophils # 0.4 (0.0-0.6) K/mcL Basophils # 0.0 (0.0-0.2) K/mcL PT 13.1 H (9.4-12.1) Seconds INR 1.2 APTT 41.2 H (26.0-36.0) Seconds Lactic Acid (0.5-2.2) mmol/L Troponin I 0.04 H* (< 0.04) ng/mL B-Natriuretic Peptide (Less than 100) pg/mL 08/06/17 08/06/17 Range/Units 12:23 12:23 WBC (4.3-11.1) K/mcL RBC (3.82-4.97) M/mcL Hgb (11.5-15.4) g/dL Hct (35.3-44.9) % MCV (83.0-100.0) fL MCH (28.0-33.3) pg MCHC (31.6-35.5) g/dL RDW (11.5-14.5) % Plt Count (140-400) K/mcL MPV (9.4-12.4) fL Immature Gran % (0-4) % Seg Neutrophils % % Lymphocytes % % Monocytes % % Eosinophils % % Basophils % % Neutrophils # (1.6-8.9) K/mcL Lymphocytes # (0.6-4.6) K/mcL Monocytes # (0.0-1.3) K/mcL Eosinophils # (0.0-0.6) K/mcL Basophils # (0.0-0.2) K/mcL PT (9.4-12.1) Seconds INR APTT (26.0-36.0) Seconds Lactic Acid 0.9 (0.5-2.2) mmol/L Troponin I (< 0.04) ng/mL B-Natriuretic Peptide 353 H (Less than 100) pg/mL Attestation Statement - Attestation Attestation: I, Nasir Grace DO, examined this patient [id number] and my medical decision-making was reviewed with Sandoval Powers PGY-1, Resident Physician. I agree with the documented findings, disposition and treatment plan as described except to the extent set forth below. Please see my progress notes for details. 72-year-old female presents to emergency room for evaluation of shortness of breath. Patient is currently a resident of a rehabilitation facility. Currently there are secondary to fluid overload difficulty with exertion shortness of breath and chest discomfort. Patient denies any chest pain fevers chills nausea vomiting or diarrhea. Denies any headache or vision change. Main complaint this time is a shortness of breath and some fluid retention according to the family. Pelvis conservatively. She has gained weight. Patient does have wrinkling of the skin across all directions recent chest wall consistent with what appears to be appropriate diuresis. She does have a history of renal insufficiency is followed up by Dr. Camacho but has never required dialysis. On physical exam the patient does have some slight increased work of breathing. He does not have any specific coarse crackles while listening to her lungs. Heart is regular. Abdomen is soft nontender nondistended with no guarding or rigidity. Patient moves all 4 extremities with appropriate function and use. She has normal sensation in the bilateral upper and lower sternum is. Pulses in the DP and PT distributions are palpated and symmetric bilaterally in the extremities. Vital signs otherwise stable at this point she was initially tachycardic and to As well as borderline hypotensive on presentation but initial repeat labs and vital signs here in the emergency room bed were otherwise stable. Patient will be provided with passive fluid resuscitation with maintenance fluids. She will be given a single dose of Lasix. In the emergency room and then disposition will be determined. Patient will most likely be admission. Family is concerned about the care be provided to her at the outside facility and does request that she gets admitted and possible placement another facility this time. Patient is otherwise clinically stable. See detailed documentation of the physical exam, medical intervention, medical decision-making and disposition in the resident physician's note. No critical care applied to the patient's treatment course at this time. 1325 Chest x-rays is completed at this point. Labs otherwise unremarkable except for a slight drop in her hemoglobin appears to be 7.0 today. This could account for the patient's weakness. He did not have his laboratory workup prior to the Lasix being given. Hemoccult testing was negative at this time. Patient will be admitted for what appears to be symptomatic anemia along with possible. Vital signs of an stable throughout the entire treatment course here in the emergency room with her most recent blood pressure being 117/50 patient has been mentating conversing and speaking throughout the entire treatment course. Patient is otherwise stable. She will be admitted for further evaluation and management. Type and screen was added on. Hospitalist Dr. Herzog had no other recommendations this time. He will be contacted about the abnormal labs as they are aware.
[2017-08-06] MEDS ORDERED: Acetaminophen 325 MG TABLET PO PRN (13:35)
[2017-08-06] MEDS ORDERED: Naloxone 0.4 MG/ML INJ IVP PRN (13:35)
[2017-08-06] MEDS ORDERED: Bisacodyl 10 MG RECTAL SUPPOSITORY RC PRN (13:38)
[2017-08-06] MEDS ORDERED: Haloperidol Oral Conc 10 MG/5 ML UDC PO PRN (13:38)
[2017-08-06] MEDS ORDERED: MORPHINE SUL Oral CONC 10 MG/0.5 ML ORAL.SYG PO PRN (13:38)
[2017-08-06] MEDS ORDERED: Ipratropium/Albuterol Neb 3 ML IH PRN (13:38)
[2017-08-06] MEDS ORDERED: Albuterol 2.5 MG/3 ML NEBULIZER IH PRN (13:38)
[2017-08-06 13:42] LABS: Calcium 8.9 mg/dL (8.6-10.3); Potassium 4.9 mEq/L (3.5-5.1)
[2017-08-06] MEDS ORDERED: *HR* Dextrose 50 % in Water (Syg) 50 ML SYRINGE IVP PRN (13:44)
[2017-08-06] MEDS ORDERED: Dextrose Gel 15 GM/37.5 ML TUBE PO PRN ×2 (13:44)
[2017-08-06] MEDS ORDERED: D5% in Water 1,000 ML IVC PRN (13:44)
[2017-08-06] MEDS ORDERED: 0.9 % Sodium Chloride 1,000 ML IVC SCH (13:45)
[2017-08-06] MEDS ORDERED: 0.9 % Sodium Chloride 250 ML ONE (16:09)
[2017-08-06] MEDS: Gabapentin 400 MG CAPSULE PO SCH ×2 (17:13→22:06)
[2017-08-06] MEDS: Insulin LISPRO 300 UNITS/3 ML VIAL SQ SCH ×2 (17:13→22:33)
[2017-08-06] MEDS: Furosemide 40 MG/4 ML VIAL IVP SCH (17:13)
[2017-08-06] MEDS: amLODIPine 5 MG TABLET PO SCH (22:06)
[2017-08-06] MEDS: Triamcinolone Acet 0.1% CRM 15 GM TUBE TP SCH (22:12)
[2017-08-07] MEDS ORDERED: 0.9 % Sodium Chloride 500 ML ONE (01:57)
[2017-08-07 02:26] LABS: Albumin 2.6 g/dL (3.5-5.7); Albumin/Globulin Ratio 1.1 (1.1-2.2); Bilirubin,Total 0.4 mg/dL (0.3-1.0); Calcium 8.8 mg/dL (8.6-10.3); Globulin 2.4 g/dL (2.4-3.5); Potassium 4.9 mEq/L (3.5-5.1)
[2017-08-07] MEDS ORDERED: Furosemide 40 MG/4 ML VIAL IVP ONE (02:41)
[2017-08-07] MEDS ORDERED: *HR* Enoxaparin 40 MG/0.4 ML SYRINGE SQ SCH (06:00)
--- NOTE | 2017-08-07 06:21 | Electrocardiograph Report ---
[place] 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
[2017-08-07 08:16] LABS: Basophils % 0.3 %; Eosinophils # 0.4 K/mcL (0.0-0.6); Eosinophils % 5.8 %; Hematocrit 28.4 % (35.3-44.9); Immature Granulocytes % 0.7 % (0-4); Lymphocytes # 1.2 K/mcL (0.6-4.6); Lymphocytes % 17.1 %; Mean Corpuscular Hemoglobin 27.7 pg (28.0-33.3); Mean Corpuscular Volume 86.6 fL (83.0-100.0); Mean Platelet Volume 10.7 fL (9.4-12.4); Monocytes # 0.7 K/mcL (0.0-1.3); Monocytes % 9.2 %; Neutrophils # 4.9 K/mcL (1.6-8.9); Platelet Count 210 K/mcL (140-400); Red Blood Count 3.28 M/mcL (3.82-4.97); Red Cell Distribution Width 14.8 % (11.5-14.5); Segmented Neutrophils % 66.9 %
[2017-08-07 08:21] LABS: Hemoglobin 9.1 g/dL (11.5-15.4)
[2017-08-07] MEDS ORDERED: NON-FORMULARY MEDICATION 1 EACH EACH (Omega-3/Dha/Epa/Fish Oil [Fish Oil 1,000 Mg Softgel] PO SCH (09:00)
[2017-08-07] MEDS ORDERED: Triamcinolone Acet 0.1% CRM 15 GM TUBE TP SCH (09:00)
[2017-08-07] MEDS ORDERED: CLOBETASOL PROPIONATE 15 GM TUBE TP SCH (09:00)
--- NOTE | 2017-08-07 09:20 | Nephrology Consult Note ---
Date of Encounter: 08/07/17 Time of Encounter: 08:50 Assessment and Plan (1) SACHA (acute kidney injury) Current Visit: No Status: Resolved SACHA in setting of diuretics related to fluid overload superimposed on CKD in setting of diabetes and hypertension. Baseline creat 1.9-2.3. (History of) proteinuria, amlodipine and high dose gabapentin contributing to edema. Agree with current Lasix 40 mg IV BID. Will obtain ECHO to rule out worsening mitral regurg and CT chest w/o contrast to r/o interstitial lung disease. Avoid nephrotoxins, accurate I&O. Will continue to monitor. History of Present Illness - Reason for Consult Acute Kidney Injury - History of Present Illness Ms. Starr is a 72 year old female known to our service with CKD in setting of diabetes and hypertension and recent SACHA in mid July setting of diuresis for CHF, possible nephrotoxicity related to Vancomycin in setting of treatment for pneumonia. Recent baseline creat 1.9-2.3. Ms. Starr was transferred from nursing facility yesterday with shortness of breath for one day duration. Other PMH- CHF, COPD, CKD, CAD, hypertension, diabetes, anemia. She is O2 dependent 3L /nc. She admits increased dyspnea when ambulating with walker to bathroom. She admits orthopnea. She also states increased generalized swelling. She admits she drinks large volume of fluids at nursing facility. CXR-resolved right upper lobe pneumonia, no new acute cardiopulmonary findings. BNP 353. Creat 2.86 on admission, 2.95 today. Lasix 40 mg BID. Has indwelling ferraro catheter with documented output of 1800cc. Renal US on July 23 essentially unremarkable. ECHO in April-LVEF 50%, Mild left ventricular diastolic dysfunction. Normal right ventricular structure and function. Moderate mitral regurgitation. No pulmonary hypertension. At time of consult patient is resting quietly, HOB 30 degrees, denies shortness of breath, no conversational SOB noted. Anasarca. Dry crackles in bilateral bases. Past Med Surg Social Fam HX - Past Medical History Medical history: CHF, coronary artery disease, diabetes, hyperlipidemia, hypertension, myocardial infarction, renal disease Psychiatric history: anxiety, depression - Past Surgical History Surgical History: orthopedic, other - Social History Smoking Status: Never smoker Smokeless Tobacco Status: No Alcohol use: none Drug use: none - Family History Father Family Member Ethnicity: Non- Living Status: Hx Family Cardiac Disorders: Yes ([place], HTN, Cardiomegaly) Hx Family Endocrine Disorder: Yes (DM) Mother Family Member Ethnicity: Non- Living Status: Hx Family Cancer: Yes (Breast) Brother Family Member Ethnicity: Non- Living Status: Still Living Hx Family Cardiac Disorders: Yes (HTN) Hx Family Endocrine Disorder: Yes (DM) Sister Family Member Ethnicity: Non- Living Status: Still Living Hx Family Cardiac Disorders: Yes (HTN) Hx Family Endocrine Disorder: Yes (DM) Medications and Allergies Aspirin Enteric Coated [Aspirin EC] 81 mg PO DAILY 06/16/16 [History] Fenofibrate 160 mg PO DAILY 06/16/16 [History] Gabapentin 800 mg PO TID 06/16/16 [History] Insulin LISPRO [HumaLOG] 25 units SQ TIDWM 08/11/16 [History] Atorvastatin [Lipitor] 40 mg PO HS #30 tablet 10/11/16 [Rx] Citalopram Hydrobromide [Citalopram HBr] 40 mg PO DAILY #30 tablet 10/11/16 [Rx] Isosorbide MONOnitrate (24 HR) [Imdur] 30 mg PO DAILY #30 tab.er.24h 10/11/16 [ Rx] Lisinopril [Zestril] 5 mg PO DAILY #30 tablet 10/11/16 [Rx] amLODIPine [Norvasc] 10 mg PO HS #30 tablet 10/11/16 [Rx] Acetaminophen [Tylenol 650mg SUPP] 650 mg RC Q4H PRN 04/24/17 [History] Bisacodyl [Dulcolax] 10 mg RC DAILY PRN 04/24/17 [History] Ferrous Sulfate 325 mg PO DAILY 04/24/17 [History] Hyoscyamine SL [Levsin Sl] 0.25 mg SL Q2H PRN 04/24/17 [History] Insulin DETEMIR [Levemir Flextouch] 40 unit SQ HS 04/24/17 [History] Ipratropium/Albuterol Neb [Duoneb] 3 ml IH Q4H PRN 04/24/17 [History] Metoprolol [Lopressor] 25 mg PO BID 04/24/17 [History] [place]-3/Dha/Epa/Fish Oil [Fish Oil 1,000 mg Softgel] 1,000 mg PO DAILY 04/24/17 [History] Oxygen 3 - 4 l NS DAILY 04/24/17 [History] Polyethylene Glycol 3350 [MiraLAX] 17 gm PO DAILY 04/24/17 [History] Promethazine [Phenergan] 25 mg RC Q6H PRN 04/24/17 [History] Albuterol Neb [Proventil Neb] 2.5 mg IH Q2H PRN inhsol 05/01/17 [Rx] Haloperidol Oral Conc [Haldol] 0.5 mg PO Q2H PRN 07/21/17 [History] Omeprazole [PriLOSEC] 20 mg PO DAILY 07/21/17 [History] LORazepam [Ativan] 0.5 mg PO Q2H PRN 5 Days #15 07/29/17 [Rx] MORPHINE SUL Oral CONC [Roxanol Oral Conc] 5 mg PO Q4H PRN 5 Days #30 07/29/17 [ Rx] Oxycodone HCl/Acetaminophen [Percocet 5-325 mg Tablet] 1 tab PO Q6H PRN 5 Days # 20 07/29/17 [Rx] Furosemide [Lasix] 40 mg PO BID 08/06/17 [History] Glucagon,Human Recombinant [Glucagon Emergency Kit] 1 mg IJ ONCE PRN 08/06/17 [ History] Potassium Chloride [Klor-Con 10] 10 meq PO BID 08/06/17 [History] 3 Allergy/AdvReac Type Severity Reaction Status Date / Time No Known Allergies Allergy Verified 08/06/17 13:57 Review of Systems All Systems: reviewed and no additional remarkable complaints except as stated Exam - Vital Signs Vital signs: Initial Vital Signs Temp Pulse Resp BP Pulse Ox 97.8 F 108 24 94/60 0 08/06/17 11:55 08/06/17 11:55 08/06/17 11:55 08/06/17 11:55 08/06/17 11:55 Vital Signs - Last 8 Hours Temp Pulse Resp BP Pulse Ox 08/07/17 06:58 98.4 F 56 15 125/55 96 08/07/17 06:13 98.4 F 60 20 134/71 08/07/17 03:59 98.2 F 56 18 107/50 98 08/07/17 02:23 98.5 F 54 16 124/65 08/07/17 02:08 98.5 F 55 24 112/61 Intake and Output 08/06/17 08/07/17 08/07/17 23:59 07:59 15:59 Intake Total 636 / 636 410 / 410 Output Total 1800 / 1800 Balance 636 / 636 -1390 / -1390 Intake: IV Fluids 136 / 136 60 / 60 0.9 % Sodium Chloride 250 ML @ 136 / 136 0 mls/hr .ROUTE .[facility] Rx #:[id number] Blood Product 500 / 500 350 / 350 Rbcs Leuko Poor As-1 Unit 350 / 350 [id number] Rbcs Leuko Poor As-1 Unit 500 / 500 [id number] Output: Catheter 1800 / 1800 Urethral (Ferraro) 1600 / 1600 Other: Blood Glucose* 241 135 - General Appearance General appearance: well-developed, well-nourished, appears started age, obese EENT: mucous membranes moist Neck: no JVD Additional Comments: dry crackles bilateral bases Cardiology: regular rate, regular rhythm Additional Comments: anasarca Gastrointestinal: normoactive bowel sounds, no tenderness Integumentary: warm and dry Psychiatric: mood/affect appropriate, cooperative Results - Lab Results 08/07/17 06:41 08/07/17 01:59 Most recent lab results Calcium 8.8 mg/dL (8.6-10.3) 08/07/17 01:59 Magnesium 2.0 mg/dL (1.6-2.6) 08/07/17 01:59 Consult Discharge Plan - Plan Referrals: Anna White, [facility] [Primary Care Provider] -
[2017-08-07] MEDS: Insulin LISPRO 300 UNITS/3 ML VIAL SQ SCH ×4 (09:42→21:39)
[2017-08-07] MEDS: Gabapentin 400 MG CAPSULE PO SCH ×3 (09:43→21:44)
[2017-08-07] MEDS: Isosorbide MONOnitrate (24 HR) 30 MG TAB.ER.24H PO SCH (09:43)
[2017-08-07] MEDS: Aspirin Enteric Coated 81 MG Tablet PO SCH (09:44)
[2017-08-07] MEDS: Furosemide 40 MG/4 ML VIAL IVP SCH ×2 (09:44→17:18)
--- NOTE | 2017-08-07 10:44 | Gastroenterology Consult Note ---
<Mamadou Meredith - Last Filed: 08/07/17 10:42> Date of Encounter: 08/07/17 Time of Encounter: 09:50 - Assessment and plan (1) Anemia Current Visit: No Status: Chronic Assessment and plan: Hgb on admission was 7 and she received 2 units PRBC, Hgb 9.1 this morning. If patient stable and anasarca improved, plan for EGD Thursday to r/o esophagitis, gastritis, duodenitis, PUD, MW tear, or AVM. Continue to monitor CBC and transfuse PRBC as needed. Qualifiers: Anemia type: unspecified type Qualified Code(s): D64.9 - Anemia, unspecified (2) Anasarca Current Visit: Yes Status: Acute (3) CAD (coronary artery disease) Current Visit: No Status: Chronic Qualifiers: Coronary Disease-Associated Artery/Lesion type: [place] artery [place] vs. transplanted heart: [place] heart Associated angina: without angina Qualified Code(s): I25.10 - Atherosclerotic heart disease of [place] coronary artery without angina pectoris (4) Acute exacerbation of CHF (congestive heart failure) Current Visit: No Status: Acute Qualifiers: Heart failure type: diastolic Qualified Code(s): I50.33 - Acute on chronic diastolic (congestive) heart failure (5) COPD (chronic obstructive pulmonary disease) Current Visit: No Status: Chronic Qualifiers: COPD type: emphysema Emphysema type: other Qualified Code(s): J43.8 - Other emphysema - Time Spent With Patient Total time spent is greater than 50% in coordination of care (as documented) at patient's floor/unit and/or counseling patient: GI History of Present Illness - Data of Consult Patient: new to practice Consult date: 08/07/17 Requesting Physician: Kacey Patel MD - Consult Narrative Reason for consult: Worsening anemia History of present illness: Ms. Starr is a 72 year old female with PMHx of CAD, DM, HLD, HTN, AR, COPD with 3L O2, CKD, and anemia who presented from detention with one week of worsening shortness of breath. Patient reports the shortness of breath is worse on exertion and is ambulatory with the use of a walker but is not able to walk very far. She denies fever, chills, chest pain, abdominal pain, nausea, vomiting , melena, or hematochezia. We were consulted to evaluate her anemia. Hgb on admission was 7 and she received 2 units PRBC, Hgb 9.1 this morning. Procedures: None NSAIDs: ASA Anticoagulation: None Past Med Surg Social Fam HX - Past Medical History Medical history: CHF, coronary artery disease, diabetes, hyperlipidemia, hypertension, myocardial infarction, renal disease Psychiatric history: anxiety, depression - Past Surgical History Surgical History: orthopedic, other - Social History Smoking Status: Never smoker Smokeless Tobacco Status: No Alcohol use: none Drug use: none - Family History Father Family Member Ethnicity: Non- Living Status: Hx Family Cardiac Disorders: Yes (AR, HTN, Cardiomegaly) Hx Family Endocrine Disorder: Yes (DM) Mother Family Member Ethnicity: Non- Living Status: Hx Family Cancer: Yes (Breast) Brother Family Member Ethnicity: Non- Living Status: Still Living Hx Family Cardiac Disorders: Yes (HTN) Hx Family Endocrine Disorder: Yes (DM) Sister Family Member Ethnicity: Non- Living Status: Still Living Hx Family Cardiac Disorders: Yes (HTN) Hx Family Endocrine Disorder: Yes (DM) - Gastrointestinal Gastrointestinal: Present: as per HPI - Constitutional Constitutional: as per HPI - EENT Eyes: as per HPI Ears: Present: as per HPI Nose, mouth and throat: Present: as per HPI - Cardiovascular Cardiovascular ROS: Present: as per HPI - Respiratory Respiratory IM: Present: as per HPI - Genitourinary Genitourinary: Absent: change in color, Urinary frequency - Neurological ROS Neurological GI: Present: as per HPI - Hematologic/Lymphatic Hematologic/Lymphatic pediatric: Present: as per HPI - Musculoskeletal Musculoskeletal ROS GI: Present: as per HPI - Integumentary Integumentary GI: Present: as per HPI - Psychiatric ROS Psychiatric GI: Present: as per HPI - Endocrine Endocrine IM: Present: as per HPI - Constitutional Vitals: Temp Pulse Resp BP Pulse Ox 98.4 F 56 15 125/55 96 08/07/17 06:58 08/07/17 06:58 08/07/17 06:58 08/07/17 06:58 08/07/17 06:58 General appearance: Present: cooperative, A&O X 3, no acute distress, answers questions appropriately - Head Head exam: Present: atraumatic, normocephalic - Eye Eye exam: Present: normal appearance, sclera anicteric - ENT ENT exam: Present: mucous membranes dry - Neck Neck exam general surgery: Present: normal inspection, trachea midline - Respiratory Respiratory exam: Present: decreased breath sounds, CTAB. Absent: rales, rhonchi - Cardiovascular Cardiovascular exam: Present: RRR, +S1, +S2 - GI/Abdominal GI/Abdominal exam: Present: soft, no peritoneal signs. Absent: distended, firm , guarding, tenderness - Rectal Rectal exam: Present: deferred - Extremities Exam Extremities exam: Present: warm Additional comments: anasarca - Neurological Exam Neurological exam: Present: no focal deficits - Psychiatric Psychiatric exam: Present: normal affect, normal mood - Skin Skin exam: Present: dry, intact, normal color, warm Results - Labs CBC & Chem 7: 08/07/17 06:41 08/07/17 01:59 Labs: Last Result Calcium 8.8 mg/dL (8.6-10.3) 08/07/17 01:59 Troponin I 0.04 ng/mL (< 0.04) H* 08/07/17 06:41 Entire Visit Hgb 9.1 g/dL (11.5-15.4) L D 08/07/17 06:41 Hct 28.4 % (35.3-44.9) L 08/07/17 06:41 PT 13.1 Seconds (9.4-12.1) H 08/06/17 12:23 Total Bilirubin 0.4 mg/dL (0.3-1.0) 08/07/17 01:59 AST 15 Units/L (13-39) 08/07/17 01:59 ALT 12 Units/L (7-52) 08/07/17 01:59 - ABG ABG results: PT/INR, D-dimer PT 13.1 Seconds (9.4-12.1) H 08/06/17 12:23 Consult Discharge Plan - Plan Referrals: Anna White, [employer] SUPERINTENDENT [Primary Care Provider] - <Jose M Vargas - Last Filed: 08/07/17 12:36> Date of Encounter: 08/07/17 - Time Spent With Patient Total time spent is greater than 50% in coordination of care (as documented) at patient's floor/unit and/or counseling patient: GI History of Present Illness - Data of Consult Requesting Physician: Kacey Patel MD - Consult Narrative History of present illness: Ms. Starr is a 72 year old female - Constitutional Vitals: Temp Pulse Resp BP Pulse Ox 98.4 F 56 15 125/55 96 08/07/17 06:58 08/07/17 06:58 08/07/17 06:58 08/07/17 06:58 08/07/17 06:58 Results - Labs CBC & Chem 7: 08/07/17 06:41 08/07/17 01:59 Labs: Last Result Calcium 8.8 mg/dL (8.6-10.3) 08/07/17 01:59 Troponin I 0.04 ng/mL (< 0.04) H* 08/07/17 06:41 Entire Visit Hgb 9.1 g/dL (11.5-15.4) L D 08/07/17 06:41 Hct 28.4 % (35.3-44.9) L 08/07/17 06:41 PT 13.1 Seconds (9.4-12.1) H 08/06/17 12:23 Total Bilirubin 0.4 mg/dL (0.3-1.0) 08/07/17 01:59 AST 15 Units/L (13-39) 08/07/17 01:59 ALT 12 Units/L (7-52) 08/07/17 01:59 - ABG ABG results: PT/INR, D-dimer PT 13.1 Seconds (9.4-12.1) H 08/06/17 12:23 - Impressions Impressions Chest CT 08/07/17 09:30 IMPRESSION: 1. Mild ground-glass opacities with mild interstitial thickening and bilateral pleural effusions. This is likely due to pulmonary edema with pleural effusions. If concern for chronic interstitial lung disease continues, repeat CT scan of the chest can be obtained after resolution of acute symptoms. 2. 1.9 cm right thyroid nodule. See follow-up guidelines below. RECOMMENDATIONS: Managing Incidental Thyroid Nodule Detected at CT or MRI or US 1. Further evaluation by thyroid Ultrasound on an outpatient basis recommended for these incidental nodules: Patient Age 35 years or more - Nodule 1.5 cm in size or greater Note: These recommendations do not apply to pts. w/ increased risk for thyroid cancer or pts. with symptomatic thyroid disease. Recommendations for f/u of Incidental Thyroid Nodules (ITN) found on CT, MR, NM and Extrathyroidal US are based upon the ACR white paper and Irvin 3-tiered system for managing ITNs: J Am Keri Radiol. 2015 May;12(2): 143-50 D/ / Magen Garrido MD / Magen Garrido MD Interpreting Provider: Magen Garrido MD - Attending Attestation Ms. Wilkes is a very pleasant morbidly obese 71-year-old female with who present with's shortness of breath and congestive heart failure she is on presently she has anasarca all her extremities markedly swollen. Her initial hemoglobin was 7 she was transfused with 2 units of packed cells. Patient will need endoscopy but only after she is optimized after diuresis and is back to when necessary gets back to baseline. Lupron the scheduled for Thursday pending the weekend progress We will make further recommendations only on Thursday. I have personally performed a face to face evaluation on this patient. I have reviewed and agree with the care plan. History and Exam by me shows:
--- NOTE | 2017-08-07 16:20 | Internal Med Progress Note ---
Date of Encounter: 08/07/17 Time of Encounter: 11:15 - Assessment and plan (1) Acute on chronic diastolic (congestive) heart failure Current Visit: Yes Status: Acute Assessment and plan: Reviewed Echo from 04/23 showed LVEF 50%, moderate diastolic dysfunction cont IV Lasix 40mg BID cont Metoprolol will repeat another 2 D Echo strict I & O (2) Acute kidney injury superimposed on chronic kidney disease Current Visit: Yes Status: Acute Assessment and plan: Due to cardiorenal syndrome cont gentle diuresis cont close monitoring Nephro consulted strict I & O (3) Anasarca Current Visit: Yes Status: Acute Assessment and plan: due to CHF (4) Elevated troponin Current Visit: Yes Status: Acute Assessment and plan: due to demand ischemia slightly elevated trop no acute EKG changes no further work up needed will obtain 2 D Echo (5) Anemia Current Visit: No Status: Chronic Assessment and plan: Acute on chronic could due to CKD-3 and chronic diseases will check iron studies cont close monitoring check hemoccult GI consulted possible EGD on Thursday Qualifiers: Anemia type: unspecified type Qualified Code(s): D64.9 - Anemia, unspecified (6) Type 2 diabetes mellitus with diabetic chronic kidney disease Current Visit: No Status: Acute Assessment and plan: on ISS Qualifiers: Diabetes mellitus snf insulin use: with long term care phlebotomist use Chronic kidney disease stage: stage 3 (moderate) Qualified Code(s): E11.22 - Type 2 diabetes mellitus with diabetic chronic kidney disease; N18.3 - Chronic kidney disease, stage 3 (moderate); N18.3 - Chronic kidney disease, stage 3 (moderate); Z79.4 - jail (current) use of insulin; Z79.4 - long term care phlebotomist (current) use of insulin; Z79.4 - jail (current) use of insulin; Z79.4 - jail (current) use of insulin (7) COPD (chronic obstructive pulmonary disease) Current Visit: No Status: Chronic Assessment and plan: stable,, not in exacerbation cont home regimen Qualifiers: COPD type: emphysema Emphysema type: other Qualified Code(s): J43.8 - Other emphysema (8) HTN (hypertension) Current Visit: No Status: Chronic Assessment and plan: resumed home meds Qualifiers: Hypertension type: essential hypertension Qualified Code(s): I10 - Essential (primary) hypertension - Time Spent With Patient Total time spent is greater than 50% in coordination of care (as documented) at patient's floor/unit and/or counseling patient: - Subjective Interval history: Ms. Starr is a 72 year old female with known past history of CAD had a PTCA in 2000, diabetes, morbid obesity, high cholesterol, PAF , COPD with 3 L of oxygen and BiPAP at night, also have CKD-3 and chronic anemia pt presented from [facility]ial with a 1 week of worsening shortness of breath , PND and orthopnea and increased leg edema. She denies any chest pain. Pt is alert, awake and O x 3. States she is feeling little better today. She received 2 U PRBC - Constitutional Vitals: Temp Pulse Resp BP Pulse Ox 97.7 F 56 18 143/67 92 08/07/17 15:11 08/07/17 15:11 08/07/17 15:11 08/07/17 15:11 08/07/17 15:11 General appearance: Present: cooperative, mild distress, A&O X 3, answers questions appropriately - Head Head exam: Present: atraumatic, normal inspection - Neck Neck exam general surgery: Present: supple - Respiratory Respiratory exam: Present: decreased breath sounds, rales. Absent: respiratory distress, rhonchi, wheezes - Cardiovascular Cardiovascular exam: Present: RRR, +S1, +S2. Absent: tachycardia - GI/Abdominal GI/Abdominal exam: Present: normal bowel sounds, soft. Absent: rebound, rigid, tenderness - Extremities Exam Extremities exam: Present: pedal edema. Absent: calf tenderness, tenderness - Back Exam Back exam: Absent: CVA tenderness (L), CVA tenderness (R) - Neurological Exam Neurological exam: Present: alert, oriented X3 - Psychiatric Psychiatric exam: Present: normal affect, normal mood Internal Medicine: Result - Labs CBC & Chem 7: 08/07/17 06:41 08/07/17 01:59 Labs: Short CBC 08/07/17 Range/Units 06:41 WBC 7.3 (4.3-11.1) K/mcL Hgb 9.1 L D (11.5-15.4) g/dL Hct 28.4 L (35.3-44.9) % Plt Count 210 (140-400) K/mcL Neutrophils # 4.9 (1.6-8.9) K/mcL BMP 08/07/17 01:59 Sodium 141 Potassium 4.9 Chloride 107 Carbon Dioxide 28 BUN 61 H Creatinine 2.95 H Glucose 161 H Calcium 8.8 Cardiac Enzymes 08/06/17 08/07/17 08/07/17 Range/Units 18:12 01:59 06:41 Troponin I 0.04 H* 0.03 0.04 H* (< 0.04) ng/mL Liver Function 08/07/17 Range/Units 01:59 Total Bilirubin 0.4 (0.3-1.0) mg/dL AST 15 (13-39) Units/L ALT 12 (7-52) Units/L Alkaline Phosphatase 11 L (34-104) Units/L Albumin 2.6 L (3.5-5.7) g/dL - ABG Interpretation ABG results: PT/INR, D-dimer PT 13.1 Seconds (9.4-12.1) H 08/06/17 12:23 - Impressions Impressions Chest CT 08/07/17 09:30 IMPRESSION: 1. Mild ground-glass opacities with mild interstitial thickening and bilateral pleural effusions. This is likely due to pulmonary edema with pleural effusions. If concern for chronic interstitial lung disease continues, repeat CT scan of the chest can be obtained after resolution of acute symptoms. 2. 1.9 cm right thyroid nodule. See follow-up guidelines below. RECOMMENDATIONS: Managing Incidental Thyroid Nodule Detected at CT or MRI or US 1. Further evaluation by thyroid Ultrasound on an outpatient basis recommended for these incidental nodules: Patient Age 35 years or more - Nodule 1.5 cm in size or greater Note: These recommendations do not apply to pts. w/ increased risk for thyroid cancer or pts. with symptomatic thyroid disease. Recommendations for f/u of Incidental Thyroid Nodules (ITN) found on CT, MR, NM and Extrathyroidal US are based upon the ACR white paper and Irvin 3-tiered system for managing ITNs: J Am Keri Radiol. 2015 May;12(2): 143-50 D/ / Magen Garrido MD / Magen Garrido MD Interpreting Provider: Magen Garrido MD Consult Discharge Plan - Plan Referrals: Anna White J[employer] ENGINE MECHANIC [Primary Care Provider] -
[2017-08-07] MEDS: Triamcinolone Acet 0.1% CRM 15 GM TUBE TP SCH ×2 (17:20→21:45)
[2017-08-07] MEDS ORDERED: Furosemide 20 MG/2 ML VIAL IVP ONE (19:03)
[2017-08-07] MEDS: amLODIPine 5 MG TABLET PO SCH (21:43)
[2017-08-08] MEDS: *HR* Enoxaparin 30 MG/0.3 ML SYRINGE SQ SCH (05:37)
[2017-08-08] MEDS ORDERED: Haloperidol Oral Conc 10 MG/5 ML UDC PO PRN (07:55)
--- NOTE | 2017-08-08 08:25 | Nephrology Progress Note ---
Date of Encounter: 08/08/17 Time of Encounter: 08:00 - Assessment and Plan (1) SACHA (acute kidney injury) Current Visit: No Status: Resolved SACHA in setting of diuretics related to fluid overload superimposed on CKD in setting of diabetes and hypertension. Baseline creat 1.9-2.3. (History of) proteinuria, amlodipine and high dose gabapentin contributing to edema. Today labs pending. ECHO pending to rule out worsening mitral regurg.CT chest w/o contrast-Mild ground-glass opacities with mild interstitial thickening and bilateral pleural effusions. This is likely due to pulmonary edema with pleural effusions. Incidental finding thyroid nodule. Avoid nephrotoxins, accurate I&O. Will continue to monitor. Subjective Interval history: Sitting up in bed, feeding self breakfast. Denies shortness of breath. Objective - Vital Signs Vital signs: Vital Signs Temp Pulse Resp BP Pulse Ox 08/08/17 06:55 99.7 F H 76 18 127/62 96 08/08/17 03:35 99.8 F H 72 18 133/73 98 08/07/17 23:19 99.0 F 66 18 130/73 97 08/07/17 19:27 100.1 F H 65 18 165/72 99 08/07/17 15:11 97.7 F 56 18 143/67 92 Intake and Output 08/07/17 08/08/17 08/08/17 23:59 07:59 15:59 Output Total 2400 / 2400 1425 / 1425 Balance -2400 / -2400 -1425 / -1425 Output: Catheter 2400 / 2400 1425 / 1425 Other: Stool Size Small Stool Consistency formed Stool Color Brown # Bowel Movements 1 Weight 109 kg Blood Glucose* 188 112 Patient Weight 08/08/17 23:59 Weight 109 kg - General Appearance General appearance: Present: well-developed, well-nourished, appears started age , obese EENT: Present: mucous membranes moist Neck: Present: no JVD Respiratory: Present: clear Additional Comments: diminished Cardiology: Present: edema, regular rate, regular rhythm Additional Comments: 2+ generalized Gastrointestinal: Present: normoactive bowel sounds, no tenderness Integumentary: Present: warm and dry Psychiatric: Present: mood/affect appropriate, cooperative - Lab 08/07/17 06:41 08/07/17 01:59 Most recent lab results Calcium 8.8 mg/dL (8.6-10.3) 08/07/17 01:59 Magnesium 2.0 mg/dL (1.6-2.6) 08/07/17 01:59 Consult Discharge Plan - Plan Referrals: Anna White, LOCKER ROOM ATTENDANT [Primary Care Provider] -
[2017-08-08] MEDS: Insulin LISPRO 300 UNITS/3 ML VIAL SQ SCH ×4 (08:28→21:25)
[2017-08-08] MEDS: Gabapentin 400 MG CAPSULE PO SCH ×3 (08:40→21:23)
[2017-08-08] MEDS: Isosorbide MONOnitrate (24 HR) 30 MG TAB.ER.24H PO SCH (08:40)
[2017-08-08] MEDS: Furosemide 40 MG/4 ML VIAL IVP SCH (08:40)
[2017-08-08] MEDS: Aspirin Enteric Coated 81 MG Tablet PO SCH (08:40)
[2017-08-08] MEDS: Triamcinolone Acet 0.1% CRM 15 GM TUBE TP SCH ×2 (08:42→21:23)
[2017-08-08 08:54] LABS: Calcium 9.2 mg/dL (8.6-10.3); Potassium 3.9 mEq/L (3.5-5.1)
[2017-08-08] MEDS: traMADol 50 MG TABLET PO PRN (09:43)
--- NOTE | 2017-08-08 10:27 | Internal Med Progress Note ---
Date of Encounter: 08/08/17 Time of Encounter: 10:26 - Assessment and plan (1) Acute on chronic diastolic (congestive) heart failure Current Visit: Yes Status: Acute Assessment and plan: Reviewed Echo from 04/23 showed LVEF 50%, moderate diastolic dysfunction Had 5900 out put y/d with total -5490 net balance change lasix to 40mg IV Daily cont Metoprolol 2 D Echo - P strict I & O (2) Acute kidney injury superimposed on chronic kidney disease Current Visit: Yes Status: Acute Assessment and plan: Due to cardiorenal syndrome cont gentle diuresis cont close monitoring Nephro is on board.. appreciate Nephro's help strict I & O (3) Anasarca Current Visit: Yes Status: Acute Assessment and plan: due to CHF cont diuresis (4) Elevated troponin Current Visit: Yes Status: Acute Assessment and plan: due to demand ischemia slightly elevated trop no acute EKG changes no further work up needed will obtain 2 D Echo (5) Anemia Current Visit: No Status: Chronic Assessment and plan: Acute on chronic could be due to CKD-3 and chronic diseases will check iron studies cont close monitoring hemoccult - negative GI consulted possible EGD on Thursday Qualifiers: Anemia type: unspecified type Qualified Code(s): D64.9 - Anemia, unspecified (6) Type 2 diabetes mellitus with diabetic chronic kidney disease Current Visit: No Status: Acute Assessment and plan: on ISS Qualifiers: Diabetes mellitus residential insulin use: with oysterman use Chronic kidney disease stage: stage 3 (moderate) Qualified Code(s): E11.22 - Type 2 diabetes mellitus with diabetic chronic kidney disease; N18.3 - Chronic kidney disease, stage 3 (moderate); N18.3 - Chronic kidney disease, stage 3 (moderate); Z79.4 - termite control servicer (current) use of insulin; Z79.4 - [facility] (current) use of insulin; Z79.4 - [facility] (current) use of insulin; Z79.4 - termite control servicer (current) use of insulin (7) COPD (chronic obstructive pulmonary disease) Current Visit: No Status: Chronic Assessment and plan: stable,, not in exacerbation cont home regimen Qualifiers: COPD type: emphysema Emphysema type: other Qualified Code(s): J43.8 - Other emphysema (8) HTN (hypertension) Current Visit: No Status: Chronic Assessment and plan: resumed home meds Qualifiers: Hypertension type: essential hypertension Qualified Code(s): I10 - Essential (primary) hypertension - Time Spent With Patient Total time spent is greater than 50% in coordination of care (as documented) at patient's floor/unit and/or counseling patient: - Subjective Interval history: Ms. Starr is a 72 year old female with known past history of CAD had a PTCA in 2000, diabetes, morbid obesity, high cholesterol, PAF , COPD with 3 L of oxygen and BiPAP at night, also have CKD-3 and chronic anemia pt presented from [facility] with a 1 week of worsening shortness of breath , PND and orthopnea and increased leg edema. She received 2 U PRBC upon admission since her Hb @ 7.0. She denies any chest pain now. Pt is alert, awake and O x 3. States she is feeling little better today. - Constitutional Vitals: Temp Pulse Resp BP Pulse Ox 99.7 F H 76 18 127/62 96 08/08/17 06:55 08/08/17 06:55 08/08/17 06:55 08/08/17 06:55 08/08/17 06:55 General appearance: Present: cooperative, A&O X 3, answers questions appropriately - Head Head exam: Present: atraumatic, normal inspection - Neck Neck exam general surgery: Present: supple - Respiratory Respiratory exam: Present: decreased breath sounds. Absent: rales, respiratory distress, rhonchi, wheezes - Cardiovascular Cardiovascular exam: Present: RRR, +S1, +S2. Absent: tachycardia - GI/Abdominal GI/Abdominal exam: Present: normal bowel sounds, soft. Absent: rebound, rigid, tenderness - Extremities Exam Extremities exam: Present: pedal edema. Absent: calf tenderness, tenderness Additional comments: improving edema in all extremities - Back Exam Back exam: Absent: CVA tenderness (L), CVA tenderness (R) - Neurological Exam Neurological exam: Present: alert, oriented X3 - Psychiatric Psychiatric exam: Present: normal affect, normal mood - Skin Skin exam: Absent: rash Internal Medicine: Result - Labs CBC & Chem 7: 08/07/17 06:41 08/08/17 08:21 Labs: BMP 08/08/17 08:21 Sodium 143 Potassium 3.9 Chloride 104 Carbon Dioxide 30 H BUN 51 H Creatinine 2.95 H Glucose 109 H Calcium 9.2 - ABG Interpretation ABG results: PT/INR, D-dimer PT 13.1 Seconds (9.4-12.1) H 08/06/17 12:23 - Impressions Impressions Chest CT 08/07/17 09:30 IMPRESSION: 1. Mild ground-glass opacities with mild interstitial thickening and bilateral pleural effusions. This is likely due to pulmonary edema with pleural effusions. If concern for chronic interstitial lung disease continues, repeat CT scan of the chest can be obtained after resolution of acute symptoms. 2. 1.9 cm right thyroid nodule. See follow-up guidelines below. RECOMMENDATIONS: Managing Incidental Thyroid Nodule Detected at CT or MRI or US 1. Further evaluation by thyroid Ultrasound on an outpatient basis recommended for these incidental nodules: Patient Age 35 years or more - Nodule 1.5 cm in size or greater Note: These recommendations do not apply to pts. w/ increased risk for thyroid cancer or pts. with symptomatic thyroid disease. Recommendations for f/u of Incidental Thyroid Nodules (ITN) found on CT, MR, NM and Extrathyroidal US are based upon the ACR white paper and Irvin 3-tiered system for managing ITNs: J Am Keri Radiol. 2015 May;12(2): 143-50 D/ / Magen Garrido MD / Magen Garrido MD Interpreting Provider: Magen Garrido MD Consult Discharge Plan - Plan Referrals: Anna White, [employer]SW[employer] PUZZLE MAKER [Primary Care Provider] -
[2017-08-08] MEDS: amLODIPine 5 MG TABLET PO SCH (21:23)
[2017-08-09] MEDS: *HR* Enoxaparin 30 MG/0.3 ML SYRINGE SQ SCH (05:41)
[2017-08-09 05:58] LABS: Basophils % 0.2 %; Eosinophils # 0.5 K/mcL (0.0-0.6); Eosinophils % 7.6 %; Hematocrit 28.3 % (35.3-44.9); Hemoglobin 9.2 g/dL (11.5-15.4); Immature Granulocytes % 0.5 % (0-4); Lymphocytes # 1.1 K/mcL (0.6-4.6); Lymphocytes % 17.9 %; Mean Corpuscular HGB Conc 32.5 g/dL (31.6-35.5); Mean Corpuscular Hemoglobin 27.9 pg (28.0-33.3); Mean Corpuscular Volume 85.8 fL (83.0-100.0); Mean Platelet Volume 10.1 fL (9.4-12.4); Monocytes # 0.6 K/mcL (0.0-1.3); Monocytes % 8.8 %; Neutrophils # 4.1 K/mcL (1.6-8.9); Platelet Count 193 K/mcL (140-400); Red Cell Distribution Width 14.6 % (11.5-14.5)
[2017-08-09 06:32] LABS: Thyroid Stimulating Hormone 1.077 mcIU/mL (0.340-5.600)
[2017-08-09 06:49] LABS: Magnesium 1.8 mg/dL (1.6-2.6); Potassium 3.8 mEq/L (3.5-5.1)
[2017-08-09] MEDS ORDERED: Ferumoxytol 510 MG in 0.9 % Sodium Chloride 100 ML IVPB ONE (07:58)
--- NOTE | 2017-08-09 08:03 | Nephrology Progress Note ---
Date of Encounter: 08/09/17 Time of Encounter: 07:45 - Assessment and Plan (1) SACHA (acute kidney injury) Current Visit: No Status: Resolved SACHA in setting of diuretics related to fluid overload superimposed on CKD in setting of diabetes and hypertension. Baseline creat 1.9-2.3. (History of) proteinuria, amlodipine and high dose gabapentin contributing to edema. Renal fct improving. Creat 2.65. Documented urine output 2975cc. Tsat 6. Will order Feraheme IVPB. ECHO pending to rule out worsening mitral regurg.CT chest w/o contrast-Mild ground-glass opacities with mild interstitial thickening and bilateral pleural effusions. This is likely due to pulmonary edema with pleural effusions. Incidental finding thyroid nodule. Avoid nephrotoxins, accurate I&O. Will continue to monitor. Subjective Interval history: Sitting up in bed. Denies shortness of breath. Objective - Vital Signs Vital signs: Vital Signs Temp Pulse Resp BP Pulse Ox 08/09/17 07:37 99.0 F 65 20 169/74 97 08/09/17 03:55 98.3 F 66 18 139/65 97 08/08/17 23:45 99.7 F H 68 18 147/71 97 08/08/17 18:56 99.0 F 62 18 148/77 98 08/08/17 15:20 97.9 F 67 16 125/62 98 08/08/17 10:40 99.3 F 56 18 139/66 98 Intake and Output 08/08/17 08/08/17 08/09/17 15:59 23:59 07:59 Intake Total 580 / 580 Output Total 1550 / 1550 1300 / 1300 Balance -970 / -970 -1300 / -1300 Intake: Oral 580 / 580 Output: Catheter 1550 / 1550 1300 / 1300 Other: Meal Lunch Percent of Meal Consumed 100% Stool Size Large # Bowel Movements 1 1 Weight 106.3 kg Blood Glucose* 227 201 145 Patient Weight 08/09/17 23:59 Weight 106.3 kg - General Appearance General appearance: Present: well-developed, well-nourished, appears started age , obese EENT: Present: mucous membranes moist Neck: Present: no JVD Respiratory: Present: clear Cardiology: Present: edema, regular rate, regular rhythm Additional Comments: 1-2+ Gastrointestinal: Present: normoactive bowel sounds, no tenderness Integumentary: Present: warm and dry Neurologic: Present: alert and oriented x3 - Lab 08/09/17 05:39 08/09/17 05:39 Most recent lab results Calcium 9.0 mg/dL (8.6-10.3) 08/09/17 05:39 Magnesium 1.8 mg/dL (1.6-2.6) 08/09/17 05:39 Consult Discharge Plan - Plan Referrals: Anna White, GAS PUMP ATTENDANT [Primary Care Provider] -
[2017-08-09] MEDS: Aspirin Enteric Coated 81 MG Tablet PO SCH (08:36)
[2017-08-09] MEDS: Gabapentin 400 MG CAPSULE PO SCH ×3 (08:36→20:52)
[2017-08-09] MEDS: Insulin LISPRO 300 UNITS/3 ML VIAL SQ SCH ×4 (08:37→20:52)
[2017-08-09] MEDS: Furosemide 40 MG/4 ML VIAL IVP SCH (08:37)
[2017-08-09] MEDS: Isosorbide MONOnitrate (24 HR) 30 MG TAB.ER.24H PO SCH (08:37)
[2017-08-09] MEDS: traMADol 50 MG TABLET PO PRN ×2 (10:42→17:16)
[2017-08-09] MEDS: Triamcinolone Acet 0.1% CRM 15 GM TUBE TP SCH ×2 (10:50→20:53)
--- NOTE | 2017-08-09 10:59 | Internal Med Progress Note ---
Date of Encounter: 08/09/17 Time of Encounter: 10:57 - Assessment and plan (1) Acute on chronic diastolic (congestive) heart failure Current Visit: Yes Status: Acute Assessment and plan: Reviewed Echo from 04/23 showed LVEF 50%, moderate diastolic dysfunction Had 2975 out put y/d with total -2395 net balance so far she has -8309 negative balance will d/c Lasix for now cont close monitoring I & O cont Metoprolol 2 D Echo - showed moderate MR,. preserved LVEF strict I & O (2) Acute kidney injury superimposed on chronic kidney disease Current Visit: Yes Status: Acute Assessment and plan: Due to cardiorenal syndrome improving cont close monitoring Nephro is on board.. appreciate Nephro's help strict I & O (3) Anasarca Current Visit: Yes Status: Acute Assessment and plan: due to CHF improving (4) Elevated troponin Current Visit: Yes Status: Acute Assessment and plan: due to demand ischemia slightly elevated trop no acute EKG changes no further work up needed Reviewed 2 D Echo - no septal / wall motion abnormalities (5) Anemia Current Visit: No Status: Chronic Assessment and plan: Acute on chronic could be due to CKD-3 and chronic diseases stable Hb @ 9.0 cont close monitoring hemoccult - negative possible EGD on Thursday by Dr. Vargas NPO after mid night reviewed Iron studies does have chronic Iron def started on IV Iron by Nephro Qualifiers: Anemia type: unspecified type Qualified Code(s): D64.9 - Anemia, unspecified (6) Type 2 diabetes mellitus with diabetic chronic kidney disease Current Visit: No Status: Acute Assessment and plan: on ISS Qualifiers: Diabetes mellitus painter and decorator insulin use: with painter and decorator use Chronic kidney disease stage: stage 3 (moderate) Qualified Code(s): E11.22 - Type 2 diabetes mellitus with diabetic chronic kidney disease; N18.3 - Chronic kidney disease, stage 3 (moderate); N18.3 - Chronic kidney disease, stage 3 (moderate); Z79.4 - geomagnetist (current) use of insulin; Z79.4 - geomagnetist (current) use of insulin; Z79.4 - detention (current) use of insulin; Z79.4 - geomagnetist (current) use of insulin (7) COPD (chronic obstructive pulmonary disease) Current Visit: No Status: Chronic Assessment and plan: stable,, not in exacerbation cont home regimen Qualifiers: COPD type: emphysema Emphysema type: other Qualified Code(s): J43.8 - Other emphysema (8) HTN (hypertension) Current Visit: No Status: Chronic Assessment and plan: resumed home meds Qualifiers: Hypertension type: essential hypertension Qualified Code(s): I10 - Essential (primary) hypertension - Time Spent With Patient Total time spent is greater than 50% in coordination of care (as documented) at patient's floor/unit and/or counseling patient: - Subjective Interval history: Ms. Starr is a 72 year old female with known past history of CAD had a PTCA in 2000, diabetes, morbid obesity, high cholesterol, PAF , COPD with 3 L of oxygen and BiPAP at night, also have CKD-3 and chronic anemia pt [facility] with a 1 week of worsening shortness of breath , PND and orthopnea and increased leg edema. She received 2 U PRBC upon admission since her Hb @ 7.0. She denies any chest pain now. Pt is alert, awake and O x 3. States she is feeling much better today. - Constitutional Vitals: Temp Pulse Resp BP Pulse Ox 99.0 F 65 20 169/74 97 08/09/17 07:37 08/09/17 07:37 08/09/17 07:37 08/09/17 07:37 08/09/17 07:37 General appearance: Present: cooperative, A&O X 3, answers questions appropriately - Head Head exam: Present: atraumatic, normal inspection - Neck Neck exam general surgery: Present: supple - Respiratory Respiratory exam: Present: decreased breath sounds. Absent: rales, respiratory distress, rhonchi, wheezes - Cardiovascular Cardiovascular exam: Present: RRR, +S1, +S2. Absent: tachycardia - GI/Abdominal GI/Abdominal exam: Present: normal bowel sounds, soft. Absent: rebound, rigid, tenderness - Extremities Exam Extremities exam: Present: pedal edema. Absent: calf tenderness, tenderness - Back Exam Back exam: Absent: CVA tenderness (L), CVA tenderness (R) - Psychiatric Psychiatric exam: Present: normal affect, normal mood - Skin Skin exam: Absent: rash Internal Medicine: Result - Labs CBC & Chem 7: 08/09/17 05:39 08/09/17 05:39 Labs: Short CBC 08/09/17 Range/Units 05:39 WBC 6.3 (4.3-11.1) K/mcL Hgb 9.2 L (11.5-15.4) g/dL Hct 28.3 L (35.3-44.9) % Plt Count 193 (140-400) K/mcL Neutrophils # 4.1 (1.6-8.9) K/mcL BMP 08/09/17 05:39 Sodium 143 Potassium 3.8 Chloride 103 Carbon Dioxide 33 H BUN 58 H Creatinine 2.65 H Glucose 157 H Calcium 9.0 - ABG Interpretation ABG results: PT/INR, D-dimer PT 13.1 Seconds (9.4-12.1) H 08/06/17 12:23 - Impressions Impressions Echocardiogram 08/07/17 09:29 Impressions: LVEF 60%. Diastolic dysfunction with elevated filling pressures. Mildly dilated RV with normal function. Moderate mitral regurgitation. Mild tricuspid regurgitation. Mild pulmonic regurgitation. Mild-moderate pulmonary hypertension. No evidence of PFO with agitated saline contrast. Left Ventricular Wall Motion: Rest Echo Findings All wall segments showed normal motion. Findings: Study Quality * Technically adequate exam. ECG Findings * Normal sinus rhythm. Left Ventricle * LVEF 60%. * Diastolic dysfunction with elevated filling pressures. * Normal LV chamber size and wall thickness. Right Ventricle * Mildly dilated RV with normal function. Left Atrium * Moderate-severely dilated left atrium. Right Atrium * Normal right atrial size. Mitral Valve * No mitral stenosis. * Mild mitral annular calcification * Mildly calcified mitral valve leaflets. * Moderate mitral regurgitation. Aortic Valve * Trileaflet aortic valve. * No aortic stenosis. * Trace aortic regurgitation. Tricuspid Valve * Mild tricuspid regurgitation. * Normal tricuspid valve structure. * Estimated RA pressure is 8 mmHg. * Estimated RVSP is 49 mmHg. * Mild-moderate pulmonary hypertension. Pulmonic Valve * Pulmonic valve is not well visualized. * No pulmonic stenosis. * Mild pulmonic regurgitation. Pulmonary Artery * Pulmonary artery not well visualized. Aorta * Normally sized aortic root. Pericardium * There is no pericardial effusion present. Interatrial Septum * No evidence of PFO by color Doppler. * No evidence of PFO with agitated saline contrast. IVC * The IVC is not dilated. * < 50% respiratory change. Consult Discharge Plan - Plan Referrals: Anna White, SOUND TRUCK OPERATOR [Primary Care Provider] -
[2017-08-09] MEDS: amLODIPine 5 MG TABLET PO SCH (20:52)
[2017-08-10] MEDS: *HR* Enoxaparin 30 MG/0.3 ML SYRINGE SQ SCH (05:50)
[2017-08-10 06:15] LABS: Basophils % 0.2 %; Eosinophils # 0.6 K/mcL (0.0-0.6); Eosinophils % 9.9 %; Hematocrit 28.6 % (35.3-44.9); Hemoglobin 9.2 g/dL (11.5-15.4); Immature Granulocytes % 0.8 % (0-4); Lymphocytes # 1.1 K/mcL (0.6-4.6); Lymphocytes % 16.9 %; Mean Corpuscular HGB Conc 32.2 g/dL (31.6-35.5); Mean Corpuscular Hemoglobin 27.5 pg (28.0-33.3); Mean Corpuscular Volume 85.4 fL (83.0-100.0); Monocytes # 0.6 K/mcL (0.0-1.3); Monocytes % 8.8 %; Neutrophils # 4.1 K/mcL (1.6-8.9); Platelet Count 185 K/mcL (140-400); Red Blood Count 3.35 M/mcL (3.82-4.97); Red Cell Distribution Width 14.6 % (11.5-14.5); Segmented Neutrophils % 63.4 %
[2017-08-10 06:31] LABS: Calcium 8.9 mg/dL (8.6-10.3); Potassium 3.7 mEq/L (3.5-5.1)
--- NOTE | 2017-08-10 08:28 | Nephrology Progress Note ---
Date of Encounter: 08/10/17 Time of Encounter: 08:25 - Assessment and Plan (1) Chronic kidney disease, stage IV (severe) Current Visit: Yes Status: Acute Patient currently has stable stage IV chronic kidney disease related to hypertension and diabetes. Renal function is stable. She tolerated the diuresis well. She may be discharged home following her endoscopy later today. (2) Type 2 diabetes mellitus with diabetic chronic kidney disease Current Visit: No Status: Acute Qualifiers: Diabetes mellitus alf insulin use: with termite treater helper use Chronic kidney disease stage: stage 4 (severe) Qualified Code(s): E11.22 - Type 2 diabetes mellitus with diabetic chronic kidney disease; N18.4 - Chronic kidney disease, stage 4 (severe); N18.4 - Chronic kidney disease, stage 4 (severe); N18.4 - Chronic kidney disease, stage 4 (severe); N18.4 - Chronic kidney disease, stage 4 (severe); Z79.4 - intermodal dispatcher (current) use of insulin; Z79.4 - residential ( current) use of insulin; Z79.4 - residential (current) use of insulin; Z79.4 - intermodal dispatcher (current) use of insulin Subjective Interval history: The patient reports she is feeling better. She has less shortness of breath. Clinically she has much less swelling. Urine output remains good. Serum creatinine is stable at 2.57. Objective - Vital Signs Vital signs: Vital Signs Temp Pulse Resp BP Pulse Ox 08/10/17 07:49 97.6 F 60 16 125/69 98 08/10/17 03:58 99.4 F 62 18 148/78 98 08/09/17 23:31 98.2 F 60 18 146/70 96 08/09/17 18:54 99.2 F 65 18 152/76 98 08/09/17 15:28 97.4 F L 57 20 145/70 99 08/09/17 11:40 97.6 F 60 20 134/67 95 Intake and Output 08/09/17 08/10/17 08/10/17 23:59 07:59 15:59 Intake Total 120 / 120 Output Total 900 / 900 Balance 120 / 120 -900 / -900 Intake: Oral 120 / 120 Output: Catheter 900 / 900 Other: Meal Dinner Percent of Meal Consumed 30% Weight 104.8 kg Blood Glucose* 273 163 Patient Weight 08/10/17 23:59 Weight 104.8 kg - General Appearance Exam: Patient is alert and oriented. She is in no acute distress. Lung sounds otherwise clear. Heart regular rate and rhythm with a 2/6 soft ejection murmur. Abdomen is benign. There is very mild H from the swelling. - Lab 08/10/17 05:46 08/10/17 05:46 Most recent lab results Calcium 8.9 mg/dL (8.6-10.3) 08/10/17 05:46 Magnesium 1.8 mg/dL (1.6-2.6) 08/09/17 05:39 Consult Discharge Plan - Plan Referrals: Anna White, OUTER DIAMETER GRINDER [Primary Care Provider] -
[2017-08-10] MEDS: Gabapentin 400 MG CAPSULE PO SCH ×3 (10:14→21:16)
[2017-08-10] MEDS: Isosorbide MONOnitrate (24 HR) 30 MG TAB.ER.24H PO SCH (10:14)
[2017-08-10] MEDS: Aspirin Enteric Coated 81 MG Tablet PO SCH (10:14)
[2017-08-10] MEDS: traMADol 50 MG TABLET PO PRN ×2 (10:14→17:30)
[2017-08-10] MEDS: Insulin LISPRO 300 UNITS/3 ML VIAL SQ SCH ×3 (10:15→21:17)
[2017-08-10] MEDS: Triamcinolone Acet 0.1% CRM 15 GM TUBE TP SCH ×2 (10:15→21:16)
--- NOTE | 2017-08-10 11:52 | Anesthesia Evaluation PreOp ---
Date of Encounter: 08/10/17 Time of Encounter: 13:28 - Past History Planned Operation: EGD Cardiac History: AK, CHF, HTN, Hyperlipidemia, Arrhythmia (PAF), Cardiac Stent, Other (anemia) Pulmonary History: COPD (on chronic O2 and CPAP at night) BRINE TANK TENDER History: Denies Any Significant HX Other Medical History: Renal (CKD4), Diabetes Type II, Other (morbid obesity) Anesthesia History: No Prior Anesthetic Complications, Past Anesthesia (ortho) Alcohol Use: none Drug use: none Medications and Allergies Aspirin Enteric Coated [Aspirin EC] 81 mg PO DAILY 06/16/16 [History] Fenofibrate 160 mg PO DAILY 06/16/16 [History] Gabapentin 800 mg PO TID 06/16/16 [History] Insulin LISPRO [HumaLOG] 25 units SQ TIDWM 08/11/16 [History] Atorvastatin [Lipitor] 40 mg PO HS #30 tablet 10/11/16 [Rx] Citalopram Hydrobromide [Citalopram HBr] 40 mg PO DAILY #30 tablet 10/11/16 [Rx] Isosorbide MONOnitrate (24 HR) [Imdur] 30 mg PO DAILY #30 tab.er.24h 10/11/16 [ Rx] Lisinopril [Zestril] 5 mg PO DAILY #30 tablet 10/11/16 [Rx] amLODIPine [Norvasc] 10 mg PO HS #30 tablet 10/11/16 [Rx] Acetaminophen [Tylenol 650mg SUPP] 650 mg RC Q4H PRN 04/24/17 [History] Bisacodyl [Dulcolax] 10 mg RC DAILY PRN 04/24/17 [History] Ferrous Sulfate 325 mg PO DAILY 04/24/17 [History] Hyoscyamine SL [Levsin Sl] 0.25 mg SL Q2H PRN 04/24/17 [History] Insulin DETEMIR [Levemir Flextouch] 40 unit SQ HS 04/24/17 [History] Ipratropium/Albuterol Neb [Duoneb] 3 ml IH Q4H PRN 04/24/17 [History] Metoprolol [Lopressor] 25 mg PO BID 04/24/17 [History] Mauk-3/Dha/Epa/Fish Oil [Fish Oil 1,000 mg Softgel] 1,000 mg PO DAILY 04/24/17 [History] Oxygen 3 - 4 l NS DAILY 04/24/17 [History] Polyethylene Glycol 3350 [MiraLAX] 17 gm PO DAILY 04/24/17 [History] Promethazine [Phenergan] 25 mg RC Q6H PRN 04/24/17 [History] Albuterol Neb [Proventil Neb] 2.5 mg IH Q2H PRN inhsol 05/01/17 [Rx] Haloperidol Oral Conc [Haldol] 0.5 mg PO Q2H PRN 07/21/17 [History] Omeprazole [PriLOSEC] 20 mg PO DAILY 07/21/17 [History] LORazepam [Ativan] 0.5 mg PO Q2H PRN 5 Days #15 07/29/17 [Rx] MORPHINE SUL Oral CONC [Roxanol Oral Conc] 5 mg PO Q4H PRN 5 Days #30 07/29/17 [ Rx] Oxycodone HCl/Acetaminophen [Percocet 5-325 mg Tablet] 1 tab PO Q6H PRN 5 Days # 20 07/29/17 [Rx] Furosemide [Lasix] 40 mg PO BID 08/06/17 [History] Glucagon,Human Recombinant [Glucagon Emergency Kit] 1 mg IJ ONCE PRN 08/06/17 [ History] Potassium Chloride [Klor-Con 10] 10 meq PO BID 08/06/17 [History] 3 Allergy/AdvReac Type Severity Reaction Status Date / Time No Known Allergies Allergy Verified 08/06/17 13:57 - Meds/Allergy Pre-op Review Medications Reviewed: Yes Allergies Reviewed: Yes Beta Blockers on Current Med List: Yes If Beta Blockers taken, Date/Time (Last Dose taken): today 1015 Anesthesia Results - Labs 08/10/17 05:46 08/10/17 05:46 - Imaging Additional studies: echo: Impressions: LVEF 60%. Diastolic dysfunction with elevated filling pressures. Mildly dilated RV with normal function. Moderate mitral regurgitation. Mild tricuspid regurgitation. Mild pulmonic regurgitation. Mild-moderate pulmonary hypertension. No evidence of PFO with agitated saline contrast. Anesthesia Exam Selected Entries 08/10/17 11:30 Temperature 98.2 F Pulse Rate 51 Respiratory Rate 15 Blood Pressure 123/62 Blood Pressure Position Sitting O2 Sat by Pulse Oximetry 97 Oxygen Delivery Method Nasal Cannula Weight: 105kg BMI 45 - HEENT Pupil (Motor): EOMI Mallampati: III Teeth: Edentulous Oral Opening: Less than or equal to 3 - BRINE TANK TENDER LOC: Oriented BRINE TANK TENDER Motor: Normal RUE, Normal LUE, Normal RLE, Normal LLE, Normal Face BRINE TANK TENDER Sensory: Normal: RUE, LUE, RLE, LLE, Face - Cardiac Rhythm: Regular Murmur: None - Pulmonary Breath Sounds: bilateral Clear Respiratory Effort: Symmetrical Anesthesia Assess/Plan ASA Score: 4 Modified Alessia Scale for Level of Consciousness: Cooperative, oriented, and tranquil Anesthetic Plan: MAC Monitoring Plan: Standard Monitors Recovery Plan: Other (Will try MAC but may need GA if unable to maintain airway. Patient without iv access, was able to place 22gauge in left wrist.)
[2017-08-10] MEDS ORDERED: *HR* Propofol 200 MG/20 ML VIAL IVP ONE (12:48)
[2017-08-10] MEDS ORDERED: Lidocaine -MPF 2% 2 ML VIAL ONE (12:49)
--- NOTE | 2017-08-10 15:22 | Internal Med Progress Note ---
Date of Encounter: 08/10/17 Time of Encounter: 09:30 - Assessment and plan (1) Acute on chronic diastolic (congestive) heart failure Current Visit: Yes Status: Acute Assessment and plan: Reviewed Echo from 04/23 showed LVEF 50%, moderate diastolic dysfunction Had 2100 out put y/d with total -1620 net balance so far she has -56402 negative balance and lost 12 kg body weight Cont PO Lasix daily cont close monitoring I & O cont Metoprolol 2 D Echo - showed moderate MR,. preserved LVEF strict I & O Possible d/c back to SNF in AM (2) Acute kidney injury superimposed on chronic kidney disease Current Visit: Yes Status: Acute Assessment and plan: Due to cardiorenal syndrome improving cont close monitoring Nephro is on board.. appreciate Nephro's help strict I & O (3) Anasarca Current Visit: Yes Status: Acute Assessment and plan: due to CHF improving (4) Elevated troponin Current Visit: Yes Status: Acute Assessment and plan: due to demand ischemia slightly elevated trop no acute EKG changes no further work up needed Reviewed 2 D Echo - no septal / wall motion abnormalities (5) Anemia Current Visit: No Status: Chronic Assessment and plan: Acute on chronic could be due to CKD-3 and chronic diseases stable Hb @ 9.0 cont close monitoring hemoccult -positive scheduled for EGD today reviewed Iron studies does have chronic Iron def Will start her on PO Iron supplements Qualifiers: Anemia type: unspecified type Qualified Code(s): D64.9 - Anemia, unspecified (6) Type 2 diabetes mellitus with diabetic chronic kidney disease Current Visit: No Status: Acute Assessment and plan: on ISS Qualifiers: Diabetes mellitus halfway insulin use: with halfway use Chronic kidney disease stage: stage 4 (severe) Qualified Code(s): E11.22 - Type 2 diabetes mellitus with diabetic chronic kidney disease; N18.4 - Chronic kidney disease, stage 4 (severe); N18.4 - Chronic kidney disease, stage 4 (severe); N18.4 - Chronic kidney disease, stage 4 (severe); N18.4 - Chronic kidney disease, stage 4 (severe); Z79.4 - technician terminal and repeater (current) use of insulin; Z79.4 - penitentiary ( current) use of insulin; Z79.4 - technician terminal and repeater (current) use of insulin; Z79.4 - technician terminal and repeater (current) use of insulin (7) COPD (chronic obstructive pulmonary disease) Current Visit: No Status: Chronic Assessment and plan: stable,, not in exacerbation cont home regimen Qualifiers: COPD type: emphysema Emphysema type: other Qualified Code(s): J43.8 - Other emphysema (8) HTN (hypertension) Current Visit: No Status: Chronic Assessment and plan: resumed home meds Qualifiers: Hypertension type: essential hypertension Qualified Code(s): I10 - Essential (primary) hypertension (9) Blister Current Visit: Yes Status: Acute Assessment and plan: Large blister over Rt foot due to diffuse leg edema.. improving cont local wound care no systemic abx needed no signs of cellulites - Time Spent With Patient Total time spent is greater than 50% in coordination of care (as documented) at patient's floor/unit and/or counseling patient: - Subjective Interval history: Ms. Starr is a 72 year old female with known past history of CAD had a PTCA in 2000, diabetes, morbid obesity, high cholesterol, PAF , COPD with 3 L of oxygen and BiPAP at night, also have CKD-3 and chronic anemia [facility] of worsening shortness of breath , PND and orthopnea and increased leg edema. She received 2 U PRBC upon admission since her Hb @ 7.0. She denies any chest pain now. Pt is alert, awake and O x 3. States she is feeling much better today. No events over night - Constitutional Vitals: Temp Pulse Resp BP Pulse Ox 98.2 F 55 18 133/81 96 08/10/17 11:30 08/10/17 13:05 08/10/17 13:05 08/10/17 13:05 08/10/17 13:05 General appearance: Present: cooperative, A&O X 3, answers questions appropriately - Head Head exam: Present: atraumatic, normal inspection - Neck Neck exam general surgery: Present: supple - Respiratory Respiratory exam: Present: decreased breath sounds. Absent: rales, respiratory distress, rhonchi, wheezes - Cardiovascular Cardiovascular exam: Present: RRR, +S1, +S2. Absent: tachycardia - GI/Abdominal GI/Abdominal exam: Present: normal bowel sounds, soft. Absent: rebound, rigid, tenderness - Extremities Exam Extremities exam: Present: pedal edema (improving). Absent: calf tenderness, tenderness - Back Exam Back exam: Absent: CVA tenderness (L), CVA tenderness (R) - Psychiatric Psychiatric exam: Present: normal affect, normal mood - Skin Skin exam: Present: rash Additional comments: blister over Rt foot. Internal Medicine: Result - Labs CBC & Chem 7: 08/10/17 05:46 08/10/17 05:46 Labs: Short CBC 08/10/17 Range/Units 05:46 WBC 6.5 (4.3-11.1) K/mcL Hgb 9.2 L (11.5-15.4) g/dL Hct 28.6 L (35.3-44.9) % Plt Count 185 (140-400) K/mcL Neutrophils # 4.1 (1.6-8.9) K/mcL BMP 08/10/17 05:46 Sodium 142 Potassium 3.7 Chloride 101 Carbon Dioxide 33 H BUN 60 H Creatinine 2.57 H Glucose 168 H Calcium 8.9 - ABG Interpretation ABG results: PT/INR, D-dimer PT 13.1 Seconds (9.4-12.1) H 08/06/17 12:23 Consult Discharge Plan - Plan Referrals: Anna White, COMPUTER OPERATIONS SUPERVISOR [Primary Care Provider] -
[2017-08-10] MEDS: amLODIPine 5 MG TABLET PO SCH (21:16)
[2017-08-11 05:34] LABS: Basophils % 0.3 %; Eosinophils # 0.8 K/mcL (0.0-0.6); Eosinophils % 12.7 %; Hematocrit 28.5 % (35.3-44.9); Hemoglobin 9.1 g/dL (11.5-15.4); Immature Granulocytes % 0.5 % (0-4); Lymphocytes # 1.2 K/mcL (0.6-4.6); Mean Corpuscular HGB Conc 31.9 g/dL (31.6-35.5); Mean Corpuscular Hemoglobin 27.7 pg (28.0-33.3); Mean Corpuscular Volume 86.6 fL (83.0-100.0); Mean Platelet Volume 10.2 fL (9.4-12.4); Monocytes # 0.6 K/mcL (0.0-1.3); Monocytes % 8.9 %; Neutrophils # 3.8 K/mcL (1.6-8.9); Platelet Count 193 K/mcL (140-400); Red Blood Count 3.29 M/mcL (3.82-4.97); Red Cell Distribution Width 14.6 % (11.5-14.5); Segmented Neutrophils % 58.6 %
[2017-08-11] MEDS: *HR* Enoxaparin 30 MG/0.3 ML SYRINGE SQ SCH (05:38)
[2017-08-11 05:52] LABS: Calcium 9.2 mg/dL (8.6-10.3); Potassium 3.8 mEq/L (3.5-5.1)
[2017-08-11] MEDS: Aspirin Enteric Coated 81 MG Tablet PO SCH (09:26)
[2017-08-11] MEDS: Isosorbide MONOnitrate (24 HR) 30 MG TAB.ER.24H PO SCH (09:26)
[2017-08-11] MEDS: Gabapentin 400 MG CAPSULE PO SCH (09:27)
[2017-08-11] MEDS: Insulin LISPRO 300 UNITS/3 ML VIAL SQ SCH ×2 (09:31→11:50)
[2017-08-11] MEDS: Triamcinolone Acet 0.1% CRM 15 GM TUBE TP SCH (10:44)
[2017-08-11 10:59] VITALS: BP 113/46
--- NOTE | 2017-08-11 12:43 | Discharge Summary ---
- NOTES TO OUTPATIENT PROVIDER Notes to Outpatient Provider: Follow up with SNF physician in 2-3 days after discharge. Recheck BMP (CKD) and CBC (anemia) at that time. Follow up with nephrology as directed. Follow up on EGD pathology results. Orders not resulted at time of discharge: Pending orders 08/10/17 14:00 Surgical Pathology [PTH] Routine Date of Encounter: 08/11/17 Time of Encounter: 12:41 - Discharge Diagnosis (1) Acute on chronic diastolic (congestive) heart failure Priority: Primary Status: Resolved (2) Acute kidney injury superimposed on chronic kidney disease Priority: Secondary Status: Resolved (3) Elevated troponin Priority: Secondary Status: Acute (4) COPD (chronic obstructive pulmonary disease) Priority: Secondary Status: Chronic Qualifiers: COPD type: emphysema Emphysema type: other Qualified Code(s): J43.8 - Other emphysema (5) HTN (hypertension) Priority: Secondary Status: Chronic Qualifiers: Hypertension type: essential hypertension Qualified Code(s): I10 - Essential (primary) hypertension (6) Anemia Priority: Secondary Status: Chronic Qualifiers: Anemia type: unspecified type Qualified Code(s): D64.9 - Anemia, unspecified (7) Type 2 diabetes mellitus with diabetic chronic kidney disease Priority: Secondary Status: Chronic Qualifiers: Diabetes mellitus fdc insulin use: with fdc use Chronic kidney disease stage: stage 4 (severe) Qualified Code(s): E11.22 - Type 2 diabetes mellitus with diabetic chronic kidney disease; N18.4 - Chronic kidney disease, stage 4 (severe); N18.4 - Chronic kidney disease, stage 4 (severe); N18.4 - Chronic kidney disease, stage 4 (severe); N18.4 - Chronic kidney disease, stage 4 (severe); Z79.4 - [facility] (current) use of insulin; Z79.4 - terminal gauger ( current) use of insulin; Z79.4 - [facility] (current) use of insulin; Z79.4 - [facility] (current) use of insulin (8) Anasarca Priority: Secondary Status: Chronic (9) Blister Priority: Secondary Status: Acute Hospital course: Ms. Starr is a 72 year old female admitted for acute on chronic CHF and SACHA on CKD. She was admitted to general medical floor with telemetry. She was started on IV lasix and diuresed well. Troponin trended up to 0.04, thought to likely be due to demand ischemia. Nephrology was consulted. Home gabapentin dose was lowered. Nephrotoxins were avoided. She was transitioned to PO lasix ; she will be discharged to SNF with lower dose of lasix 40 mg PO QD. SOB and edema resolved on the day of discharge. She had anemia, so EGD was obtained. EGD showed some mild inflammation in gastric body, but no active bleed. Pathology results are pending. PT/OT worked with patient. Renal function today is now back to baseline. She will go back to [facility] today. She will follow up with SNF physician in 2-3 days after discharge. BMP (CKD) and CBC (anemia) can be rechecked at that time. She will follow up with nephrology as directed. SNF physician can follow up on EGD pathology results. Patient has met maximum benefit of this hospitalization and will be discharged back to [facility] in stable condition. Discharge discussed with: patient, nurse, social work, other (Pharmacist) - Time Spent with Patient Total time spent providing and/or coordinating discharge services: Greater than 30 minutes - Discharge Medications Home Medications: Aspirin Enteric Coated [Aspirin EC] 81 mg PO DAILY 06/16/16 [History] Fenofibrate 160 mg PO DAILY 06/16/16 [History] Insulin LISPRO [HumaLOG] 25 units SQ TIDWM 08/11/16 [History] Atorvastatin [Lipitor] 40 mg PO HS #30 tablet 10/11/16 [Rx] Citalopram Hydrobromide [Citalopram HBr] 40 mg PO DAILY #30 tablet 10/11/16 [Rx] Isosorbide MONOnitrate (24 HR) [Imdur] 30 mg PO DAILY #30 tab.er.24h 10/11/16 [ Rx] Lisinopril [Zestril] 5 mg PO DAILY #30 tablet 10/11/16 [Rx] amLODIPine [Norvasc] 10 mg PO HS #30 tablet 10/11/16 [Rx] Acetaminophen [Tylenol 650mg SUPP] 650 mg RC Q4H PRN 04/24/17 [History] Bisacodyl [Dulcolax] 10 mg RC DAILY PRN 04/24/17 [History] Ferrous Sulfate 325 mg PO DAILY 04/24/17 [History] Hyoscyamine SL [Levsin Sl] 0.25 mg SL Q2H PRN 04/24/17 [History] Insulin DETEMIR [Levemir Flextouch] 40 unit SQ HS 04/24/17 [History] Ipratropium/Albuterol Neb [Duoneb] 3 ml IH Q4H PRN 04/24/17 [History] Metoprolol [Lopressor] 25 mg PO BID 04/24/17 [History] [place]-3/Dha/Epa/Fish Oil [Fish Oil 1,000 mg Softgel] 1,000 mg PO DAILY 04/24/17 [History] Oxygen 3 - 4 l NS DAILY 04/24/17 [History] Polyethylene Glycol 3350 [MiraLAX] 17 gm PO DAILY 04/24/17 [History] Promethazine [Phenergan] 25 mg RC Q6H PRN 04/24/17 [History] Albuterol Neb [Proventil Neb] 2.5 mg IH Q2H PRN inhsol 05/01/17 [Rx] Haloperidol Oral Conc [Haldol] 0.5 mg PO Q2H PRN 07/21/17 [History] Omeprazole [PriLOSEC] 20 mg PO DAILY 07/21/17 [History] Glucagon,Human Recombinant [Glucagon Emergency Kit] 1 mg IJ ONCE PRN 08/06/17 [ History] Potassium Chloride [Klor-Con 10] 10 meq PO BID 08/06/17 [History] Furosemide [Lasix] 40 mg PO DAILY 3 Days #3 08/11/17 [Rx] Gabapentin [Neurontin] 400 mg PO TID 3 Days #9 capsule 08/11/17 [Rx] LORazepam [Ativan] 0.5 mg PO Q2H PRN 3 Days #15 08/11/17 [Rx] MORPHINE SUL Oral CONC [Roxanol Oral Conc] 5 mg PO Q4H PRN 3 Days #18 08/11/17 [ Rx] Oxycodone HCl/Acetaminophen [Percocet 5-325 mg Tablet] 1 tab PO Q6H PRN 3 Days # 12 08/11/17 [Rx] Triamcinolone Acet 0.1% CRM [Kenalog] 1 appl TP BID tube 08/11/17 [Rx] Allergies/Adverse Reactions: 3 Allergy/AdvReac Type Severity Reaction Status Date / Time No Known Allergies Allergy Verified 08/06/17 13:57 Date of admission: 08/06/17 14:10 Primary care physician: Anna White CNP Consults: Gastroenterology 08/06/17 16:08 Consult to Nephrology [CONS] Routine Consulting Provider: [facility] Catherine FLOOD Reason for Consult: ckd Call Completed: No 08/07/17 10:25 Consult to Occupational Therapy [CONS] Routine Comment: Evaluate, develop and implement POC Reason for Consult: needs pre-cert to rtn to ecf Does patient have active BEDREST order?: No Is patient medically & hemodynamically stable?: Yes Consult to Physical Therapy [CONS] Routine Comment: Evaluate, develop and implement POC Reason for Consult: needs pre-cert to rtn to ecf Does patient have active BEDREST order?: No Is patient medically & hemodynamically stable?: Yes 08/07/17 13:22 Consult to Hose Tubing Backer [CONS] Routine Reason for SW Consult: rtn to [facility] Discharging clinician: Jorge Guadalupe Anticipated date of discharge: 08/11/17 - Constitutional Vitals: Temp Pulse Resp BP Pulse Ox 98.4 F 59 18 113/46 98 08/11/17 10:58 08/11/17 10:58 08/11/17 10:58 08/11/17 10:58 08/11/17 10:58 General appearance: Present: cooperative, A&O X 3, pleasant, no acute distress, obese, answers questions appropriately - Respiratory Respiratory exam: Present: CTAB. Absent: accessory muscle use, rales, rhonchi, wheezes Additional comments: Normal WOB - Cardiovascular Cardiovascular exam: Present: RRR, +S1, +S2. Absent: diastolic murmur, gallop, rubs, systolic murmur Additional comments: Trace BLE edema - GI/Abdominal GI/Abdominal exam: Present: normal bowel sounds, soft. Absent: distended, hepatomegaly, mass, splenomegaly, tenderness - Psychiatric Psychiatric exam: Present: normal affect, normal mood. Absent: agitated, anxious, depressed - Skin Skin exam: Present: dry, intact, warm. Absent: cyanosis, rash - Patient Status Disposition: Transfer SNF Condition: Good Overall status at discharge: patient is progressing back to baseline - Discharge Instructions Follow Up With: Anna White CNP [Primary Care Provider] - Additional Instructions: Follow up with SNF physician in 2-3 days after discharge. Recheck BMP (CKD) and CBC (anemia) at that time. Follow up with nephrology as directed. Follow up on EGD pathology results. - Diet and Activity Activity: other (Per physical therapy) Diet: diabetic diet, low fat, low cholesterol, low salt diet, other (Cardiac Diet, Renal Diet)
--- NOTE | 2017-08-11 13:07 | Physician Discharge Referral ---
ExtendedCare Referral Info Transfer To: [facility] Provider in Charge after Transfer: Other (SNF Physician) Institutional Level of Care: Skilled - Diagnosis (1) Acute on chronic diastolic (congestive) heart failure Priority: Primary Status: Resolved (2) Acute kidney injury superimposed on chronic kidney disease Priority: Secondary Status: Resolved (3) Elevated troponin Priority: Secondary Status: Acute (4) COPD (chronic obstructive pulmonary disease) Priority: Secondary Status: Chronic (5) HTN (hypertension) Priority: Secondary Status: Chronic (6) Anemia Priority: Secondary Status: Chronic (7) Type 2 diabetes mellitus with diabetic chronic kidney disease Priority: Secondary Status: Chronic (8) Anasarca Priority: Secondary Status: Chronic (9) Blister Priority: Secondary Status: Acute Prognosis: Fair Aware of Diagnosis: Patient Aware of Prognosis: Patient - Transfer Medications Home Medications: Aspirin Enteric Coated [Aspirin EC] 81 mg PO DAILY 06/16/16 [History] Fenofibrate 160 mg PO DAILY 06/16/16 [History] Insulin LISPRO [HumaLOG] 25 units SQ TIDWM 08/11/16 [History] Atorvastatin [Lipitor] 40 mg PO HS #30 tablet 10/11/16 [Rx] Citalopram Hydrobromide [Citalopram HBr] 40 mg PO DAILY #30 tablet 10/11/16 [Rx] Isosorbide MONOnitrate (24 HR) [Imdur] 30 mg PO DAILY #30 tab.er.24h 10/11/16 [ Rx] Lisinopril [Zestril] 5 mg PO DAILY #30 tablet 10/11/16 [Rx] amLODIPine [Norvasc] 10 mg PO HS #30 tablet 10/11/16 [Rx] Acetaminophen [Tylenol 650mg SUPP] 650 mg RC Q4H PRN 04/24/17 [History] Bisacodyl [Dulcolax] 10 mg RC DAILY PRN 04/24/17 [History] Ferrous Sulfate 325 mg PO DAILY 04/24/17 [History] Hyoscyamine SL [Levsin Sl] 0.25 mg SL Q2H PRN 04/24/17 [History] Insulin DETEMIR [Levemir Flextouch] 40 unit SQ HS 04/24/17 [History] Ipratropium/Albuterol Neb [Duoneb] 3 ml IH Q4H PRN 04/24/17 [History] Metoprolol [Lopressor] 25 mg PO BID 04/24/17 [History] [place]-3/Dha/Epa/Fish Oil [Fish Oil 1,000 mg Softgel] 1,000 mg PO DAILY 04/24/17 [History] Oxygen 3 - 4 l NS DAILY 04/24/17 [History] Polyethylene Glycol 3350 [MiraLAX] 17 gm PO DAILY 04/24/17 [History] Promethazine [Phenergan] 25 mg RC Q6H PRN 04/24/17 [History] Albuterol Neb [Proventil Neb] 2.5 mg IH Q2H PRN inhsol 05/01/17 [Rx] Haloperidol Oral Conc [Haldol] 0.5 mg PO Q2H PRN 07/21/17 [History] Omeprazole [PriLOSEC] 20 mg PO DAILY 07/21/17 [History] Glucagon,Human Recombinant [Glucagon Emergency Kit] 1 mg IJ ONCE PRN 08/06/17 [ History] Potassium Chloride [Klor-Con 10] 10 meq PO BID 08/06/17 [History] Furosemide [Lasix] 40 mg PO DAILY 3 Days #3 08/11/17 [Rx] Gabapentin [Neurontin] 400 mg PO TID 3 Days #9 capsule 08/11/17 [Rx] LORazepam [Ativan] 0.5 mg PO Q2H PRN 3 Days #15 08/11/17 [Rx] MORPHINE SUL Oral CONC [Roxanol Oral Conc] 5 mg PO Q4H PRN 3 Days #18 08/11/17 [ Rx] Oxycodone HCl/Acetaminophen [Percocet 5-325 mg Tablet] 1 tab PO Q6H PRN 3 Days # 12 08/11/17 [Rx] Triamcinolone Acet 0.1% CRM [Kenalog] 1 appl TP BID tube 08/11/17 [Rx] Allergies/Adverse Reactions: 3 Allergy/AdvReac Type Severity Reaction Status Date / Time No Known Allergies Allergy Verified 08/06/17 13:57 - Respiratory Orders Oxygen / L per min (3 L by NC) Smoking Cessation: Smoking cessation has been advised. For more information, call the [place] Tobacco Quit Line at 3-172-EEOI-NOW. - Lab Orders Lab Orders: CBC, Other (include drug levels w/frequency) (BMP) - Mobility Orders Other (Per physical therapy) - Rehabiliation Orders Rehab Potential: Fair Rehab Orders: Evaluation for Physical Therapy, Evaluation for Occupational Therapy - Treatments List/Other: Daily wound care to right foot for blister - Diet Orders No Concentrated Sweets (Diabetic Diet), Renal, Cardiac CERTIFICATION: I certify that the transfer of the above named patient to an Extended Care Facility is necessary for the continuing treatment of the diagnosis listed. The above information is true and accurate reflection of patient's current condition. Confidential - Redisclosure prohibited without a patient's written consent.
== END 2017-08-11 13:48 | DRG 291 ==
LOC: 2ANU 11:53 → EMEROO 11:53 → SUATTDRO 14:10 → 2ANU 14:51
PROVIDERS: ADMIT Internal Medicine; ATTEND Family Medicine

== ENCOUNTER 2017-09-12 01:47 | Inpatient (IN) ==
[2017-09-12] MEDS ORDERED: Nitroglycerin 0.4 MG TAB.SUBL SL ONE (01:54)
--- NOTE | 2017-09-12 01:59 | Emergency Department Note ---
Disposition Clinical Impression: Hypoxia Congestive heart failure Qualifiers: Heart failure type: diastolic Heart failure chronicity: unspecified Qualified Code(s): I50.30 - Unspecified diastolic (congestive) heart failure Chronic kidney disease Qualifiers: Chronic kidney disease stage: unspecified stage Qualified Code(s): N18.9 - Chronic kidney disease, unspecified Anemia Qualifiers: Anemia type: unspecified type Qualified Code(s): D64.9 - Anemia, unspecified Disposition: Admitted As Inpatient Condition: Fair Referrals: Anna White CNP [Primary Care Provider] - Time of Disposition: 02:58 General Adult HPI - General Stated complaint: Breathing Problem Time Seen by Provider: 09/12/17 01:54 Source: patient Mode of arrival: EMS Limitations: no limitations Nursing Notes Reviewed: Yes Vital Signs Reviewed: Yes - History of Present Illness HPI Narrative: 72-year-old female history of COPD, CHF presents for evaluation of dyspnea. Patient presents via EMS. EMS reported the patient was awoken for dyspnea. Patient was found to be 88% on 3 L. Patient did get one nap in route noted to be improved. Patient's typically on 3 L at baseline. States that she has been feeling more short of breath over the past couple days. Patient's also had worsening lower leg edema over the past 2 weeks. Patient notes some chest tightness. Patient reports a non-productive cough. No notable fevers. No nausea or vomiting or abdominal pain. Pain Scale: 0 - Related Data Home Medications Medication Instructions Recorded Confirmed Aspirin Enteric Coated [Aspirin EC] 81 mg PO DAILY 06/16/16 08/06/17 Fenofibrate 160 mg PO DAILY 06/16/16 08/06/17 Insulin LISPRO [HumaLOG] 25 units SQ TIDWM 08/11/16 08/06/17 Acetaminophen [Tylenol 650mg SUPP] 650 mg RC Q4H PRN 04/24/17 08/06/17 Bisacodyl [Dulcolax] 10 mg RC DAILY PRN 04/24/17 08/06/17 Ferrous Sulfate 325 mg PO DAILY 04/24/17 08/06/17 Hyoscyamine SL [Levsin Sl] 0.25 mg SL Q2H PRN 04/24/17 08/06/17 Insulin DETEMIR [Levemir Flextouch] 40 unit SQ HS 04/24/17 08/06/17 Ipratropium/Albuterol Neb [Duoneb] 3 ml IH Q4H PRN 04/24/17 08/06/17 Metoprolol [Lopressor] 25 mg PO BID 04/24/17 08/06/17 [place]-3/Dha/Epa/Fish Oil [Fish Oil 1,000 mg PO DAILY 04/24/17 08/06/17 1,000 mg Softgel] Oxygen 3 - 4 l NS DAILY 04/24/17 08/06/17 Polyethylene Glycol 3350 [MiraLAX] 17 gm PO DAILY 04/24/17 08/06/17 Promethazine [Phenergan] 25 mg RC Q6H PRN 04/24/17 08/06/17 Haloperidol Oral Conc [Haldol] 0.5 mg PO Q2H PRN 07/21/17 08/06/17 Omeprazole [PriLOSEC] 20 mg PO DAILY 07/21/17 08/06/17 Glucagon,Human Recombinant 1 mg IJ ONCE PRN 08/06/17 08/06/17 [Glucagon Emergency Kit] Potassium Chloride [Klor-Con 10] 10 meq PO BID 08/06/17 08/06/17 Previous Rx's Medication Instructions Recorded Atorvastatin [Lipitor] 40 mg PO HS #30 tablet 10/11/16 Citalopram Hydrobromide 40 mg PO DAILY #30 tablet 10/11/16 [Citalopram HBr] Isosorbide MONOnitrate (24 HR) 30 mg PO DAILY #30 tab.er.24h 10/11/16 [Imdur] Lisinopril [Zestril] 5 mg PO DAILY #30 tablet 10/11/16 amLODIPine [Norvasc] 10 mg PO HS #30 tablet 10/11/16 Albuterol Neb [Proventil Neb] 2.5 mg IH Q2H PRN inhsol 05/01/17 Furosemide [Lasix] 40 mg PO DAILY 3 Days #3 08/11/17 Gabapentin [Neurontin] 400 mg PO TID 3 Days #9 capsule 08/11/17 LORazepam [Ativan] 0.5 mg PO Q2H PRN 3 Days #15 08/11/17 MORPHINE SUL Oral CONC [Roxanol 5 mg PO Q4H PRN 3 Days #18 08/11/17 Oral Conc] Oxycodone HCl/Acetaminophen 1 tab PO Q6H PRN 3 Days #12 08/11/17 [Percocet 5-325 mg Tablet] Triamcinolone Acet 0.1% CRM 1 appl TP BID tube 08/11/17 [Kenalog] Allergies Allergy/AdvReac Type Severity Reaction Status Date / Time No Known Allergies Allergy Verified 08/06/17 13:57 All systems ED: reviewed and negative except as stated. Constitutional: Denies: fever Cardiovascular: Reports: chest pain Respiratory: Reports: cough, dyspnea. Denies: sputum production Gastrointestinal: Denies: abdominal pain, nausea, vomiting Past Medical History - Past Medical History Source: patient Medical history: Reports: CHF, coronary artery disease, diabetes, hyperlipidemia , hypertension, myocardial infarction, renal disease Surgical history: Reports: orthopedic, other Psychiatric history: Reports: anxiety, depression SEISMIC COMPUTER history: Reports: no SEISMIC COMPUTER history - Social History Smoking Status: Never smoker Smokeless Tobacco Status: No Alcohol use: Reports: none Drug use: Reports: none Physical Exam - General Limitations: no limitations General appearance: alert, anxious, obese - Head Head exam: atraumatic, normocephalic, normal inspection - Eye Eye exam: Present: normal appearance, PERRL, EOMI - ENT ENT exam: normal exam - Neck Neck exam: Present: normal inspection - Chest Chest inspection: Present: normal inspection, symmetric chest wall rise - Respiratory Respiratory exam: Present: accessory muscle use, prolonged expiratory phase, other (Bibasally rails) - Cardiovascular Cardiovascular exam: Present: regular rate, normal rhythm - Abdominal Exam Abdominal exam: Present: soft, Non-Tender - Extremities Exam Extremities exam: Present: normal inspection, pedal edema (1+ pedal edema) - Expanded Lower Extremity Exam Neurovascular/Tendon exam: Present: normal capillary refill - Skin Skin exam: Present: warm, dry, intact, normal color Course Course Narrative: Patient seen and examined upon EMS arrival. Patient was noted to be tachypnea. Patient appears to be more heart failure presentation then COPD. Patient will benefit from BiPAP as well as sublingual nitroglycerin. Patient will be admitted. Basic labs and chest x-ray are pending. - Reevaluation(s) Reevaluation #1: Patient's breathing more comfortably with the addition of BiPAP. Patient's records reviewed shows she does have a history of diastolic heart failure with recent admission for anemia, elevated troponin chronic kidney disease. Time: 02:47 Reevaluation #2: Discussed case with the hospitalist. Will get a CT of the chest to help further elucidate the findings on chest x-ray. At this point the patient clinically does not have pneumonia. Time: 03:08 Reevaluation #3: Patient's resting comfortably awaiting a bed. No acute distress. Time: 04:38 Vital Signs Temperature 98.1 F 09/12/17 01:51 Pulse Rate 68 09/12/17 01:51 Respiratory Rate 18 09/12/17 01:51 Blood Pressure 184/89 09/12/17 01:51 O2 Sat by Pulse Oximetry 94 09/12/17 01:51 Temperature 98.1 F 09/12/17 01:51 Pulse Rate 59 09/12/17 03:22 Respiratory Rate 21 09/12/17 03:35 Blood Pressure 168/86 09/12/17 03:22 O2 Sat by Pulse Oximetry 94 09/12/17 03:35 Oxygen Delivery Oxygen Delivery Bipap Medical Decision Making - [facility] Narrative Medical decision making narrative: 72-year-old female presents for evaluation of dyspnea. Patient is on bed hypoxia on a baseline oxygen status. Patient does have a recent hospitalization for elevated troponin, and anemia and congestive heart failure. Patient appeared with rails and increased swelling on exam. Concerns for heart failure. Recent echo showed diastolic heart failure. BiPAP was placed upon arrival to the ED. Patient received sublingual nitroglycerin which improved her symptoms. Patient was also given Lasix. Patient does have baseline chronic kidney disease. Patient was not given any antibiotics initially given clinical also as physical exam findings consistent with congestive heart failure. Patient's BNP was elevated higher than it has been in the past. Patient's chest x-ray showed atelectasis versus pneumonia which prompted a CT scan to further elucidate the chest x-ray findings. This was done in conjunction with the hospitalist. Patient was given an aspirin. - Medical Records Medical records reviewed: Yes I reviewed the patient's medical records. Impressions: LVEF 60%. Diastolic dysfunction with elevated filling pressures. Mildly dilated RV with normal function. Moderate mitral regurgitation. Mild tricuspid regurgitation. Mild pulmonic regurgitation. Mild-moderate pulmonary hypertension. No evidence of PFO with agitated saline contrast. - Lab Data Lab results reviewed: Yes I reviewed the patient's lab results. Result diagrams: 09/12/17 02:09 09/12/17 02:09 Lab Results 09/12/17 09/12/17 09/12/17 Range/Units 02:09 02:09 02:09 WBC 10.2 (4.3-11.1) K/mcL RBC 2.91 L (3.82-4.97) M/mcL Hgb 8.0 L (11.5-15.4) g/dL Hct 25.4 L (35.3-44.9) % MCV 87.3 (83.0-100.0) fL MCH 27.5 L (28.0-33.3) pg MCHC 31.5 L (31.6-35.5) g/dL RDW 15.4 H (11.5-14.5) % Plt Count 284 (140-400) K/mcL MPV 9.6 (9.4-12.4) fL Immature Gran % 0.5 (0-4) % Seg Neutrophils % 60.1 % Lymphocytes % 24.0 % Monocytes % 6.8 % Eosinophils % 8.2 % Basophils % 0.4 % Neutrophils # 6.1 (1.6-8.9) K/mcL Lymphocytes # 2.4 (0.6-4.6) K/mcL Monocytes # 0.7 (0.0-1.3) K/mcL Eosinophils # 0.8 H (0.0-0.6) K/mcL Basophils # 0.0 (0.0-0.2) K/mcL VBG pH (7.32-7.42) pH Units VBG pCO2 (41-51) mmHg VBG pO2 (25-50) mmHg VBG HCO3 (21-27) mEq/L Sodium 142 (136-145) mEq/L Potassium 3.9 (3.5-5.1) mEq/L Chloride 103 (98-107) mEq/L Carbon Dioxide 29 (23-29) mEq/L BUN 42 H (8-23) mg/dL Creatinine 2.28 H (0.60-1.20) mg/dL Est GFR ( Amer) 25 L (> 60) Est GFR (Non-Af Amer) 21 L (> 60) BUN/Creatinine Ratio 18 (6-26) Glucose 188 H (70-105) mg/dL Calculated Osmolality 309 H (280-300) Calcium 9.2 (8.6-10.3) mg/dL Troponin I < 0.03 (< 0.04) ng/mL B-Natriuretic Peptide 848 H (Less than 100) pg/mL Urine Color (Yellow) Urine Clarity (Clear) Urine pH (5.0-8.0) pH Units Ur Specific [place] (1.010-1.025) Urine Protein (Neg-Trace) mg/dL Urine Glucose (UA) (Normal) mg/dL Urine Ketones (Negative) mg/dL Urine Blood (Negative) Urine Nitrite (Negative) Urine Bilirubin (Negative) Urine Urobilinogen (Normal) mg/dL Ur Leukocyte Esterase (Negative) Urine Microscopic RBC (0-3) per hpf Urine Microscopic WBC (0-3) per hpf Ur Squamous Epith Cells (None-Few) per lpf Ur Transition Epith Cell (None-Few) per hpf Ur Renal Epithelial Cell (None-Few) per hpf Urine Bacteria (None-Few) per hpf Hyaline Casts (None-Few) per lpf 09/12/17 09/12/17 Range/Units 02:18 02:24 WBC (4.3-11.1) K/mcL RBC (3.82-4.97) M/mcL Hgb (11.5-15.4) g/dL Hct (35.3-44.9) % MCV (83.0-100.0) fL MCH (28.0-33.3) pg MCHC (31.6-35.5) g/dL RDW (11.5-14.5) % Plt Count (140-400) K/mcL MPV (9.4-12.4) fL Immature Gran % (0-4) % Seg Neutrophils % % Lymphocytes % % Monocytes % % Eosinophils % % Basophils % % Neutrophils # (1.6-8.9) K/mcL Lymphocytes # (0.6-4.6) K/mcL Monocytes # (0.0-1.3) K/mcL Eosinophils # (0.0-0.6) K/mcL Basophils # (0.0-0.2) K/mcL VBG pH 7.37 (7.32-7.42) pH Units VBG pCO2 56 H (41-51) mmHg VBG pO2 61 H (25-50) mmHg VBG HCO3 32 H (21-27) mEq/L Sodium (136-145) mEq/L Potassium (3.5-5.1) mEq/L Chloride (98-107) mEq/L Carbon Dioxide (23-29) mEq/L BUN (8-23) mg/dL Creatinine (0.60-1.20) mg/dL Est GFR ( Amer) (> 60) Est GFR (Non-Af Amer) (> 60) BUN/Creatinine Ratio (6-26) Glucose (70-105) mg/dL Calculated Osmolality (280-300) Calcium (8.6-10.3) mg/dL Troponin I (< 0.04) ng/mL B-Natriuretic Peptide (Less than 100) pg/mL Urine Color Yellow (Yellow) Urine Clarity Clear (Clear) Urine pH 5.5 (5.0-8.0) pH Units Ur Specific [place] 1.025 (1.010-1.025) Urine Protein >=300 H (Neg-Trace) mg/dL Urine Glucose (UA) 250 H (Normal) mg/dL Urine Ketones Negative (Negative) mg/dL Urine Blood Moderate H (Negative) Urine Nitrite Negative (Negative) Urine Bilirubin Negative (Negative) Urine Urobilinogen Normal (Normal) mg/dL Ur Leukocyte Esterase Negative (Negative) Urine Microscopic RBC 5-15 H (0-3) per hpf Urine Microscopic WBC 5-15 H (0-3) per hpf Ur Squamous Epith Cells Many H (None-Few) per lpf Ur Transition Epith Cell Few (None-Few) per hpf Ur Renal Epithelial Cell Few (None-Few) per hpf Urine Bacteria Few (None-Few) per hpf Hyaline Casts Few (None-Few) per lpf - Radiology Data Radiology results reviewed: Yes I reviewed the patient's radiology results. Chest X-Ray 09/12/17 01:54 IMPRESSION: Bilateral airspace disease, either atelectasis and/or pneumonia. D/ / Xavi Oakes MD / Xavi Oakes MD Interpreting Provider: Xavi Oakes MD - EKG Data EKG #1 EKG attestation: Yes I reviewed and interpreted this EKG. EKG shows normal: sinus rhythm Rate: normal Rhythm: NSR [place]/QRS: normal Q waves: v1, v2, v3 T wave inversions noted in: aVR Interpretation: no acute changes, nonspecific ST-T wave changes S.Wan.[email or web address] - Kristin Situation: Demographics Background: Presenting Complaint Assessment: Vital Signs, Course and respsone to treatment, Patient/Family Expectation Recommendation: Barrier(s) to disposition, Recommendation based on pending studies, treatments, or consults S.[email or web address] Report Given to: Dr. Lurdes Foster Repor Time: 03:09
[2017-09-12 02:23] LABS: Basophils % 0.4 %; Eosinophils # 0.8 K/mcL (0.0-0.6); Eosinophils % 8.2 %; Hematocrit 25.4 % (35.3-44.9); Immature Granulocytes % 0.5 % (0-4); Lymphocytes # 2.4 K/mcL (0.6-4.6); Mean Corpuscular HGB Conc 31.5 g/dL (31.6-35.5); Mean Corpuscular Hemoglobin 27.5 pg (28.0-33.3); Mean Corpuscular Volume 87.3 fL (83.0-100.0); Mean Platelet Volume 9.6 fL (9.4-12.4); Monocytes # 0.7 K/mcL (0.0-1.3); Monocytes % 6.8 %; Neutrophils # 6.1 K/mcL (1.6-8.9); Platelet Count 284 K/mcL (140-400); Red Blood Count 2.91 M/mcL (3.82-4.97); Red Cell Distribution Width 15.4 % (11.5-14.5); Segmented Neutrophils % 60.1 %
[2017-09-12 02:28] LABS: VBG HCO3 32 mEq/L (21-27); VBG PCO2 56 mmHg (41-51); VBG PH 7.37 pH Units (7.32-7.42); VBG PO2 61 mmHg (25-50)
[2017-09-12 02:44] LABS: BUN/Creatinine Ratio 18 (6-26); Blood Urea Nitrogen 42 mg/dL (8-23); Calcium 9.2 mg/dL (8.6-10.3); Carbon Dioxide 29 mEq/L (23-29); Chloride 103 mEq/L (98-107); Glucose 188 mg/dL (70-105); Osmolality,Calculated 309 (280-300); Potassium 3.9 mEq/L (3.5-5.1); Sodium 142 mEq/L (136-145); eGFR For African Americans 25 (> 60); eGFR For Non-African Americans 21 (> 60)
[2017-09-12 02:45] LABS: Troponin I < 0.03 ng/mL (< 0.04)
[2017-09-12] MEDS ORDERED: Furosemide 40 MG/4 ML VIAL IVP ONE (02:48)
[2017-09-12 02:56] LABS: Bilirubin,Urine Negative (Negative); Blood,Urine Moderate (Negative); Clarity,Urine Clear (Clear); Color,Urine Yellow (Yellow); Glucose,Urine (UA) 250 mg/dL (Normal); Ketones,Urine Negative (Negative); Leukocyte Esterase,Urine Negative (Negative); Nitrite,Urine Negative (Negative); PH,Urine 5.5 pH Units (5.0-8.0); Protein,Urine >=300 mg/dL (Neg-Trace); Specific Gravity,Urine 1.025 (1.010-1.025); Urobilinogen,Urine Normal (Normal)
[2017-09-12] MEDS ORDERED: Nitroglycerin 1 INCH/GM PACKET TP ONE (02:57)
[2017-09-12] MEDS ORDERED: Aspirin 81 MG TAB.CHEW PO ONE (02:58)
[2017-09-12 03:08] LABS: Hyaline Casts,Urine Few per lpf (None-Few); Squamous Epithelial Cell,Urine Many per lpf (None-Few)
[2017-09-12 03:09] LABS: Bacteria,Urine Few per hpf (None-Few); Renal Epithelial Cells,Urine Few per hpf (None-Few); Transitional Epi Cells,Urine Few per hpf (None-Few)
--- NOTE | 2017-09-12 03:38 | Emergency Department Note ---
Disposition Clinical Impression: Hypoxia Congestive heart failure Qualifiers: Heart failure type: diastolic Heart failure chronicity: unspecified Qualified Code(s): I50.30 - Unspecified diastolic (congestive) heart failure Chronic kidney disease Qualifiers: Chronic kidney disease stage: unspecified stage Qualified Code(s): N18.9 - Chronic kidney disease, unspecified Anemia Qualifiers: Anemia type: unspecified type Qualified Code(s): D64.9 - Anemia, unspecified Disposition: Admitted As Inpatient Condition: Fair Referrals: Anna White CNP [Primary Care Provider] - General Adult HPI - General Chief complaint: ED Shortness of Breath/Dyspnea Stated complaint: Breathing Problem Time Seen by Provider: 09/12/17 01:54 Source: patient Mode of arrival: EMS Limitations: no limitations Nursing Notes Reviewed: Yes Vital Signs Reviewed: Yes - History of Present Illness Pain Scale: 0 - Related Data Home Medications Medication Instructions Recorded Confirmed Aspirin Enteric Coated [Aspirin EC] 81 mg PO DAILY 06/16/16 08/06/17 Fenofibrate 160 mg PO DAILY 06/16/16 08/06/17 Insulin LISPRO [HumaLOG] 25 units SQ TIDWM 08/11/16 08/06/17 Acetaminophen [Tylenol 650mg SUPP] 650 mg RC Q4H PRN 04/24/17 08/06/17 Bisacodyl [Dulcolax] 10 mg RC DAILY PRN 04/24/17 08/06/17 Ferrous Sulfate 325 mg PO DAILY 04/24/17 08/06/17 Hyoscyamine SL [Levsin Sl] 0.25 mg SL Q2H PRN 04/24/17 08/06/17 Insulin DETEMIR [Levemir Flextouch] 40 unit SQ HS 04/24/17 08/06/17 Ipratropium/Albuterol Neb [Duoneb] 3 ml IH Q4H PRN 04/24/17 08/06/17 Metoprolol [Lopressor] 25 mg PO BID 04/24/17 08/06/17 Bard-3/Dha/Epa/Fish Oil [Fish Oil 1,000 mg PO DAILY 04/24/17 08/06/17 1,000 mg Softgel] Oxygen 3 - 4 l NS DAILY 04/24/17 08/06/17 Polyethylene Glycol 3350 [MiraLAX] 17 gm PO DAILY 04/24/17 08/06/17 Promethazine [Phenergan] 25 mg RC Q6H PRN 04/24/17 08/06/17 Haloperidol Oral Conc [Haldol] 0.5 mg PO Q2H PRN 07/21/17 08/06/17 Omeprazole [PriLOSEC] 20 mg PO DAILY 07/21/17 08/06/17 Glucagon,Human Recombinant 1 mg IJ ONCE PRN 08/06/17 08/06/17 [Glucagon Emergency Kit] Potassium Chloride [Klor-Con 10] 10 meq PO BID 08/06/17 08/06/17 Previous Rx's Medication Instructions Recorded Atorvastatin [Lipitor] 40 mg PO HS #30 tablet 10/11/16 Citalopram Hydrobromide 40 mg PO DAILY #30 tablet 10/11/16 [Citalopram HBr] Isosorbide MONOnitrate (24 HR) 30 mg PO DAILY #30 tab.er.24h 10/11/16 [Imdur] Lisinopril [Zestril] 5 mg PO DAILY #30 tablet 10/11/16 amLODIPine [Norvasc] 10 mg PO HS #30 tablet 10/11/16 Albuterol Neb [Proventil Neb] 2.5 mg IH Q2H PRN inhsol 05/01/17 Furosemide [Lasix] 40 mg PO DAILY 3 Days #3 08/11/17 Gabapentin [Neurontin] 400 mg PO TID 3 Days #9 capsule 08/11/17 LORazepam [Ativan] 0.5 mg PO Q2H PRN 3 Days #15 08/11/17 MORPHINE SUL Oral CONC [Roxanol 5 mg PO Q4H PRN 3 Days #18 08/11/17 Oral Conc] Oxycodone HCl/Acetaminophen 1 tab PO Q6H PRN 3 Days #12 08/11/17 [Percocet 5-325 mg Tablet] Triamcinolone Acet 0.1% CRM 1 appl TP BID tube 08/11/17 [Kenalog] Allergies Allergy/AdvReac Type Severity Reaction Status Date / Time No Known Allergies Allergy Verified 08/06/17 13:57 Constitutional: Denies: fever Cardiovascular: Reports: chest pain Respiratory: Reports: cough, dyspnea. 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: no MOBILE SOLUTIONS ARCHITECT history - Social History Smoking Status: Never smoker Smokeless Tobacco Status: No Alcohol use: Reports: none Drug use: Reports: none Physical Exam - General Limitations: no limitations General appearance: alert, anxious, obese Course Vital Signs Temperature 98.1 F 09/12/17 01:51 Pulse Rate 68 09/12/17 01:51 Respiratory Rate 18 09/12/17 01:51 Blood Pressure 184/89 09/12/17 01:51 O2 Sat by Pulse Oximetry 94 09/12/17 01:51 Temperature 98.1 F 09/12/17 01:51 Pulse Rate 59 09/12/17 03:22 Respiratory Rate 21 09/12/17 03:22 Blood Pressure 168/86 09/12/17 03:22 O2 Sat by Pulse Oximetry 95 09/12/17 03:22 Oxygen Delivery Oxygen Delivery Bipap Medical Decision Making - Lab Data Result diagrams: 09/12/17 02:09 09/12/17 02:09 Lab Results 09/12/17 09/12/17 09/12/17 Range/Units 02:09 02:09 02:09 WBC 10.2 (4.3-11.1) K/mcL RBC 2.91 L (3.82-4.97) M/mcL Hgb 8.0 L (11.5-15.4) g/dL Hct 25.4 L (35.3-44.9) % MCV 87.3 (83.0-100.0) fL MCH 27.5 L (28.0-33.3) pg MCHC 31.5 L (31.6-35.5) g/dL RDW 15.4 H (11.5-14.5) % Plt Count 284 (140-400) K/mcL MPV 9.6 (9.4-12.4) fL Immature Gran % 0.5 (0-4) % Seg Neutrophils % 60.1 % Lymphocytes % 24.0 % Monocytes % 6.8 % Eosinophils % 8.2 % Basophils % 0.4 % Neutrophils # 6.1 (1.6-8.9) K/mcL Lymphocytes # 2.4 (0.6-4.6) K/mcL Monocytes # 0.7 (0.0-1.3) K/mcL Eosinophils # 0.8 H (0.0-0.6) K/mcL Basophils # 0.0 (0.0-0.2) K/mcL VBG pH (7.32-7.42) pH Units VBG pCO2 (41-51) mmHg VBG pO2 (25-50) mmHg VBG HCO3 (21-27) mEq/L Sodium 142 (136-145) mEq/L Potassium 3.9 (3.5-5.1) mEq/L Chloride 103 (98-107) mEq/L Carbon Dioxide 29 (23-29) mEq/L BUN 42 H (8-23) mg/dL Creatinine 2.28 H (0.60-1.20) mg/dL Est GFR ( Amer) 25 L (> 60) Est GFR (Non-Af Amer) 21 L (> 60) BUN/Creatinine Ratio 18 (6-26) Glucose 188 H (70-105) mg/dL Calculated Osmolality 309 H (280-300) Calcium 9.2 (8.6-10.3) mg/dL Troponin I < 0.03 (< 0.04) ng/mL B-Natriuretic Peptide 848 H (Less than 100) pg/mL Urine Color (Yellow) Urine Clarity (Clear) Urine pH (5.0-8.0) pH Units Ur Specific [place] (1.010-1.025) Urine Protein (Neg-Trace) mg/dL Urine Glucose (UA) (Normal) mg/dL Urine Ketones (Negative) mg/dL Urine Blood (Negative) Urine Nitrite (Negative) Urine Bilirubin (Negative) Urine Urobilinogen (Normal) mg/dL Ur Leukocyte Esterase (Negative) Urine Microscopic RBC (0-3) per hpf Urine Microscopic WBC (0-3) per hpf Ur Squamous Epith Cells (None-Few) per lpf Ur Transition Epith Cell (None-Few) per hpf Ur Renal Epithelial Cell (None-Few) per hpf Urine Bacteria (None-Few) per hpf Hyaline Casts (None-Few) per lpf 18 09/12/17 Range/Units 02:18 02:24 WBC (4.3-11.1) K/mcL RBC (3.82-4.97) M/mcL Hgb (11.5-15.4) g/dL Hct (35.3-44.9) % MCV (83.0-100.0) fL MCH (28.0-33.3) pg MCHC (31.6-35.5) g/dL RDW (11.5-14.5) % Plt Count (140-400) K/mcL MPV (9.4-12.4) fL Immature Gran % (0-4) % Seg Neutrophils % % Lymphocytes % % Monocytes % % Eosinophils % % Basophils % % Neutrophils # (1.6-8.9) K/mcL Lymphocytes # (0.6-4.6) K/mcL Monocytes # (0.0-1.3) K/mcL Eosinophils # (0.0-0.6) K/mcL Basophils # (0.0-0.2) K/mcL VBG pH 7.37 (7.32-7.42) pH Units VBG pCO2 56 H (41-51) mmHg VBG pO2 61 H (25-50) mmHg VBG HCO3 32 H (21-27) mEq/L Sodium (136-145) mEq/L Potassium (3.5-5.1) mEq/L Chloride (98-107) mEq/L Carbon Dioxide (23-29) mEq/L BUN (8-23) mg/dL Creatinine (0.60-1.20) mg/dL Est GFR ( Amer) (> 60) Est GFR (Non-Af Amer) (> 60) BUN/Creatinine Ratio (6-26) Glucose (70-105) mg/dL Calculated Osmolality (280-300) Calcium (8.6-10.3) mg/dL Troponin I (< 0.04) ng/mL B-Natriuretic Peptide (Less than 100) pg/mL Urine Color Yellow (Yellow) Urine Clarity Clear (Clear) Urine pH 5.5 (5.0-8.0) pH Units Ur Specific [place] 1.025 (1.010-1.025) Urine Protein >=300 H (Neg-Trace) mg/dL Urine Glucose (UA) 250 H (Normal) mg/dL Urine Ketones Negative (Negative) mg/dL Urine Blood Moderate H (Negative) Urine Nitrite Negative (Negative) Urine Bilirubin Negative (Negative) Urine Urobilinogen Normal (Normal) mg/dL Ur Leukocyte Esterase Negative (Negative) Urine Microscopic RBC 5-15 H (0-3) per hpf Urine Microscopic WBC 5-15 H (0-3) per hpf Ur Squamous Epith Cells Many H (None-Few) per lpf Ur Transition Epith Cell Few (None-Few) per hpf Ur Renal Epithelial Cell Few (None-Few) per hpf Urine Bacteria Few (None-Few) per hpf Hyaline Casts Few (None-Few) per lpf Critical Care Time Critical Care Time: Yes Total Critical Care Time: 40 Attestation: Critical care performed: Time is exclusive of separately billable procedures. Time includes: direct patient care, patient reassessment, coordination of patient care, interpretation of data (laboratory data, radiology data, and respiratory data), review of patient's medical records, medical consultation and documentation of patient care. Procedures included in critical care time: Procedures excluded from critical care time: Attestation Statement - Attestation Attestation: I, Dustin Trent MD, personally evaluated this patient and discussed their management with the resident physician. I reviewed the resident's note and agree with the documented findings, medical decision making, and plan of care. 72-year-old female presents to the emergency department by ambulance with a complaint that she awoke from sleep with shortness of breath earlier tonight. She denies any chest pain. There has been a mild nonproductive cough. No fever. On examination patient is a well-developed obese elderly female in mild respiratory distress. She is alert and oriented 3. There is no cyanosis or diaphoresis. Breath sounds are decreased bilaterally with a few bibasilar rales. No wheezes. Heart regular rate and rhythm. Abdomen soft and nontender with normal bowel sounds. Labs reviewed. BNP 848 which is above patient's baseline. Chronic renal insufficiency at baseline. Chest x-ray shows bilateral airspace disease consistent with atelectasis and/or pneumonia. Clinically patient's presentation and exam findings are more consistent with CHF. Also on reviewing the chest x-ray films it looks more like CHF. We will obtain a CT of the chest to try to further differentiate. Patient was placed on BiPAP with significant improvement in her symptoms. The hospitalist, Dr. Chatman, was consulted and accepted admission of the patient.
[2017-09-12] MEDS ORDERED: Acetaminophen 325 MG TABLET PO PRN (03:52)
[2017-09-12] MEDS ORDERED: Naloxone 0.4 MG/ML INJ IVP PRN (03:52)
--- NOTE | 2017-09-12 04:38 | Event Note ---
Date of Encounter: 09/12/17 Time of Encounter: 04:29 Patient was seen and examined. I agree with the H&P as written by the Resident Physician. Briefly, patient is a 72 yo F with multiple comorbidities including CKD3, diastolic HF, DM, HTN, PAF, COPD on 3 L O2, CAD, bullous pemphigoid, anemia of chronic disease, morbid obesity who present with shortness of breath that awoke her from sleep. Patient reports increased swelling as well. Previous presentations and admissions for CHF exacerbation. Recent echo last month with EF 60% with diastolic dysfunction. Upon presentation, patient is not really hypoxic but is in significant distress and put on Bipap. Work up including labs and imaging studies are consistent with CHF. Patient was given lasix 40 mg IV in the ED. She was also given SL nitro and put on a nitro patch for CHF purposes. The patient was hypertensive in the ED with initial BP of 184/89. She reports compliance with med, diet, and fluid restriction, although that may be questionable as she is not really aware how much fluid restrictions she is on. She should be on lasix 40 mg BID according to her but according to the last discharge, it is listed as daily. A/Ox3, on bipap RRR. S1, S2, no m/r/g Dimished with crackles bilaterally Soft, NT, ND, +BS, obese 2-3+ LE edema, multiple scratches/scabs throughout extremities Nonfocal Admit to hospitalist for acute diastolic heart failure exacerbation O2 support lasix 40 mg BID No need to repeat an echo cardiac/diabetic diet Nebs I&Os fluid restriction Resume home antihypertensives Add hydralazine IV prn. Resume home basal insulin, SSI Resume home meds PT/OT DVT ppx
--- NOTE | 2017-09-12 05:03 | Internal Med History&Physical ---
Date of Encounter: 09/12/17 Time of Encounter: 04:47 Internal Medicine - H&P: HPI Chief complaint: SOB Admitted From: Home Plans for Post Hospital Care: Home History of present illness: Ms. Starr is a 72 year old female with a past medical history of diastolic CHF , COPD with 3L home O2, hypertension, hyperlipidemia, CAD, COPD, diabetes, bullous pemphigoid and chronic anemia secondary to CKD who presented to the ED with worsening shortness of breath that began this evening at midnight. Patient states that she woke up from sleeping with shortness of breath. She states that she has had chills, a cough and was achy before going to bed. She denies adding salt to her food but did eat wheat thins for dinner. She denies weight gain, orthopnea, N/V. Patient came into the ED and was tachypneic with a RR of 29 and BP of 184/69. BNP 849, VBG ph+ 7.37, CO2= 56, HCO3 32. Patient was placed on BiPAP and given sublingual nitrogen for her elevated blood pressure. Lasix 40mg IV given. CT of chest showed patchy ground-glass opacities and consolidation in the RUL. Patient was admitted to the floor for acute respiratory failure 2/2 to CHF. Past Med Surg Social Fam HX - Past Medical History Medical history: CHF, coronary artery disease, diabetes, hyperlipidemia, hypertension, myocardial infarction, renal disease Additional medical history: immune disorder that has caused sores to arms and legs. Psychiatric history: anxiety, depression - Past Surgical History Surgical History: orthopedic, other - Social History Smoking Status: Never smoker Smokeless Tobacco Status: No Alcohol use: none Drug use: none - Family History Father Family Member Ethnicity: Non- Living Status: Hx Family Cardiac Disorders: Yes (OK, HTN, Cardiomegaly) Hx Family Endocrine Disorder: Yes (DM) Mother Family Member Ethnicity: Non- Living Status: Hx Family Cancer: Yes (Breast) Brother Family Member Ethnicity: Non- Living Status: Still Living Hx Family Cardiac Disorders: Yes (HTN) Hx Family Endocrine Disorder: Yes (DM) Sister Family Member Ethnicity: Non- Living Status: Still Living Hx Family Cardiac Disorders: Yes (HTN) Hx Family Endocrine Disorder: Yes (DM) Internal Medicine - H&P: Meds Aspirin Enteric Coated [Aspirin EC] 81 mg PO DAILY 06/16/16 [History] Fenofibrate 160 mg PO DAILY 06/16/16 [History] Insulin LISPRO [HumaLOG] 25 units SQ TIDWM 08/11/16 [History] Atorvastatin [Lipitor] 40 mg PO HS #30 tablet 10/11/16 [Rx] Citalopram Hydrobromide [Citalopram HBr] 40 mg PO DAILY #30 tablet 10/11/16 [Rx] Isosorbide MONOnitrate (24 HR) [Imdur] 30 mg PO DAILY #30 tab.er.24h 10/11/16 [ Rx] Lisinopril [Zestril] 5 mg PO DAILY #30 tablet 10/11/16 [Rx] amLODIPine [Norvasc] 10 mg PO HS #30 tablet 10/11/16 [Rx] Acetaminophen [Tylenol 650mg SUPP] 650 mg RC Q4H PRN 04/24/17 [History] Bisacodyl [Dulcolax] 10 mg RC DAILY PRN 04/24/17 [History] Ferrous Sulfate 325 mg PO DAILY 04/24/17 [History] Hyoscyamine SL [Levsin Sl] 0.25 mg SL Q2H PRN 04/24/17 [History] Insulin DETEMIR [Levemir Flextouch] 40 unit SQ HS 04/24/17 [History] Ipratropium/Albuterol Neb [Duoneb] 3 ml IH Q4H PRN 04/24/17 [History] Metoprolol [Lopressor] 25 mg PO BID 04/24/17 [History] [place]-3/Dha/Epa/Fish Oil [Fish Oil 1,000 mg Softgel] 1,000 mg PO DAILY 04/24/17 [History] Oxygen 3 - 4 l NS DAILY 04/24/17 [History] Polyethylene Glycol 3350 [MiraLAX] 17 gm PO DAILY 04/24/17 [History] Promethazine [Phenergan] 25 mg RC Q6H PRN 04/24/17 [History] Albuterol Neb [Proventil Neb] 2.5 mg IH Q2H PRN inhsol 05/01/17 [Rx] Haloperidol Oral Conc [Haldol] 0.5 mg PO Q2H PRN 07/21/17 [History] Omeprazole [PriLOSEC] 20 mg PO DAILY 07/21/17 [History] Glucagon,Human Recombinant [Glucagon Emergency Kit] 1 mg IJ ONCE PRN 08/06/17 [ History] Potassium Chloride [Klor-Con 10] 10 meq PO BID 08/06/17 [History] Furosemide [Lasix] 40 mg PO DAILY 3 Days #3 08/11/17 [Rx] Gabapentin [Neurontin] 400 mg PO TID 3 Days #9 capsule 08/11/17 [Rx] LORazepam [Ativan] 0.5 mg PO Q2H PRN 3 Days #15 08/11/17 [Rx] MORPHINE SUL Oral CONC [Roxanol Oral Conc] 5 mg PO Q4H PRN 3 Days #18 08/11/17 [ Rx] Oxycodone HCl/Acetaminophen [Percocet 5-325 mg Tablet] 1 tab PO Q6H PRN 3 Days # 12 08/11/17 [Rx] Triamcinolone Acet 0.1% CRM [Kenalog] 1 appl TP BID tube 08/11/17 [Rx] 3 Allergy/AdvReac Type Severity Reaction Status Date / Time No Known Allergies Allergy Verified 08/06/17 13:57 All Systems PM: A 10-system review of systems was performed and is negative for pertinent findings except as documented above in the HPI. - Constitutional Vitals: Temp Pulse Resp BP Pulse Ox 98.1 F 59 21 168/86 94 09/12/17 01:51 09/12/17 03:22 09/12/17 03:35 09/12/17 03:22 09/12/17 03:35 Exam: Constitutional: Alert, in no acute distress with BIPAP on Head: Normocephalic, atraumatic Heart: Normal, regular rate and rhythm, no murmurs Lungs: Right lung with decrease air movement, crackles present,breathing unlabored with BIPAP mask Abdomen: Soft, nondistended, nontender, bowel sounds present and normal, no guarding or rigidity. Extremities: +2 pitting edema, No clubbing radial pulse +2/4, capillary refill <2sec. Skin: scabs present all over her skin, skin warm and dry, no lesions,, no jaundice Neurologic strength 5/5 in all extremitites Psych: Cooperative with exam, good eye contact, cognitive function intact, speech clear, thought process logical, and goal directed Internal Med - H&P Results - Labs CBC & Chem 7: 09/12/17 02:09 09/12/17 02:09 Labs: Short CBC 09/12/17 Range/Units 02:09 WBC 10.2 (4.3-11.1) K/mcL Hgb 8.0 L (11.5-15.4) g/dL Hct 25.4 L (35.3-44.9) % Plt Count 284 (140-400) K/mcL Neutrophils # 6.1 (1.6-8.9) K/mcL BMP 09/12/17 02:09 Sodium 142 Potassium 3.9 Chloride 103 Carbon Dioxide 29 BUN 42 H Creatinine 2.28 H Glucose 188 H Calcium 9.2 Cardiac Enzymes 09/12/17 Range/Units 02:09 Troponin I < 0.03 (< 0.04) ng/mL Urine 09/12/17 Range/Units 02:18 Urine Color Yellow (Yellow) Urine Clarity Clear (Clear) Urine pH 5.5 (5.0-8.0) pH Units Ur Specific [place] 1.025 (1.010-1.025) Urine Protein >=300 H (Neg-Trace) mg/dL Urine Glucose (UA) 250 H (Normal) mg/dL - ABG Interpretation ABG results: 09/12/17 02:24 VBG pH 7.37 VBG pCO2 56 H VBG pO2 61 H VBG HCO3 32 H - Impressions ITS Impressions Chest X-Ray 09/12/17 01:54 IMPRESSION: Bilateral airspace disease, either atelectasis and/or pneumonia. D/ / Xavi Oakes MD / Xavi Oakes MD Interpreting Provider: Xavi Oakes MD Chest CT 09/12/17 03:08 IMPRESSION: Increasing, right greater than left pleural effusions compared to prior study. Patchy ground-glass opacities throughout the lungs (mosaic attenuation pattern) with focal small area near consolidation in the right upper lobe. D/ / Mamadou Dykes MD / Mamadou Dykes MD Interpreting Provider: Mamadou Dykes MD - Assessment and plan (1) Acute exacerbation of CHF (congestive heart failure) Current Visit: No Status: Acute Assessment and plan: Hx of diastolic CHF with last echo 08/07/17 showing an EF 60% with diastolic dysfunction with elevated filling pressures. Admits to Paroxysmal nocturnal dyspnea tonight. BNP= 848. CT chest shows pleural effusions, patchy ground- glass opacities, and small area of consolidation in the right upper lobe. Plan: -cardiac monitoring - strict I&Os - Lasix 40mg IV BID - continue ox support - daily weight checks - Diet: fluid restricted 1.5L Qualifiers: Heart failure type: diastolic Qualified Code(s): I50.33 - Acute on chronic diastolic (congestive) heart failure (2) Acute and chronic respiratory failure with hypercapnia Current Visit: Yes Status: Acute Assessment and plan: Likely 2/2 to CHF exacerbation. Will continue to give Lasix but due to patient also having COPD will give DuoNebs scheduled. (3) COPD (chronic obstructive pulmonary disease) Current Visit: No Status: Chronic Assessment and plan: DuoNebs Q2H prn and Q4H shashank. Continue Ox support. Qualifiers: COPD type: emphysema Emphysema type: other Qualified Code(s): J43.8 - Other emphysema (4) HTN (hypertension) Current Visit: No Status: Chronic Assessment and plan: Given Nitro patch in the ED. Pulse is low in the 60s. Will give Hydralazine 10mg Q6H prn. 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 use Chronic kidney disease stage: stage 4 (severe) Qualified Code(s): E11.22 - Type 2 diabetes mellitus with diabetic chronic kidney disease; N18.4 - Chronic kidney disease, stage 4 (severe); N18.4 - Chronic kidney disease, stage 4 (severe); N18.4 - Chronic kidney disease, stage 4 (severe); N18.4 - Chronic kidney disease, stage 4 (severe); Z79.4 - [facility] (current) use of insulin; Z79.4 - [facility] ( current) use of insulin; Z79.4 - emt intermediate (current) use of insulin; Z79.4 - [facility] (current) use of insulin (6) CKD (chronic kidney disease) Current Visit: Yes Status: Chronic Assessment and plan: Unchanged from baseline. Will continue to monitor. Qualifiers: Chronic kidney disease stage: stage 4 (severe) Qualified Code(s): N18.9 - Chronic kidney disease, unspecified (7) DVT prophylaxis Current Visit: No Status: Acute Assessment and plan: Heparin SQ - Time Spent With Patient Total time spent is greater than 50% in coordination of care (as documented) at patient's floor/unit and/or counseling patient:
[2017-09-12] MEDS ORDERED: Ipratropium/Albuterol Neb 3 ML IH PRN (05:04)
[2017-09-12] MEDS ORDERED: Dextrose Gel 15 GM/37.5 ML TUBE PO PRN ×2 (05:06)
[2017-09-12] MEDS ORDERED: *HR* Dextrose 50 % in Water (Syg) 50 ML SYRINGE IVP PRN (05:06)
[2017-09-12] MEDS ORDERED: D5% in Water 1,000 ML IVC PRN (05:06)
[2017-09-12] MEDS: Ipratropium/Albuterol Neb 3 ML IH SCH ×5 (08:49→23:47)
[2017-09-12] MEDS: *HR* Heparin 5,000 UNIT/ML VIAL SQ SCH ×2 (09:53→16:49)
[2017-09-12] MEDS: Insulin LISPRO 300 UNITS/3 ML VIAL SQ SCH ×3 (09:57→16:48)
[2017-09-12] MEDS: Furosemide 40 MG/4 ML VIAL IVP SCH ×2 (09:57→21:08)
--- NOTE | 2017-09-12 10:26 | Event Note ---
Date of Encounter: 09/12/17 Time of Encounter: 10:30 Seen and assessed. Agree with plan per nightime hospitalist. Admitted for acute CHF and community acquired pneumonia. Continue IV diuresis with lasix and levaquin for pneumonia
[2017-09-12] MEDS ORDERED: Levofloxacin 750 MG/150 ML 750 MG/150 ML BAG IVPB SCH (11:00)
[2017-09-12] MEDS: Insulin DETEMIR 100 UNIT/ML X5UNITS SQ SCH (21:30)
[2017-09-13] MEDS: Gabapentin 400 MG CAPSULE PO SCH ×4 (00:15→20:00)
[2017-09-13] MEDS: Ipratropium/Albuterol Neb 3 ML IH SCH ×6 (04:10→23:52)
[2017-09-13 04:35] LABS: Basophils % 0.3 %; Eosinophils % 13.8 %; Hematocrit 23.2 % (35.3-44.9); Hemoglobin 7.2 g/dL (11.5-15.4); Immature Granulocytes % 0.4 % (0-4); Lymphocytes # 1.9 K/mcL (0.6-4.6); Lymphocytes % 25.8 %; Mean Corpuscular Volume 86.9 fL (83.0-100.0); Mean Platelet Volume 9.6 fL (9.4-12.4); Monocytes # 0.7 K/mcL (0.0-1.3); Monocytes % 9.7 %; Neutrophils # 3.6 K/mcL (1.6-8.9); Platelet Count 229 K/mcL (140-400); Red Blood Count 2.67 M/mcL (3.82-4.97); Red Cell Distribution Width 15.3 % (11.5-14.5)
[2017-09-13 04:58] LABS: Calcium 8.9 mg/dL (8.6-10.3); Magnesium 1.9 mg/dL (1.6-2.6); Potassium 3.2 mEq/L (3.5-5.1)
[2017-09-13] MEDS: *HR* Heparin 5,000 UNIT/ML VIAL SQ SCH ×2 (05:59→17:54)
[2017-09-13] MEDS: Insulin LISPRO 300 UNITS/3 ML VIAL SQ SCH ×3 (08:53→16:30)
[2017-09-13] MEDS: Furosemide 40 MG/4 ML VIAL IVP SCH ×2 (08:54→16:28)
--- NOTE | 2017-09-13 09:24 | Internal Med Progress Note ---
Date of Encounter: 09/13/17 Time of Encounter: 09:20 - Assessment and plan (1) Acute and chronic respiratory failure with hypercapnia Current Visit: Yes Status: Acute Assessment and plan: Likely 2/2 to CHF exacerbation. Will continue to give Lasix but due to patient also having COPD will give DuoNebs scheduled. (2) Acute exacerbation of CHF (congestive heart failure) Current Visit: No Status: Acute Assessment and plan: Hx of diastolic CHF with last echo 08/07/17 showing an EF 60% with diastolic dysfunction with elevated filling pressures. Admits to Paroxysmal nocturnal dyspnea tonight. BNP= 848. CT chest shows pleural effusions, patchy ground- glass opacities, and small area of consolidation in the right upper lobe. Continue lasix BID, fluid restriction, cardiac diet, monitor ins and outs Qualifiers: Heart failure type: diastolic Qualified Code(s): I50.33 - Acute on chronic diastolic (congestive) heart failure (3) Community acquired pneumonia Current Visit: No Status: Acute Assessment and plan: Continue levaquin Qualifiers: Laterality: unspecified laterality Qualified Code(s): J18.9 - Pneumonia, unspecified organism (4) CKD (chronic kidney disease) Current Visit: Yes Status: Chronic Assessment and plan: Unchanged from baseline. Will continue to monitor. Qualifiers: Chronic kidney disease stage: stage 4 (severe) Qualified Code(s): N18.9 - Chronic kidney disease, unspecified (5) DVT prophylaxis Current Visit: No Status: Acute Assessment and plan: Heparin SQ (6) COPD (chronic obstructive pulmonary disease) Current Visit: No Status: Chronic Assessment and plan: DuoNebs Q2H prn and Q4H shashank. Continue Ox support. Qualifiers: COPD type: emphysema Emphysema type: other Qualified Code(s): J43.8 - Other emphysema (7) HTN (hypertension) Current Visit: No Status: Chronic Assessment and plan: Given Nitro patch in the ED. Pulse is low in the 60s. Will give Hydralazine 10mg Q6H prn. 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: with [facility]p use Chronic kidney disease stage: stage 4 (severe) Qualified Code(s): E11.22 - Type 2 diabetes mellitus with diabetic chronic kidney disease; N18.4 - Chronic kidney disease, stage 4 (severe); N18.4 - Chronic kidney disease, stage 4 (severe); N18.4 - Chronic kidney disease, stage 4 (severe); N18.4 - Chronic kidney disease, stage 4 (severe); Z79.4 - residential (current) use of insulin; Z79.4 - termite treater helper ( current) use of insulin; Z79.4 - residential (current) use of insulin; Z79.4 - termite treater helper (current) use of insulin - Time Spent With Patient Total time spent is greater than 50% in coordination of care (as documented) at patient's floor/unit and/or counseling patient: - Subjective Interval history: No acute events overnight - Constitutional Vitals: Temp Pulse Resp BP Pulse Ox 97.9 F 90 16 133/75 98 09/13/17 07:00 09/13/17 07:00 09/13/17 07:00 09/13/17 07:00 09/13/17 07:00 Exam: Obese elderly lady - Head Head exam: Present: atraumatic, normocephalic - Eye Eye exam: Present: PERRL, conjuntiva pink, sclera anicteric Pupils: Present: PERRL - Neck Neck exam general surgery: Present: supple, trachea midline. Absent: lymphadenopathy - Respiratory Respiratory exam: Present: CTAB. Absent: accessory muscle use, rales, rhonchi, wheezes - Cardiovascular Cardiovascular exam: Present: RRR, +S1, +S2. Absent: diastolic murmur, gallop, rubs, systolic murmur - GI/Abdominal GI/Abdominal exam: Present: normal bowel sounds, soft, no peritoneal signs. Absent: distended, tenderness - Extremities Exam Extremities exam: Present: warm, radial pulses palpable and symmetrical. Absent : calf tenderness, cyanotic, pedal edema Additional comments: 2+ pitting edema - Neurological Exam Neurological exam: Present: CN II-XII intact, oriented X3, no focal deficits. Absent: pronater drift, facial droop, speech deficit - Skin Skin exam: Present: dry, intact Internal Medicine: Result - Labs CBC & Chem 7: 09/13/17 04:02 09/13/17 04:02 Labs: Short CBC 09/13/17 Range/Units 04:02 WBC 7.3 (4.3-11.1) K/mcL Hgb 7.2 L (11.5-15.4) g/dL Hct 23.2 L (35.3-44.9) % Plt Count 229 (140-400) K/mcL Neutrophils # 3.6 (1.6-8.9) K/mcL BMP 09/13/17 04:02 Sodium 144 Potassium 3.2 L Chloride 105 Carbon Dioxide 32 H BUN 39 H Creatinine 2.20 H Glucose 86 Calcium 8.9 Consult Discharge Plan - Plan Referrals: Anna White, [employer] [Primary Care Provider] -
[2017-09-13] MEDS: Potassium Chloride Elixir 20 MEQ/15 ML UDC PO SCH ×2 (11:38→16:28)
[2017-09-13] MEDS ORDERED: Eucerin Cream 57 GM TUBE TP PRN (11:46)
[2017-09-13] MEDS: Insulin DETEMIR 100 UNIT/ML X5UNITS SQ SCH (20:00)
[2017-09-14] MEDS: Ipratropium/Albuterol Neb 3 ML IH SCH ×3 (03:21→11:29)
[2017-09-14] MEDS: *HR* Heparin 5,000 UNIT/ML VIAL SQ SCH (05:35)
[2017-09-14] MEDS: Insulin LISPRO 300 UNITS/3 ML VIAL SQ SCH ×2 (07:18→12:11)
[2017-09-14] MEDS: Potassium Chloride Elixir 20 MEQ/15 ML UDC PO SCH (07:55)
[2017-09-14] MEDS: Gabapentin 400 MG CAPSULE PO SCH (07:55)
[2017-09-14] MEDS: Furosemide 40 MG/4 ML VIAL IVP SCH (07:55)
[2017-09-14] MEDS ORDERED: Albuterol 2.5 MG/3 ML NEBULIZER IH PRN (08:02)
[2017-09-14 09:37] LABS: Basophils % 0.4 %; Eosinophils # 1.5 K/mcL (0.0-0.6); Eosinophils % 19.2 %; Hematocrit 25.7 % (35.3-44.9); Hemoglobin 8.1 g/dL (11.5-15.4); Immature Granulocytes % 0.4 % (0-4); Lymphocytes # 1.4 K/mcL (0.6-4.6); Lymphocytes % 17.5 %; Mean Corpuscular HGB Conc 31.5 g/dL (31.6-35.5); Mean Corpuscular Hemoglobin 27.6 pg (28.0-33.3); Mean Corpuscular Volume 87.4 fL (83.0-100.0); Mean Platelet Volume 9.5 fL (9.4-12.4); Monocytes # 0.7 K/mcL (0.0-1.3); Monocytes % 8.9 %; Neutrophils # 4.3 K/mcL (1.6-8.9); Platelet Count 255 K/mcL (140-400); Red Blood Count 2.94 M/mcL (3.82-4.97); Red Cell Distribution Width 15.3 % (11.5-14.5); Segmented Neutrophils % 53.6 %
--- NOTE | 2017-09-14 09:43 | Discharge Summary ---
- NOTES TO OUTPATIENT PROVIDER Notes to Outpatient Provider: Follow up with nephrology Orders not resulted at time of discharge: Pending orders 09/14/17 08:54 Urine Protein Creat Ratio 24Hr [UCHEM] Routine 09/14/17 09:12 BMP [Basic Metabolic Panel] Routine Date of Encounter: 09/14/17 Time of Encounter: 09:30 - Discharge Diagnosis (1) Acute and chronic respiratory failure with hypercapnia Priority: Primary Status: Acute Assessment and Plan: 72 year old female with a past medical history of diastolic CHF, COPD with 3L home O2, hypertension, hyperlipidemia, CAD, COPD, diabetes, bullous pemphigoid and chronic anemia secondary to CKD who presented to the ED with worsening shortness of breath. She was assessed with cute hypoxic respiratory failure secondary to acute worseniing of diastolic CHF. She was started on Iv lasi BID and made an improvement. She was also noted to have evidence of pneumonia and CXR and completed a course of levaquin. She was discharged in a stable condition. She was noted to have lower extremity blister and was prescribed bactroban ointment. She was also noted to have proteinuria and will f/u with renal outpatient (2) Acute exacerbation of CHF (congestive heart failure) Priority: Primary Status: Acute Qualifiers: Heart failure type: diastolic Qualified Code(s): I50.33 - Acute on chronic diastolic (congestive) heart failure (3) Community acquired pneumonia Priority: Secondary Status: Acute Qualifiers: Laterality: unspecified laterality Qualified Code(s): J18.9 - Pneumonia, unspecified organism (4) CKD (chronic kidney disease) Priority: Secondary Status: Chronic Qualifiers: Chronic kidney disease stage: stage 4 (severe) Qualified Code(s): N18.4 - Chronic kidney disease, stage 4 (severe) (5) DVT prophylaxis Priority: Secondary Status: Acute (6) COPD (chronic obstructive pulmonary disease) Priority: Secondary Status: Chronic Qualifiers: COPD type: emphysema Emphysema type: other Qualified Code(s): J43.8 - Other emphysema (7) HTN (hypertension) Priority: Secondary Status: Chronic Qualifiers: Hypertension type: essential hypertension Qualified Code(s): I10 - Essential (primary) hypertension (8) Type 2 diabetes mellitus with diabetic chronic kidney disease Priority: Secondary Status: Chronic Qualifiers: Diabetes mellitus fdc insulin use: with fdc use Chronic kidney disease stage: stage 4 (severe) Qualified Code(s): E11.22 - Type 2 diabetes mellitus with diabetic chronic kidney disease; N18.4 - Chronic kidney disease, stage 4 (severe); Z79.4 - senior care (current) use of insulin Hospital course: Ms. Starr is a 72 year old female - Time Spent with Patient Total time spent providing and/or coordinating discharge services: - Discharge Medications Prescriptions: Eucerin Creme 1 appl TP TID PRN #60 tube PRN Reason: Dry Skin levoFLOXacin [Levaquin] 750 mg PO Q48H #3 tablet Mupirocin [Bactroban Oint] 22 gm TP BID 30 Days #60 tube Home Medications: Aspirin Enteric Coated [Aspirin EC] 81 mg PO DAILY 06/16/16 [History] Insulin LISPRO [HumaLOG] 25 units SQ TIDWM 08/11/16 [History] Atorvastatin [Lipitor] 40 mg PO HS #30 tablet 10/11/16 [Rx] Citalopram Hydrobromide [Citalopram HBr] 40 mg PO DAILY #30 tablet 10/11/16 [Rx] Isosorbide MONOnitrate (24 HR) [Imdur] 30 mg PO DAILY #30 tab.er.24h 10/11/16 [ Rx] Lisinopril [Zestril] 5 mg PO DAILY #30 tablet 10/11/16 [Rx] amLODIPine [Norvasc] 10 mg PO HS #30 tablet 10/11/16 [Rx] Bisacodyl [Dulcolax] 10 mg RC DAILY PRN 04/24/17 [History] Hyoscyamine SL [Levsin Sl] 0.25 mg SL Q2H PRN 04/24/17 [History] Insulin DETEMIR [Levemir Flextouch] 35 unit SQ HS 04/24/17 [History] Ipratropium/Albuterol Neb [Duoneb] 3 ml IH Q4H PRN 04/24/17 [History] Metoprolol [Lopressor] 25 mg PO BID 04/24/17 [History] [place]-3/Dha/Epa/Fish Oil [Fish Oil 1,000 mg Softgel] 1,000 mg PO DAILY 04/24/17 [History] Oxygen 3 - 4 l NS DAILY 04/24/17 [History] Albuterol Neb [Proventil Neb] 2.5 mg IH Q2H PRN inhsol 05/01/17 [Rx] Omeprazole [PriLOSEC] 20 mg PO DAILY 07/21/17 [History] Glucagon,Human Recombinant [Glucagon Emergency Kit] 1 mg IJ ONCE PRN 08/06/17 [ History] Gabapentin [Neurontin] 400 mg PO TID 3 Days #9 capsule 08/11/17 [Rx] Oxycodone HCl/Acetaminophen [Percocet 5-325 mg Tablet] 1 tab PO Q6H PRN 3 Days # 12 08/11/17 [Rx] Triamcinolone Acet 0.1% CRM [Kenalog] 1 appl TP BID tube 08/11/17 [Rx] Fenofibrate Nanocrystallized [Triglide] 160 mg PO DAILY 09/12/17 [History] Ferrous Sulfate [Iron] 325 mg PO DAILY 09/12/17 [History] Furosemide [Lasix] 40 mg PO BID 09/12/17 [History] Potassium Chloride [K-Tab ER] 20 meq PO BID 09/12/17 [History] Eucerin Creme 1 appl TP TID PRN #60 tube 09/14/17 [Rx] Mupirocin [Bactroban Oint] 22 gm TP BID 30 Days #60 tube 09/14/17 [Rx] levoFLOXacin [Levaquin] 750 mg PO Q48H #3 tablet 09/14/17 [Rx] Allergies/Adverse Reactions: 3 Allergy/AdvReac Type Severity Reaction Status Date / Time No Known Allergies Allergy Verified 08/06/17 13:57 Date of admission: 09/12/17 05:13 Primary care physician: Anna White CNP - Constitutional Vitals: Temp Pulse Resp BP Pulse Ox 97.9 F 90 16 155/69 100 09/14/17 06:50 09/14/17 06:50 09/14/17 07:35 09/14/17 06:50 09/14/17 07:35 - Head Head exam: Present: atraumatic, normocephalic - Eye Eye exam: Present: PERRL, conjuntiva pink, sclera anicteric Pupils: Present: PERRL - Neck Neck exam general surgery: Present: supple, trachea midline. Absent: lymphadenopathy - Respiratory Respiratory exam: Present: CTAB. Absent: accessory muscle use, rales, rhonchi, wheezes - Cardiovascular Cardiovascular exam: Present: RRR, +S1, +S2. Absent: diastolic murmur, gallop, rubs, systolic murmur - GI/Abdominal GI/Abdominal exam: Present: normal bowel sounds, soft, no peritoneal signs. Absent: distended, tenderness - Extremities Exam Extremities exam: Present: warm, radial pulses palpable and symmetrical. Absent : calf tenderness, cyanotic, pedal edema Additional comments: edema improved - Neurological Exam Neurological exam: Present: CN II-XII intact, oriented X3, no focal deficits. Absent: pronater drift, facial droop, speech deficit - Skin Skin exam: Present: dry, intact - Patient Status Disposition: Home, Self-Care Condition: Good - Discharge Instructions Instructions: Mupirocin (On the skin), Heart Failure (DC) Follow Up With: Otto Winchester PIPE SMOKING MACHINE OFFBEARER [Advanced Practice Nurse] - 09/17/17 12:30 pm Forms: ED Satisfaction Letter
--- NOTE | 2017-09-14 09:45 | Electrocardiograph Report ---
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
[2017-09-14 09:57] LABS: Calcium 9.3 mg/dL (8.6-10.3); Potassium 4.5 mEq/L (3.5-5.1)
[2017-09-14] MEDS ORDERED: levoFLOXacin 750 MG TABLET PO SCH (11:00)
[2017-09-14 12:10] VITALS: BP 145/77
[2017-09-14] MEDS ORDERED: Gabapentin 100 MG CAPSULE PO SCH (15:00)
[2017-09-14] MEDS ORDERED: Insulin LISPRO 300 UNITS/3 ML VIAL SQ SCH (21:00)
== END 2017-09-14 13:35 | disposition home or self-care (01) | DRG 291 ==
LOC: EMEROO 01:47 → 2ANU 05:13
PROVIDERS: ADMIT Internal Medicine; ATTEND Internal Medicine

== ENCOUNTER 2017-11-04 18:18 | Observation (INO) ==
--- NOTE | 2017-11-04 18:51 | Emergency Department Note ---
Disposition Clinical Impression: COPD exacerbation Dyspnea Qualifiers: Dyspnea type: unspecified Qualified Code(s): R06.00 - Dyspnea, unspecified Disposition: Admitted As Inpatient Condition: Good Referrals: Anna White CNP [Primary Care Provider] - Forms: ED Satisfaction Letter Time of Disposition: 20:11 SOB HPI - General Chief Complaint: ED Shortness of Breath/Dyspnea Stated Complaint: CONNOR Time Seen by Provider: 11/04/17 18:51 Source: patient Mode of arrival: ambulatory Limitations: no limitations Nursing Notes Reviewed: Yes Vital Signs Reviewed: Yes - History of Present Illness Patient is a 72-year-old female with past medical history of diabetes, CHF, COPD , hypertension, hyperlipidemia. She presents today due to shortness of breath. She states that over the past 2-3 days, she has had increased shortness of breath from her baseline with COPD and CHF. Currently takes daily inhalers, Lasix 40 mg daily. She has noticed some mild increased swelling of the bilateral lower extremities. She usually wears 3 L nasal cannula oxygen at home. She states that she has had some increase and wheeze, cough from baseline. Denies any chest pain, fevers, abdominal pain, nausea, vomiting, diarrhea, dysuria, hematuria. - Related Data Home Medications Medication Instructions Recorded Confirmed Aspirin Enteric Coated [Aspirin EC] 81 mg PO DAILY 06/16/16 09/12/17 Insulin LISPRO [HumaLOG] 25 units SQ TIDWM 08/11/16 09/12/17 Bisacodyl [Dulcolax] 10 mg RC DAILY PRN 04/24/17 09/12/17 Hyoscyamine SL [Levsin Sl] 0.25 mg SL Q2H PRN 04/24/17 09/12/17 Insulin DETEMIR [Levemir Flextouch] 35 unit SQ HS 04/24/17 09/12/17 Ipratropium/Albuterol Neb [Duoneb] 3 ml IH Q4H PRN 04/24/17 09/12/17 Metoprolol [Lopressor] 25 mg PO BID 04/24/17 09/12/17 [place]-3/Dha/Epa/Fish Oil [Fish Oil 1,000 mg PO DAILY 04/24/17 09/12/17 1,000 mg Softgel] Oxygen 3 - 4 l NS DAILY 04/24/17 09/12/17 Omeprazole [PriLOSEC] 20 mg PO DAILY 07/21/17 09/12/17 Glucagon,Human Recombinant 1 mg IJ ONCE PRN 08/06/17 09/12/17 [Glucagon Emergency Kit] Fenofibrate Nanocrystallized 160 mg PO DAILY 09/12/17 09/12/17 [Triglide] Ferrous Sulfate [Iron] 325 mg PO DAILY 09/12/17 09/12/17 Furosemide [Lasix] 40 mg PO BID 09/12/17 09/12/17 Potassium Chloride [K-Tab ER] 20 meq PO BID 09/12/17 09/12/17 Previous Rx's Medication Instructions Recorded Atorvastatin [Lipitor] 40 mg PO HS #30 tablet 10/11/16 Citalopram Hydrobromide 40 mg PO DAILY #30 tablet 10/11/16 [Citalopram HBr] Isosorbide MONOnitrate (24 HR) 30 mg PO DAILY #30 tab.er.24h 10/11/16 [Imdur] Lisinopril [Zestril] 5 mg PO DAILY #30 tablet 10/11/16 amLODIPine [Norvasc] 10 mg PO HS #30 tablet 10/11/16 Albuterol Neb [Proventil Neb] 2.5 mg IH Q2H PRN inhsol 05/01/17 Gabapentin [Neurontin] 400 mg PO TID 3 Days #9 capsule 08/11/17 Oxycodone HCl/Acetaminophen 1 tab PO Q6H PRN 3 Days #12 08/11/17 [Percocet 5-325 mg Tablet] Triamcinolone Acet 0.1% CRM 1 appl TP BID tube 08/11/17 [Kenalog] Eucerin Creme 1 appl TP TID PRN #60 tube 09/14/17 Mupirocin [Bactroban Oint] 22 gm TP BID 30 Days #60 tube 09/14/17 levoFLOXacin [Levaquin] 750 mg PO Q48H #3 tablet 09/14/17 Allergies Allergy/AdvReac Type Severity Reaction Status Date / Time No Known Allergies Allergy Verified 11/04/17 18:22 All systems ED: reviewed and negative except as stated. Constitutional: Denies: fever Cardiovascular: Denies: chest pain Respiratory: Reports: cough, dyspnea, wheezes Gastrointestinal: Denies: abdominal pain, nausea, vomiting, diarrhea Genitourinary: Denies: urgency, dysuria, frequency, hematuria Integumentary: Denies: rash Neurological: Denies: headache, weakness, numbness, paresthesias Past Medical History - Past Medical History Attestation: Yes The following information was validated with the patient. 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 - Social History Smoking Status: Never smoker Smokeless Tobacco Status: No Alcohol use: Reports: none Drug use: Reports: none Physical Exam - General Limitations: no limitations General appearance: alert, in no apparent distress - Head Head exam: atraumatic, normocephalic, normal inspection - Eye Eye exam: Present: normal appearance, PERRL, EOMI - ENT ENT exam: normal exam, normal oropharynx, mucous membranes moist - Neck Neck exam: Present: normal inspection, full ROM, trachea midline - Chest Chest inspection: Present: normal inspection, symmetric chest wall rise - Respiratory Respiratory exam: Present: respiratory distress (mild to mod), wheezes ( Decreased aeration throughout, mild wheeze throughout, limited exam due to body habitus). Absent: stridor - Cardiovascular Cardiovascular exam: Present: regular rate, normal rhythm, normal heart sounds - Abdominal Exam Abdominal exam: Present: soft, Non-Tender. Absent: tenderness, distention, guarding, rebound, rigidity Course Course Narrative: Patient has mild increased work of breathing, lungs exam shows decreased aeration throughout, mild wheeze throughout. Declined any BiPAP at this time. We will perform EKG, chest x-ray, basic blood work, troponin. We will give the patient DuoNeb and prednisone. Waiting on CXR to determine if pulmonary edema and will add lasix on. Concern for CHF vs COPD, possibly mixed picture. 20:09 labs consistent with all previous labs. Chronic anemia, chronic kidney disease, chronic elevation in troponin level. EKG showed no acute ST changes. Chest x-ray showed improvement of congestive heart failure findings from previous chest x-ray. Patient still having shortness of breath despite DuoNeb and prednisone. Will have to admit at this time for further care Chest X-Ray 11/04/17 18:24 IMPRESSION: 1. Improved with residual congestive heart failure. D/ / Otto Simon MD / Otto Simon MD Interpreting Provider: Otto Simon MD Vital Signs Temperature 97.9 F 11/04/17 18:21 Pulse Rate 71 11/04/17 18:21 Respiratory Rate 18 11/04/17 18:21 Blood Pressure 161/75 11/04/17 18:21 O2 Sat by Pulse Oximetry 98 11/04/17 18:21 Temperature 97.9 F 11/04/17 19:14 Pulse Rate 71 11/04/17 19:14 Respiratory Rate 18 11/04/17 19:37 Blood Pressure 161/75 11/04/17 19:14 O2 Sat by Pulse Oximetry 99 11/04/17 19:37 Oxygen Delivery Oxygen Delivery Nasal Cannula Shortness of Breath/Dyspnea - MDM Narrative Medical decision making narrative: Patient has mild increased work of breathing, lungs exam shows decreased aeration throughout, mild wheeze throughout. Declined any BiPAP at this time. We will perform EKG, chest x-ray, basic blood work, troponin. We will give the patient DuoNeb and prednisone. Waiting on CXR to determine if pulmonary edema and will add lasix on. Concern for CHF vs COPD, possibly mixed picture. 20:09 labs consistent with all previous labs. Chronic anemia, chronic kidney disease, chronic elevation in troponin level. EKG showed no acute ST changes. Chest x-ray showed improvement of congestive heart failure findings from previous chest x-ray. Patient still having shortness of breath despite DuoNeb and prednisone. Will have to admit at this time for further care - Medical Records Medical records reviewed: Yes I reviewed the patient's medical records. - Lab Data Lab results reviewed: Yes I reviewed the patient's lab results. Result diagrams: 11/04/17 18:50 11/04/17 18:50 Lab Results 11/04/17 11/04/17 11/04/17 Range/Units 18:50 18:50 18:50 WBC 8.7 (4.3-11.1) K/mcL RBC 3.12 L (3.82-4.97) M/mcL Hgb 8.4 L (11.5-15.4) g/dL Hct 26.3 L (35.3-44.9) % MCV 84.3 (83.0-100.0) fL MCH 26.9 L (28.0-33.3) pg MCHC 31.9 (31.6-35.5) g/dL RDW 14.4 (11.5-14.5) % Plt Count 280 (140-400) K/mcL MPV 10.5 (9.4-12.4) fL Immature Gran % 0.3 (0-4) % Seg Neutrophils % 63.8 % Lymphocytes % 18.2 % Monocytes % 6.0 % Eosinophils % 11.0 % Basophils % 0.7 % Neutrophils # 5.5 (1.6-8.9) K/mcL Lymphocytes # 1.6 (0.6-4.6) K/mcL Monocytes # 0.5 (0.0-1.3) K/mcL Eosinophils # 1.0 H (0.0-0.6) K/mcL Basophils # 0.1 (0.0-0.2) K/mcL Sodium 140 (136-145) mEq/L Potassium 4.0 (3.5-5.1) mEq/L Chloride 105 (98-107) mEq/L Carbon Dioxide 27 (23-29) mEq/L BUN 58 H (8-23) mg/dL Creatinine 2.45 H (0.60-1.20) mg/dL Est GFR ( Amer) 23 L (> 60) Est GFR (Non-Af Amer) 19 L (> 60) BUN/Creatinine Ratio 24 (6-26) Glucose 232 H (70-105) mg/dL Calculated Osmolality 314 H (280-300) Lactic Acid 0.8 (0.5-2.2) mmol/L Calcium 9.5 (8.6-10.3) mg/dL Troponin I 0.04 H* (< 0.04) ng/mL B-Natriuretic Peptide (Less than 100) pg/mL 11/04/17 Range/Units 18:50 WBC (4.3-11.1) K/mcL RBC (3.82-4.97) M/mcL Hgb (11.5-15.4) g/dL Hct (35.3-44.9) % MCV (83.0-100.0) fL MCH (28.0-33.3) pg MCHC (31.6-35.5) g/dL RDW (11.5-14.5) % Plt Count (140-400) K/mcL MPV (9.4-12.4) fL Immature Gran % (0-4) % Seg Neutrophils % % Lymphocytes % % Monocytes % % Eosinophils % % Basophils % % Neutrophils # (1.6-8.9) K/mcL Lymphocytes # (0.6-4.6) K/mcL Monocytes # (0.0-1.3) K/mcL Eosinophils # (0.0-0.6) K/mcL Basophils # (0.0-0.2) K/mcL Sodium (136-145) mEq/L Potassium (3.5-5.1) mEq/L Chloride (98-107) mEq/L Carbon Dioxide (23-29) mEq/L BUN (8-23) mg/dL Creatinine (0.60-1.20) mg/dL Est GFR ( Amer) (> 60) Est GFR (Non-Af Amer) (> 60) BUN/Creatinine Ratio (6-26) Glucose (70-105) mg/dL Calculated Osmolality (280-300) Lactic Acid (0.5-2.2) mmol/L Calcium (8.6-10.3) mg/dL Troponin I (< 0.04) ng/mL B-Natriuretic Peptide 844 H (Less than 100) pg/mL - Radiology Data Radiology results reviewed: Yes I reviewed the patient's radiology results. Chest X-Ray 11/04/17 18:24 IMPRESSION: 1. Improved with residual congestive heart failure. D/ / Otto Simon MD / Otto Simon MD Interpreting Provider: Otto Simon MD S.B.A.R. - S.B.A.R. Situation: Demographics, MOA Background: Presenting Complaint, Relevant PMH, Meds, & Allergies Assessment: Vital Signs, Course and respsone to treatment, Exam Concerns, Patient/Family Expectation, Pertinant Lab Results Recommendation: Barrier(s) to disposition, Recommendation based on pending studies, treatments, or consults S.B.A.R. Report Given to: Dr. Jones Attestation Statement - Attestation Attestation: I examined this patient and my medical decision-making was reviewed with the Resident Physician. I agree with the documented findings, disposition and treatment plan as described except to the extent set forth below. -Findings consistent with dyspnea. She does have chronic heart failure. This is likely comorbid etiology. Bronchodilators were given. Blood recommend admission given history of chronic kidney disease and elevated creatinine and likely need for underlying diuresis.
[2017-11-04] MEDS ORDERED: Ipratropium/Albuterol Neb 3 ML IH ONE (19:03)
[2017-11-04] MEDS ORDERED: predniSONE 20 MG TABLET PO ONE (19:03)
[2017-11-04 19:08] LABS: Basophils # 0.1 K/mcL (0.0-0.2); Basophils % 0.7 %; Hematocrit 26.3 % (35.3-44.9); Hemoglobin 8.4 g/dL (11.5-15.4); Immature Granulocytes % 0.3 % (0-4); Lymphocytes # 1.6 K/mcL (0.6-4.6); Lymphocytes % 18.2 %; Mean Corpuscular HGB Conc 31.9 g/dL (31.6-35.5); Mean Corpuscular Hemoglobin 26.9 pg (28.0-33.3); Mean Corpuscular Volume 84.3 fL (83.0-100.0); Mean Platelet Volume 10.5 fL (9.4-12.4); Monocytes # 0.5 K/mcL (0.0-1.3); Neutrophils # 5.5 K/mcL (1.6-8.9); Platelet Count 280 K/mcL (140-400); Red Blood Count 3.12 M/mcL (3.82-4.97); Red Cell Distribution Width 14.4 % (11.5-14.5); Segmented Neutrophils % 63.8 %
[2017-11-04 19:48] LABS: Calcium 9.5 mg/dL (8.6-10.3)
[2017-11-04 19:50] LABS: Troponin I 0.04 ng/mL (< 0.04)
[2017-11-04] MEDS ORDERED: traMADol 50 MG TABLET PO PRN (22:57)
[2017-11-04] MEDS ORDERED: Acetaminophen 325 MG TABLET PO PRN (22:57)
[2017-11-04] MEDS ORDERED: Ipratropium/Albuterol Neb 3 ML IH PRN (22:57)
[2017-11-04] MEDS ORDERED: Naloxone 0.4 MG/ML INJ IVP PRN (22:57)
[2017-11-04] MEDS: *HR* Heparin 5,000 UNIT/ML VIAL SQ SCH (23:00)
[2017-11-04] MEDS ORDERED: Furosemide 240 MG in D5% in Water 96 ML IVC SCH (23:00)
[2017-11-04] MEDS ORDERED: D5% in Water 1,000 ML IVC PRN (23:01)
[2017-11-04] MEDS ORDERED: *HR* Dextrose 50 % in Water (Syg) 50 ML SYRINGE IVP PRN (23:01)
[2017-11-04] MEDS ORDERED: Albuterol 2.5 MG/3 ML NEBULIZER IH PRN (23:01)
[2017-11-04] MEDS ORDERED: Dextrose Gel 15 GM/37.5 ML TUBE PO PRN ×2 (23:01)
[2017-11-04] MEDS ORDERED: Bisacodyl 10 MG RECTAL SUPPOSITORY RC PRN (23:01)
--- NOTE | 2017-11-04 23:10 | Internal Med History&Physical ---
Date of Encounter: 11/04/17 Time of Encounter: 22:40 Internal Medicine - H&P: HPI Chief complaint: SOB Admitted From: Emergency Dept Plans for Post Hospital Care: Home History of present illness: Ms. Starr is a 72 year old female who presents with a 3 to 4 day history of progressive shortness of breath, worsening pedal edema, and increasing weight. She was seen by her home health care nurse recently who advised her to increase the frequency of her albuterol aerosols to every 2 hours while awake. However, despite the frequent nebulized treatments, her dyspnea progressed and she became more edematous. She therefore came to ER for evaluation where she was seen, evaluated, and admitted to the hospitalist service. Initial impression by the ER staff was that patient was suffering from COPD flareup. However, upon my assessment of the patient, I am more concerned about CHF and much less likely for COPD. She denies any productive cough, significant wheezing, fevers , chills, or pleurisy. She does complain of increasing orthopnea, paroxysmal nocturnal dyspnea, increased weight and pedal edema, and no improvement with nebulized breathing treatments. She has her granddaughter living with her and her 3 children. There have been former smokers in the house, but she will not allow smokers in the hospital presently. She denies any acute ill contacts. I reviewed old records, including recent echocardiogram she had which confirmed normal ejection fraction with diastolic dysfunction. She also has moderate pulmonary hypertension on this echo. Past Med Surg Social Fam HX - Past Medical History Attestation: Yes The following information was validated with the patient. Source: patient, old records reviewed Medical history: CHF, coronary artery disease, diabetes, hyperlipidemia, hypertension, myocardial infarction, renal disease Additional medical history: immune disorder that has caused sores to arms and legs. Psychiatric history: anxiety, depression - Past Surgical History Surgical History: orthopedic, other - Social History Smoking Status: Never smoker Smokeless Tobacco Status: No Alcohol use: none Drug use: none Current living situation: Home, With Family Activity Level: Independent ambulation Recent Out of Country Travel Within the Last 8 Weeks: No - Family History Father History Unknown: Yes Family Member Ethnicity: Non- Living Status: Hx Family Cardiac Disorders: Yes (CA, HTN, Cardiomegaly) Hx Family Endocrine Disorder: Yes (DM) Mother History Unknown: Yes Family Member Ethnicity: Non- Living Status: Hx Family Cancer: Yes (Breast) Brother History Unknown: Yes Family Member Ethnicity: Non- Living Status: Still Living Hx Family Cardiac Disorders: Yes (HTN) Hx Family Endocrine Disorder: Yes (DM) Sister History Unknown: Yes Family Member Ethnicity: Non- Living Status: Still Living Hx Family Cardiac Disorders: Yes (HTN) Hx Family Endocrine Disorder: Yes (DM) Internal Medicine - H&P: Meds Aspirin Enteric Coated [Aspirin EC] 81 mg PO DAILY 06/16/16 [History] Insulin LISPRO [HumaLOG] 25 units SQ TIDWM 08/11/16 [History] Atorvastatin [Lipitor] 40 mg PO HS #30 tablet 10/11/16 [Rx] Citalopram Hydrobromide [Citalopram HBr] 40 mg PO DAILY #30 tablet 10/11/16 [Rx] Isosorbide MONOnitrate (24 HR) [Imdur] 30 mg PO DAILY #30 tab.er.24h 10/11/16 [ Rx] Lisinopril [Zestril] 5 mg PO DAILY #30 tablet 10/11/16 [Rx] amLODIPine [Norvasc] 10 mg PO HS #30 tablet 10/11/16 [Rx] Bisacodyl [Dulcolax] 10 mg RC DAILY PRN 04/24/17 [History] Ipratropium/Albuterol Neb [Duoneb] 3 ml IH Q4H PRN 04/24/17 [History] Metoprolol [Lopressor] 25 mg PO BID 04/24/17 [History] [place]-3/Dha/Epa/Fish Oil [Fish Oil 1,000 mg Softgel] 1,000 mg PO DAILY 04/24/17 [History] Oxygen 3 - 4 l NS DAILY 04/24/17 [History] Albuterol Neb [Proventil Neb] 2.5 mg IH Q2H PRN inhsol 05/01/17 [Rx] Omeprazole [PriLOSEC] 20 mg PO DAILY 07/21/17 [History] Glucagon,Human Recombinant [Glucagon Emergency Kit] 1 mg IJ ONCE PRN 08/06/17 [ History] Fenofibrate Nanocrystallized [Triglide] 160 mg PO DAILY 09/12/17 [History] Ferrous Sulfate [Iron] 325 mg PO DAILY 09/12/17 [History] Furosemide [Lasix] 20 mg PO BID 11/04/17 [History] Insulin Glargine,Hum.rec.anlog [Lantus Solostar] 35 units SQ HS 11/04/17 [ History] Potassium Chloride [Klor-Con Sprinkle] 10 meq PO DAILY 11/04/17 [History] 3 Allergy/AdvReac Type Severity Reaction Status Date / Time No Known Allergies Allergy Verified 11/04/17 18:22 - Constitutional Constitutional: weakness, weight gain, no chills, no fever(s), no night sweats - EENT Eyes: no blurry vision, no change in vision Ears: no ear pain, no tinnitus Nose, mouth and throat: no nasal congestion, no sinus pressure, no sore throat - Cardiovascular Cardiovascular ROS IM: dyspnea, dyspnea on exertion, edema, orthopnea, paroxysmal nocturnal dyspnea, no chest pain, no lightheadedness, no syncope - Respiratory Respiratory: no cough, no hemoptysis, no chest congestion, no excessive phlegm production, no change in phlegm color - Gastrointestinal Gastrointestinal: no abdominal pain, no diarrhea, no hematemesis, no hematochezia, no melena, no nausea, no vomiting - Genitourinary Genitourinary: no dysuria, no flank pain, no hematuria - Musculoskeletal Musculoskeletal ROS IM: no arthralgias, no back pain - Integumentary Integumentary IM: no rash, no jaundice - Neurological Neurological ROS: no dizziness, no focal weakness, no frequent falls, no headache(s) - Psychiatric Psychiatric: no anxiety, no depression - Endocrine Endocrine IM: no polydipsia, no polyuria - Hematologic/Lymphatic Hematologic/Lymphatic: no easy bruising, no lymphadenopathy - Allergic/Immunologic Allergic/Immunologic: no wheezing, no GI upset with certain foods - Constitutional Vitals: Temp Pulse Resp BP Pulse Ox 97.9 F 73 16 167/62 99 11/04/17 19:14 11/04/17 20:30 11/04/17 20:30 11/04/17 20:30 11/04/17 20:30 General appearance: Present: cooperative, mild distress, A&O X 3, pleasant, answers questions appropriately - Head Head exam: Present: atraumatic, normal inspection - Eye Eye exam: Present: EOMI, PERRL. Absent: scleral icterus Pupils: Present: normal accommodation - ENT ENT exam: Present: mucous membranes moist, normal exam, normal oropharynx - Neck Neck exam general surgery: Present: full ROM, supple. Absent: lymphadenopathy, tenderness, nuchal rigidity, thyromegaly - Expanded Neck Exam Neck exam: Absent: carotid bruit - Respiratory Respiratory exam: Present: rales (faint bibasilar rales -- R>L). Absent: chest wall tenderness, prolonged expiratory phase, rhonchi, wheezes, tachypnea - Cardiovascular Cardiovascular exam: Present: distant heart sounds, RRR, +S1, +S2. Absent: diastolic murmur, systolic murmur - GI/Abdominal GI/Abdominal exam: Present: normal bowel sounds. Absent: guarding, hepatomegaly , mass, rebound, splenomegaly, tenderness - Extremities Exam Extremities exam: Present: full ROM, normal capillary refill, pedal edema (3+), warm, radial pulses palpable and symmetrical. Absent: calf tenderness, joint swelling, tenderness - Back Exam Back exam: Absent: CVA tenderness (L), CVA tenderness (R) - Neurological Exam Neurological exam: Present: alert, CN II-XII intact, oriented X3, no focal deficits, strengths equal and symetr throughout - Psychiatric Psychiatric exam: Present: normal affect, normal mood - Skin Skin exam: Present: dry, intact, warm Internal Med - H&P Results - Labs CBC & Chem 7: 11/04/17 18:50 11/04/17 18:50 - EKG Data -: EKG Interpreted by Myself - EKG Data Prior EKG available for review: no EKG comments: 11/04/17 23:14 Sinus rhythm; old inferior CA; no acute ST changes - Diagnostic Studies Chest x-ray Status: image reviewed by me (Subtle bilateral pleural effusions) - Assessment and plan (1) Acute exacerbation of CHF (congestive heart failure) Current Visit: Yes Status: Acute Assessment and plan: 1. Will place on fluid restriction and start IV Lasix drip. 2. Monitor I/O, daily weight, and renal function. 3. Given her pulmonary hypertension, I suspect she may have a mixed picture of diastolic and right sided CHF. 4. Will trend troponins and EKG's. 5. Most recent ECHO reviewed. Qualifiers: Heart failure type: diastolic Qualified Code(s): I50.33 - Acute on chronic diastolic (congestive) heart failure (2) CKD (chronic kidney disease) stage 4, GFR 15-29 ml/min Current Visit: Yes Status: Chronic Assessment and plan: 1. Monitor renal function closely. 2. Hold ALIA in the acute setting of CHF. 3. Consult nephrology if renal function worsens. (3) Chronic anemia Current Visit: Yes Status: Chronic Assessment and plan: 1. Patient denies GI blood loss. 2. Suspect due to CKD/chronic disease. 3. Monitor and outpatient follow up. (4) IDDM (insulin dependent diabetes mellitus) Current Visit: Yes Status: Chronic Assessment and plan: 1. Continue home basal insulin with SSI coverage. 2. Monitor and adjust accordingly. (5) DVT prophylaxis Current Visit: Yes Status: Acute Assessment and plan: 1. Heparin SQ.
[2017-11-04 23:22] LABS: Estimated Average Glucose 200 mg/dl; Hemoglobin A1C 8.6 %
[2017-11-05 00:56] LABS: INR 1.1; Prothrombin Time 12.5 Seconds (9.4-12.1)
[2017-11-05 00:58] LABS: Activated Partial Thrombo Time 36.9 Seconds (26.0-36.0)
[2017-11-05 01:08] LABS: Albumin 3.1 g/dL (3.5-5.7); Albumin/Globulin Ratio 1.1 (1.1-2.2); Bilirubin,Total 0.5 mg/dL (0.3-1.0); Calcium 9.2 mg/dL (8.6-10.3); Globulin 2.8 g/dL (2.4-3.5); Magnesium 1.9 mg/dL (1.6-2.6); Potassium 4.2 mEq/L (3.5-5.1); Total Protein 5.9 g/dL (6.4-8.9)
[2017-11-05] MEDS: *HR* Heparin 5,000 UNIT/ML VIAL SQ SCH ×2 (05:44→17:26)
[2017-11-05] MEDS: Aspirin Enteric Coated 81 MG Tablet PO SCH (07:53)
[2017-11-05] MEDS: Insulin LISPRO 300 UNITS/3 ML VIAL SQ SCH ×4 (07:53→21:11)
[2017-11-05] MEDS: Isosorbide MONOnitrate (24 HR) 30 MG TAB.ER.24H PO SCH (07:54)
[2017-11-05] MEDS ORDERED: (Fish Oil 1,000 Mg Softgel) PO SCH (09:00)
[2017-11-05] MEDS ORDERED: Fenofibrate 54 MG TABLET PO SCH (09:00)
[2017-11-05] MEDS: Furosemide 40 MG/4 ML VIAL IVP SCH ×2 (09:44→17:25)
--- NOTE | 2017-11-05 14:53 | Internal Med Progress Note ---
Hospitalist Progress Note - Encounter Date of Encounter: 11/05/17 Time of Encounter: 14:51 - Subjective Interval History: 72 F being managed for CHFE She reports she has made significant improvement in her breathing, compared to arrival She has chronic resp failure and is on home O2 She is at her baseline at this time She denies new complains - Exam Vitals: Temp Pulse Resp BP Pulse Ox 98.0 F 72 19 159/69 96 11/05/17 11:40 11/05/17 11:40 11/05/17 11:40 11/05/17 11:40 11/05/17 11:40 Exam: Vitals: Reviewed and seemed to be within normal limits General: sitting comfortably out of bed in no acute distress. Skin: Warm and supple. HEENT: Moist oral mucosa Neck: No lymphadenopathy. No JVD. Chest: Normal thoracic expansion. Normal breath sounds. Clear to auscultation. Heart: Normal S1 & S2; rhythmic. No rubs or murmurs. Abdomen: Soft, not tender, no palpably enlarged organs Extremities: No clubbing, cyanosis or edema. No calf tenderness. Normal distal pulses. Neurological: Awake, alert and oriented to person, place and time. Psych: Appropriate affect. - Assessment and Plan (1) Chronic anemia Current Visit: Yes Status: Chronic Assessment and Plan: HB stable at baseline, continue to monitor (2) Acute exacerbation of CHF (congestive heart failure) Current Visit: Yes Status: Acute Assessment and Plan: Continue I/Os, daily weight, lasix IV BID, monitor renal function (3) CKD (chronic kidney disease) stage 4, GFR 15-29 ml/min Current Visit: Yes Status: Chronic Assessment and Plan: Renal function is at baseline, continue to monitor (4) DVT prophylaxis Current Visit: Yes Status: Acute Assessment and Plan: 1. Heparin SQ. (5) IDDM (insulin dependent diabetes mellitus) Current Visit: Yes Status: Chronic Assessment and Plan: Continue insulin, FS ACHS (6) Chronic respiratory failure with hypoxia Current Visit: Yes Status: Chronic Assessment and Plan: continue O2 (7) HTN (hypertension) Current Visit: Yes Status: Chronic Assessment and Plan: continue current meds (8) Hyperlipidemia Current Visit: Yes Status: Chronic Assessment and Plan: continue home meds - Time Spent with Patient Total time spent is greater than 50% in coordination of care (as documented) at patient's floor/unit and/or counseling patient: Plan of Care Discussed with: patient Internal Medicine: Result - Labs CBC & Chem 7: 11/04/17 18:50 11/05/17 00:34 Labs: BMP 11/05/17 00:34 Sodium 141 Potassium 4.2 Chloride 105 Carbon Dioxide 25 BUN 60 H Creatinine 2.44 H Glucose 247 H Calcium 9.2 Cardiac Enzymes 11/05/17 11/05/17 Range/Units 00:34 06:38 Troponin I 0.03 0.03 (< 0.04) ng/mL Liver Function 11/05/17 Range/Units 00:34 Total Bilirubin 0.5 (0.3-1.0) mg/dL AST 27 (13-39) Units/L ALT 21 (7-52) Units/L Alkaline Phosphatase 12 L (34-104) Units/L Albumin 3.1 L (3.5-5.7) g/dL - ABG Interpretation ABG results: PT/INR, D-dimer PT 12.5 Seconds (9.4-12.1) H 11/05/17 00:34 Consult Discharge Plan - Plan Referrals: Otto Winchester, DIRECTOR IMAGING [Primary Care Provider] - (2) Acute exacerbation of CHF (congestive heart failure) Qualifiers: Heart failure type: diastolic Qualified Code(s): I50.33 - Acute on chronic diastolic (congestive) heart failure (7) HTN (hypertension) Qualifiers: Hypertension type: essential hypertension Qualified Code(s): I10 - Essential (primary) hypertension (8) Hyperlipidemia Qualifiers: Hyperlipidemia type: pure hypercholesterolemia Qualified Code(s): E78.00 - Pure hypercholesterolemia, unspecified; E78.0 - Pure hypercholesterolemia
[2017-11-05] MEDS ORDERED: Insulin DETEMIR 100 UNIT/ML X5UNITS SQ SCH (21:00)
[2017-11-05] MEDS: amLODIPine 5 MG TABLET PO SCH (21:08)
--- NOTE | 2017-11-06 02:17 | Electrocardiograph Report ---
[address] [place] [address] Test Date: 2017-11-04 Pat Name: Christelle Starr Department: 104 Room: 2A24 Gender: F Patient Financial Representative: : 1945 Requested By: Manfred Polanco Order Number: [id number] Reading MD: Norma Navas Measurements Intervals [place] Rate: 68 P: 20 MI: 162 QRS: -13 QRSD: 84 T: 17 QT: 398 QTc: 415 Interpretive Statements SINUS RHYTHM WITH SINUS ARRHYTHMIA INFERIOR MYOCARDIAL INFARCTION, OF INDETERMINATE AGE Electronically Signed On 11-05-2017 16:13:38 EDT by Norma Navas
[2017-11-06 04:47] LABS: Basophils # 0.1 K/mcL (0.0-0.2); Basophils % 0.7 %; Eosinophils # 0.9 K/mcL (0.0-0.6); Eosinophils % 7.6 %; Hematocrit 27.1 % (35.3-44.9); Hemoglobin 8.7 g/dL (11.5-15.4); Immature Granulocytes % 0.6 % (0-4); Lymphocytes # 3.8 K/mcL (0.6-4.6); Lymphocytes % 33.1 %; Mean Corpuscular HGB Conc 32.1 g/dL (31.6-35.5); Mean Corpuscular Hemoglobin 26.9 pg (28.0-33.3); Mean Corpuscular Volume 83.6 fL (83.0-100.0); Monocytes # 0.8 K/mcL (0.0-1.3); Monocytes % 6.6 %; Neutrophils # 5.8 K/mcL (1.6-8.9); Platelet Count 363 K/mcL (140-400); Red Blood Count 3.24 M/mcL (3.82-4.97); Red Cell Distribution Width 14.3 % (11.5-14.5); Segmented Neutrophils % 51.4 %
[2017-11-06 05:07] LABS: Calcium 9.9 mg/dL (8.6-10.3); Potassium 3.1 mEq/L (3.5-5.1)
[2017-11-06] MEDS: *HR* Heparin 5,000 UNIT/ML VIAL SQ SCH ×2 (05:59→17:21)
[2017-11-06] MEDS: Insulin LISPRO 300 UNITS/3 ML VIAL SQ SCH ×4 (07:29→22:01)
[2017-11-06] MEDS: Isosorbide MONOnitrate (24 HR) 30 MG TAB.ER.24H PO SCH (09:39)
[2017-11-06] MEDS: Aspirin Enteric Coated 81 MG Tablet PO SCH (09:39)
[2017-11-06] MEDS: Furosemide 40 MG/4 ML VIAL IVP SCH (10:43)
--- NOTE | 2017-11-06 12:16 | Internal Med Progress Note ---
Hospitalist Progress Note - Encounter Date of Encounter: 11/06/17 Time of Encounter: 12:16 - Subjective Interval History: 72 F being managed for CHFE She reports she has made significant improvement in her breathing, compared to arrival She has chronic resp failure and is on home O2 She is at her baseline at this time She denies new complains She had 2 episodes of hypoglycemia this a.m, resolved with D50 We will decrease her dose of insulin and change lasix to po She is hemodynamically stable at this time - Exam Vitals: Temp Pulse Resp BP Pulse Ox 97.8 F 64 18 160/75 100 11/06/17 11:33 11/06/17 11:33 11/06/17 11:33 11/06/17 11:33 11/06/17 11:33 Exam: Vitals: WNL General: sitting comfortably out of bed in no acute distress. Skin: Warm and supple. HEENT: Moist oral mucosa Neck: No lymphadenopathy. No JVD. Chest: Normal thoracic expansion. Normal breath sounds. Clear to auscultation. Heart: Normal S1 & S2; rhythmic. No rubs or murmurs. Abdomen: Soft, not tender, no palpably enlarged organs Extremities: No clubbing, cyanosis or edema. No calf tenderness. Normal distal pulses. Neurological: Awake, alert and oriented to person, place and time. Psych: Appropriate affect. - Assessment and Plan (1) Chronic anemia Current Visit: Yes Status: Chronic Assessment and Plan: HB stable at baseline, continue to monitor (2) Acute exacerbation of CHF (congestive heart failure) Current Visit: Yes Status: Acute Assessment and Plan: Continue I/Os, daily weight, change lasix to po, monitor renal function (3) CKD (chronic kidney disease) stage 4, GFR 15-29 ml/min Current Visit: Yes Status: Chronic Assessment and Plan: Renal function is at baseline, continue to monitor (4) DVT prophylaxis Current Visit: Yes Status: Acute Assessment and Plan: 1. Heparin SQ. (5) IDDM (insulin dependent diabetes mellitus) Current Visit: Yes Status: Chronic Assessment and Plan: Continue insulin, FS ACHS (6) Chronic respiratory failure with hypoxia Current Visit: Yes Status: Chronic Assessment and Plan: continue O2 (7) HTN (hypertension) Current Visit: Yes Status: Chronic Assessment and Plan: continue current meds (8) Hyperlipidemia Current Visit: Yes Status: Chronic Assessment and Plan: continue home meds - Time Spent with Patient Total time spent is greater than 50% in coordination of care (as documented) at patient's floor/unit and/or counseling patient: Plan of Care Discussed with: patient Internal Medicine: Result - Labs CBC & Chem 7: 11/06/17 04:16 11/06/17 04:16 Labs: Short CBC 11/06/17 Range/Units 04:16 WBC 11.3 H (4.3-11.1) K/mcL Hgb 8.7 L (11.5-15.4) g/dL Hct 27.1 L (35.3-44.9) % Plt Count 363 (140-400) K/mcL Neutrophils # 5.8 (1.6-8.9) K/mcL BMP 11/06/17 04:16 Sodium 145 Potassium 3.1 L Chloride 105 Carbon Dioxide 30 H BUN 63 H Creatinine 2.37 H Glucose 26 L* Calcium 9.9 - ABG Interpretation ABG results: PT/INR, D-dimer PT 12.5 Seconds (9.4-12.1) H 11/05/17 00:34 Consult Discharge Plan - Plan Additional Instructions: Follow up with Dr Quintero on 11/20/17 for umbilical hernia repair Referrals: Otto Winchester, [employer]ER [Primary Care Provider] - (2) Acute exacerbation of CHF (congestive heart failure) Qualifiers: Heart failure type: diastolic Qualified Code(s): I50.33 - Acute on chronic diastolic (congestive) heart failure (7) HTN (hypertension) Qualifiers: Hypertension type: essential hypertension Qualified Code(s): I10 - Essential (primary) hypertension (8) Hyperlipidemia Qualifiers: Hyperlipidemia type: pure hypercholesterolemia Qualified Code(s): E78.00 - Pure hypercholesterolemia, unspecified; E78.0 - Pure hypercholesterolemia
--- NOTE | 2017-11-06 12:53 | Discharge Summary ---
Orders not resulted at time of discharge: Pending orders 11/05/17 06:00 ECG 12 lead ECG [ECG] AM 0600 11/07/17 04:00 Chem 7 [Basic Metabolic Panel] AM 0400 Complete Blood Count [HEME] AM 0400 Date of Encounter: 11/06/17 Time of Encounter: 12:51 - Discharge Diagnosis (1) Chronic anemia Status: Chronic (2) Acute exacerbation of CHF (congestive heart failure) Status: Acute Qualifiers: Heart failure type: diastolic Qualified Code(s): I50.33 - Acute on chronic diastolic (congestive) heart failure (3) CKD (chronic kidney disease) stage 4, GFR 15-29 ml/min Status: Chronic (4) DVT prophylaxis Status: Acute (5) IDDM (insulin dependent diabetes mellitus) Status: Chronic (6) Chronic respiratory failure with hypoxia Status: Chronic (7) HTN (hypertension) Status: Chronic Qualifiers: Hypertension type: essential hypertension Qualified Code(s): I10 - Essential (primary) hypertension (8) Hyperlipidemia Status: Chronic Qualifiers: Hyperlipidemia type: pure hypercholesterolemia Qualified Code(s): E78.00 - Pure hypercholesterolemia, unspecified; E78.0 - Pure hypercholesterolemia Hospital course: Ms. Starr is a 72 year old female - Time Spent with Patient Total time spent providing and/or coordinating discharge services: - Discharge Medications Home Medications: Aspirin Enteric Coated [Aspirin EC] 81 mg PO DAILY 06/16/16 [History] Insulin LISPRO [HumaLOG] 25 units SQ TIDWM 08/11/16 [History] Atorvastatin [Lipitor] 40 mg PO HS #30 tablet 10/11/16 [Rx] Citalopram Hydrobromide [Citalopram HBr] 40 mg PO DAILY #30 tablet 10/11/16 [Rx] Isosorbide MONOnitrate (24 HR) [Imdur] 30 mg PO DAILY #30 tab.er.24h 10/11/16 [ Rx] Lisinopril [Zestril] 5 mg PO DAILY #30 tablet 10/11/16 [Rx] amLODIPine [Norvasc] 10 mg PO HS #30 tablet 10/11/16 [Rx] Bisacodyl [Dulcolax] 10 mg RC DAILY PRN 04/24/17 [History] Ipratropium/Albuterol Neb [Duoneb] 3 ml IH Q4H PRN 04/24/17 [History] Metoprolol [Lopressor] 25 mg PO BID 04/24/17 [History] [place]-3/Dha/Epa/Fish Oil [Fish Oil 1,000 mg Softgel] 1,000 mg PO DAILY 04/24/17 [History] Oxygen 3 - 4 l NS DAILY 04/24/17 [History] Albuterol Neb [Proventil Neb] 2.5 mg IH Q2H PRN inhsol 05/01/17 [Rx] Omeprazole [PriLOSEC] 20 mg PO DAILY 07/21/17 [History] Glucagon,Human Recombinant [Glucagon Emergency Kit] 1 mg IJ ONCE PRN 08/06/17 [ History] Fenofibrate Nanocrystallized [Triglide] 160 mg PO DAILY 09/12/17 [History] Ferrous Sulfate [Iron] 325 mg PO DAILY 09/12/17 [History] Furosemide [Lasix] 20 mg PO BID 11/04/17 [History] Insulin Glargine,Hum.rec.anlog [Lantus Solostar] 35 units SQ HS 11/04/17 [ History] Potassium Chloride [Klor-Con Sprinkle] 10 meq PO DAILY 11/04/17 [History] Allergies/Adverse Reactions: 3 Allergy/AdvReac Type Severity Reaction Status Date / Time No Known Allergies Allergy Verified 11/04/17 18:22 Date of admission: 11/04/17 20:53 Primary care physician: Otto Winchester CNP - Constitutional Vitals: Temp Pulse Resp BP Pulse Ox 97.8 F 64 18 160/75 100 11/06/17 11:33 11/06/17 11:33 11/06/17 11:33 11/06/17 11:33 11/06/17 11:33 General appearance: Present: cooperative, mild distress, A&O X 3, pleasant, answers questions appropriately - Patient Status Disposition: Home, Self-Care Condition: Good Functional capacity at discharge: independent ambulation Overall status at discharge: patient is progressing back to baseline - Discharge Instructions Follow Up With: Otto Winchester CNP [Primary Care Provider] - Additional Instructions: Follow up with Dr Quintero on 11/20/17 for umbilical hernia repair - Diet and Activity Activity: resume usual activities as tolerated Diet: low salt diet
[2017-11-06] MEDS: Furosemide 40 MG TABLET PO SCH (17:21)
[2017-11-06] MEDS ORDERED: Insulin DETEMIR 100 UNIT/ML X5UNITS SQ SCH (21:00)
[2017-11-06] MEDS: amLODIPine 5 MG TABLET PO SCH (22:01)
[2017-11-07 03:47] LABS: Basophils % 0.5 %; Eosinophils # 0.6 K/mcL (0.0-0.6); Eosinophils % 7.4 %; Hematocrit 25.4 % (35.3-44.9); Hemoglobin 8.2 g/dL (11.5-15.4); Immature Granulocytes % 0.8 % (0-4); Lymphocytes # 1.9 K/mcL (0.6-4.6); Lymphocytes % 25.8 %; Mean Corpuscular HGB Conc 32.3 g/dL (31.6-35.5); Mean Corpuscular Hemoglobin 26.7 pg (28.0-33.3); Mean Corpuscular Volume 82.7 fL (83.0-100.0); Monocytes # 0.6 K/mcL (0.0-1.3); Monocytes % 8.2 %; Neutrophils # 4.3 K/mcL (1.6-8.9); Platelet Count 301 K/mcL (140-400); Red Blood Count 3.07 M/mcL (3.82-4.97); Red Cell Distribution Width 14.3 % (11.5-14.5); Segmented Neutrophils % 57.3 %
[2017-11-07 04:04] LABS: Calcium 9.1 mg/dL (8.6-10.3); Potassium 3.8 mEq/L (3.5-5.1)
[2017-11-07] MEDS: *HR* Heparin 5,000 UNIT/ML VIAL SQ SCH (06:21)
[2017-11-07] MEDS: Isosorbide MONOnitrate (24 HR) 30 MG TAB.ER.24H PO SCH (08:27)
[2017-11-07] MEDS: Furosemide 40 MG TABLET PO SCH (08:27)
[2017-11-07] MEDS: Aspirin Enteric Coated 81 MG Tablet PO SCH (08:27)
[2017-11-07] MEDS: Insulin LISPRO 300 UNITS/3 ML VIAL SQ SCH ×2 (08:28→11:38)
[2017-11-07 11:27] VITALS: BP 154/65
--- NOTE | 2017-11-07 11:35 | Discharge Summary ---
- NOTES TO OUTPATIENT PROVIDER Notes to Outpatient Provider: Patient was admitted and being managed for CHF exacerbation, she has made remrkable improvement and is transferred to SNF for respite care. No changes in home medications Orders not resulted at time of discharge: Pending orders 11/05/17 06:00 ECG 12 lead ECG [ECG] AM 0600 Date of Encounter: 11/07/17 Time of Encounter: 11:34 - Discharge Diagnosis (1) Chronic anemia Priority: Secondary Status: Chronic (2) Acute exacerbation of CHF (congestive heart failure) Priority: Primary Status: Acute Qualifiers: Heart failure type: diastolic Qualified Code(s): I50.33 - Acute on chronic diastolic (congestive) heart failure (3) CKD (chronic kidney disease) stage 4, GFR 15-29 ml/min Priority: Secondary Status: Chronic (4) DVT prophylaxis Priority: Primary Status: Acute (5) IDDM (insulin dependent diabetes mellitus) Priority: Secondary Status: Chronic (6) Chronic respiratory failure with hypoxia Priority: Secondary Status: Chronic (7) HTN (hypertension) Priority: Secondary Status: Chronic Qualifiers: Hypertension type: essential hypertension Qualified Code(s): I10 - Essential (primary) hypertension (8) Hyperlipidemia Priority: Secondary Status: Chronic Qualifiers: Hyperlipidemia type: pure hypercholesterolemia Qualified Code(s): E78.00 - Pure hypercholesterolemia, unspecified; E78.0 - Pure hypercholesterolemia Hospital course: Ms. Starr is a 72 year old female who presented to [facility] with a 3 to 4 day history of progressive shortness of breath, worsening pedal edema, and increasing weight. She was seen by her home health care nurse recently who advised her to increase the frequency of her albuterol aerosols to every 2 hours while awake. However, despite the frequent nebulized treatments, her dyspnea progressed and she became more edematous. She therefore came to ER for evaluation where she was seen, evaluated, and admitted to the hospitalist service. recent echocardiogram she had which confirmed normal ejection fraction with diastolic dysfunction. She also has moderate pulmonary hypertension on this echo. Work up on arrival showed chronic anemia atbaselina and chronic kidney disease at baseline, BNP was 844, lactic acid was WNL, troponin 0.04, normalized on next check She was managed with fluid restriction, intravenous lasix and continuation of home meds, with resolution of her symptoms Her O2 requirement remained the same Patient had 2 episodes of hypoglycemia, however her long-acting insulin has been decreased When patient was deemed medically stable for discharge, family reported concerns about keeping the patient at home alone, therefore it was recommended that she be transferred to [facility] for respite care. She is discharged to shelter facility and clinically stable condition.. Discharge discussed with: patient, family, nurse, social work - Time Spent with Patient Total time spent providing and/or coordinating discharge services: Greater than 30 minutes - Discharge Medications Prescriptions: Insulin Glargine [Lantus] 10 unit SQ HS #1 vial Home Medications: Aspirin Enteric Coated [Aspirin EC] 81 mg PO DAILY 06/16/16 [History] Insulin LISPRO [HumaLOG] 25 units SQ TIDWM 08/11/16 [History] Atorvastatin [Lipitor] 40 mg PO HS #30 tablet 10/11/16 [Rx] Citalopram Hydrobromide [Citalopram HBr] 40 mg PO DAILY #30 tablet 10/11/16 [Rx] Isosorbide MONOnitrate (24 HR) [Imdur] 30 mg PO DAILY #30 tab.er.24h 10/11/16 [ Rx] Lisinopril [Zestril] 5 mg PO DAILY #30 tablet 10/11/16 [Rx] amLODIPine [Norvasc] 10 mg PO HS #30 tablet 10/11/16 [Rx] Bisacodyl [Dulcolax] 10 mg RC DAILY PRN 04/24/17 [History] Ipratropium/Albuterol Neb [Duoneb] 3 ml IH Q4H PRN 04/24/17 [History] Metoprolol [Lopressor] 25 mg PO BID 04/24/17 [History] [place]-3/Dha/Epa/Fish Oil [Fish Oil 1,000 mg Softgel] 1,000 mg PO DAILY 04/24/17 [History] Oxygen 3 - 4 l NS DAILY 04/24/17 [History] Albuterol Neb [Proventil Neb] 2.5 mg IH Q2H PRN inhsol 05/01/17 [Rx] Omeprazole [PriLOSEC] 20 mg PO DAILY 07/21/17 [History] Glucagon,Human Recombinant [Glucagon Emergency Kit] 1 mg IJ ONCE PRN 08/06/17 [ History] Fenofibrate Nanocrystallized [Triglide] 160 mg PO DAILY 09/12/17 [History] Ferrous Sulfate [Iron] 325 mg PO DAILY 09/12/17 [History] Furosemide [Lasix] 20 mg PO BID 11/04/17 [History] Potassium Chloride [Klor-Con Sprinkle] 10 meq PO DAILY 11/04/17 [History] Insulin Glargine [Lantus] 10 unit SQ HS #1 vial 11/07/17 [Rx] Allergies/Adverse Reactions: 3 Allergy/AdvReac Type Severity Reaction Status Date / Time No Known Allergies Allergy Verified 11/04/17 18:22 Date of admission: 11/04/17 20:53 Primary care physician: Otto Winchester [employer] EXPORT AGENT Discharging clinician: Humberto Ley Anticipated date of discharge: 11/07/17 - Constitutional Vitals: Temp Pulse Resp BP Pulse Ox 98.9 F 69 16 154/65 97 11/07/17 11:25 11/07/17 11:25 11/07/17 11:25 11/07/17 11:25 11/07/17 11:25 General appearance: Present: cooperative, A&O X 3, pleasant, no acute distress, answers questions appropriately - Head Head exam: Present: atraumatic, normocephalic - Eye Eye exam: Present: PERRL, conjuntiva pink, sclera anicteric Pupils: Present: PERRL - Neck Neck exam general surgery: Present: supple, trachea midline. Absent: lymphadenopathy - Respiratory Respiratory exam: Present: CTAB. Absent: accessory muscle use, rales, rhonchi, wheezes - Cardiovascular Cardiovascular exam: Present: RRR, +S1, +S2. Absent: diastolic murmur, gallop, rubs, systolic murmur - GI/Abdominal GI/Abdominal exam: Present: normal bowel sounds, soft, no peritoneal signs. Absent: distended, tenderness - Extremities Exam Extremities exam: Present: warm, radial pulses palpable and symmetrical. Absent : calf tenderness, cyanotic, pedal edema - Neurological Exam Neurological exam: Present: CN II-XII intact, oriented X3, no focal deficits. Absent: pronater drift, facial droop, speech deficit - Skin Skin exam: Present: dry, intact - Patient Status Disposition: Transfer SNF Condition: Good Functional capacity at discharge: uses cane/walker - Discharge Instructions Follow Up With: Ranulfo,Otto J, IMP[employer] EXPORT AGENT [Primary Care Provider] - Additional Instructions: Follow up with Dr Quintero on 11/20/17 for umbilical hernia repair - Diet and Activity Activity: resume usual activities as tolerated, wear oxygen at all times Diet: low salt diet
--- NOTE | 2017-11-07 11:37 | Physician Discharge Referral ---
ExtendedCare Referral Info Transfer To: [facility] Provider in Charge: Charissa Ley Provider in Charge after Transfer: PCP Institutional Level of Care: Skilled - Diagnosis (1) Chronic anemia Priority: Secondary Status: Chronic (2) Acute exacerbation of CHF (congestive heart failure) Priority: Primary Status: Acute (3) CKD (chronic kidney disease) stage 4, GFR 15-29 ml/min Priority: Secondary Status: Chronic (4) DVT prophylaxis Priority: Primary Status: Acute (5) IDDM (insulin dependent diabetes mellitus) Priority: Secondary Status: Chronic (6) Chronic respiratory failure with hypoxia Priority: Secondary Status: Chronic (7) HTN (hypertension) Priority: Secondary Status: Chronic (8) Hyperlipidemia Priority: Secondary Status: Chronic Prognosis: Fair Aware of Diagnosis: Patient, Family Aware of Prognosis: Patient, Family - Transfer Medications Home Medications: Aspirin Enteric Coated [Aspirin EC] 81 mg PO DAILY 06/16/16 [History] Insulin LISPRO [HumaLOG] 25 units SQ TIDWM 08/11/16 [History] Atorvastatin [Lipitor] 40 mg PO HS #30 tablet 10/11/16 [Rx] Citalopram Hydrobromide [Citalopram HBr] 40 mg PO DAILY #30 tablet 10/11/16 [Rx] Isosorbide MONOnitrate (24 HR) [Imdur] 30 mg PO DAILY #30 tab.er.24h 10/11/16 [ Rx] Lisinopril [Zestril] 5 mg PO DAILY #30 tablet 10/11/16 [Rx] amLODIPine [Norvasc] 10 mg PO HS #30 tablet 10/11/16 [Rx] Bisacodyl [Dulcolax] 10 mg RC DAILY PRN 04/24/17 [History] Ipratropium/Albuterol Neb [Duoneb] 3 ml IH Q4H PRN 04/24/17 [History] Metoprolol [Lopressor] 25 mg PO BID 04/24/17 [History] [place]-3/Dha/Epa/Fish Oil [Fish Oil 1,000 mg Softgel] 1,000 mg PO DAILY 04/24/17 [History] Oxygen 3 - 4 l NS DAILY 04/24/17 [History] Albuterol Neb [Proventil Neb] 2.5 mg IH Q2H PRN inhsol 05/01/17 [Rx] Omeprazole [PriLOSEC] 20 mg PO DAILY 07/21/17 [History] Glucagon,Human Recombinant [Glucagon Emergency Kit] 1 mg IJ ONCE PRN 08/06/17 [ History] Fenofibrate Nanocrystallized [Triglide] 160 mg PO DAILY 09/12/17 [History] Ferrous Sulfate [Iron] 325 mg PO DAILY 09/12/17 [History] Furosemide [Lasix] 20 mg PO BID 11/04/17 [History] Insulin Glargine,Hum.rec.anlog [Lantus Solostar] 35 units SQ HS 11/04/17 [ History] Potassium Chloride [Klor-Con Sprinkle] 10 meq PO DAILY 11/04/17 [History] Allergies/Adverse Reactions: 3 Allergy/AdvReac Type Severity Reaction Status Date / Time No Known Allergies Allergy Verified 11/04/17 18:22 - Respiratory Orders Oxygen / L per min Smoking Cessation: Smoking cessation has been advised. For more information, call the [employer] Tobacco Quit Line at 4-121-EJOC-NOW. - Advance Directives Code Status: Full Code - Diet Orders Cardiac CERTIFICATION: I certify that the transfer of the above named patient to an Extended Care Facility is necessary for the continuing treatment of the diagnosis listed. The above information is true and accurate reflection of patient's current condition. Confidential - Redisclosure prohibited without a patient's written consent.
== END 2017-11-07 13:13 ==
LOC: 2ANU 18:18 → EMEROO 18:18 → SUATTDRO 20:53 → 2ANU 21:00
PROVIDERS: ADMIT Student in an Organized Health Care Education/Training Program; ATTEND Internal Medicine

== ENCOUNTER 2017-12-17 05:01 | Inpatient (IN) ==
[2017-12-17] MEDS ORDERED: Ipratropium/Albuterol Neb 3 ML IH ONE (05:08)
[2017-12-17] MEDS ORDERED: predniSONE 20 MG TABLET PO ONE (05:08)
--- NOTE | 2017-12-17 05:15 | Emergency Department Note ---
Disposition Clinical Impression: Healthcare-associated pneumonia CHF exacerbation Qualifiers: Heart failure type: unspecified Qualified Code(s): I50.9 - Heart failure, unspecified Sepsis Qualifiers: Sepsis type: sepsis due to unspecified organism Qualified Code(s): A41.9 - Sepsis, unspecified organism Disposition: Admitted As Inpatient Condition: Fair Referrals: Otto Winchester, NAY [Primary Care Provider] - Time of Disposition: 06:41 SOB HPI - General Stated Complaint: ld Time Seen by Provider: 12/17/17 05:08 Source: patient, EMS Mode of arrival: EMS Limitations: no limitations Nursing Notes Reviewed: Yes Vital Signs Reviewed: Yes - History of Present Illness 72-year-old female history of COPD on 3 L home oxygen supplementation, congestive heart failure presents emergency department with dyspnea. Patient states the symptoms have been ongoing for the past 2 to 3 days. Gradually worse tonight. Patient was given DuoNeb treatment via EMS with some improvement. Denies any fever or chills. Recently saw her physician and was told that she has pneumonia. She states she is been on antibiotic for past 2 days but is unsure what antibiotic it is. She does report increase in swelling of her lower extremities over the past 2 to 3 days as well. She is complaining of the chest tightness and pressure when she coughs. She denies use of the inhalers at home. No steroid use. No other symptoms. Pt Subjective Complaint: shortness of breath, cough - Related Data Home Medications Medication Instructions Recorded Confirmed Aspirin Enteric Coated [Aspirin EC] 81 mg PO DAILY 06/16/16 12/17/17 Insulin LISPRO [HumaLOG] 25 units SQ TIDWM 08/11/16 12/17/17 Bisacodyl [Dulcolax] 10 mg RC DAILY PRN 04/24/17 12/17/17 Ipratropium/Albuterol Neb [Duoneb] 3 ml IH Q4H PRN 04/24/17 12/17/17 Metoprolol [Lopressor] 25 mg PO BID 04/24/17 12/17/17 [place]-3/Dha/Epa/Fish Oil [Fish Oil 1,000 mg PO DAILY 04/24/17 12/17/17 1,000 mg Softgel] Oxygen 3 - 4 l NS DAILY 04/24/17 12/17/17 Omeprazole [PriLOSEC] 20 mg PO DAILY 07/21/17 12/17/17 Glucagon,Human Recombinant 1 mg IJ ONCE PRN 08/06/17 12/17/17 [Glucagon Emergency Kit] Fenofibrate Nanocrystallized 160 mg PO DAILY 09/12/17 12/17/17 [Triglide] Ferrous Sulfate [Iron] 325 mg PO DAILY 09/12/17 12/17/17 Furosemide [Lasix] 20 mg PO BID 11/04/17 12/17/17 Potassium Chloride [Klor-Con 10 meq PO DAILY 11/04/17 12/17/17 Sprinkle] Previous Rx's Medication Instructions Recorded Atorvastatin [Lipitor] 40 mg PO HS #30 tablet 10/11/16 Citalopram Hydrobromide 40 mg PO DAILY #30 tablet 10/11/16 [Citalopram HBr] Isosorbide MONOnitrate (24 HR) 30 mg PO DAILY #30 tab.er.24h 10/11/16 [Imdur] Lisinopril [Zestril] 5 mg PO DAILY #30 tablet 10/11/16 amLODIPine [Norvasc] 10 mg PO HS #30 tablet 10/11/16 Albuterol Neb [Proventil Neb] 2.5 mg IH Q2H PRN inhsol 05/01/17 Insulin Glargine [Lantus] 10 unit SQ HS #1 vial 11/07/17 Allergies Allergy/AdvReac Type Severity Reaction Status Date / Time No Known Allergies Allergy Verified 11/04/17 18:22 All systems ED: reviewed and negative except as stated. Review of Systems: As Per HPI Constitutional: Denies: fever, chills ENT ED: Reports: congestion Cardiovascular: Reports: chest pain Respiratory: Reports: cough, dyspnea Gastrointestinal: Denies: abdominal pain, nausea, vomiting Genitourinary: Denies: urgency, dysuria Musculoskeletal: Denies: back pain Integumentary: Denies: rash, abrasion Neurological: Denies: headache Past Medical History - Past Medical History Attestation: Yes The following information was validated with the patient. 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 - Social History Smoking Status: Never smoker Smokeless Tobacco Status: No Alcohol use: Reports: none Drug use: Reports: none Physical Exam - General Limitations: no limitations General appearance: alert, in distress (Mild respiratory), obese - Head Head exam: atraumatic, normocephalic, normal inspection - Eye Eye exam: Present: normal appearance, PERRL, EOMI - ENT ENT exam: normal exam, normal oropharynx, mucous membranes moist - Neck Neck exam: Present: normal inspection, full ROM, trachea midline - Chest Chest inspection: Present: normal inspection, symmetric chest wall rise - Respiratory Respiratory exam: Present: respiratory distress (Mild), wheezes, prolonged expiratory phase, other (CRACKLES BILATERALY R > L) - Cardiovascular Cardiovascular exam: Present: regular rate, normal rhythm, normal heart sounds - Abdominal Exam Abdominal exam: Present: soft (Obese), Non-Tender. Absent: tenderness, distention, guarding, rebound, rigidity - Extremities Exam Extremities exam: Present: normal inspection, full ROM, pedal edema (+2 bilateral). Absent: tenderness - Back Exam Back exam: Present: normal inspection, full ROM. Absent: tenderness, CVA tenderness (R), CVA tenderness (L) - Neurological Exam Neurological exam: Present: alert, oriented X3 - Psychiatric Psychiatric exam: Present: normal affect, anxious - Skin Skin exam: Present: warm, dry, intact, normal color. Absent: rash, cyanosis, diaphoresis Course Course Narrative: Patient presents with progressively worsening cough and shortness of breath with leg swelling for past 2 to 3 days. History of COPD and CHF. She is currently on her home oxygen requirement of 3 L. EMS reports patient was hypoxic 89% and came up to 93% after breathing treatment. She reports a similar history of this. Recent diagnosis of pneumonia. Patient is to On examination. She is not tachycardic. No fevers at home. She is not septic appearing. Chest x-ray, breathing treatment labs including EKG. Review of her medical record shows recent admission for acute exacerbation of CHF approximately a month ago. She states this is very similar. - Reevaluation(s) Reevaluation #1: Review of her labs shows a leukocytosis of 20. Given her tachypnea and now tachycardia sepsis subset initiated. Will add blood cultures and lactate. She denies recent steroid use. She has chronic stable anemia. Her creatinine renal insufficiency is near baseline. Her troponin is elevated 0.06. This is likely due to demand ischemia. Will give her a dose of aspirin here. She is only reporting chest discomfort with coughing. Her EKG shows sinus tachycardia without any ischemic findings. Her chest x-ray was significant for a right lobar pneumonia and vascular congestion. Her BNP was significantly elevated well over 1000 above her baseline. Given her recent hospitalization will treat her for healthcare associated pneumonia with Zosyn and vancomycin. Otherwise at this time patient is non-septic appearing. Will admit the patient for further management and observation. Patients in agreement with this plan. Impression is CHF exacerbation and pneumonia healthcare associated. Time: 05:56 - Consultations Consultation #1: Spoke with on-call hospitalist luz Arana to admit for HCAP AND CHF exacerbation. No further orders at this time Time: 06:37 Vital Signs Temperature 98.9 F 12/17/17 05:06 Pulse Rate 50 12/17/17 05:06 Respiratory Rate 22 12/17/17 05:06 Blood Pressure 165/88 12/17/17 05:06 O2 Sat by Pulse Oximetry 94 12/17/17 05:06 Temperature 98.9 F 12/17/17 05:06 Pulse Rate 104 12/17/17 06:37 Respiratory Rate 20 12/17/17 06:37 Blood Pressure 164/88 12/17/17 06:37 O2 Sat by Pulse Oximetry 95 12/17/17 06:37 Oxygen Delivery Oxygen Delivery Nasal Cannula Shortness of Breath/Dyspnea - MDM Narrative Medical decision making narrative: Patient was discussed with my attending physician who agrees with ED management and final disposition. They independently evaluated the patient. Please refer to their attestation to this encounter for additional information. This note was generated by [employer] voice recognition software and as a result grammatical or spelling errors may occur using this program. - Medical Records Medical records reviewed: Yes I reviewed the patient's medical records. - Lab Data Lab results reviewed: Yes I reviewed the patient's lab results. Result diagrams: 12/17/17 05:24 12/17/17 05:24 Lab Results 12/17/17 12/17/17 12/17/17 Range/Units 05:24 05:24 05:24 WBC 20.9 H (4.3-11.1) K/mcL RBC 2.87 L (3.82-4.97) M/mcL Hgb 8.0 L (11.5-15.4) g/dL Hct 23.7 L (35.3-44.9) % MCV 82.6 L (83.0-100.0) fL MCH 27.9 L (28.0-33.3) pg MCHC 33.8 (31.6-35.5) g/dL RDW 15.4 H (11.5-14.5) % Plt Count 219 (140-400) K/mcL MPV 11.0 (9.4-12.4) fL Immature Gran % 0.9 (0-4) % Seg Neutrophils % 88.1 % Lymphocytes % 7.9 % Monocytes % 2.9 % Eosinophils % 0.1 % Basophils % 0.1 % Neutrophils # 18.4 H (1.6-8.9) K/mcL Lymphocytes # 1.7 (0.6-4.6) K/mcL Monocytes # 0.6 (0.0-1.3) K/mcL Eosinophils # 0.0 (0.0-0.6) K/mcL Basophils # 0.0 (0.0-0.2) K/mcL Sodium 135 L (136-145) mEq/L Potassium 3.7 (3.5-5.1) mEq/L Chloride 101 (98-107) mEq/L Carbon Dioxide 25 (23-29) mEq/L BUN 59 H (8-23) mg/dL Creatinine 2.33 H (0.60-1.20) mg/dL Est GFR ( Amer) 25 L (> 60) Est GFR (Non-Af Amer) 20 L (> 60) BUN/Creatinine Ratio 25 (6-26) Glucose 475 H (70-105) mg/dL Calculated Osmolality 317 H (280-300) Lactic Acid (0.5-2.2) mmol/L Calcium 8.0 L (8.6-10.3) mg/dL Troponin I 0.06 H* (< 0.04) ng/mL B-Natriuretic Peptide 1437 H (Less than 100) pg/mL 12/17/17 Range/Units 06:55 WBC (4.3-11.1) K/mcL RBC (3.82-4.97) M/mcL Hgb (11.5-15.4) g/dL Hct (35.3-44.9) % MCV (83.0-100.0) fL MCH (28.0-33.3) pg MCHC (31.6-35.5) g/dL RDW (11.5-14.5) % Plt Count (140-400) K/mcL MPV (9.4-12.4) fL Immature Gran % (0-4) % Seg Neutrophils % % Lymphocytes % % Monocytes % % Eosinophils % % Basophils % % Neutrophils # (1.6-8.9) K/mcL Lymphocytes # (0.6-4.6) K/mcL Monocytes # (0.0-1.3) K/mcL Eosinophils # (0.0-0.6) K/mcL Basophils # (0.0-0.2) K/mcL Sodium (136-145) mEq/L Potassium (3.5-5.1) mEq/L Chloride (98-107) mEq/L Carbon Dioxide (23-29) mEq/L BUN (8-23) mg/dL Creatinine (0.60-1.20) mg/dL Est GFR ( Amer) (> 60) Est GFR (Non-Af Amer) (> 60) BUN/Creatinine Ratio (6-26) Glucose (70-105) mg/dL Calculated Osmolality (280-300) Lactic Acid 1.5 (0.5-2.2) mmol/L Calcium (8.6-10.3) mg/dL Troponin I (< 0.04) ng/mL B-Natriuretic Peptide (Less than 100) pg/mL - Radiology Data Radiology results reviewed: Yes I reviewed the patient's radiology results. Chest X-Ray 12/17/17 05:09 IMPRESSION: Right greater than left airspace opacities could reflect asymmetric edema, multifocal pneumonia or aspiration sequela. D/ / Dayton Nelson / Dayton Nelson Interpreting Provider: Dayton Nelson - EKG Data EKG attestation: Yes I reviewed and interpreted this EKG. EKG results narrative: EKG performed 512 sinus tachycardia 97 beats per minute, normal axis, good R wave progression, occasional PVC, intervals within normal limits. No ST elevation or depression. Compared to prior EKG performed 11/04/2017 which showed Q waves in the inferior lead otherwise no acute ischemic findings.
[2017-12-17] MEDS ORDERED: Benzonatate 100 MG CAPSULE PO ONE (05:43)
[2017-12-17 05:46] LABS: Basophils % 0.1 %; Eosinophils % 0.1 %; Hematocrit 23.7 % (35.3-44.9); Immature Granulocytes % 0.9 % (0-4); Lymphocytes # 1.7 K/mcL (0.6-4.6); Lymphocytes % 7.9 %; Mean Corpuscular HGB Conc 33.8 g/dL (31.6-35.5); Mean Corpuscular Hemoglobin 27.9 pg (28.0-33.3); Mean Corpuscular Volume 82.6 fL (83.0-100.0); Monocytes # 0.6 K/mcL (0.0-1.3); Monocytes % 2.9 %; Neutrophils # 18.4 K/mcL (1.6-8.9); Platelet Count 219 K/mcL (140-400); Red Blood Count 2.87 M/mcL (3.82-4.97); Red Cell Distribution Width 15.4 % (11.5-14.5); Segmented Neutrophils % 88.1 %
[2017-12-17 06:03] LABS: Potassium 3.7 mEq/L (3.5-5.1)
[2017-12-17 06:06] LABS: Troponin I 0.06 ng/mL (< 0.04)
[2017-12-17] MEDS ORDERED: Piperacillin/Tazobactam 3.375 GM in Water for inj. (sterile) 20 ML 20 ML IVP ONE (06:06)
[2017-12-17] MEDS ORDERED: Furosemide 20 MG/2 ML VIAL IVP ONE (06:42)
[2017-12-17] MEDS ORDERED: Aspirin 325 MG TABLET PO ONE (06:45)
--- NOTE | 2017-12-17 07:22 | Emergency Department Note ---
Disposition Clinical Impression: Healthcare-associated pneumonia CHF exacerbation Qualifiers: Heart failure type: unspecified Qualified Code(s): I50.9 - Heart failure, unspecified Sepsis Qualifiers: Sepsis type: sepsis due to unspecified organism Qualified Code(s): A41.9 - Sepsis, unspecified organism Disposition: Admitted As Inpatient Condition: Fair Referrals: Otto Winchester, NAY [Primary Care Provider] - General Adult HPI - General Chief complaint: ED Shortness of Breath/Dyspnea Stated complaint: ld Time Seen by Provider: 12/17/17 05:08 Source: patient, EMS Mode of arrival: EMS Limitations: no limitations Nursing Notes Reviewed: Yes Vital Signs Reviewed: Yes - History of Present Illness Pain Scale: 0 - Related Data Home Medications Medication Instructions Recorded Confirmed Aspirin Enteric Coated [Aspirin EC] 81 mg PO DAILY 06/16/16 12/17/17 Insulin LISPRO [HumaLOG] 25 units SQ TIDWM 08/11/16 12/17/17 Bisacodyl [Dulcolax] 10 mg RC DAILY PRN 04/24/17 12/17/17 Ipratropium/Albuterol Neb [Duoneb] 3 ml IH Q4H PRN 04/24/17 12/17/17 Metoprolol [Lopressor] 25 mg PO BID 04/24/17 12/17/17 [place]-3/Dha/Epa/Fish Oil [Fish Oil 1,000 mg PO DAILY 04/24/17 12/17/17 1,000 mg Softgel] Oxygen 3 - 4 l NS DAILY 04/24/17 12/17/17 Omeprazole [PriLOSEC] 20 mg PO DAILY 07/21/17 12/17/17 Glucagon,Human Recombinant 1 mg IJ ONCE PRN 08/06/17 12/17/17 [Glucagon Emergency Kit] Fenofibrate Nanocrystallized 160 mg PO DAILY 09/12/17 12/17/17 [Triglide] Ferrous Sulfate [Iron] 325 mg PO DAILY 09/12/17 12/17/17 Furosemide [Lasix] 20 mg PO BID 11/04/17 12/17/17 Potassium Chloride [Klor-Con 10 meq PO DAILY 11/04/17 12/17/17 Sprinkle] Previous Rx's Medication Instructions Recorded Atorvastatin [Lipitor] 40 mg PO HS #30 tablet 10/11/16 Citalopram Hydrobromide 40 mg PO DAILY #30 tablet 10/11/16 [Citalopram HBr] Isosorbide MONOnitrate (24 HR) 30 mg PO DAILY #30 tab.er.24h 10/11/16 [Imdur] Lisinopril [Zestril] 5 mg PO DAILY #30 tablet 10/11/16 amLODIPine [Norvasc] 10 mg PO HS #30 tablet 10/11/16 Albuterol Neb [Proventil Neb] 2.5 mg IH Q2H PRN inhsol 05/01/17 Insulin Glargine [Lantus] 10 unit SQ HS #1 vial 11/07/17 Allergies Allergy/AdvReac Type Severity Reaction Status Date / Time No Known Allergies Allergy Verified 11/04/17 18:22 Constitutional: Denies: fever, chills ENT ED: Reports: congestion Cardiovascular: Reports: chest pain Respiratory: Reports: cough, dyspnea Gastrointestinal: Denies: abdominal pain, nausea, vomiting Genitourinary: Denies: urgency, dysuria Musculoskeletal: Denies: back pain Integumentary: Denies: rash, abrasion Neurological: Denies: headache Past Medical History - Past Medical History Medical history: Reports: CHF, coronary artery disease, diabetes, hyperlipidemia , hypertension, myocardial infarction, renal disease Surgical history: Reports: orthopedic, other Psychiatric history: Reports: anxiety, depression TALENT ACQUISITION ASSOCIATE 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: 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: 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 - Social History Smoking Status: Never smoker Smokeless Tobacco Status: No Alcohol use: Reports: none Drug use: Reports: none Physical Exam - General Limitations: no limitations General appearance: alert, in distress (Mild respiratory), obese Course Vital Signs Temperature 98.9 F 12/17/17 05:06 Pulse Rate 50 12/17/17 05:06 Respiratory Rate 22 12/17/17 05:06 Blood Pressure 165/88 12/17/17 05:06 O2 Sat by Pulse Oximetry 94 12/17/17 05:06 Temperature 98.9 F 12/17/17 05:06 Pulse Rate 104 12/17/17 06:37 Respiratory Rate 20 12/17/17 06:37 Blood Pressure 164/88 12/17/17 06:37 O2 Sat by Pulse Oximetry 95 12/17/17 06:37 Oxygen Delivery Oxygen Delivery Nasal Cannula Medical Decision Making - Medical Records Medical records reviewed: Yes I reviewed the patient's medical records. - Lab Data Lab results reviewed: Yes I reviewed the patient's lab results. Result diagrams: 12/17/17 05:24 12/17/17 05:24 Lab Results 12/17/17 12/17/17 12/17/17 Range/Units 05:24 05:24 05:24 WBC 20.9 H (4.3-11.1) K/mcL RBC 2.87 L (3.82-4.97) M/mcL Hgb 8.0 L (11.5-15.4) g/dL Hct 23.7 L (35.3-44.9) % MCV 82.6 L (83.0-100.0) fL MCH 27.9 L (28.0-33.3) pg MCHC 33.8 (31.6-35.5) g/dL RDW 15.4 H (11.5-14.5) % Plt Count 219 (140-400) K/mcL MPV 11.0 (9.4-12.4) fL Immature Gran % 0.9 (0-4) % Seg Neutrophils % 88.1 % Lymphocytes % 7.9 % Monocytes % 2.9 % Eosinophils % 0.1 % Basophils % 0.1 % Neutrophils # 18.4 H (1.6-8.9) K/mcL Lymphocytes # 1.7 (0.6-4.6) K/mcL Monocytes # 0.6 (0.0-1.3) K/mcL Eosinophils # 0.0 (0.0-0.6) K/mcL Basophils # 0.0 (0.0-0.2) K/mcL Sodium 135 L (136-145) mEq/L Potassium 3.7 (3.5-5.1) mEq/L Chloride 101 (98-107) mEq/L Carbon Dioxide 25 (23-29) mEq/L BUN 59 H (8-23) mg/dL Creatinine 2.33 H (0.60-1.20) mg/dL Est GFR ( Amer) 25 L (> 60) Est GFR (Non-Af Amer) 20 L (> 60) BUN/Creatinine Ratio 25 (6-26) Glucose 475 H (70-105) mg/dL Calculated Osmolality 317 H (280-300) Lactic Acid (0.5-2.2) mmol/L Calcium 8.0 L (8.6-10.3) mg/dL Troponin I 0.06 H* (< 0.04) ng/mL B-Natriuretic Peptide 1437 H (Less than 100) pg/mL 12/17/17 Range/Units 06:55 WBC (4.3-11.1) K/mcL RBC (3.82-4.97) M/mcL Hgb (11.5-15.4) g/dL Hct (35.3-44.9) % MCV (83.0-100.0) fL MCH (28.0-33.3) pg MCHC (31.6-35.5) g/dL RDW (11.5-14.5) % Plt Count (140-400) K/mcL MPV (9.4-12.4) fL Immature Gran % (0-4) % Seg Neutrophils % % Lymphocytes % % Monocytes % % Eosinophils % % Basophils % % Neutrophils # (1.6-8.9) K/mcL Lymphocytes # (0.6-4.6) K/mcL Monocytes # (0.0-1.3) K/mcL Eosinophils # (0.0-0.6) K/mcL Basophils # (0.0-0.2) K/mcL Sodium (136-145) mEq/L Potassium (3.5-5.1) mEq/L Chloride (98-107) mEq/L Carbon Dioxide (23-29) mEq/L BUN (8-23) mg/dL Creatinine (0.60-1.20) mg/dL Est GFR ( Amer) (> 60) Est GFR (Non-Af Amer) (> 60) BUN/Creatinine Ratio (6-26) Glucose (70-105) mg/dL Calculated Osmolality (280-300) Lactic Acid 1.5 (0.5-2.2) mmol/L Calcium (8.6-10.3) mg/dL Troponin I (< 0.04) ng/mL B-Natriuretic Peptide (Less than 100) pg/mL - Radiology Data Radiology results reviewed: Yes I reviewed the patient's radiology results. Chest X-Ray 12/17/17 05:09 IMPRESSION: Right greater than left airspace opacities could reflect asymmetric edema, multifocal pneumonia or aspiration sequela. D/ / Dayton Nelson / Dayton Nelson Interpreting Provider: Dayton Nelson - EKG Data EKG #1 EKG attestation: Yes I reviewed and interpreted this EKG. EKG results narrative: EKG shows a sinus rhythm with a marked sinus arrhythmia. Ventricular rate 97. No acute ST segment elevation or depression. Critical Care Time Critical Care Time: Yes Total Critical Care Time: 35 Attestation: Critical care performed: Time is exclusive of separately billable procedures. Time includes: direct patient care, patient reassessment, coordination of patient care, interpretation of data (laboratory data, radiology data, and respiratory data), review of patient's medical records, medical consultation and documentation of patient care. Procedures included in critical care time: Procedures excluded from critical care time: Attestation Statement - Attestation Attestation: I, Dustin Trent MD, personally evaluated this patient and discussed their management with the resident physician. I reviewed the resident's note and agree with the documented findings, medical decision making, and plan of care. 72-year-old female presents to the emergency department by embolus with a complaint of increased shortness of breath tonight. She has had increased cough and increased shortness of breath for the past several days. Patient states that she has pneumonia. She denies any fever. No chest pain other than it hurts to cough. On examination patient is a well-developed well-nourished elderly female in no acute distress. She is alert and oriented 3. There is no cyanosis or diaphoresis. Chest is nontender to palpation. Breath sounds are equal bilaterally with right mid and lower lung rales. There are a few scattered extremely wheezes. Heart is irregularly irregular with a normal rate. Abdomen soft and nontender with normal bowel sounds. Chest x-ray shows right lower lobe pneumonia. Labs reviewed. No acute ischemic changes on EKG. The hospitalist, Dr. Gibson, was consulted and accepted admission of the patient.
[2017-12-17] MEDS ORDERED: Naloxone 0.4 MG/ML INJ IVP PRN (07:49)
[2017-12-17] MEDS ORDERED: Albuterol 2.5 MG/3 ML NEBULIZER IH PRN (07:54)
[2017-12-17] MEDS ORDERED: Bisacodyl 10 MG RECTAL SUPPOSITORY RC PRN (07:54)
[2017-12-17] MEDS ORDERED: Dextrose Gel 15 GM/37.5 ML TUBE PO PRN ×2 (07:59)
[2017-12-17] MEDS ORDERED: D5% in Water 1,000 ML IVC PRN (07:59)
[2017-12-17] MEDS ORDERED: *HR* Dextrose 50 % in Water (Syg) 50 ML SYRINGE IVP PRN (07:59)
[2017-12-17] MEDS ORDERED: Vancomycin 1 EACH in 0.9 % Sodium Chloride 250 ML IVPB SCH (08:00)
[2017-12-17] MEDS ORDERED: Furosemide 20 MG TABLET PO SCH (09:00)
[2017-12-17] MEDS ORDERED: Levofloxacin 750 MG/150 ML 750 MG/150 ML BAG IVPB ONE (09:00)
[2017-12-17] MEDS: Aspirin Enteric Coated 81 MG Tablet PO SCH (10:13)
[2017-12-17] MEDS: Fenofibrate 54 MG TABLET PO SCH (10:13)
[2017-12-17] MEDS: Isosorbide MONOnitrate (24 HR) 30 MG TAB.ER.24H PO SCH (10:14)
[2017-12-17] MEDS: Furosemide 20 MG/2 ML VIAL IVP SCH ×2 (10:17→17:08)
[2017-12-17] MEDS: Insulin LISPRO 300 UNITS/3 ML VIAL SQ SCH ×3 (10:31→21:54)
--- NOTE | 2017-12-17 10:45 | Internal Med History&Physical ---
Date of Encounter: 12/17/17 Time of Encounter: 10:35 Internal Medicine - H&P: HPI Chief complaint: Shortness of breath, coughing , wheezing of 1 month duration History of present illness: Ms. Starr is a 72 year old female with pmh of diastolic CHF with EF of 60%, COPD on home oxygen, recently discharged about a month ago for acute CHF exacerbation presents with complaints of shortness of breath of about a month's duraton which began with a cold. Pt says she lives with her granddaughter and caught a cold about a month ago. No sick contacts. Since then she has been unable to shake it off and has had intermittent coughing productive of brown phlegm with wheezing. She says these symptoms have been progressively getting worse, and with being unable to get relief with her breathing treatments at home decide to to come to the ER. She denies any other acute symptoms such as abdominal pain, nausea, vomiting or chest pain. Admits to shortness of breath. In the ER, she was give one dose of Iv steroids and a breathing treatment. She was also noted to have a leukocytosis of 20 and an elevated BNP of 1437. CXR showed multifocal pneumonia and edema and she is being admitted for further management Past Med Surg Social Fam HX - Past Medical History Medical history: CHF, coronary artery disease, diabetes, hyperlipidemia, hypertension, myocardial infarction, renal disease Additional medical history: immune disorder that has caused sores to arms and legs. Psychiatric history: anxiety, depression - Past Surgical History Surgical History: orthopedic, other - Social History Smoking Status: Never smoker Smokeless Tobacco Status: No Alcohol use: none Drug use: none - Family History Father Family Member Ethnicity: Non- Living Status: Hx Family Cardiac Disorders: Yes (VA, HTN, Cardiomegaly) Hx Family Endocrine Disorder: Yes (DM) Mother Family Member Ethnicity: Non- Living Status: Hx Family Cancer: Yes (Breast) Brother Family Member Ethnicity: Non- Living Status: Still Living Hx Family Cardiac Disorders: Yes (HTN) Hx Family Endocrine Disorder: Yes (DM) Sister Family Member Ethnicity: Non- Living Status: Still Living Hx Family Cardiac Disorders: Yes (HTN) Hx Family Endocrine Disorder: Yes (DM) Internal Medicine - H&P: Meds Aspirin Enteric Coated [Aspirin EC] 81 mg PO DAILY 06/16/16 [History] Insulin LISPRO [HumaLOG] 25 units SQ TIDWM 08/11/16 [History] Atorvastatin [Lipitor] 40 mg PO HS #30 tablet 10/11/16 [Rx] Citalopram Hydrobromide [Citalopram HBr] 40 mg PO DAILY #30 tablet 10/11/16 [Rx] Isosorbide MONOnitrate (24 HR) [Imdur] 30 mg PO DAILY #30 tab.er.24h 10/11/16 [ Rx] Lisinopril [Zestril] 5 mg PO DAILY #30 tablet 10/11/16 [Rx] amLODIPine [Norvasc] 10 mg PO HS #30 tablet 10/11/16 [Rx] Bisacodyl [Dulcolax] 10 mg RC DAILY PRN 04/24/17 [History] Ipratropium/Albuterol Neb [Duoneb] 3 ml IH Q4H PRN 04/24/17 [History] Metoprolol [Lopressor] 25 mg PO BID 04/24/17 [History] Napoleon-3/Dha/Epa/Fish Oil [Fish Oil 1,000 mg Softgel] 1,000 mg PO DAILY 04/24/17 [History] Oxygen 3 - 4 l NS DAILY 04/24/17 [History] Albuterol Neb [Proventil Neb] 2.5 mg IH Q2H PRN inhsol 05/01/17 [Rx] Omeprazole [PriLOSEC] 20 mg PO DAILY 07/21/17 [History] Glucagon,Human Recombinant [Glucagon Emergency Kit] 1 mg IJ ONCE PRN 08/06/17 [ History] Fenofibrate Nanocrystallized [Triglide] 160 mg PO DAILY 09/12/17 [History] Ferrous Sulfate [Iron] 325 mg PO DAILY 09/12/17 [History] Furosemide [Lasix] 20 mg PO BID 11/04/17 [History] Potassium Chloride [Klor-Con Sprinkle] 10 meq PO DAILY 11/04/17 [History] Insulin Glargine [Lantus] 10 unit SQ HS #1 vial 11/07/17 [Rx] 3 Allergy/AdvReac Type Severity Reaction Status Date / Time No Known Allergies Allergy Verified 11/04/17 18:22 All Systems PM: A 10-system review of systems was performed and is negative for pertinent findings except as documented above in the HPI. - Constitutional Constitutional: no chills, no fever(s), no night sweats - EENT Eyes: no change in vision, no discharge, no pain, no photophobia Ears: no ear discharge, no ear pain, no tinnitus Nose, mouth and throat: no dysphagia, no nasal discharge, no neck pain, no sore throat - Cardiovascular Cardiovascular ROS IM: dyspnea, no chest pain, no diaphoresis, no lightheadedness, no palpitations, no syncope - Respiratory Respiratory: cough, dyspnea, excessive phlegm production - Gastrointestinal Gastrointestinal: no abdominal pain, no diarrhea, no hematemesis, no hematochezia, no melena, no nausea, no vomiting - Genitourinary Genitourinary: no change in urinary stream, no dysuria, no flank pain, no hematuria - Musculoskeletal Musculoskeletal ROS IM: no numbness, no tingling - Integumentary Integumentary IM: no rash, no unusual bruising - Neurological Neurological ROS: no confusion, no convulsions, no focal weakness, no numbness, no tingling, no tremor(s) - Hematologic/Lymphatic Hematologic/Lymphatic: no easy bruising - Constitutional Vitals: Temp Pulse Resp BP Pulse Ox 98.4 F 99 15 180/70 92 12/17/17 10:01 12/17/17 10:12/17/17 10:01 12/17/17 10:01 12/17/17 10:01 General appearance: Present: no acute distress, obese Exam: NAD - Head Head exam: Present: atraumatic, normocephalic - Eye Eye exam: Present: PERRL, conjuntiva pink, sclera anicteric Pupils: Present: PERRL - Neck Neck exam general surgery: Present: supple, trachea midline. Absent: lymphadenopathy - Respiratory Respiratory exam: Present: decreased breath sounds, wheezes. Absent: accessory muscle use, rales, rhonchi - Cardiovascular Cardiovascular exam: Present: RRR, +S1, +S2. Absent: diastolic murmur, gallop, rubs, systolic murmur - GI/Abdominal GI/Abdominal exam: Present: normal bowel sounds, soft, no peritoneal signs. Absent: distended, tenderness - Extremities Exam Extremities exam: Present: pedal edema, warm, radial pulses palpable and symmetrical. Absent: calf tenderness, cyanotic - Neurological Exam Neurological exam: Present: CN II-XII intact, oriented X3, no focal deficits. Absent: pronater drift, facial droop, speech deficit - Skin Skin exam: Present: dry, intact Internal Med - H&P Results - Labs CBC & Chem 7: 12/17/17 05:24 12/17/17 05:24 - Assessment and plan (1) Sepsis Current Visit: No Status: Acute Assessment and plan: Pt has a leukocytosis of 20 and multifocal pneumonia. Possibly secondary to bacterial HCAP. Was recently here about a month ago and has recurrent admissions Will start on renally dosed vanc, zosyn and levaquin. Follow up blood cultures, urine legionella and streptococcal antigens Qualifiers: Sepsis type: Pneumococcus Qualified Code(s): A40.3 - Sepsis due to Streptococcus pneumoniae (2) Acute exacerbation of CHF (congestive heart failure) Current Visit: No Status: Acute Assessment and plan: Pt has shortness of breath, pedal edema and acute worsening of chronic diastolic CHF with elevated proBNP Started on lasix BID. Monitor ins and outs and monitor creatinine Qualifiers: Heart failure type: unspecified Qualified Code(s): I50.9 - Heart failure, unspecified (3) Healthcare-associated pneumonia Current Visit: No Status: Acute Assessment and plan: See #1. Continue antibiotics and follow up sepsis workup. CXR shows multifocal pneumonia (4) COPD exacerbation Current Visit: No Status: Acute Assessment and plan: Has diffuse wheezing, SOB, and productive cough Started on round the clock nebs, steroids and antibiotics (5) Elevated troponin Current Visit: No Status: Acute Assessment and plan: Likely secondary to demand ischemia. No acute interventio. denies chest pain (6) DM (diabetes mellitus) Current Visit: No Status: Chronic Assessment and plan: Continue insulin. Monitor fingersticks Qualifiers: Diabetes mellitus type: type 2 Diabetes mellitus rn long term care insulin use: with correction use Diabetes mellitus complication status: without complication Qualified Code(s): E11.9 - Type 2 diabetes mellitus without complications; Z79.4 - exterminator termite (current) use of insulin (7) CKD (chronic kidney disease) stage 4, GFR 15-29 ml/min Current Visit: No Status: Chronic Assessment and plan: Monitor creatinine with diuresis (8) DVT prophylaxis Current Visit: No Status: Acute Assessment and plan: Heparin - Time Spent With Patient Total time spent is greater than 50% in coordination of care (as documented) at patient's floor/unit and/or counseling patient:
[2017-12-17] MEDS: Ipratropium/Albuterol Neb 3 ML IH SCH ×4 (11:20→19:54)
[2017-12-17] MEDS: Budesonide/Formoterol 160/4.5 1 PUFF INH IH SCH ×2 (11:20→19:50)
[2017-12-17] MEDS ORDERED: Ipratropium/Albuterol Neb 3 ML IH PRN (12:00)
--- NOTE | 2017-12-17 15:32 | Electrocardiograph Report ---
[address] [place], [place] [address] Test Date: 2017-12-17 Pat Name: Christelle Starr Department: [id number] Room: 2A44 Gender: F Rotary Cutter Feeder: : 1945 Requested By: Vignesh Carlos Order Number: [id number] Reading MD: Norma Navas Measurements Intervals Manning Rate: 97 P: 100 RI: 151 QRS: 56 QRSD: 90 T: 17 QT: 368 QTc: 468 Interpretive Statements Sinus tachycardia Electronically Signed On 12-17-2017 15:31:09 EDT by Norma Navas
[2017-12-17] MEDS: MethylPREDNISolone 40 MG/ML VIAL IVP SCH (17:08)
[2017-12-17] MEDS ORDERED: Piperacillin/Tazobactam 3.375 GM in 0.9 % Sodium Chloride Mini Bag 100 ML IVPB SCH (18:00)
[2017-12-17] MEDS: *HR* Heparin 5,000 UNIT/ML VIAL SQ SCH (18:23)
[2017-12-17] MEDS ORDERED: Insulin LISPRO 300 UNITS/3 ML VIAL SQ SCH (21:00)
[2017-12-17] MEDS: amLODIPine 5 MG TABLET PO SCH (21:48)
[2017-12-17] MEDS: Insulin DETEMIR 100 UNIT/ML X5UNITS SQ SCH (21:53)
[2017-12-18] MEDS: MethylPREDNISolone 40 MG/ML VIAL IVP SCH ×3 (00:09→17:00)
[2017-12-18] MEDS: Dextromethorphan Polistrx(12h) 30 MG/5 ML UDC PO PRN ×2 (00:09→13:29)
[2017-12-18] MEDS: Ipratropium/Albuterol Neb 3 ML IH SCH ×7 (00:54→22:45)
[2017-12-18] MEDS: *HR* Heparin 5,000 UNIT/ML VIAL SQ SCH ×2 (05:27→17:00)
[2017-12-18 05:50] LABS: Basophils % 0.1 %; Hematocrit 22.6 % (35.3-44.9); Hemoglobin 7.5 g/dL (11.5-15.4); Immature Granulocytes % 1.4 % (0-4); Lymphocytes # 0.5 K/mcL (0.6-4.6); Lymphocytes % 4.1 %; Mean Corpuscular HGB Conc 33.2 g/dL (31.6-35.5); Mean Corpuscular Hemoglobin 26.7 pg (28.0-33.3); Mean Corpuscular Volume 80.4 fL (83.0-100.0); Mean Platelet Volume 10.9 fL (9.4-12.4); Monocytes # 0.2 K/mcL (0.0-1.3); Monocytes % 1.6 %; Neutrophils # 11.7 K/mcL (1.6-8.9); Platelet Count 230 K/mcL (140-400); Red Blood Count 2.81 M/mcL (3.82-4.97); Red Cell Distribution Width 15.5 % (11.5-14.5); Segmented Neutrophils % 92.8 %
[2017-12-18 06:09] LABS: Calcium 8.9 mg/dL (8.6-10.3); Magnesium 1.4 mg/dL (1.6-2.6); Phosphorous 4.3 mg/dL (2.7-4.5)
[2017-12-18] MEDS: Budesonide/Formoterol 160/4.5 1 PUFF INH IH SCH ×2 (07:41→22:45)
[2017-12-18] MEDS: Isosorbide MONOnitrate (24 HR) 30 MG TAB.ER.24H PO SCH (08:15)
[2017-12-18] MEDS: Aspirin Enteric Coated 81 MG Tablet PO SCH (08:15)
[2017-12-18] MEDS: Insulin LISPRO 300 UNITS/3 ML VIAL SQ SCH ×4 (08:16→20:37)
[2017-12-18] MEDS: Fenofibrate 54 MG TABLET PO SCH (08:16)
[2017-12-18] MEDS: Furosemide 20 MG/2 ML VIAL IVP SCH ×2 (08:16→17:00)
[2017-12-18] MEDS ORDERED: Levofloxacin 750 MG/150 ML 750 MG/150 ML BAG IVPB SCH (10:00)
--- NOTE | 2017-12-18 16:00 | Internal Med Progress Note ---
Hospitalist Progress Note - Encounter Date of Encounter: 12/18/17 Time of Encounter: 15:58 - Exam Vitals: Temp Pulse Resp BP Pulse Ox 98.5 F 77 18 123/68 98 12/18/17 11:37 12/18/17 11:37 12/18/17 15:35 12/18/17 11:37 12/18/17 15:35 Exam: xxx - Assessment and Plan (1) COPD exacerbation Current Visit: No Status: Acute (2) Healthcare-associated pneumonia Current Visit: No Status: Suspected (3) Acute exacerbation of CHF (congestive heart failure) Current Visit: No Status: Acute (4) Elevated troponin Current Visit: No Status: Acute (5) CKD (chronic kidney disease) stage 4, GFR 15-29 ml/min Current Visit: No Status: Chronic (6) DM (diabetes mellitus) Current Visit: No Status: Chronic (7) Hypertensive renal disease with renal failure Current Visit: Yes Status: Chronic (8) Anemia in chronic kidney disease Current Visit: Yes Status: Chronic - Time Spent with Patient Total time spent is greater than 50% in coordination of care (as documented) at patient's floor/unit and/or counseling patient: 25 - 35 minutes Plan of Care Discussed with: patient Internal Medicine: Result - Labs CBC & Chem 7: 12/18/17 05:23 12/18/17 05:23 Labs: Short CBC 12/18/17 Range/Units 05:23 WBC 12.6 H (4.3-11.1) K/mcL Hgb 7.5 L (11.5-15.4) g/dL Hct 22.6 L (35.3-44.9) % Plt Count 230 (140-400) K/mcL Neutrophils # 11.7 H (1.6-8.9) K/mcL BMP 12/18/17 05:23 Sodium 137 Potassium 4.0 Chloride 101 Carbon Dioxide 25 BUN 64 H Creatinine 2.62 H Glucose 320 H Calcium 8.9 Consult Discharge Plan - Plan Referrals: Otto Winchester, LEARNING AND DEVELOPMENT ASSISTANT [Primary Care Provider] - (3) Acute exacerbation of CHF (congestive heart failure) Qualifiers: Heart failure type: diastolic Qualified Code(s): I50.33 - Acute on chronic diastolic (congestive) heart failure (6) DM (diabetes mellitus) Qualifiers: Diabetes mellitus type: type 2 Diabetes mellitus skilled nursing insulin use: with ferry terminal supervisor use Diabetes mellitus complication status: with kidney complications Diabetes mellitus complication detail: with chronic kidney disease Chronic kidney disease stage: stage 4 (severe) Qualified Code(s): E11.22 - Type 2 diabetes mellitus with diabetic chronic kidney disease; N18.4 - Chronic kidney disease, stage 4 (severe); Z79.4 - terminal operations supervisor (current) use of insulin (8) Anemia in chronic kidney disease Qualifiers: Chronic kidney disease stage: stage 4 (severe) Qualified Code(s): N18.4 - Chronic kidney disease, stage 4 (severe); D63.1 - Anemia in chronic kidney disease
--- NOTE | 2017-12-18 18:26 | Internal Med Progress Note ---
Hospitalist Progress Note - Encounter Date of Encounter: 12/18/17 Time of Encounter: 18:00 - Subjective Interval History: SUBJECTIVE: The patient feels better. Her resting dyspnea subsided. She is on 3 L/min nasal cannula oxygen; like at home at her baseline. She does have mild cough but not wheezing (she had some wheezing before this admission). Denies chest pain. Denies abdominal pain, nausea and vomiting. She makes good amounts of urine. Swelling of her lower legs/feet significantly decreased in intensity. OBJECTIVE: Skin: Free of rash and discoloration. ENMT: Oral/pharyngeal mucosa is normal in appearance. Eyes: Sclera is white. There is no discharge from eyes. Respiratory: Normal breath sounds; no crackles or wheezes. CV: Heart is regular; no gallop or murmur. GI: Abdomen is soft and not tender. There is no palpable mass or visceromegaly. Neuro: There is no focal deficits. ASSESSMENT AND PLAN: Dyspnea. It is likely exacerbation of COPD. She may also have acute on chronic diastolic heart failure. Her wheezing subsided. Chest x-ray shows bibasilar opacities. The acute component of respiratory failure is gone. She continues to have chronic hypoxic respiratory failure. The patient has had stage IV CKD secondary to long-standing type 2 diabetes mellitus and hypertension. She has developed a significant anemia. Her today's hemoglobin is 7.5; 8.0 yesterday and 8.0 in September of this year. Her anemia is secondary to chronic kidney disease. We will continue IV Lasix at 20 mg twice a day. We will continue nebulizer treatments with DuoNeb/Symbicort. She is on Solu-Medrol at 40 mg IV every 8 hours. She was recently hospitalized here with similar problem. This is why my colleagues started this patient on IV vancomycin and IV Levaquin to cover for possible hospital associated pneumonia. Will repeat chest x-ray and CBC tomorrow morning. We will transfuse her with packed red blood cells, if needed. - Exam Vitals: Temp Pulse Resp BP Pulse Ox 98.3 F 82 18 134/65 99 12/18/17 16:28 12/18/17 16:28 12/18/17 16:28 12/18/17 16:28 12/18/17 16:28 Exam: xxx - Assessment and Plan (1) COPD exacerbation Current Visit: No Status: Acute (2) Healthcare-associated pneumonia Current Visit: No Status: Suspected (3) Acute on chronic diastolic heart failure Current Visit: Yes Status: Acute (4) Elevated troponin Current Visit: No Status: Acute (5) CKD (chronic kidney disease) stage 4, GFR 15-29 ml/min Current Visit: No Status: Chronic (6) DM (diabetes mellitus) Current Visit: No Status: Chronic (7) Hypertensive renal disease with renal failure Current Visit: Yes Status: Chronic (8) Anemia in chronic kidney disease Current Visit: Yes Status: Chronic - Time Spent with Patient Total time spent is greater than 50% in coordination of care (as documented) at patient's floor/unit and/or counseling patient: 25 - 35 minutes Plan of Care Discussed with: patient Internal Medicine: Result - Labs CBC & Chem 7: 12/18/17 05:23 12/18/17 05:23 Labs: Short CBC 12/18/17 Range/Units 05:23 WBC 12.6 H (4.3-11.1) K/mcL Hgb 7.5 L (11.5-15.4) g/dL Hct 22.6 L (35.3-44.9) % Plt Count 230 (140-400) K/mcL Neutrophils # 11.7 H (1.6-8.9) K/mcL BMP 12/18/17 05:23 Sodium 137 Potassium 4.0 Chloride 101 Carbon Dioxide 25 BUN 64 H Creatinine 2.62 H Glucose 320 H Calcium 8.9 Consult Discharge Plan - Plan Referrals: Otto Winchester, STATISTICAL MACHINE MECHANIC [Primary Care Provider] - (6) DM (diabetes mellitus) Qualifiers: Diabetes mellitus type: type 2 Diabetes mellitus snf insulin use: with snf use Diabetes mellitus complication status: with kidney complications Diabetes mellitus complication detail: with chronic kidney disease Chronic kidney disease stage: stage 4 (severe) Qualified Code(s): E11.22 - Type 2 diabetes mellitus with diabetic chronic kidney disease; N18.4 - Chronic kidney disease, stage 4 (severe); Z79.4 - correction (current) use of insulin (8) Anemia in chronic kidney disease Qualifiers: Chronic kidney disease stage: stage 4 (severe) Qualified Code(s): N18.4 - Chronic kidney disease, stage 4 (severe); D63.1 - Anemia in chronic kidney disease
[2017-12-18] MEDS ORDERED: Acetaminophen 325 MG TABLET PO PRN (19:29)
[2017-12-18] MEDS: amLODIPine 5 MG TABLET PO SCH (20:35)
[2017-12-18] MEDS: Insulin DETEMIR 100 UNIT/ML X5UNITS SQ SCH (20:36)
[2017-12-19] MEDS: MethylPREDNISolone 40 MG/ML VIAL IVP SCH ×3 (00:27→16:39)
[2017-12-19] MEDS: Ipratropium/Albuterol Neb 3 ML IH SCH ×6 (04:42→23:24)
[2017-12-19] MEDS: *HR* Heparin 5,000 UNIT/ML VIAL SQ SCH ×2 (05:00→16:38)
[2017-12-19] MEDS: Dextromethorphan Polistrx(12h) 30 MG/5 ML UDC PO PRN ×2 (05:00→21:06)
[2017-12-19 05:04] LABS: Basophils % 0.1 %; Hematocrit 23.2 % (35.3-44.9); Hemoglobin 7.7 g/dL (11.5-15.4); Lymphocytes # 0.7 K/mcL (0.6-4.6); Lymphocytes % 5.2 %; Mean Corpuscular HGB Conc 33.2 g/dL (31.6-35.5); Mean Corpuscular Hemoglobin 26.8 pg (28.0-33.3); Mean Corpuscular Volume 80.8 fL (83.0-100.0); Mean Platelet Volume 10.6 fL (9.4-12.4); Monocytes # 0.3 K/mcL (0.0-1.3); Monocytes % 2.1 %; Neutrophils # 13.1 K/mcL (1.6-8.9); Platelet Count 262 K/mcL (140-400); Red Blood Count 2.87 M/mcL (3.82-4.97); Red Cell Distribution Width 15.7 % (11.5-14.5); Segmented Neutrophils % 91.6 %
[2017-12-19 05:23] LABS: Calcium 8.7 mg/dL (8.6-10.3); Magnesium 1.6 mg/dL (1.6-2.6); Potassium 3.6 mEq/L (3.5-5.1)
[2017-12-19] MEDS: Budesonide/Formoterol 160/4.5 1 PUFF INH IH SCH ×2 (07:44→20:50)
[2017-12-19] MEDS: Insulin LISPRO 300 UNITS/3 ML VIAL SQ SCH ×4 (08:39→20:23)
[2017-12-19] MEDS: Fenofibrate 54 MG TABLET PO SCH (08:40)
[2017-12-19] MEDS: Furosemide 20 MG/2 ML VIAL IVP SCH ×2 (08:40→16:39)
[2017-12-19] MEDS: Aspirin Enteric Coated 81 MG Tablet PO SCH (08:40)
[2017-12-19] MEDS: Isosorbide MONOnitrate (24 HR) 30 MG TAB.ER.24H PO SCH (08:40)
[2017-12-19] MEDS ORDERED: Levofloxacin 500 MG/100 ML 500 MG/100 ML BAG IVPB SCH (09:00)
[2017-12-19] MEDS: amLODIPine 5 MG TABLET PO SCH (20:23)
[2017-12-19] MEDS: Insulin DETEMIR 100 UNIT/ML X5UNITS SQ SCH (20:23)
--- NOTE | 2017-12-19 21:48 | Internal Med Progress Note ---
Hospitalist Progress Note - Encounter Date of Encounter: 12/19/17 Time of Encounter: 19:00 - Subjective Interval History: SUBJECTIVE: The patient feels better again. She does have mild cough but not wheezing. Denies chest pain. Denies abdominal pain, nausea and vomiting. She makes good amounts of urine. She is on 3 30/min nasal cannula oxygen; like at home. OBJECTIVE: Skin: Free of rash and discoloration. ENMT: Oral/pharyngeal mucosa is normal in appearance. Eyes: Sclera is white. There is no discharge from eyes. Respiratory: Normal breath sounds; no crackles or wheezes. CV: Heart is regular; no gallop or murmur. GI: Abdomen is soft and not tender. There is no palpable mass or visceromegaly. Neuro: There is no focal deficits. CBC shows hemoglobin of 7.7; 7.5 yesterday. WBCs 14.3 thousand; 20.9 thousand at admission. Her creatinine is 2.80; 2.33 at admission. I am ordering chest x -ray for tomorrow morning. ASSESSMENT AND PLAN: Dyspnea. It is likely exacerbation of COPD. She may also have acute on chronic diastolic heart failure. Her wheezing subsided. Chest x-ray shows bibasilar opacities. The acute component of respiratory failure is gone. She continues to have chronic hypoxic respiratory failure. The patient has had stage IV CKD secondary to long-standing type 2 diabetes mellitus and hypertension. She has developed a significant anemia. Her today's hemoglobin is 7.7; 7.5 yesterday and 8.0 in September of this year. Her anemia is secondary to chronic kidney disease. We will continue IV Lasix at 20 mg twice a day. We will continue nebulizer treatments with DuoNeb/Symbicort. She is on Solu-Medrol at 40 mg IV every 8 hours. She was recently hospitalized here with similar problem. This is why my colleagues started this patient on IV vancomycin and IV Levaquin to cover for possible hospital associated pneumonia. - Exam Vitals: Temp Pulse Resp BP Pulse Ox 98.7 F 90 16 131/75 99 12/19/17 18:50 12/19/17 18:50 12/19/17 18:50 12/19/17 18:50 12/19/17 18:50 Exam: xx - Assessment and Plan (1) COPD exacerbation Current Visit: No Status: Acute (2) Healthcare-associated pneumonia Current Visit: No Status: Suspected (3) Acute on chronic diastolic heart failure Current Visit: Yes Status: Acute (4) Elevated troponin Current Visit: No Status: Acute (5) CKD (chronic kidney disease) stage 4, GFR 15-29 ml/min Current Visit: No Status: Chronic (6) DM (diabetes mellitus) Current Visit: No Status: Chronic (7) Hypertensive renal disease with renal failure Current Visit: Yes Status: Chronic (8) Anemia in chronic kidney disease Current Visit: Yes Status: Chronic - Time Spent with Patient Total time spent is greater than 50% in coordination of care (as documented) at patient's floor/unit and/or counseling patient: 25 - 35 minutes Plan of Care Discussed with: patient Internal Medicine: Result - Labs CBC & Chem 7: 12/20/17 07:45 12/20/17 07:45 Labs: Short CBC 12/19/17 Range/Units 04:23 WBC 14.3 H (4.3-11.1) K/mcL Hgb 7.7 L (11.5-15.4) g/dL Hct 23.2 L (35.3-44.9) % Plt Count 262 (140-400) K/mcL Neutrophils # 13.1 H (1.6-8.9) K/mcL BMP 12/19/17 04:23 Sodium 140 Potassium 3.6 Chloride 103 Carbon Dioxide 26 BUN 74 H Creatinine 2.80 H Glucose 153 H Calcium 8.7 - Impressions Impressions Chest X-Ray 12/18/17 16:11 IMPRESSION: Improving bilateral airspace disease. D/ / Xavi Oakes MD / Xavi Oakes MD Interpreting Provider: Xavi Oakes MD Consult Discharge Plan - Plan Referrals: Otto Winchester, WET ROLLER [Primary Care Provider] - (6) DM (diabetes mellitus) Qualifiers: Diabetes mellitus type: type 2 Diabetes mellitus snf insulin use: with tube machine operator use Diabetes mellitus complication status: with kidney complications Diabetes mellitus complication detail: with chronic kidney disease Chronic kidney disease stage: stage 4 (severe) Qualified Code(s): E11.22 - Type 2 diabetes mellitus with diabetic chronic kidney disease; N18.4 - Chronic kidney disease, stage 4 (severe); Z79.4 - half-way (current) use of insulin (8) Anemia in chronic kidney disease Qualifiers: Chronic kidney disease stage: stage 4 (severe) Qualified Code(s): N18.4 - Chronic kidney disease, stage 4 (severe); D63.1 - Anemia in chronic kidney disease
[2017-12-20] MEDS: MethylPREDNISolone 40 MG/ML VIAL IVP SCH ×2 (00:04→07:55)
[2017-12-20] MEDS: Ipratropium/Albuterol Neb 3 ML IH SCH ×5 (03:41→19:54)
[2017-12-20] MEDS: *HR* Heparin 5,000 UNIT/ML VIAL SQ SCH ×2 (05:33→16:56)
[2017-12-20] MEDS: Budesonide/Formoterol 160/4.5 1 PUFF INH IH SCH ×2 (07:25→19:54)
[2017-12-20] MEDS: Insulin LISPRO 300 UNITS/3 ML VIAL SQ SCH ×4 (07:55→21:31)
[2017-12-20] MEDS: Furosemide 20 MG/2 ML VIAL IVP SCH (07:55)
[2017-12-20] MEDS: Fenofibrate 54 MG TABLET PO SCH (07:56)
[2017-12-20] MEDS: Aspirin Enteric Coated 81 MG Tablet PO SCH (07:56)
[2017-12-20] MEDS: Isosorbide MONOnitrate (24 HR) 30 MG TAB.ER.24H PO SCH (07:56)
[2017-12-20 08:13] LABS: Hematocrit 24.5 % (35.3-44.9); Hemoglobin 8.1 g/dL (11.5-15.4); Immature Granulocytes % 1.5 % (0-4); Lymphocytes # 0.8 K/mcL (0.6-4.6); Lymphocytes % 7.1 %; Mean Corpuscular HGB Conc 33.1 g/dL (31.6-35.5); Mean Corpuscular Hemoglobin 27.2 pg (28.0-33.3); Mean Corpuscular Volume 82.2 fL (83.0-100.0); Mean Platelet Volume 10.4 fL (9.4-12.4); Monocytes # 0.4 K/mcL (0.0-1.3); Monocytes % 3.2 %; Neutrophils # 9.6 K/mcL (1.6-8.9); Platelet Count 270 K/mcL (140-400); Red Blood Count 2.98 M/mcL (3.82-4.97); Red Cell Distribution Width 15.5 % (11.5-14.5); Segmented Neutrophils % 88.2 %
[2017-12-20 08:35] LABS: Calcium 8.6 mg/dL (8.6-10.3); Magnesium 1.7 mg/dL (1.6-2.6); Potassium 3.6 mEq/L (3.5-5.1)
[2017-12-20] MEDS ORDERED: Levofloxacin 500 MG/100 ML 500 MG/100 ML BAG IVPB SCH (09:00)
--- NOTE | 2017-12-20 15:22 | Internal Med Progress Note ---
Hospitalist Progress Note - Encounter Date of Encounter: 12/20/17 Time of Encounter: 15:00 - Subjective Interval History: SUBJECTIVE: Her resting dyspnea subsided. Is short of breath, when ambulating. Denies chest pain. She does have mild cough but not wheezing. Denies abdominal pain, nausea and vomiting. She makes fair amounts of urine. She is on 3 L/min nasal cannula oxygen; like at home. OBJECTIVE: Skin: Free of rash and discoloration. ENMT: Oral/pharyngeal mucosa is normal in appearance. Eyes: Sclera is white. There is no discharge from eyes. Respiratory: Normal breath sounds; no crackles or wheezes. CV: Heart is regular; no gallop or murmur. GI: Abdomen is soft and not tender. There is no palpable mass or visceromegaly. Neuro: There is no focal deficits. Her chest x-ray from today shows persistent bilateral lower lobe air space diseaseimproving. The radiologist is favoring the diagnosis of gradually resolving pneumonia. ASSESSMENT AND PLAN: COPD exacerbation/possible healthcare associated pneumonia. Improving. Will continue IV vancomycin, IV Levaquin and nebulizer treatments with DuoNeb/ Symbicort. I will switch her to from IV Solu-Medrol to by mouth prednisone anticipating her discharge soon. I will switch her from IV Lasix to by mouth Lasix. She has underlying diastolic heart failure. The patient has underlying CKD stage IV secondary to long-standing therapy to diabetes mellitus and hypertension. We will continue diabetic diet and insulin Levemir/insulin Humalog. She is on amlodipine. - Exam Vitals: Temp Pulse Resp BP Pulse Ox 98.1 F 60 17 135/71 100 12/20/17 10:54 12/20/17 10:54 12/20/17 15:07 12/20/17 10:54 12/20/17 15:07 Exam: xx - Assessment and Plan (1) COPD exacerbation Current Visit: No Status: Acute (2) Healthcare-associated pneumonia Current Visit: No Status: Suspected (3) Acute on chronic diastolic heart failure Current Visit: Yes Status: Acute (4) Elevated troponin Current Visit: No Status: Acute (5) CKD (chronic kidney disease) stage 4, GFR 15-29 ml/min Current Visit: No Status: Chronic (6) DM (diabetes mellitus) Current Visit: No Status: Chronic (7) Hypertensive renal disease with renal failure Current Visit: Yes Status: Chronic (8) Anemia in chronic kidney disease Current Visit: Yes Status: Chronic - Time Spent with Patient Total time spent is greater than 50% in coordination of care (as documented) at patient's floor/unit and/or counseling patient: 25 - 35 minutes Plan of Care Discussed with: patient Internal Medicine: Result - Labs CBC & Chem 7: 12/20/17 07:45 12/20/17 07:45 Labs: Short CBC 12/20/17 Range/Units 07:45 WBC 10.9 (4.3-11.1) K/mcL Hgb 8.1 L (11.5-15.4) g/dL Hct 24.5 L (35.3-44.9) % Plt Count 270 (140-400) K/mcL Neutrophils # 9.6 H (1.6-8.9) K/mcL BMP 12/20/17 07:45 Sodium 140 Potassium 3.6 Chloride 103 Carbon Dioxide 28 BUN 80 H Creatinine 2.90 H Glucose 217 H Calcium 8.6 - Impressions Impressions Chest X-Ray 12/20/17 08:00 IMPRESSION: Persistent bilateral lower lobe airspace disease with continue further improved aeration since prior studies. This likely represents gradual resolving pneumonia. D/ / Yvan Osullivan MD / Yvan Osullivan MD Interpreting Provider: Yvan Osullivan MD Consult Discharge Plan - Plan Referrals: Otto Winchester, LINING SEWER [Primary Care Provider] - (6) DM (diabetes mellitus) Qualifiers: Diabetes mellitus type: type 2 Diabetes mellitus terminal operations supervisor insulin use: with mcfp use Diabetes mellitus complication status: with kidney complications Diabetes mellitus complication detail: with chronic kidney disease Chronic kidney disease stage: stage 4 (severe) Qualified Code(s): E11.22 - Type 2 diabetes mellitus with diabetic chronic kidney disease; N18.4 - Chronic kidney disease, stage 4 (severe); Z79.4 - terminal operations manager (current) use of insulin (8) Anemia in chronic kidney disease Qualifiers: Chronic kidney disease stage: stage 4 (severe) Qualified Code(s): N18.4 - Chronic kidney disease, stage 4 (severe); D63.1 - Anemia in chronic kidney disease
[2017-12-20] MEDS ORDERED: Ipratropium/Albuterol Neb 3 ML IH SCH (18:00)
[2017-12-20] MEDS: Insulin DETEMIR 100 UNIT/ML X5UNITS SQ SCH (21:31)
[2017-12-20] MEDS: amLODIPine 5 MG TABLET PO SCH (21:31)
[2017-12-20] MEDS: Dextromethorphan Polistrx(12h) 30 MG/5 ML UDC PO PRN (22:02)
[2017-12-21] MEDS: Ipratropium/Albuterol Neb 3 ML IH SCH ×2 (03:34→11:09)
[2017-12-21] MEDS: *HR* Heparin 5,000 UNIT/ML VIAL SQ SCH (05:22)
[2017-12-21] MEDS ORDERED: predniSONE 20 MG TABLET PO SCH (09:00)
[2017-12-21] MEDS ORDERED: Furosemide 20 MG TABLET PO SCH (09:00)
[2017-12-21] MEDS: Isosorbide MONOnitrate (24 HR) 30 MG TAB.ER.24H PO SCH (09:14)
[2017-12-21] MEDS: Aspirin Enteric Coated 81 MG Tablet PO SCH (09:14)
[2017-12-21] MEDS: Fenofibrate 54 MG TABLET PO SCH (09:15)
[2017-12-21] MEDS: Insulin LISPRO 300 UNITS/3 ML VIAL SQ SCH ×2 (09:19→12:07)
[2017-12-21] MEDS: Budesonide/Formoterol 160/4.5 1 PUFF INH IH SCH (11:09)
[2017-12-21 11:54] VITALS: BP 115/66
--- NOTE | 2017-12-21 12:47 | Discharge Summary ---
Date of Encounter: 12/21/17 Time of Encounter: 12:45 - Discharge Diagnosis (1) COPD exacerbation Priority: Primary Status: Acute (2) Healthcare-associated pneumonia Priority: Primary Status: Suspected (3) Acute on chronic diastolic heart failure Priority: Primary Status: Acute (4) Elevated troponin Priority: Secondary Status: Acute (5) DM (diabetes mellitus) Priority: Secondary Status: Chronic Qualifiers: Diabetes mellitus type: type 2 Diabetes mellitus exterminator termite insulin use: with exterminator termite use Diabetes mellitus complication status: with kidney complications Diabetes mellitus complication detail: with chronic kidney disease Chronic kidney disease stage: stage 4 (severe) Qualified Code(s): E11.22 - Type 2 diabetes mellitus with diabetic chronic kidney disease; N18.4 - Chronic kidney disease, stage 4 (severe); Z79.4 - shelter (current) use of insulin (6) Hypertensive renal disease with renal failure Priority: Secondary Status: Chronic (7) Anemia in chronic kidney disease Priority: Secondary Status: Chronic Qualifiers: Chronic kidney disease stage: stage 4 (severe) Qualified Code(s): N18.4 - Chronic kidney disease, stage 4 (severe); D63.1 - Anemia in chronic kidney disease Hospital course: This 72 yo woman was admitted with difficulty breathing/acute on chronic hypoxic respiratory failure. We treated her for COPD exacerbation/acute on chronic diastolic heart failure. She was initially on IV Vancomycin/IV Zosyn, as we considered diagnosis of HCAP for her. Was getting oral prednisone, nebulizer treatments with Symbicort/Duoneb and IV/po Lasix. We got her stabilized. Pneumonia has been ruled out. She is on 3 l/min [place] oxygen (her baseline). Discharge discussed with: patient - Time Spent with Patient Total time spent providing and/or coordinating discharge services: Greater than 30 minutes (45 minutes) - Discharge Medications Prescriptions: Budesonide/Formoterol 160/4.5 [Symbicort 160/4.5] 2 puff IH BIDR 30 Days inh levoFLOXacin [Levaquin] 500 mg PO Q48H 8 Days #4 tablet Potassium Chloride 10 meq PO BIDWM 30 Days #60 tab.er.prt Home Medications: Aspirin Enteric Coated [Aspirin EC] 81 mg PO DAILY 06/16/16 [History] Insulin LISPRO [HumaLOG] 25 units SQ TIDWM 08/11/16 [History] Atorvastatin [Lipitor] 40 mg PO HS #30 tablet 10/11/16 [Rx] Citalopram Hydrobromide [Citalopram HBr] 40 mg PO DAILY #30 tablet 10/11/16 [Rx] Isosorbide MONOnitrate (24 HR) [Imdur] 30 mg PO DAILY #30 tab.er.24h 10/11/16 [ Rx] Lisinopril [Zestril] 5 mg PO DAILY #30 tablet 10/11/16 [Rx] amLODIPine [Norvasc] 10 mg PO HS #30 tablet 10/11/16 [Rx] Bisacodyl [Dulcolax] 10 mg RC DAILY PRN 04/24/17 [History] Ipratropium/Albuterol Neb [Duoneb] 3 ml IH Q4H PRN 04/24/17 [History] Metoprolol [Lopressor] 25 mg PO BID 04/24/17 [History] [place]-3/Dha/Epa/Fish Oil [Fish Oil 1,000 mg Softgel] 1,000 mg PO DAILY 04/24/17 [History] Oxygen 3 - 4 l NS DAILY 04/24/17 [History] Omeprazole [PriLOSEC] 20 mg PO DAILY 07/21/17 [History] Glucagon,Human Recombinant [Glucagon Emergency Kit] 1 mg IJ ONCE PRN 08/06/17 [ History] Fenofibrate Nanocrystallized [Triglide] 160 mg PO DAILY 09/12/17 [History] Ferrous Sulfate [Iron] 325 mg PO DAILY 09/12/17 [History] Furosemide [Lasix] 20 mg PO BID 11/04/17 [History] Insulin Glargine [Lantus] 10 unit SQ HS #1 vial 11/07/17 [Rx] Budesonide/Formoterol 160/4.5 [Symbicort 160/4.5] 2 puff IH BIDR 30 Days inh [Rx] Potassium Chloride 10 meq PO BIDWM 30 Days #60 tab.er.prt 12/21/17 [Rx] levoFLOXacin [Levaquin] 500 mg PO Q48H 8 Days #4 tablet 12/21/17 [Rx] Allergies/Adverse Reactions: 3 Allergy/AdvReac Type Severity Reaction Status Date / Time No Known Allergies Allergy Verified 11/04/17 18:22 Date of admission: 12/17/17 10:50 Primary care physician: Otto Winchester CNP Consults: 12/19/17 10:48 Consult to Physical Therapy [CONS] Routine Comment: Evaluate, develop and implement POC Reason for Consult: DEBILIY. Does patient have active BEDREST order?: No Is patient medically & hemodynamically stable?: Yes Patient assessed for mobility or mobilized this visit?: No Discharging clinician: Sonny Cordova Anticipated date of discharge: 12/21/17 - Constitutional Vitals: Temp Pulse Resp BP Pulse Ox 98.6 F 56 16 115/66 100 12/21/17 11:53 12/21/17 11:53 12/21/17 11:53 12/21/17 11:53 12/21/17 11:53 General appearance: Present: A&O X 3, no acute distress, obese, answers questions appropriately Exam: xx - Patient Status Disposition: Home, Self-Care Condition: Fair Functional capacity at discharge: independent ambulation - Discharge Instructions Follow Up With: Otto Winchester, NAY [Primary Care Provider] - - Diet and Activity Activity: increase activity as tolerated Diet: diabetic diet (1500 m[ per day) - VTE Deep Vein Thrombosis/Pulmonary Embolism Present on Admission: No
--- NOTE | 2017-12-21 15:23 | Physician Discharge Referral ---
Home Health/Hosp Referral Info Transfer to: Hospice Attending Provider: Arnaud Provider in Charge Post Discharge: Hospitalist Program Director - Diagnosis (1) COPD exacerbation Priority: Primary Status: Acute (2) Healthcare-associated pneumonia Priority: Primary Status: Suspected (3) Acute on chronic diastolic heart failure Priority: Primary Status: Acute (4) Elevated troponin Priority: Secondary Status: Acute (5) DM (diabetes mellitus) Priority: Secondary Status: Chronic (6) Hypertensive renal disease with renal failure Priority: Secondary Status: Chronic (7) Anemia in chronic kidney disease Priority: Secondary Status: Chronic - Respiratory Orders Oxygen / L per min (3 l/min) Smoking Cessation: Smoking cessation has been advised. For more information, call the [employer] Quit Line at 4-667-IGGR-NOW. - Diet/Nutrition Diet/Nutrition Orders: No Concentrated Sweets (FLUID RESTR OF 1500 ML PER DAY) - Activity Activity Orders: Up ad ti - Services Needed Following services are medically necessary services: Nursing, Home Health Aide - Transfer Medications Prescriptions: Budesonide/Formoterol 160/4.5 [Symbicort 160/4.5] 2 puff IH BIDR 30 Days inh levoFLOXacin [Levaquin] 500 mg PO Q48H 8 Days #4 tablet Potassium Chloride 10 meq PO BIDWM 30 Days #60 tab.er.prt Home Medications: Aspirin Enteric Coated [Aspirin EC] 81 mg PO DAILY 06/16/16 [History] Insulin LISPRO [HumaLOG] 25 units SQ TIDWM 08/11/16 [History] Atorvastatin [Lipitor] 40 mg PO HS #30 tablet 10/11/16 [Rx] Citalopram Hydrobromide [Citalopram HBr] 40 mg PO DAILY #30 tablet 10/11/16 [Rx] Isosorbide MONOnitrate (24 HR) [Imdur] 30 mg PO DAILY #30 tab.er.24h 10/11/16 [ Rx] Lisinopril [Zestril] 5 mg PO DAILY #30 tablet 10/11/16 [Rx] amLODIPine [Norvasc] 10 mg PO HS #30 tablet 10/11/16 [Rx] Bisacodyl [Dulcolax] 10 mg RC DAILY PRN 04/24/17 [History] Ipratropium/Albuterol Neb [Duoneb] 3 ml IH Q4H PRN 04/24/17 [History] Metoprolol [Lopressor] 25 mg PO BID 04/24/17 [History] [place]-3/Dha/Epa/Fish Oil [Fish Oil 1,000 mg Softgel] 1,000 mg PO DAILY 04/24/17 [History] Oxygen 3 - 4 l NS DAILY 04/24/17 [History] Omeprazole [PriLOSEC] 20 mg PO DAILY 07/21/17 [History] Glucagon,Human Recombinant [Glucagon Emergency Kit] 1 mg IJ ONCE PRN 08/06/17 [ History] Fenofibrate Nanocrystallized [Triglide] 160 mg PO DAILY 09/12/17 [History] Ferrous Sulfate [Iron] 325 mg PO DAILY 09/12/17 [History] Furosemide [Lasix] 20 mg PO BID 11/04/17 [History] Insulin Glargine [Lantus] 10 unit SQ HS #1 vial 11/07/17 [Rx] Budesonide/Formoterol 160/4.5 [Symbicort 160/4.5] 2 puff IH BIDR 30 Days inh [Rx] Potassium Chloride 10 meq PO BIDWM 30 Days #60 tab.er.prt 12/21/17 [Rx] levoFLOXacin [Levaquin] 500 mg PO Q48H 8 Days #4 tablet 12/21/17 [Rx] Allergies/Adverse Reactions: 3 Allergy/AdvReac Type Severity Reaction Status Date / Time No Known Allergies Allergy Verified 11/04/17 18:22 Certification: Further, I certify that my clinical findings support that this patient is homebound (i.e. absences from home require considerable and taxing effort and are for medical reasons or [facility] services or infrequently or short duration when for other reasons) because: Homebound Reason: Patient requires assistance of a person or device to safely leave home Attestation: My signature below is to certify that this patient is under my care and that I, or nurse practitioner, or a physician's assistant professor working with me, has a face-to -face encounter with this patient.
[2017-12-21] MEDS ORDERED: Aminoglycoside Consult 1 EACH MC ONE (16:16)
[2017-12-22] MEDS ORDERED: levoFLOXacin 500 MG TABLET PO SCH (09:00)
== END 2017-12-21 16:17 | disposition home or self-care (01) | DRG 871 ==
LOC: EMEROOARM 05:01 → 2ANU 05:01 → SUATTDRO 10:50
PROVIDERS: ADMIT Internal Medicine; ATTEND Internal Medicine

== ENCOUNTER 2018-02-09 08:43 | Inpatient (IN) ==
[2018-02-09] MEDS ORDERED: Ipratropium/Albuterol Neb 3 ML ONE (08:49)
[2018-02-09] MEDS ORDERED: Ipratropium/Albuterol Neb 3 ML IH ONE (08:53)
--- NOTE | 2018-02-09 09:08 | Emergency Department Note ---
Disposition Clinical Impression: Acute exacerbation of chronic obstructive airways disease Disposition: Admitted As Inpatient Condition: Fair Time of Disposition: 09:19 SOB HPI - General Chief Complaint: ED Shortness of Breath/Dyspnea Stated Complaint: CONNOR Time Seen by Provider: 02/09/18 08:52 Source: patient Mode of arrival: ambulatory Limitations: no limitations, physical limitation Nursing Notes Reviewed: Yes Vital Signs Reviewed: Yes - History of Present Illness 73-year-old female brought to the emergency department by EMS for evaluation of difficulty in breathing. Patient states she woke this morning with shortness of breath, she has a history of COPD and congestive heart failure. Patient denies fever, chills, nausea, vomiting, diarrhea. No recent trauma. No recent changes in her medications. No changes in her diet. EMS gave the patient Decadron, albuterol, DuoNeb, and placed the patient on CPAP. Patient started to improve after the breathing treatment. - Related Data Home Medications Medication Instructions Recorded Confirmed Aspirin Enteric Coated [Aspirin EC] 81 mg PO DAILY 06/16/16 02/09/18 Insulin LISPRO [HumaLOG] 25 units SQ TIDWM 08/11/16 02/09/18 Bisacodyl [Dulcolax] 10 mg RC DAILY PRN 04/24/17 02/09/18 Ipratropium/Albuterol Neb [Duoneb] 3 ml IH Q4H PRN 04/24/17 02/09/18 [place]-3/Dha/Epa/Fish Oil [Fish Oil 1,000 mg PO DAILY 04/24/17 02/09/18 1,000 mg Softgel] Oxygen 3 - 4 l NS DAILY 04/24/17 02/09/18 Omeprazole [PriLOSEC] 20 mg PO DAILY 07/21/17 02/09/18 Glucagon,Human Recombinant 1 mg IJ ONCE PRN 08/06/17 02/09/18 [Glucagon Emergency Kit] Fenofibrate Nanocrystallized 160 mg PO DAILY 09/12/17 02/09/18 [Triglide] Ferrous Sulfate [Iron] 325 mg PO DAILY 09/12/17 02/09/18 Carvedilol [Coreg] 6.25 mg PO BID 02/09/18 02/09/18 Furosemide [Lasix] 40 mg PO BID 02/09/18 02/09/18 Insulin Glargine [Lantus] 45 unit SQ HS 02/09/18 02/09/18 Previous Rx's Medication Instructions Recorded Atorvastatin [Lipitor] 40 mg PO HS #30 tablet 10/11/16 Citalopram Hydrobromide 40 mg PO DAILY #30 tablet 10/11/16 [Citalopram HBr] Isosorbide MONOnitrate (24 HR) 30 mg PO DAILY #30 tab.er.24h 10/11/16 [Imdur] Lisinopril [Zestril] 5 mg PO DAILY #30 tablet 10/11/16 amLODIPine [Norvasc] 10 mg PO HS #30 tablet 10/11/16 Potassium Chloride 10 meq PO BIDWM 30 Days #60 12/21/17 tab.er.prt Allergies Allergy/AdvReac Type Severity Reaction Status Date / Time No Known Allergies Allergy Verified 11/04/17 18:22 All systems ED: reviewed and negative except as stated. Review of Systems: As Per HPI Past Medical History - Past Medical History Attestation: Yes The following information was validated with the patient. Source: patient Medical history: Reports: CHF, coronary artery disease, diabetes, hyperlipidemia, hypertension, myocardial infarction, renal disease Surgical history: Reports: orthopedic, other Psychiatric history: Reports: anxiety, depression SYSTEMS ADMIN history: Reports: no SYSTEMS ADMIN history - Social History Smoking Status: Never smoker Smokeless Tobacco Status: No Alcohol use: Reports: none Drug use: Reports: none Physical Exam General: Alert and in no acute distress Skin: Warm, dry, intact Head: Normocephalic and atraumatic Cardiovascular: RRR, no murmur, normal perfusion Respiratory: Wheezing present in the bilateral posterior and anterior lung looney. On CPAP on arrival Musculoskeletal: Normal strength, no tenderness, swelling or deformity GI: Soft, nontender, nondistended. Bowel sounds present Neuro: No focal deficits noted on exam. Answering questions appropriately Psychiatric: cooperative and appropriate mood and affect. - General Limitations: physical limitation General appearance: alert Course Vital Signs O2 Sat by Pulse Oximetry 90 02/09/18 08:43 Temperature 99.7 F H 02/09/18 08:50 Pulse Rate 68 02/09/18 11:41 Respiratory Rate 19 02/09/18 11:41 Blood Pressure 135/60 02/09/18 11:41 O2 Sat by Pulse Oximetry 99 11/06/18 11:41 Oxygen Delivery Oxygen Delivery Bipap Shortness of Breath/Dyspnea - MDM Narrative Medical decision making narrative: I continued BiPAP and breathing treatments upon arrival secondary to the wheezing the bilateral posterior lung looney and anterior lung looney. Patient steadily improved with these medications. VQ scan was low likelihood for PE. Patient admitted to the hospitalist for further care and evaluation. - Medical Records Medical records reviewed: Yes I reviewed the patient's medical records. - Lab Data Lab results reviewed: Yes I reviewed the patient's lab results. Result diagrams: 02/09/18 09:11 02/09/18 09:11 Lab Results 02/09/18 02/09/18 02/09/18 Range/Units 08:59 09:11 09:11 WBC 10.0 (4.3-11.1) K/mcL RBC 2.49 L (3.82-4.97) M/mcL Hgb 7.0 L (11.5-15.4) g/dL Hct 21.4 L (35.3-44.9) % MCV 85.9 (83.0-100.0) fL MCH 28.1 (28.0-33.3) pg MCHC 32.7 (31.6-35.5) g/dL RDW 14.4 (11.5-14.5) % Plt Count 260 (140-400) K/mcL MPV 10.0 (9.4-12.4) fL Immature Gran % 0.7 (0-4) % Seg Neutrophils % 73.1 % Lymphocytes % 14.8 % Monocytes % 6.6 % Eosinophils % 4.6 % Basophils % 0.2 % Neutrophils # 7.3 (1.6-8.9) K/mcL Lymphocytes # 1.5 (0.6-4.6) K/mcL Monocytes # 0.7 (0.0-1.3) K/mcL Eosinophils # 0.5 (0.0-0.6) K/mcL Basophils # 0.0 (0.0-0.2) K/mcL PT 12.3 H (9.4-12.1) Seconds INR 1.1 APTT 36.0 (26.0-36.0) Seconds D-Dimer 1968 H (0-500) ng/mLFEU Sample Site R Radial ABG pH 7.43 (7.32-7.45) pH Units ABG pCO2 40 (35-45) mmHg ABG pO2 67 L (85-104) mmHg ABG HCO3 27 (21-27) mEq/L ABG Total CO2 28 H (20-26) mEq/L ABG O2 Saturation 94 L (95-98) % ABG Base Excess 2 (-2 to 3) mEq/L Víctor Test Positive O2 Delivery Device BiPAP Blood Gas Modality BiLevel Inspired O2 40.0 (1-15=lpm [id number]=%) Sodium (136-145) mEq/L Potassium (3.5-5.1) mEq/L Chloride (98-107) mEq/L Carbon Dioxide (23-29) mEq/L BUN (8-23) mg/dL Creatinine (0.60-1.20) mg/dL Est GFR ( Amer) (> 60) Est GFR (Non-Af Amer) (> 60) BUN/Creatinine Ratio (6-26) Glucose (70-105) mg/dL Calculated Osmolality (280-300) Lactic Acid (0.5-2.2) mmol/L Calcium (8.6-10.3) mg/dL Troponin I (< 0.04) ng/mL B-Natriuretic Peptide (Less than 100) pg/mL 02/09/18 02/09/18 02/09/18 Range/Units 09:11 09:11 09:11 WBC (4.3-11.1) K/mcL RBC (3.82-4.97) M/mcL Hgb (11.5-15.4) g/dL Hct (35.3-44.9) % MCV (83.0-100.0) fL MCH (28.0-33.3) pg MCHC (31.6-35.5) g/dL RDW (11.5-14.5) % Plt Count (140-400) K/mcL MPV (9.4-12.4) fL Immature Gran % (0-4) % Seg Neutrophils % % Lymphocytes % % Monocytes % % Eosinophils % % Basophils % % Neutrophils # (1.6-8.9) K/mcL Lymphocytes # (0.6-4.6) K/mcL Monocytes # (0.0-1.3) K/mcL Eosinophils # (0.0-0.6) K/mcL Basophils # (0.0-0.2) K/mcL PT (9.4-12.1) Seconds INR APTT (26.0-36.0) Seconds D-Dimer (0-500) ng/mLFEU Sample Site ABG pH (7.32-7.45) pH Units ABG pCO2 (35-45) mmHg ABG pO2 (85-104) mmHg ABG HCO3 (21-27) mEq/L ABG Total CO2 (20-26) mEq/L ABG O2 Saturation (95-98) % ABG Base Excess (-2 to 3) mEq/L Víctor Test O2 Delivery Device Blood Gas Modality Inspired O2 (1-15=lpm [id number]=%) Sodium 140 (136-145) mEq/L Potassium 4.6 (3.5-5.1) mEq/L Chloride 106 (98-107) mEq/L Carbon Dioxide 23 (23-29) mEq/L BUN 56 H (8-23) mg/dL Creatinine 2.20 H (0.60-1.20) mg/dL Est GFR ( Amer) 26 L (> 60) Est GFR (Non-Af Amer) 22 L (> 60) BUN/Creatinine Ratio 25 (6-26) Glucose 209 H (70-105) mg/dL Calculated Osmolality 312 H (280-300) Lactic Acid 0.7 (0.5-2.2) mmol/L Calcium 8.3 L (8.6-10.3) mg/dL Troponin I 0.05 H* (< 0.04) ng/mL B-Natriuretic Peptide 1572 H (Less than 100) pg/mL - Radiology Data Radiology results reviewed: Yes I reviewed the patient's radiology results. - EKG Data EKG attestation: Yes I reviewed and interpreted this EKG. EKG results narrative: Normal sinus rhythm with a rate of 86 without evidence of STEMI. Positive PACs, QTC 481, QRS 82 Critical Care Time Critical Care Time: Yes Total Critical Care Time: 63 Attestation: The high probability of a clinically significant, sudden or life threatening deterioration of the cardiovascular and respiratory system(s) required my full and direct attention, intervention and personal management. The aggregate critical care time was 63 minutes. This time is in addition to time spent performing reported procedures but includes the following: x Data Review and interpretation x Patient assessment and monitoring of vital signs x Documentation x Medication orders and management
[2018-02-09 09:20] LABS: ABG Base Excess 2 mEq/L (-2 to 3); ABG HCO3 27 mEq/L (21-27); ABG Oxygen Saturation 94 % (95-98); ABG PCO2 40 mmHg (35-45); ABG PH 7.43 pH Units (7.32-7.45); ABG PO2 67 mmHg (85-104); ABG TCO2 28 mEq/L (20-26); Blood Gas Modality BiLevel
[2018-02-09 09:23] LABS: Basophils % 0.2 %; Eosinophils # 0.5 K/mcL (0.0-0.6); Eosinophils % 4.6 %; Hematocrit 21.4 % (35.3-44.9); Immature Granulocytes % 0.7 % (0-4); Lymphocytes # 1.5 K/mcL (0.6-4.6); Lymphocytes % 14.8 %; Mean Corpuscular HGB Conc 32.7 g/dL (31.6-35.5); Mean Corpuscular Hemoglobin 28.1 pg (28.0-33.3); Mean Corpuscular Volume 85.9 fL (83.0-100.0); Monocytes # 0.7 K/mcL (0.0-1.3); Monocytes % 6.6 %; Neutrophils # 7.3 K/mcL (1.6-8.9); Platelet Count 260 K/mcL (140-400); Red Blood Count 2.49 M/mcL (3.82-4.97); Red Cell Distribution Width 14.4 % (11.5-14.5); Segmented Neutrophils % 73.1 %
[2018-02-09 09:36] LABS: INR 1.1; Prothrombin Time 12.3 Seconds (9.4-12.1)
[2018-02-09 09:43] LABS: Calcium 8.3 mg/dL (8.6-10.3); Potassium 4.6 mEq/L (3.5-5.1)
[2018-02-09 09:49] LABS: Troponin I 0.05 ng/mL (< 0.04)
[2018-02-09] MEDS ORDERED: Furosemide 40 MG/4 ML VIAL IVP ONE (14:41)
[2018-02-09] MEDS ORDERED: Bisacodyl 10 MG RECTAL SUPPOSITORY RC PRN (15:21)
--- NOTE | 2018-02-09 15:26 | Internal Med History&Physical ---
Date of Encounter: 02/09/18 Time of Encounter: 15:00 Internal Medicine - H&P: HPI History of present illness: 73-year-old female with history of HFpEF, CAD, DM, CO, CKD, chronic resp failure on 3L O2 at home, was brought to the emergency department by EMS for evaluation of difficulty in breathing. Patient had suddenly awaken with dyspnea after laying flat. She has had prior hospitalizations for resp failure mostly for COPD and heart failure, and patient does feel as if she is fluid overloaded. She denies chest pain, she denies fevers, cough, or any sputum production. She denies wheezing, no sick contacts. She denies changes in diet. En route to ED she received Decadron, breathing treatments and CPAP. She improved on arrival. She did continue to require BIPAP in ED, a chest x-ray showed bilateral airspace opacities. BNP elevated at 1500s, Creatinine baseline of 2.2. She currently states she is feeling much better. Past Med Surg Social Fam HX - Past Medical History Medical history: CHF, coronary artery disease, diabetes, hyperlipidemia, hypertension, myocardial infarction, renal disease Additional medical history: immune disorder that has caused sores to arms and legs. Psychiatric history: anxiety, depression - Past Surgical History Surgical History: orthopedic, other - Social History Smoking Status: Never smoker Smokeless Tobacco Status: No Alcohol use: none Drug use: none - Family History Father Family Member Ethnicity: Non- Living Status: Hx Family Cardiac Disorders: Yes (CO, HTN, Cardiomegaly) Hx Family Endocrine Disorder: Yes (DM) Mother Family Member Ethnicity: Non- Living Status: Hx Family Cancer: Yes (Breast) Brother Family Member Ethnicity: Non- Living Status: Still Living Hx Family Cardiac Disorders: Yes (HTN) Hx Family Endocrine Disorder: Yes (DM) Sister Family Member Ethnicity: Non- Living Status: Still Living Hx Family Cardiac Disorders: Yes (HTN) Hx Family Endocrine Disorder: Yes (DM) Internal Medicine - H&P: Meds Aspirin Enteric Coated [Aspirin EC] 81 mg PO DAILY 06/16/16 [History] Insulin LISPRO [HumaLOG] 25 units SQ TIDWM 08/11/16 [History] Atorvastatin [Lipitor] 40 mg PO HS #30 tablet 10/11/16 [Rx] Citalopram Hydrobromide [Citalopram HBr] 40 mg PO DAILY #30 tablet 10/11/16 [Rx] Isosorbide MONOnitrate (24 HR) [Imdur] 30 mg PO DAILY #30 tab.er.24h 10/11/16 [Rx] Lisinopril [Zestril] 5 mg PO DAILY #30 tablet 10/11/16 [Rx] amLODIPine [Norvasc] 10 mg PO HS #30 tablet 10/11/16 [Rx] Bisacodyl [Dulcolax] 10 mg RC DAILY PRN 04/24/17 [History] Ipratropium/Albuterol Neb [Duoneb] 3 ml IH Q4H PRN 04/24/17 [History] Mcdermitt-3/Dha/Epa/Fish Oil [Fish Oil 1,000 mg Softgel] 1,000 mg PO DAILY 04/24/17 [History] Oxygen 3 - 4 l NS DAILY 04/24/17 [History] Omeprazole [PriLOSEC] 20 mg PO DAILY 07/21/17 [History] Glucagon,Human Recombinant [Glucagon Emergency Kit] 1 mg IJ ONCE PRN 08/06/17 [History] Fenofibrate Nanocrystallized [Triglide] 160 mg PO DAILY 09/12/17 [History] Ferrous Sulfate [Iron] 325 mg PO DAILY 09/12/17 [History] Potassium Chloride 10 meq PO BIDWM 30 Days #60 tab.er.prt 12/21/17 [Rx] Carvedilol [Coreg] 6.25 mg PO BID 02/09/18 [History] Furosemide [Lasix] 40 mg PO BID 02/09/18 [History] Insulin Glargine [Lantus] 45 unit SQ HS 02/09/18 [History] Allergy/AdvReac Type Severity Reaction Status Date / Time No Known Allergies Allergy Verified 11/04/17 18:22 All Systems PM: A 10-system review of systems was performed and is negative for pertinent findings except as documented above in the HPI. - Constitutional Vitals: Temp Pulse Resp BP Pulse Ox 99.7 F H 68 19 135/60 99 02/09/18 08:50 02/09/18 11:41 02/09/18 11:41 02/09/18 11:41 02/09/18 11:41 General appearance: Present: A&O X 3, no acute distress Exam: , - Head Head exam: Present: atraumatic, normocephalic - Eye Eye exam: Present: PERRL, conjuntiva pink, sclera anicteric Pupils: Present: PERRL - Neck Neck exam general surgery: Present: supple, trachea midline. Absent: lymphadenopathy - Respiratory Respiratory exam: Present: decreased breath sounds, rales. Absent: accessory muscle use, chest wall tenderness, rhonchi, wheezes - Cardiovascular Cardiovascular exam: Present: RRR, +S1, +S2. Absent: diastolic murmur, gallop, rubs, systolic murmur - GI/Abdominal GI/Abdominal exam: Present: normal bowel sounds, soft, no peritoneal signs. Absent: distended, tenderness - Extremities Exam Extremities exam: Present: warm, radial pulses palpable and symmetrical. Absent: calf tenderness, cyanotic, pedal edema - Neurological Exam Neurological exam: Present: CN II-XII intact, oriented X3, no focal deficits. Absent: pronater drift, facial droop, speech deficit - Skin Skin exam: Present: dry, intact Internal Med - H&P Results - Labs CBC & Chem 7: 02/09/18 09:11 02/09/18 09:11 Labs: Short CBC 02/09/18 Range/Units 09:11 WBC 10.0 (4.3-11.1) K/mcL Hgb 7.0 L (11.5-15.4) g/dL Hct 21.4 L (35.3-44.9) % Plt Count 260 (140-400) K/mcL Neutrophils # 7.3 (1.6-8.9) K/mcL BMP 02/09/18 09:11 Sodium 140 Potassium 4.6 Chloride 106 Carbon Dioxide 23 BUN 56 H Creatinine 2.20 H Glucose 209 H Calcium 8.3 L Cardiac Enzymes 02/09/18 Range/Units 09:11 Troponin I 0.05 H* (< 0.04) ng/mL - ABG Interpretation ABG results: 02/09/18 08:59 ABG pH 7.43 ABG pCO2 40 ABG pO2 67 L ABG HCO3 27 ABG Total CO2 28 H ABG O2 Saturation 94 L ABG Base Excess 2 - Impressions ITS Impressions Chest X-Ray 02/09/18 08:53 IMPRESSION: Bilateral airspace opacities which may represent pulmonary edema or multifocal pneumonia. Probable small bilateral pleural effusions. Follow-up to resolution is recommended. D/ / Slime Nino MD / Slime Nino MD Interpreting Provider: Slime Nino MD Pulmonary Perfusion Imaging 02/09/18 10:11 IMPRESSION: Low probability for pulmonary embolus. D/ / Shaw Hazel MD / Shaw Hazel MD Interpreting Provider: Shaw Hazel MD - Assessment and plan (1) Acute and chronic respiratory failure with hypercapnia Current Visit: No Status: Acute Assessment and plan: Secondary to acute decompensated heart failure with preserved ejection fraction on last echocardiogram. On 3 L O2 at home. Patient appears fluid overloaded. Possible COPD exacerbation. CXR showed opacities likely from fluid overload. She had no wheezing on exam and she denies fever/cough/sputum. Possible pneumonia though less likely. VQ scan resulted as low probability for PE Continue Lasix IV 40 mg BID Monitor renal function closely strict I/Os Fluid restriction diet. CT chest without contrast may provide better imaging of opacities, pulm edema vs pneumonia. Clinically this appears as CHF and will treat and monitor. BIPAP prn dyspnea (2) Acute exacerbation of CHF (congestive heart failure) Current Visit: No Status: Suspected Assessment and plan: Duo Neb Q6H scheduled Prednisone Evaluate if there is pneumonia, clinically does not appear so but will check CT chest for more eval. Qualifiers: Heart failure type: diastolic Qualified Code(s): I50.33 - Acute on chronic diastolic (congestive) heart failure (3) Acute on chronic diastolic heart failure Current Visit: No Status: Acute Assessment and plan: As above. (4) Bullous pemphigoid Current Visit: No Status: Acute (5) Anemia Current Visit: No Status: Chronic Assessment and plan: H&H 7.0. Baseline runs 7.2-8.7. She is a Cardiac patient. Suspect anemia of chronic disease. Iron studies FOBT type and cross check H&H Transfuse for H&H <8.0 Qualifiers: Anemia type: unspecified type Qualified Code(s): D64.9 - Anemia, unspecified (6) CAD (coronary artery disease) Current Visit: No Status: Chronic Qualifiers: Coronary Disease-Associated Artery/Lesion type: [place] artery [place] vs. transplanted heart: [place] heart Associated angina: without angina Qualified Code(s): I25.10 - Atherosclerotic heart disease of [place] coronary artery without angina pectoris (7) CKD (chronic kidney disease) stage 4, GFR 15-29 ml/min Current Visit: No Status: Chronic (8) Chronic respiratory failure with hypoxia Current Visit: No Status: Chronic (9) DM (diabetes mellitus) Current Visit: No Status: Chronic Qualifiers: Diabetes mellitus type: type 2 Diabetes mellitus terminal clerk insulin use: with terminal clerk use Diabetes mellitus complication status: with kidney complications Diabetes mellitus complication detail: with chronic kidney disease Chronic kidney disease stage: stage 4 (severe) Qualified Code(s): E11.22 - Type 2 diabetes mellitus with diabetic chronic kidney disease; N18.4 - Chronic kidney disease, stage 4 (severe); Z79.4 - terminal computer operator (current) use of insulin (10) Diabetes Current Visit: No Status: Chronic Qualifiers: Diabetes mellitus type: type 2 Diabetes mellitus care home insulin use: with care home use Diabetes mellitus complication status: with unspecified complications Qualified Code(s): E11.8 - Type 2 diabetes mellitus with unspecified complications; Z79.4 - longterm (current) use of insulin; Z79.4 - longterm (current) use of insulin; Z79.4 - terminal computer operator (current) use of insulin; Z79.4 - terminal computer operator (current) use of insulin (11) HTN (hypertension) Current Visit: No Status: Chronic Qualifiers: Hypertension type: essential hypertension Qualified Code(s): I10 - Essential (primary) hypertension (12) Morbid obesity with BMI of 40.0-44.9, adult Current Visit: No Status: Chronic - Time Spent With Patient Total time spent is greater than 50% in coordination of care (as documented) at patient's floor/unit and/or counseling patient:
[2018-02-09] MEDS ORDERED: Furosemide 40 MG TABLET PO SCH (17:00)
[2018-02-09] MEDS ORDERED: D5% in Water 1,000 ML IVC PRN (20:55)
[2018-02-09] MEDS ORDERED: Dextrose Gel 15 GM/37.5 ML TUBE PO PRN ×2 (20:55)
[2018-02-09] MEDS ORDERED: Ondansetron 4 MG/2 ML VIAL IVP PRN (21:04)
[2018-02-09] MEDS ORDERED: Ipratropium/Albuterol Neb 3 ML IH PRN (21:04)
[2018-02-09] MEDS: Insulin LISPRO 300 UNITS/3 ML VIAL SQ SCH (21:20)
[2018-02-09] MEDS: amLODIPine 5 MG TABLET PO SCH (21:20)
[2018-02-10] MEDS: Insulin LISPRO 300 UNITS/3 ML VIAL SQ SCH ×6 (01:14→21:45)
[2018-02-10 05:25] LABS: Hematocrit 21.6 % (35.3-44.9); Immature Granulocytes % 0.9 % (0-4); Lymphocytes # 0.7 K/mcL (0.6-4.6); Lymphocytes % 7.9 %; Mean Corpuscular HGB Conc 32.4 g/dL (31.6-35.5); Mean Corpuscular Hemoglobin 27.8 pg (28.0-33.3); Mean Corpuscular Volume 85.7 fL (83.0-100.0); Mean Platelet Volume 10.2 fL (9.4-12.4); Monocytes # 0.5 K/mcL (0.0-1.3); Platelet Count 280 K/mcL (140-400); Red Blood Count 2.52 M/mcL (3.82-4.97); Red Cell Distribution Width 14.2 % (11.5-14.5); Segmented Neutrophils % 86.2 %
[2018-02-10 05:50] LABS: % Iron Saturation 12 % (15-50); Calcium 8.7 mg/dL (8.6-10.3); Iron 26 mcg/dL (50-170); Potassium 4.6 mEq/L (3.5-5.1); Transferrin 160 mg/dL (203-362)
[2018-02-10 06:11] LABS: Folate 12.6 ng/mL (3.0-16.0)
[2018-02-10] MEDS: *HR* Heparin 5,000 UNIT/ML VIAL SQ SCH ×2 (06:35→18:35)
[2018-02-10] MEDS ORDERED: Insulin Human Regular 10 UNIT in 0.9 % Sodium Chloride 10 ML IV ONE (08:19)
[2018-02-10] MEDS: Aspirin Enteric Coated 81 MG Tablet PO SCH (08:56)
[2018-02-10] MEDS: Furosemide 40 MG/4 ML VIAL IVP SCH ×2 (08:57→16:17)
[2018-02-10] MEDS: Isosorbide MONOnitrate (24 HR) 30 MG TAB.ER.24H PO SCH (08:59)
[2018-02-10] MEDS: Fenofibrate 54 MG TABLET PO SCH (08:59)
[2018-02-10] MEDS: Insulin DETEMIR 100 UNIT/ML X5UNITS SQ SCH ×2 (08:59→10:54)
[2018-02-10] MEDS ORDERED: 0.9 % Sodium Chloride 500 ML ONE (09:44)
--- NOTE | 2018-02-10 10:10 | Internal Med Progress Note ---
Hospitalist Progress Note - Encounter Date of Encounter: 02/10/18 Time of Encounter: 09:59 - Subjective Interval History: Patient states she is feeling slightly better than yesterday from breathing standpoint. However, she does state that overall she feels labored with her breathing. - Exam Vitals: Temp Pulse Resp BP Pulse Ox 98.3 F 75 26 146/67 98 02/10/18 07:37 02/10/18 07:37 02/10/18 07:37 02/10/18 07:37 02/10/18 07:37 Exam: Gen: NAD, aaox3. CVS: RRR Lungs; better air exchange since yesterday, rales improved, no wheezing. Abd: soft, NT, ND Ext: 2+ LE edema. - Assessment and Plan (1) Acute and chronic respiratory failure with hypercapnia Current Visit: No Status: Acute Assessment and Plan: Secondary to acute decompensated heart failure with preserved ejection fraction on last echocardiogram. On 3 L O2 at home. Patient appears fluid overloaded. Possible COPD exacerbation. CXR and CT showed opacities likely from fluid overload. She had no wheezing on exam and she denies fever/cough/sputum. Possible pneumonia though less likely. VQ scan resulted as low probability for PE Continue Lasix IV 40 mg BID Monitor renal function closely strict I/Os Fluid restriction diet. BIPAP prn dyspnea Emperically treat with Levaquin. S pneumonia antigen from hospitalization +, will hold off checking antigens. (2) Acute exacerbation of CHF (congestive heart failure) Current Visit: No Status: Suspected Assessment and Plan: Duo Neb Q6H scheduled Prednisone Evaluate if there is pneumonia, clinically does not appear so but will check CT chest for more eval. (3) Acute on chronic diastolic heart failure Current Visit: No Status: Acute Assessment and Plan: As above. (4) Bullous pemphigoid Current Visit: No Status: Acute (5) Anemia Current Visit: No Status: Chronic Assessment and Plan: H&H 7.0. Baseline runs 7.2-8.7. She is a Cardiac patient. Suspect anemia of chronic disease. Iron studies show iron deficiency FOBT pending. Repeat H&H 7.0 today. Give 2 units PRBC today. (6) CAD (coronary artery disease) Current Visit: No Status: Chronic (7) CKD (chronic kidney disease) stage 4, GFR 15-29 ml/min Current Visit: No Status: Chronic (8) Chronic respiratory failure with hypoxia Current Visit: No Status: Chronic (9) DM (diabetes mellitus) Current Visit: No Status: Chronic (10) Diabetes Current Visit: No Status: Chronic (11) HTN (hypertension) Current Visit: No Status: Chronic (12) Morbid obesity with BMI of 40.0-44.9, adult Current Visit: No Status: Chronic - Time Spent with Patient Total time spent is greater than 50% in coordination of care (as documented) at patient's floor/unit and/or counseling patient: Internal Medicine: Result - Labs CBC & Chem 7: 02/10/18 05:02 02/10/18 05:02 Labs: Short CBC 02/10/18 Range/Units 05:02 WBC 9.3 (4.3-11.1) K/mcL Hgb 7.0 L (11.5-15.4) g/dL Hct 21.6 L (35.3-44.9) % Plt Count 280 (140-400) K/mcL Neutrophils # 8.0 (1.6-8.9) K/mcL BMP 02/10/18 05:02 Sodium 140 Potassium 4.6 Chloride 106 Carbon Dioxide 24 BUN 68 H Creatinine 2.19 H Glucose 372 H Calcium 8.7 Cardiac Enzymes 02/09/18 Range/Units 22:18 Troponin I 0.04 H* (< 0.04) ng/mL - ABG Interpretation ABG results: ABG ABG pH 7.43 pH Units (7.32-7.45) 02/09/18 08:59 ABG pCO2 40 mmHg (35-45) 02/09/18 08:59 ABG pO2 67 mmHg (85-104) L 02/09/18 08:59 ABG O2 Saturation 94 % (95-98) L 02/09/18 08:59 PT/INR, D-dimer PT 12.3 Seconds (9.4-12.1) H 02/09/18 09:11 D-Dimer 1968 ng/mLFEU (0-500) H 02/09/18 09:11 - Impressions Impressions Pulmonary Perfusion Imaging 02/09/18 10:11 IMPRESSION: Low probability for pulmonary embolus. D/ / Shaw Hazel MD / Shaw Hazel MD Interpreting Provider: Shaw Hazel MD Chest CT 02/09/18 21:05 IMPRESSION: Multifocal airspace disease bilaterally with bilateral effusions. Pulmonary edema is favored. Nodular component is likely due to the underlying multifocal airspace disease. Small developing nodules less likely Multiple mediastinal nodes are stable. Bilateral pleural effusions are noted. D/ / Berny Botello / Berny Botello Interpreting Provider: Berny Botello Consult Discharge Plan - Plan Referrals: NONE,PCP [Primary Care Provider] - (2) Acute exacerbation of CHF (congestive heart failure) Qualifiers: Heart failure type: diastolic Qualified Code(s): I50.33 - Acute on chronic diastolic (congestive) heart failure (5) Anemia Qualifiers: Anemia type: unspecified type Qualified Code(s): D64.9 - Anemia, unspecified (6) CAD (coronary artery disease) Qualifiers: Coronary Disease-Associated Artery/Lesion type: [place] artery [place] vs. transplanted heart: [place] heart Associated angina: without angina Qualified Code(s): I25.10 - Atherosclerotic heart disease of [place] coronary artery without angina pectoris (9) DM (diabetes mellitus) Qualifiers: Diabetes mellitus type: type 2 Diabetes mellitus terminal make up operator insulin use: with terminal make up operator use Diabetes mellitus complication status: with kidney complications Diabetes mellitus complication detail: with chronic kidney disease Chronic kidney disease stage: stage 4 (severe) Qualified Code(s): E11.22 - Type 2 diabetes mellitus with diabetic chronic kidney disease; N18.4 - Chronic kidney disease, stage 4 (severe); Z79.4 - residential (current) use of insulin (10) Diabetes Qualifiers: Diabetes mellitus type: type 2 Diabetes mellitus terminal make up operator insulin use: with custodial use Diabetes mellitus complication status: with unspecified complications Qualified Code(s): E11.8 - Type 2 diabetes mellitus with unspecified complications; Z79.4 - residential (current) use of insulin; Z79.4 - intermodal dispatcher (current) use of insulin; Z79.4 - residential (current) use of insulin; Z79.4 - intermodal dispatcher (current) use of insulin (11) HTN (hypertension) Qualifiers: Hypertension type: essential hypertension Qualified Code(s): I10 - Essential (primary) hypertension
[2018-02-10] MEDS: predniSONE 20 MG TABLET PO SCH (12:58)
[2018-02-10] MEDS: Cefepime HCl 2,000 MG in Water for inj. (sterile) 20 ML 20 ML IVP SCH ×2 (12:58→18:36)
[2018-02-10] MEDS: Acetaminophen 325 MG TABLET PO PRN (19:04)
--- NOTE | 2018-02-10 20:26 | Electrocardiograph Report ---
[place] [facility] Date: 2018-02-09 Pat Name: Christelle Starr Department: [id number] Room: 3B43 Gender: F Ethanol Operator: : [id number] Requested By: Yaw Rajan Order Number: [id number] Reading MD: Kacey Moreno Measurements Intervals [place] Rate: 86 P: 63 VT: 158 QRS: 63 QRSD: 82 T: 34 QT: 402 QTc: 481 Interpretive Statements Sinus rhythm Multiple premature complexes, vent & supraven Anterior infarct, old Baseline wander in lead(s) II Electronically Signed On 02-10-2018 20:25:05 EST by Kacey Moreno
[2018-02-10] MEDS: amLODIPine 5 MG TABLET PO SCH (21:44)
[2018-02-11] MEDS: Insulin LISPRO 300 UNITS/3 ML VIAL SQ SCH ×5 (00:08→21:07)
[2018-02-11] MEDS: Cefepime HCl 2,000 MG in Water for inj. (sterile) 20 ML 20 ML IVP SCH (05:45)
[2018-02-11] MEDS: *HR* Heparin 5,000 UNIT/ML VIAL SQ SCH ×2 (05:45→17:02)
[2018-02-11 09:03] LABS: Calcium 9.1 mg/dL (8.6-10.3); Potassium 4.9 mEq/L (3.5-5.1)
[2018-02-11] MEDS: Aspirin Enteric Coated 81 MG Tablet PO SCH (09:11)
[2018-02-11] MEDS: predniSONE 20 MG TABLET PO SCH (09:11)
[2018-02-11] MEDS: Fenofibrate 54 MG TABLET PO SCH (09:12)
[2018-02-11] MEDS: Isosorbide MONOnitrate (24 HR) 30 MG TAB.ER.24H PO SCH (09:12)
[2018-02-11] MEDS: Insulin DETEMIR 100 UNIT/ML X5UNITS SQ SCH (09:12)
[2018-02-11] MEDS: Furosemide 40 MG/4 ML VIAL IVP SCH ×2 (09:13→17:02)
[2018-02-11 09:32] LABS: Basophils % 0.1 %; Eosinophils % 0.1 %; Hematocrit 26.2 % (35.3-44.9); Hemoglobin 8.4 g/dL (11.5-15.4); Immature Granulocytes % 1.2 % (0-4); Lymphocytes # 1.5 K/mcL (0.6-4.6); Lymphocytes % 10.4 %; Mean Corpuscular HGB Conc 32.1 g/dL (31.6-35.5); Mean Corpuscular Hemoglobin 27.6 pg (28.0-33.3); Mean Corpuscular Volume 86.2 fL (83.0-100.0); Monocytes # 0.8 K/mcL (0.0-1.3); Monocytes % 5.8 %; Platelet Count 287 K/mcL (140-400); Red Blood Count 3.04 M/mcL (3.82-4.97); Segmented Neutrophils % 82.4 %
[2018-02-11 09:33] LABS: Neutrophils # 11.7 K/mcL (1.6-8.9)
--- NOTE | 2018-02-11 10:01 | Internal Med Progress Note ---
Hospitalist Progress Note - Encounter Date of Encounter: 02/11/18 Time of Encounter: 11:20 - Subjective Interval History: Breathing slightly better after starting steroids and abx, continuing diuresis. Denies chest pain, n/v, diarrhea. Edema is improving. - Exam Vitals: Temp Pulse Resp BP Pulse Ox 98 F 74 22 135/63 98 02/11/18 06:55 02/11/18 06:55 02/11/18 06:55 02/11/18 06:55 02/11/18 06:55 Exam: Gen: NAD, aaox3. CVS: RRR Lungs; better air exchange since yesterday, rales improved, no wheezing. Abd: soft, NT, ND Ext: 2+ LE edema. - Assessment and Plan (1) Acute and chronic respiratory failure with hypercapnia Current Visit: No Status: Acute Assessment and Plan: Secondary to acute decompensated heart failure with preserved ejection fraction on last echocardiogram. On 3 L O2 at home. Patient appears fluid overloaded. Possible COPD exacerbation. CXR and CT showed opacities likely from fluid overload. She had no wheezing on exam and she denies fever/cough/sputum. Possible pneumonia though less likely. VQ scan resulted as low probability for PE Continue Lasix IV 40 mg BID - decrease to 20 mg IV today due to renal function. Monitor renal function closely strict I/Os Fluid restriction diet. BIPAP prn dyspnea Emperically treat with Cefepime. S pneumonia antigen from hospitalization +, will hold off checking antigens. Prednisone Cefepime (2) Acute on chronic diastolic heart failure Current Visit: No Status: Acute Assessment and Plan: As above. (3) Bullous pemphigoid Current Visit: No Status: Acute (4) Anemia Current Visit: No Status: Chronic Assessment and Plan: H&H 7.0. Baseline runs 7.2-8.7. She is a Cardiac patient. Suspect anemia of chronic disease. Iron studies show iron deficiency FOBT pending. Repeat H&H 7.0 today. Give 2 units PRBC today. (5) CAD (coronary artery disease) Current Visit: No Status: Chronic (6) CKD (chronic kidney disease) stage 4, GFR 15-29 ml/min Current Visit: No Status: Chronic (7) Chronic respiratory failure with hypoxia Current Visit: No Status: Chronic (8) DM (diabetes mellitus) Current Visit: No Status: Chronic (9) Diabetes Current Visit: No Status: Chronic (10) HTN (hypertension) Current Visit: No Status: Chronic (11) Morbid obesity with BMI of 40.0-44.9, adult Current Visit: No Status: Chronic (12) COPD (chronic obstructive pulmonary disease) Current Visit: No Status: Chronic Assessment and Plan: plan as above. - Time Spent with Patient Total time spent is greater than 50% in coordination of care (as documented) at patient's floor/unit and/or counseling patient: Internal Medicine: Result - Labs CBC & Chem 7: 02/11/18 09:10 02/11/18 08:37 Labs: Short CBC 02/11/18 Range/Units 09:10 WBC 14.2 H D (4.3-11.1) K/mcL Hgb 8.4 L (11.5-15.4) g/dL Hct 26.2 L (35.3-44.9) % Plt Count 287 (140-400) K/mcL Neutrophils # 11.7 H (1.6-8.9) K/mcL BMP 02/11/18 08:37 Sodium 143 Potassium 4.9 Chloride 110 H Carbon Dioxide 23 BUN 79 H Creatinine 2.34 H Glucose 123 H Calcium 9.1 - ABG Interpretation ABG results: ABG ABG pH 7.43 pH Units (7.32-7.45) 02/09/18 08:59 ABG pCO2 40 mmHg (35-45) 02/09/18 08:59 ABG pO2 67 mmHg (85-104) L 02/09/18 08:59 ABG O2 Saturation 94 % (95-98) L 02/09/18 08:59 PT/INR, D-dimer PT 12.3 Seconds (9.4-12.1) H 02/09/18 09:11 D-Dimer 1968 ng/mLFEU (0-500) H 02/09/18 09:11 Consult Discharge Plan - Plan Referrals: NONE,PCP [Primary Care Provider] - (4) Anemia Qualifiers: Anemia type: unspecified type Qualified Code(s): D64.9 - Anemia, unspecified (5) CAD (coronary artery disease) Qualifiers: Coronary Disease-Associated Artery/Lesion type: [place] artery [place] vs. transplanted heart: [place] heart Associated angina: without angina Qualified Code(s): I25.10 - Atherosclerotic heart disease of [place] coronary artery without angina pectoris (8) DM (diabetes mellitus) Qualifiers: Diabetes mellitus type: type 2 Diabetes mellitus oil heaterman insulin use: with care home use Diabetes mellitus complication status: with kidney complications Diabetes mellitus complication detail: with chronic kidney disease Chronic kidney disease stage: stage 4 (severe) Qualified Code(s): E11.22 - Type 2 diabetes mellitus with diabetic chronic kidney disease; N18.4 - Chronic kidney disease, stage 4 (severe); Z79.4 - nursing home (current) use of insulin (9) Diabetes Qualifiers: Diabetes mellitus type: type 2 Diabetes mellitus oil heaterman insulin use: with care home use Diabetes mellitus complication status: with unspecified complications Qualified Code(s): E11.8 - Type 2 diabetes mellitus with unspecified complications; Z79.4 - nursing home (current) use of insulin; Z79.4 - terminal operations supervisor (current) use of insulin; Z79.4 - nursing home (current) use of insulin; Z79.4 - nursing home (current) use of insulin (10) HTN (hypertension) Qualifiers: Hypertension type: essential hypertension Qualified Code(s): I10 - Essential (primary) hypertension (12) COPD (chronic obstructive pulmonary disease) Qualifiers: COPD type: emphysema Emphysema type: other Qualified Code(s): J43.8 - Other emphysema
[2018-02-11] MEDS: Ipratropium/Albuterol Neb 3 ML IH SCH ×2 (20:53→23:54)
[2018-02-11] MEDS: amLODIPine 5 MG TABLET PO SCH (22:08)
[2018-02-12] MEDS: Ipratropium/Albuterol Neb 3 ML IH SCH ×6 (03:51→23:35)
[2018-02-12] MEDS: *HR* Heparin 5,000 UNIT/ML VIAL SQ SCH ×2 (05:52→16:54)
[2018-02-12 06:16] LABS: Basophils % 0.1 %; Eosinophils % 0.2 %; Hematocrit 25.6 % (35.3-44.9); Hemoglobin 8.2 g/dL (11.5-15.4); Immature Granulocytes % 1.2 % (0-4); Lymphocytes # 1.4 K/mcL (0.6-4.6); Mean Corpuscular Hemoglobin 27.2 pg (28.0-33.3); Mean Platelet Volume 10.2 fL (9.4-12.4); Monocytes # 0.8 K/mcL (0.0-1.3); Monocytes % 7.5 %; Neutrophils # 8.6 K/mcL (1.6-8.9); Platelet Count 276 K/mcL (140-400); Red Blood Count 3.01 M/mcL (3.82-4.97); Red Cell Distribution Width 14.7 % (11.5-14.5)
[2018-02-12 06:23] LABS: Calcium 8.9 mg/dL (8.6-10.3); Potassium 4.1 mEq/L (3.5-5.1)
[2018-02-12] MEDS: Insulin LISPRO 300 UNITS/3 ML VIAL SQ SCH ×4 (08:49→21:19)
[2018-02-12] MEDS: Fenofibrate 54 MG TABLET PO SCH (08:59)
[2018-02-12] MEDS: Isosorbide MONOnitrate (24 HR) 30 MG TAB.ER.24H PO SCH (09:00)
[2018-02-12] MEDS: Cefepime HCl 2,000 MG in Water for inj. (sterile) 20 ML 20 ML IVP SCH (09:00)
[2018-02-12] MEDS: predniSONE 20 MG TABLET PO SCH (09:00)
[2018-02-12] MEDS: Aspirin Enteric Coated 81 MG Tablet PO SCH (09:00)
[2018-02-12] MEDS: Furosemide 40 MG/4 ML VIAL IVP SCH ×2 (09:01→16:55)
[2018-02-12] MEDS: Insulin DETEMIR 100 UNIT/ML X5UNITS SQ SCH (09:02)
--- NOTE | 2018-02-12 20:42 | Internal Med Progress Note ---
Hospitalist Progress Note - Encounter Date of Encounter: 02/12/18 Time of Encounter: 11:40 - Subjective Interval History: Breathing slightly better after starting steroids and abx, continuing diuresis. Denies chest pain, n/v, diarrhea. Edema is improving. - Exam Vitals: Temp Pulse Resp BP Pulse Ox 98.2 F 67 16 137/73 96 02/12/18 18:32 02/12/18 18:32 02/12/18 19:55 02/12/18 18:32 02/12/18 19:55 Exam: Gen: NAD, aaox3. CVS: RRR Lungs; better air exchange since yesterday, rales improved, no wheezing. Abd: soft, NT, ND Ext: 2+ LE edema. - Assessment and Plan (1) Acute and chronic respiratory failure with hypercapnia Current Visit: No Status: Acute Assessment and Plan: Secondary to acute decompensated heart failure with preserved ejection fraction on last echocardiogram. On 3 L O2 at home. Patient appears fluid overloaded. Possible COPD exacerbation. CXR and CT showed opacities likely from fluid overload. She had no wheezing on exam and she denies fever/cough/sputum. Possible pneumonia though less likely. VQ scan resulted as low probability for PE Continue Lasix IV 40 mg BID - decrease to 20 mg IV today due to renal function. Monitor renal function closely strict I/Os Fluid restriction diet. S pneumonia antigen from hospitalization +, will hold off checking antigens. Prednisone Cefepime Anticipate discharge tomorrow (2) Acute on chronic diastolic heart failure Current Visit: No Status: Acute Assessment and Plan: As above. (3) Bullous pemphigoid Current Visit: No Status: Acute (4) Anemia Current Visit: No Status: Chronic Assessment and Plan: H&H 7.0. Baseline runs 7.2-8.7. She is a Cardiac patient. Suspect anemia of chronic disease. Iron studies show iron deficiency FOBT pending. Repeat H&H 7.0 today. Give 2 units PRBC today. (5) CAD (coronary artery disease) Current Visit: No Status: Chronic (6) CKD (chronic kidney disease) stage 4, GFR 15-29 ml/min Current Visit: No Status: Chronic (7) Chronic respiratory failure with hypoxia Current Visit: No Status: Chronic (8) DM (diabetes mellitus) Current Visit: No Status: Chronic (9) Diabetes Current Visit: No Status: Chronic (10) HTN (hypertension) Current Visit: No Status: Chronic (11) Morbid obesity with BMI of 40.0-44.9, adult Current Visit: No Status: Chronic (12) COPD (chronic obstructive pulmonary disease) Current Visit: No Status: Chronic Assessment and Plan: plan as above. - Time Spent with Patient Total time spent is greater than 50% in coordination of care (as documented) at patient's floor/unit and/or counseling patient: Internal Medicine: Result - Labs CBC & Chem 7: 02/12/18 04:52 02/12/18 04:52 Labs: Short CBC 02/12/18 Range/Units 04:52 WBC 11.0 (4.3-11.1) K/mcL Hgb 8.2 L (11.5-15.4) g/dL Hct 25.6 L (35.3-44.9) % Plt Count 276 (140-400) K/mcL Neutrophils # 8.6 (1.6-8.9) K/mcL BMP 02/12/18 04:52 Sodium 142 Potassium 4.1 Chloride 107 Carbon Dioxide 27 BUN 71 H Creatinine 2.43 H Glucose 84 Calcium 8.9 - ABG Interpretation ABG results: ABG ABG pH 7.43 pH Units (7.32-7.45) 02/09/18 08:59 ABG pCO2 40 mmHg (35-45) 02/09/18 08:59 ABG pO2 67 mmHg (85-104) L 02/09/18 08:59 ABG O2 Saturation 94 % (95-98) L 02/09/18 08:59 PT/INR, D-dimer PT 12.3 Seconds (9.4-12.1) H 02/09/18 09:11 D-Dimer 1968 ng/mLFEU (0-500) H 02/09/18 09:11 - Impressions Impressions Chest X-Ray 02/12/18 08:01 IMPRESSION: Interval improvement with near complete clearing of pulmonary edema. D/ / Berny Vazquez MD / Berny Vazquez MD Interpreting Provider: Berny Vazquez MD Consult Discharge Plan - Plan Referrals: NONE,PCP [Primary Care Provider] - (4) Anemia Qualifiers: Anemia type: unspecified type Qualified Code(s): D64.9 - Anemia, unspecified (5) CAD (coronary artery disease) Qualifiers: Coronary Disease-Associated Artery/Lesion type: [place] artery [place] vs. 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; N18.4 - Chronic kidney disease, stage 4 (severe); Z79.4 - [facility] (current) use of insulin (9) Diabetes Qualifiers: Diabetes mellitus type: type 2 Diabetes mellitus manager intermediate insulin use: with manager intermediate use Diabetes mellitus complication status: with unspecified complications Qualified Code(s): E11.8 - Type 2 diabetes mellitus with uns pecified complications; Z79.4 - [facility] (current) use of insulin; Z79.4 - [facility] (current) use of insulin; Z79.4 - [facility] (current) use of insulin; Z79.4 - technician terminal and repeater (current) use of insulin (10) HTN (hypertension) Qualifiers: Hypertension type: essential hypertension Qualified Code(s): I10 - Essential (primary) hypertension (12) COPD (chronic obstructive pulmonary disease) Qualifiers: COPD type: emphysema Emphysema type: other Qualified Code(s): J43.8 - Other emphysema
[2018-02-12] MEDS: Acetaminophen 325 MG TABLET PO PRN (21:18)
[2018-02-12] MEDS: amLODIPine 5 MG TABLET PO SCH (21:18)
[2018-02-13] MEDS: Ipratropium/Albuterol Neb 3 ML IH SCH ×3 (03:54→11:29)
[2018-02-13 05:30] LABS: Basophils % 0.1 %; Eosinophils % 0.3 %; Hematocrit 25.5 % (35.3-44.9); Hemoglobin 8.3 g/dL (11.5-15.4); Immature Granulocytes % 1.7 % (0-4); Lymphocytes # 1.4 K/mcL (0.6-4.6); Lymphocytes % 14.7 %; Mean Corpuscular HGB Conc 32.5 g/dL (31.6-35.5); Mean Corpuscular Hemoglobin 27.3 pg (28.0-33.3); Mean Corpuscular Volume 83.9 fL (83.0-100.0); Mean Platelet Volume 10.1 fL (9.4-12.4); Monocytes # 0.7 K/mcL (0.0-1.3); Monocytes % 7.8 %; Platelet Count 265 K/mcL (140-400); Red Blood Count 3.04 M/mcL (3.82-4.97); Red Cell Distribution Width 14.4 % (11.5-14.5); Segmented Neutrophils % 75.4 %
[2018-02-13 05:48] LABS: Calcium 8.6 mg/dL (8.6-10.3); Potassium 4.3 mEq/L (3.5-5.1)
[2018-02-13] MEDS: *HR* Heparin 5,000 UNIT/ML VIAL SQ SCH (06:35)
[2018-02-13] MEDS ORDERED: Furosemide 20 MG TABLET PO SCH (08:00)
[2018-02-13] MEDS: Aspirin Enteric Coated 81 MG Tablet PO SCH (09:01)
[2018-02-13] MEDS: Fenofibrate 54 MG TABLET PO SCH (09:01)
[2018-02-13] MEDS: Insulin DETEMIR 100 UNIT/ML X5UNITS SQ SCH (09:02)
[2018-02-13] MEDS: Isosorbide MONOnitrate (24 HR) 30 MG TAB.ER.24H PO SCH (09:02)
[2018-02-13] MEDS: predniSONE 20 MG TABLET PO SCH (09:02)
[2018-02-13] MEDS: Cefepime HCl 2,000 MG in Water for inj. (sterile) 20 ML 20 ML IVP SCH (09:03)
--- NOTE | 2018-02-13 09:10 | Discharge Summary ---
- NOTES TO OUTPATIENT PROVIDER Notes to Outpatient Provider: - Repeat BMP in 3 days. - Follow-up fluid status/dietary compliance. - Home-going situation might be poor but patient refuses PT/OT eval. Orders not resulted at time of discharge: Pending orders 02/14/18 04:00 BMP [Basic Metabolic Panel] AM 0400 Complete Blood Count [HEME] AM 0400 Date of Encounter: 02/13/18 Time of Encounter: 09:06 - Discharge Diagnosis (1) Acute and chronic respiratory failure with hypercapnia Priority: Primary Status: Acute (2) Acute on chronic diastolic heart failure Priority: Secondary Status: Acute (3) Bullous pemphigoid Priority: Secondary Status: Acute (4) Anemia Priority: Secondary Status: Chronic Qualifiers: Anemia type: unspecified type Qualified Code(s): D64.9 - Anemia, unspecified (5) CAD (coronary artery disease) Priority: Secondary Status: Chronic Qualifiers: Coronary Disease-Associated Artery/Lesion type: [place] artery [place] vs. transplanted heart: [place] heart Associated angina: without angina Qualified Code(s): I25.10 - Atherosclerotic heart disease of [place] coronary artery without angina pectoris (6) CKD (chronic kidney disease) stage 4, GFR 15-29 ml/min Priority: Secondary Status: Chronic (7) Chronic respiratory failure with hypoxia Priority: Secondary Status: Chronic (8) DM (diabetes mellitus) Priority: Secondary Status: Chronic Qualifiers: Diabetes mellitus type: type 2 Diabetes mellitus halfway insulin use: with halfway use Diabetes mellitus complication status: with kidney complications Diabetes mellitus complication detail: with chronic kidney disease Chronic kidney disease stage: stage 4 (severe) Qualified Code(s): E11.22 - Type 2 diabetes mellitus with diabetic chronic kidney disease; N18.4 - Chronic kidney disease, stage 4 (severe); Z79.4 - [facility] (current) use of insulin (9) Diabetes Priority: Secondary Status: Chronic Qualifiers: Diabetes mellitus type: type 2 Diabetes mellitus halfway insulin use: with superintendent container terminal use Diabetes mellitus complication status: with unspecified complications Qualified Code(s): E11.8 - Type 2 diabetes mellitus with unspecified complications; Z79.4 - snf (current) use of insulin; Z79.4 - snf (current) use of insulin; Z79.4 - intermediate card tender (current) use of insulin; Z79.4 - snf (current) use of insulin (10) HTN (hypertension) Priority: Secondary Status: Chronic Qualifiers: Hypertension type: essential hypertension Qualified Code(s): I10 - Essential (primary) hypertension (11) Morbid obesity with BMI of 40.0-44.9, adult Priority: Secondary Status: Chronic (12) COPD (chronic obstructive pulmonary disease) Priority: Secondary Status: Chronic Qualifiers: COPD type: emphysema Emphysema type: other Qualified Code(s): J43.8 - Other emphysema Hospital course: 73-year-old female with history of HFpEF, CAD, DM, MT, CKD, chronic resp failure on 3L O2 at home, was brought to the emergency department by EMS for evaluation of difficulty in breathing. Patient had suddenly awaken with dyspnea after laying flat. She has had prior hospitalizations for resp failure mostly for COPD and heart failure, and patient does feel as if she is fluid overloaded. She denies chest pain, she denies fevers, cough, or any sputum production. She denies wheezing, no sick contacts. She denies changes in diet. En route to ED she received Decadron, breathing treatments and CPAP. She improved on arrival. She did continue to require BIPAP in ED, a chest x-ray showed bilateral airspace opacities. BNP elevated at 1500s, Creatinine baseline of 2.2. She was admitted for acute respiratory failure from acute decompensated heart failure, COPD exacerbation, and pneumonia. She was diuresed with IV Lasix, fluid restriction, started on emperic antibiotic therpy, steroids. Patient had adequate diuresis. She was transitioned to oral medications and weaned back to home O2. Patient home situation is poor and CM came to assess situation but patient declined PT/OT and preferred to go back home. She was discharged to complete renally dosed Omnicef, could not take Levaquin due to renal function. She was restarted on home Lasix with repeat BMP in 3 days. - Time Spent with Patient Total time spent providing and/or coordinating discharge services: - Discharge Medications Prescriptions: Cefdinir [Omnicef] 300 mg PO DAILY #4 capsule predniSONE [PredniSONE] 40 mg PO DAILY #2 tablet Home Medications: Aspirin Enteric Coated [Aspirin EC] 81 mg PO DAILY 06/16/16 [History] Insulin LISPRO [HumaLOG] 25 units SQ TIDWM 08/11/16 [History] Atorvastatin [Lipitor] 40 mg PO HS #30 tablet 10/11/16 [Rx] Citalopram Hydrobromide [Citalopram HBr] 40 mg PO DAILY #30 tablet 10/11/16 [Rx] Isosorbide MONOnitrate (24 HR) [Imdur] 30 mg PO DAILY #30 tab.er.24h 10/11/16 [Rx] Lisinopril [Zestril] 5 mg PO DAILY #30 tablet 10/11/16 [Rx] amLODIPine [Norvasc] 10 mg PO HS #30 tablet 10/11/16 [Rx] Bisacodyl [Dulcolax] 10 mg RC DAILY PRN 04/24/17 [History] Ipratropium/Albuterol Neb [Duoneb] 3 ml IH Q4H PRN 04/24/17 [History] [place]-3/Dha/Epa/Fish Oil [Fish Oil 1,000 mg Softgel] 1,000 mg PO DAILY 04/24/17 [History] Oxygen 3 - 4 l NS DAILY 04/24/17 [History] Omeprazole [PriLOSEC] 20 mg PO DAILY 07/21/17 [History] Glucagon,Human Recombinant [Glucagon Emergency Kit] 1 mg IJ ONCE PRN 08/06/17 [History] Fenofibrate Nanocrystallized [Triglide] 160 mg PO DAILY 09/12/17 [History] Ferrous Sulfate [Iron] 325 mg PO DAILY 09/12/17 [History] Potassium Chloride 10 meq PO BIDWM 30 Days #60 tab.er.prt 12/21/17 [Rx] Carvedilol [Coreg] 6.25 mg PO BID 02/09/18 [History] Furosemide [Lasix] 40 mg PO BID 02/09/18 [History] Insulin Glargine [Lantus] 45 unit SQ HS 02/09/18 [History] Cefdinir [Omnicef] 300 mg PO DAILY #4 capsule 02/13/18 [Rx] predniSONE [PredniSONE] 40 mg PO DAILY #2 tablet 02/13/18 [Rx] Allergies/Adverse Reactions: Allergy/AdvReac Type Severity Reaction Status Date / Time No Known Allergies Allergy Verified 11/04/17 18:22 Date of admission: 02/09/18 14:54 Primary care physician: PCP NONE Consults: 02/10/18 08:43 Consult to Nurse Navigator [CONS] Routine Comment: CHF Discharging clinician: Carolyn Whitaker - Constitutional Vitals: Temp Pulse Resp BP Pulse Ox 98.0 F 74 18 159/77 99 02/13/18 06:35 02/13/18 06:35 02/13/18 07:19 02/13/18 06:35 02/13/18 07:19 General appearance: Present: A&O X 3, no acute distress Exam: Gen: NAD, aaox3. CVS: RRR Lungs; better air exchange since yesterday, rales improved, no wheezing. Abd: soft, NT, ND Ext: 2+ LE edema. - Patient Status Disposition: Home, Self-Care Condition: Fair Functional capacity at discharge: independent ambulation Overall status at discharge: patient is back to baseline - Ambulatory Orders Ambulatory Orders: Basic Metabolic Panel [CHEM] Time Frame: 3 Days, Facility: [facility], Location: Lab - Discharge Instructions Follow Up With: NONE,PCP [Primary Care Provider] - - Diet and Activity Activity: increase activity as tolerated Diet: advance to your usual diet, diabetic diet, low fat, low cholesterol, low salt diet
[2018-02-13] MEDS: Insulin LISPRO 300 UNITS/3 ML VIAL SQ SCH ×2 (09:18→12:28)
[2018-02-13 11:22] VITALS: BP 150/70
== END 2018-02-13 13:42 | disposition home or self-care (01) | DRG 291 ==
LOC: EMEROOARM 08:43 → 3BNU 14:54 → SUATTDRO 14:54 → 3BNU 16:03
PROVIDERS: ADMIT Student in an Organized Health Care Education/Training Program; ATTEND Student in an Organized Health Care Education/Training Program